=== PATIENT | female | born 1945 | race Caucasian/White ===

== ENCOUNTER 2017-04-14 16:10 | Inpatient (IN) | payer MEDICARE ==
[2017-04-14] MEDS ORDERED: Nitroglycerin 0.4 MG TAB (25 Tab Bottle) ONE (17:26)
[2017-04-14] MEDS ORDERED: Acetaminophen 500 MG TAB ONE (17:32)
[2017-04-14 18:31] LABS: Bilirubin Negative (Negative); Blood, Urine Negative (Negative); Clarity CLEAR (Clear); Glucose, Urine (Dipstick) Negative (Negative); Leukocyte Negative (Negative); Nitrite Negative (Negative); Protein, Urine (Dipstick) 100 mg/dL (Neg-Trace); Specific Gravity, Urine 1.013 (1.002-1.036); Urobilinogen 0.2 mg/dL (0.2-1.0); pH, Urine 5.5 (5.0-9.0)
--- NOTE | 2017-04-14 18:35 | RAD ---
TWO VIEWS CHEST: 04/14/17 PROVIDED CLINICAL HISTORY: Dyspnea. FINDINGS: The cardiac silhouette appears enlarged. There is prominence of the pulmonary vasculature and pulmona ry interstitium. Atherosclerosis involves the aortic arch. No focal consolidation, pleural fluid or p neumothorax apparent. Degenerative changes are seen involving the thoracic spine. IMPRESSION: Cardiomegaly and findings suggesting congestive failure. POS: H
[2017-04-14 18:38] LABS: Bacteria/HPF None Seen HPF (None Seen); Hyaline Casts/LPF 0-3 HYALINE CAST LPF (0-3 Hyaline); RBC/HPF 0-3 HPF (0-3); Squamous Epithelial None Seen HPF (0-3); WBC/HPF None Seen HPF (0-3)
[2017-04-14] MEDS ORDERED: Albuterol Sulfate 2.5 mg/3 ml Neb ONE ×2 (18:39→22:07)
[2017-04-14 18:57] LABS: Hemoglobin 7.8 g/dL (12.0-16.0); Mean Corpuscular HGB CONC 31.9 g/dL (32.0-36.0); Mean Corpuscular Hemoglobin 20.9 pg (27.0-31.0); Mean Corpuscular Volume 65.6 fl (81.0-99.0); Mean Platelet Volume 6.4 fL (7.4-10.4); Platelet Count 256 thou/uL (130-400); RBC Distribution Width 18.9 % (11.5-14.5); Red Blood Cell (RBC) Count 3.73 mill/uL (4.20-5.40)
[2017-04-14 19:27] LABS: #Lymphocytes 0.7 thou/uL (1.20-3.40); #Monocytes 0.1 thou/uL (0.11-0.59); #Neutrophils 4.1 thou/uL (1.40-6.50); %Basophils 0.3 % (0.0-1.0); %Eosinophils 0.6 % (0.0-10.0); %Monocytes 2.2 % (0.0-10.0); %Neutrophils 82.9 % (42.0-75.0); Anisocytosis SLIGHT = 6-15 cells (100X) (0-5/hpf); Basophilic Stippling SLIGHT = 1-2 cells (100X) (None Seen); Hypochromia MODERATE=16-30 cells (100X) (0-5/hpf); MDiff Complete? YES; Microcytosis SLIGHT = 6-15 cells (100X) (0-5/hpf); Ovalocytes SLIGHT = 2-5 cells (100X) (0-1/hpf); PLT Morphology Comment Appears Adequate; Polychromasia SLIGHT = 2-3 cells (100X) (0-2/hpf); Target Cells SLIGHT = 2-5 cells (100X) (0-1/hpf); Tear Drops SLIGHT = 2-5 cells (100X) (0-1/hpf)
[2017-04-14 20:42] LABS: CKMB 1.4 ng/mL (0-6.6); Troponin I 0.011 ng/mL (< 0.028)
[2017-04-14] MEDS ORDERED: Ondansetron HCl/PF 4 MG/2 ML Vial ONE (20:53)
[2017-04-14] MEDS ORDERED: Morphine 4 MG/ML VIAL ONE ×2 (20:53→21:45)
[2017-04-14 22:05] LABS: CKMB 1.2 ng/mL (0-6.6); Troponin I 0.015 ng/mL (< 0.028)
[2017-04-14] MEDS ORDERED: Ondansetron ODT 4 MG TAB SL PRN (23:39)
[2017-04-14] MEDS ORDERED: Ondansetron HCl/PF 4 MG/2 ML Vial IVP PRN (23:39)
[2017-04-14] MEDS ORDERED: Acetaminophen 325 MG TAB PO PRN (23:39)
[2017-04-15] MEDS ORDERED: Morphine 4 MG/ML VIAL SLOW IVP SCH ×2 (01:00→16:30)
[2017-04-15] MEDS ORDERED: traZODone HCl 50 MG TAB PO SCH ×2 (01:15→21:00)
[2017-04-15] MEDS: ALPRAZolam 1 MG TAB PO PRN ×2 (02:20→16:44)
[2017-04-15] MEDS ORDERED: Acetaminophen 325 MG TAB PO PRN (10:21)
[2017-04-15 11:31] LABS: Iron 73 ug/dL (50-170); Iron Binding Capacity, Total 265 mcg/dL (265-497)
[2017-04-15] MEDS ORDERED: Sterile Water 10 ML ONE ×2 (12:23→15:21)
[2017-04-15] MEDS: hydrALAZINE 25 MG TAB PO SCH ×2 (13:57→20:55)
[2017-04-15] MEDS ORDERED: Furosemide 20 MG/2 ML VIAL SLOW IVP SCH (14:00)
--- NOTE | 2017-04-15 14:21 | HP ---
REASON FOR ADMISSION: Acute COPD exacerbation, mild CHF exacerbation, symptomatic anemia. HISTORY OF PRESENT ILLNESS: The patient gives history of having wheezing with shortness of breath from the last 2 days. This has been progressively getting worse. She went to [facility] as she was not getting better at home. In [facility], she was also found to have had a hemoglobin of 7. 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 She had a hemoglobin of 3 grams 2-1/2 years ago and was given massive transfusion either in [place] or [facility]. The patient also complains of left-sided chest pain with pain radiating to left upper extremity, this started yesterday. The pain was off and on lasting for few minutes in fact less than 1-2 minutes. The patient has been a smoker all for more than 20-30 years and says she smokes 3-4 cigarettes a day. She has cough with expectoration of white phlegm. No fever as such. The patient does not take flu shots on a regular basis. PAST MEDICAL AND SURGICAL HISTORY: History of coronary artery disease with stent placed in January of this year by Dr. Orellana at [facility]. Post-stent, the patient was in [place] rehab for nearly 22 days. 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 CURRENT MEDICATIONS: Takes losartan 50 mg twice daily, metoprolol 25 mg twice daily, omeprazole 20 mg daily, simvastatin 40 mg daily, hydralazine 100 mg 3 times daily, alprazolam 1 mg twice daily, amlodipine 10 mg daily, aspirin 81 mg daily, Plavix 75 mg daily, Ultram p.r.n. for pain, and trazodone 50 mg p.o. at bedtime. ALLERGIES: Allergic to LISINOPRIL. PERSONAL HISTORY: Smokes 3-4 cigarettes a day and has been doing so for the last 20-30 years. Does not abuse alcohol or drugs. The patient lives in [facility]. FAMILY HISTORY: Mother of old age at the age of 83 years. Father of [place] at the age of 64 years. CODE STATUS: DNR. Power of vamp cut out worker is her son, Tera. REVIEW OF SYSTEMS: The following complete review of systems was negative, unless otherwise mentioned in the HPI or below: Constitutional: Weight loss or gain, ability to conduct usual activities. Skin: Rash, itching. Eyes: Double vision, pain. ENT/Mouth: Nose bleeding, neck stiffness, pain, tenderness. Cardiovascular: Palpitations, dyspnea on exertion, orthopnea. Respiratory: Shortness of breath, wheezing, cough, hemoptysis, fever or night sweats. Gastrointestinal: Poor appetite, abdominal pain, heartburn, nausea, vomiting, constipation, or diarrhea. Genitourinary: Urgency, frequency, dysuria, nocturia. Musculoskeletal: Pain, swelling. Neurologic/Psychiatric: Anxiety, depression. Allergy/Immunologic: Skin rash, bleeding tendency. PHYSICAL EXAMINATION: GENERAL: Patient is a 71-year-old female, who is currently in mild shortness of breath, otherwise no chest pain. VITAL SIGNS: Blood pressure on arrival was 206/89, currently around 152/66. Pulse 86 per minute, respiratory rate 24 per minute on arrival, temperature 98.5 degrees Fahrenheit, and saturating 100% on 2 liters nasal cannula. NECK: Supple, no elevated JVD. HEENT: Eyes: Extraocular muscles intact. Pupils reacting to light. Oral cavity mucous membranes are moist. No exudates or congestion. CARDIOVASCULAR: S1 and S2 heard. Regular rhythm. RESPIRATORY: Air entry 1+ bilateral. Scattered wheezes plus bilateral basal rales plus. ABDOMEN: Soft, bowel sounds heard. No tenderness, rigidity, or guarding. EXTREMITIES: No peripheral edema or calf tenderness. VASCULAR SYSTEM: Peripheral pulses 1+ bilateral. No ischemic ulcerations or gangrene. CENTRAL NERVOUS SYSTEM: No gross focal deficits seen. Patient is alert, awake , oriented x3. PSYCHIATRIC: The patient's mood is euthymic. No hallucinations or delusions. LABORATORY DATA AND X-RAY FINDINGS: White count 5, H&H 7.8 and 24, platelet count 256, MCV is 65 with 82% neutrophils, troponin x2 is negative. CK-MB 1.4. Stool occult blood negative. Chest x-ray shows cardiomegaly with findings suggestive of CHF. BUN 21, creatinine 1.52. Serum bicarbonate 20. BNP is 637. CLINICAL IMPRESSION AND PLAN: The patient will be admitted to telemetry for acute on chronic obstructive pulmonary disease exacerbation, acute congestive heart failure exacerbation, symptomatic anemia. The patient has received 1 unit of packed cells for her hemoglobin of around 7 grams. She has known history of thalassemia minor. The patient does not follow with outpatient Hematology/Oncology. She has had a prior episode of her hemoglobin being 3 grams 2-1/2 years ago and was transfused massively at [facility] or [place], which she does not recollect. She has also had a stent placed in January of this year and patient says since then she has been going downhill. We will obtain an echo with 2D Doppler. She will be on Solu-Medrol 40 mg IV q.6 hourly along with DuoNebs, Lasix 20 mg q.12 hourly. We will continue her aspirin, Plavix, small dose of Coreg, Norvasc, and Cozaar as before. She will be closely monitored on telemetry. RONI
[2017-04-15] MEDS ORDERED: Nitroglycerin 0.4 MG TAB (25 Tab Bottle) ONE (15:09)
[2017-04-15] MEDS ORDERED: Nitroglycerin 50 MG/250 ML BOT 250 ML IVPB SCH (15:30)
[2017-04-15] MEDS ORDERED: Nitroglycerin 2% Ointment 1 INCH/1 GM Packet TOP SCH (15:30)
[2017-04-15] MEDS ORDERED: Furosemide 40 MG/4 ML VIAL ONE (16:19)
[2017-04-15] MEDS ORDERED: Clopidogrel Bisulfate 75 MG TAB PO SCH (16:45)
[2017-04-15] MEDS: Clopidogrel Bisulfate 75 MG TAB PO SCH (17:01)
[2017-04-15] MEDS ORDERED: niCARdipine HCl 25 MG in Sodium Chloride 0.9% 250 ML 240 ML IVPB SCH (17:15)
[2017-04-15 17:45] LABS: Mean Corpuscular HGB CONC 32.6 g/dL (32.0-36.0); Mean Corpuscular Hemoglobin 22.6 pg (27.0-31.0); Mean Corpuscular Volume 69.1 fl (81.0-99.0); Mean Platelet Volume 6.3 fL (7.4-10.4); Platelet Count 232 thou/uL (130-400); RBC Distribution Width 20.5 % (11.5-14.5); Red Blood Cell (RBC) Count 3.55 mill/uL (4.20-5.40); White Blood Cell (WBC) Count 7.8 thou/uL (4.8-10.8)
[2017-04-15 17:59] LABS: #Lymphocytes 0.8 thou/uL (1.20-3.40); #Monocytes 0.1 thou/uL (0.11-0.59); #Neutrophils 6.8 thou/uL (1.40-6.50); %Basophils 0.1 % (0.0-1.0); %Eosinophils 0.2 % (0.0-10.0); %Lymphocytes 10.6 % (21.0-51.0); %Monocytes 1.3 % (0.0-10.0); %Neutrophils 87.8 % (42.0-75.0); Hypochromia SLIGHT = 6-15 cells (100X) (0-5/hpf); MDiff Complete? YES; Ovalocytes SLIGHT = 2-5 cells (100X) (0-1/hpf); PLT Morphology Comment Appears Adequate; Tear Drops SLIGHT = 2-5 cells (100X) (0-1/hpf)
--- NOTE | 2017-04-15 18:00 | CON ---
DATE OF CONSULTATION: 04/15/2017 HISTORY OF PRESENT ILLNESS: The patient is an unfortunate 71-year-old woman with a history of severe COPD and coronary artery disease, who presents with severe dyspnea and with chest discomfort. The patient has a long history of COPD. She also has a history of thalassemia. The patient recently underwent PTCA and stent placement at [facility]. The patient has a long history of tobacco abuse and COPD. The patient presented with marked increased dyspnea. The patient today suddenly developed acute onset of severe dyspnea and chest discomfort. PAST MEDICAL HISTORY: 1. Coronary artery disease. 2. Hypertension. 3. Dyslipidemia. PAST SURGICAL HISTORY: MEDICATIONS: See nursing list. ALLERGIES: LISINOPRIL. SOCIAL HISTORY: The patient continues to smoke. FAMILY HISTORY: Strong family history of heart disease. PHYSICAL EXAMINATION: GENERAL: This is a very ill-appearing woman with a blood pressure 226/120, heart rate was 120 and regular. NECK: Full. LUNGS: Diffuse wheezes throughout both lung nascimento and coarse rhonchi. HEART: Regular rate and rhythm, normal S1, S2, distant heart sounds. ABDOMEN: Distended. EXTREMITIES Showed trace edema. LABORATORY DATA: White blood cell count was 5.0, hemoglobin 7.8, hematocrit 24.5, and her platelets were 256. Sodium was 144, potassium 4.0, chloride 109, bicarbonate 20, BUN 21, creatinine 1.52. Troponin 0.011. BNP 637. Her EKG revealed normal sinus rhythm with no acute ST-T wave changes. IMPRESSION: 1. Hypertensive crisis. 2. Angina. 3. History of percutaneous transluminal coronary angioplasty and stent placement. 4. Severe chronic obstructive pulmonary disease exacerbation. 5. Dyslipidemia. 6. Tobacco abuse. 7. Thalassemia. This patient presents with acute respiratory distress and severe respiratory distress. The patient is being treated with nebulizers. The patient has received nitroglycerin. The patient will be transferred to the ICU. She will be placed on IV nitroglycerin. Pulmonary consultation will be obtained. An echocardiogram will also be obtained. We will follow this patient with you through her hospitalization. RONI
[2017-04-15 18:10] LABS: ALT (SGPT) 17 U/L (8-55); AST (SGOT) 22 U/L (5-34); Albumin 4.4 g/dL (3.4-4.8); Alkaline Phosphatase 111 U/L (40-150); Anion Gap 18 mmol/L (10-20); BUN (Urea Nitrogen) 33 mg/dL (9.8-20.1); Bilirubin, Total 0.3 mg/dL (0.2-1.2); Calc. Creatinine Clearance 37 mL/min (70-130); Calcium 10.4 mg/dL (7.8-10.44); Carbon Dioxide 22 mmol/L (23-31); Chloride 105 mmol/L (98-107); Estimated GFR-MDRD 32; Globulin 2.7 g/dL (2.4-3.5); Glucose 188 mg/dL (83-110); Potassium 3.9 mmol/L (3.5-5.1); Protein, Total 7.1 g/dL (6.0-8.3); Sodium 141 mmol/L (136-145)
[2017-04-15] MEDS: Morphine 2 MG/ML SYRINGE SLOW IVP PRN (18:55)
[2017-04-15] MEDS ORDERED: Furosemide 100 MG/10 ML VIAL SLOW IVP SCH (20:18)
[2017-04-15] MEDS: traZODone HCl 50 MG TAB PO SCH (20:53)
[2017-04-15] MEDS: Ferrous Sulfate 325 MG TAB PO SCH (20:54)
[2017-04-15] MEDS: Amoxicillin/Potassium Clav 875 MG TAB PO SCH (20:54)
[2017-04-15] MEDS: Magnesium Oxide 400 MG TAB PO SCH (20:55)
[2017-04-15] MEDS: Famotidine 20 MG TAB PO SCH (20:55)
[2017-04-15] MEDS: Amlodipine 10 MG TAB PO SCH (20:55)
[2017-04-15] MEDS: Simvastatin 40 MG TAB PO SCH (20:55)
[2017-04-15] MEDS ORDERED: Carvedilol 3.125 MG TAB PO SCH (21:00)
--- NOTE | 2017-04-16 01:35 | CON ---
DATE OF CONSULTATION: 04/15/2017 Ms. Barron is a 71-year-old female. This is a Critical Care consultation. The note encompasses 40 mi nutes of critical care time with multiple visits during her arrival in the ICU a few minutes ago. Anderson is a 71-year-old female. She presented with shortness of breath for 2 days. She was sent over from [place], admitted to the observation unit and then today transferred over to the critical care unit. I was consulted for wheezing. She is a smoker, but never has been told she had asthma or obstructive lung disease. She has never been in the hospital for obstructive lung disease. She has been in the hospital in January of this year with coronary artery disease and myocardial infa rction requiring stenting. Apparently this is done in [place]. She has a history of, 1. Hypertension. 2. History of lipid disorder. 3. History of thalassemia. She is a smoker, but only smokes 3-4 cigarettes a day. She is not a drinker. She does not use drugs . She reports an JORGE inhibitor intolerance. MEDICATIONS: She is on losartan, metoprolol, omeprazole, simvastatin, hydralazine, Xanax, amlodipine , aspirin, Plavix, Ultram, trazodone p.r.n. FAMILY HISTORY: Positive for vascular disease in her father in his 60s. Mother at 83. REVIEW OF SYSTEMS: She reports simply shortness of breath. She denies purulent sputum. She denies fever or hemoptysis. She reports some vague chest discomfort with shortness of breath. She was hypertensive and tachycardic with diastolics over 100 when she arrived in the ICU. She was started on nitroglycerin drip. Cardene drip was added to that. She has been given Lasix. She is in sinus rhythm when she arrived. Several EKGs were done that confirmed that. PHYSICAL EXAMINATION: VITAL SIGNS: Respiratory rate was initially in the 30s, it has come down to the teens now. Oximetry is 97%, now on 5 liter cannula. HEENT: Pupils are equal. Sclerae is anicteric. NECK: Supple. She has no lymphadenopathy. LUNGS: Remarkable for crackles bilaterally and diffuse wheezes. HEART: Regular rhythm. ABDOMEN: Soft and nontender. EXTREMITIES: Without clubbing, cyanosis, or edema. LABORATORY DATA: White count 7.8, hemoglobin 8.0, platelets 232. Sodium 141, potassium 3.9, chlorid e 105, bicarbonate 22, BUN 33, creatinine 1.59, glucose 188. Urinalysis is unremarkable. Chest radi ograph shows pulmonary edema. IMPRESSION: 1. Cardiac asthma be unlikely that this is chronic obstructive pulmonary disease and congestive hear t failure. It is much more likely this is all cardiac asthma and control of her blood pressure and d iuresis. We will probably lead to improvement. I just reevaluated her and there has been a dramatic improvement in her clinical condition compared to a couple of hours ago. I will give her more Lasix . She will continue on her Cardene and her nitroglycerin. 2. Anemia of unclear etiology. She clearly has thalassemia leading to decreased mean corpuscular vo lume, but anemia is also out of proportion and we should see for this. There is a history she provid es of having requiring transfusions for hemoglobin as low as 3 in the past. 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 I will be happy to follow along with the other physicians caring for her.
[2017-04-16 04:36] VITALS: BMI 26.4
[2017-04-16] MEDS: Furosemide 40 MG/4 ML VIAL SLOW IVP SCH ×2 (05:32→14:11)
[2017-04-16 06:00] LABS: Anion Gap 16 mmol/L (10-20); BUN (Urea Nitrogen) 39 mg/dL (9.8-20.1); Calc. Creatinine Clearance 35 mL/min (70-130); Calcium 9.5 mg/dL (7.8-10.44); Carbon Dioxide 22 mmol/L (23-31); Chloride 104 mmol/L (98-107); Estimated GFR-MDRD 29; Glucose 161 mg/dL (83-110); Potassium 4.5 mmol/L (3.5-5.1); Sodium 137 mmol/L (136-145)
[2017-04-16 06:15] LABS: Hemoglobin 7.4 g/dL (12.0-16.0); Mean Corpuscular HGB CONC 32.2 g/dL (32.0-36.0); Mean Corpuscular Hemoglobin 22.4 pg (27.0-31.0); Mean Corpuscular Volume 69.4 fl (81.0-99.0); Mean Platelet Volume 11.6 fL (7.4-10.4); Platelet Count 214 thou/uL (130-400); RBC Distribution Width 20.6 % (11.5-14.5); Red Blood Cell (RBC) Count 3.32 mill/uL (4.20-5.40); White Blood Cell (WBC) Count 6.7 thou/uL (4.8-10.8)
[2017-04-16 07:46] LABS: #Lymphocytes 0.7 thou/uL (1.20-3.40); #Monocytes 0.1 thou/uL (0.11-0.59); #Neutrophils 5.8 thou/uL (1.40-6.50); %Eosinophils 0.6 % (0.0-10.0); %Monocytes 1.8 % (0.0-10.0); %Neutrophils 87.6 % (42.0-75.0); Anisocytosis SLIGHT = 6-15 cells (100X) (0-5/hpf); MDiff Complete? YES; Microcytosis SLIGHT = 6-15 cells (100X) (0-5/hpf); Schistocytes SLIGHT = 2-5 cells (100X) (0-1/hpf); Target Cells SLIGHT = 2-5 cells (100X) (0-1/hpf); Tear Drops SLIGHT = 2-5 cells (100X) (0-1/hpf)
[2017-04-16] MEDS: Amoxicillin/Potassium Clav 875 MG TAB PO SCH ×2 (08:59→20:30)
[2017-04-16] MEDS: Losartan 25 MG TAB PO SCH ×2 (08:59→20:31)
[2017-04-16] MEDS ORDERED: Enoxaparin Sodium 40 MG/0.4 ML SYRINGE SC SCH (09:00)
[2017-04-16] MEDS: Fish Oil 1,000 MG CAP PO SCH (09:00)
[2017-04-16] MEDS: hydrALAZINE 25 MG TAB PO SCH ×3 (09:00→20:30)
[2017-04-16] MEDS: Clopidogrel Bisulfate 75 MG TAB PO SCH (09:01)
[2017-04-16] MEDS: Ferrous Sulfate 325 MG TAB PO SCH ×2 (09:01→20:30)
[2017-04-16] MEDS: Magnesium Oxide 400 MG TAB PO SCH ×2 (09:01→20:33)
[2017-04-16] MEDS: Famotidine 20 MG TAB PO SCH ×2 (09:01→20:30)
--- NOTE | 2017-04-16 11:16 | RAD ---
AP VIEW CHEST: Date: 04/16/17 HISTORY: Congestive heart failure. FINDINGS: Comparison made to previous exam from 04/14/17. AP view of chest demonstrates cardiomegaly. Ectasia of the aorta is seen. Mild dextroscoliosis seen. The lungs are well aerated. No evidence of active intrathoracic disease is seen. No evidence of effus ions, pneumonia, or pneumothorax seen. IMPRESSION: Cardiomegaly, unchanged since the previous exam from 2 days earlier. No other significant interval ch mt is noted. POS: ZULEYMA
[2017-04-16] MEDS ORDERED: Metoprolol Tartrate 5 MG/5 ML VIAL ONE (12:06)
[2017-04-16] MEDS: Morphine 2 MG/ML SYRINGE SLOW IVP PRN (12:14)
[2017-04-16] MEDS ORDERED: ALPRAZolam 0.25 MG TAB PO SCH (13:00)
--- NOTE | 2017-04-16 13:28 | PDOC.PN ---
- Subjective Encounter Start Date: 04/16/17 Encounter Start Time: 11:00 Subjective: awake, breathing better - Objective MAR Reviewed: Yes Vital Signs & Weight: Vital Signs (12 hours) Temp Pulse Resp BP Pulse Ox 04/16/17 13:05 90 19 94 L 04/16/17 09:00 102 H 128/57 L 04/16/17 07:47 102 H 19 92 L 04/16/17 04:00 98.2 F 99 Weight Weight 163 lb 12.855 oz Most Recent Monitor Data Heart Rate from ECG 88 NIBP 142/59 NIBP BP-Mean 84 Respiration from ECG 15 SpO2 99 I&O: 04/15/17 04/16/17 04/17/17 06:59 06:59 06:59 Intake Total 1080.5 Output Total 1080 Balance 0.5 Result Diagrams: 04/16/17 04:05 04/16/17 04:05 Phys Exam - Physical Examination HEENT: PERRLA, moist MMs Neck: no JVD, supple Respiratory: no wheezing, no rales rhonchi++ Cardiovascular: RRR, no significant murmur Gastrointestinal: soft, non-tender, positive bowel sounds Musculoskeletal: no edema, pulses present Neurological: non-focal, moves all 4 limbs Psychiatric: A&O x 3 Dx/Plan (1) Acute respiratory failure with hypoxia Code(s): J96.01 - ACUTE RESPIRATORY FAILURE WITH HYPOXIA Status: Acute (2) CHF exacerbation Code(s): I50.9 - HEART FAILURE, UNSPECIFIED Status: Acute Qualifiers: Congestive heart failure type: diastolic Qualified Code(s): I50.33 - Acute on chronic diastolic (congestive) heart failure (3) COPD exacerbation Code(s): J44.1 - CHRONIC OBSTRUCTIVE PULMONARY DISEASE W (ACUTE) EXACERBATION Status: Acute (4) CAD (coronary artery disease) Code(s): I25.10 - ATHSCL HEART DISEASE OF [place] CORONARY ARTERY W/O ANG PCTRS Status: Chronic Qualifiers: Coronary Disease-Associated Artery/Lesion type: [place] artery [place] vs. transplanted heart: [place] heart Associated angina: without angina Qualified Code(s): I25.10 - Atherosclerotic heart disease of [place] coronary artery without angina pectoris (5) Anemia Code(s): D64.9 - ANEMIA, UNSPECIFIED Status: Acute (6) Thalassemia minor Code(s): D56.3 - THALASSEMIA MINOR Status: Chronic - Plan gentle diuresis, htn stable this am -: steroids, nebs, empiric augmentin -: oob to chair and mobilize in room -: is on nasal canula -: echo results pending * . Review of Systems - Medications/Allergies Allergies/Adverse Reactions: Allergies Allergy/AdvReac Type Severity Reaction Status Date / Time lisinopril Allergy Verified 04/14/17 23:25 Medications: Current Medications Acetaminophen (Tylenol) 650 mg PO Q4H PRN PRN Reason: Headache/Fever or Pain Last Admin: 04/15/17 20:54 Dose: 650 mg Albuterol/Ipratropium (Duoneb) 3 ml NEB [id number] [facility] Last Admin: 04/16/17 13:05 Dose: 3 ml Alprazolam (Xanax) 1 mg PO Q12H PRN PRN Reason: Anxiety Last Admin: 04/15/17 16:44 Dose: 1 mg Alprazolam (Xanax) 0.25 mg PO BID [facility] Alprazolam (Xanax) 0.25 mg PO NOW [facility] Stop: 04/16/17 14:30 Amlodipine Besylate (Norvasc) 10 mg PO HS [facility] Last Admin: 04/15/17 20:55 Dose: 10 mg Amoxicillin/Clavulanate Potassium (Augmentin) 875 mg PO BID [facility] Last Admin: 04/16/17 08:59 Dose: 875 mg Aspirin (Aspirin Chewable) 81 mg PO DAILY [facility] Last Admin: 04/16/17 09:01 Dose: 81 mg Clopidogrel Bisulfate (Plavix) 75 mg PO DAILY [facility] Last Admin: 04/16/17 09:01 Dose: 75 mg Enoxaparin Sodium (Lovenox) 40 mg SC 0900 [facility] Last Admin: 04/16/17 09:02 Dose: 40 mg Famotidine (Pepcid) 20 mg PO BID [facility] Last Admin: 04/16/17 09:01 Dose: 20 mg Ferrous Sulfate (Feosol) 325 mg PO BID [facility] Last Admin: 04/16/17 09:01 Dose: 325 mg Fish Oil (Fish Oil) 1,000 mg PO DAILY [facility] Last Admin: 04/16/17 09:00 Dose: 1,000 mg Furosemide (Lasix) 40 mg SLOW IVP 0600,1400 [facility] Last Admin: 04/16/17 05:32 Dose: 40 mg Hydralazine HCl (Apresoline) 100 mg PO TID [facility] Last Admin: 04/16/17 09:00 Dose: 100 mg Nitroglycerin/Dextrose (Nitroglycerin 50 Mg/250 Ml Bot) 250 mls @ 0 mls/hr IVPB INF [facility]; Titrate PRN Reason: Protocol Last Admin: 04/15/17 16:24 Dose: 250 mls Nicardipine HCl 25 mg/ Sodium (Chloride) 250 mls @ 0 mls/hr IVPB INF [facility]; Titrate PRN Reason: Protocol Last Admin: 04/15/17 18:06 Dose: 250 mls Losartan Potassium (Cozaar) 50 mg PO BID [facility] Last Admin: 04/16/17 08:59 Dose: 50 mg Magnesium Oxide (Magnesium Oxide) 400 mg PO BID [facility] Last Admin: 04/16/17 09:01 Dose: 400 mg Methylprednisolone Sodium Succinate (Solu-Medrol) 40 mg IVP Q6HR [facility] Last Admin: 04/16/17 11:49 Dose: 40 mg Metoprolol Succinate (Toprol Xl) 25 mg PO BID [facility] Metoprolol Succinate (Toprol Xl) 25 mg PO NOW [facility] Stop: 04/16/17 14:15 Last Admin: 04/16/17 12:35 Dose: 25 mg Morphine Sulfate (Morphine) 2 mg SLOW IVP Q2H PRN PRN Reason: Pain Last Admin: 04/16/17 12:14 Dose: 2 mg Simvastatin (Zocor) 40 mg PO HS [facility] Last Admin: 04/15/17 20:55 Dose: 40 mg Trazodone HCl (Desyrel) 50 mg PO HS [facility] Last Admin: 04/15/17 20:53 Dose: 50 mg
[2017-04-16] MEDS: Amlodipine 10 MG TAB PO SCH (20:30)
[2017-04-16] MEDS: ALPRAZolam 0.25 MG TAB PO SCH (20:30)
[2017-04-16] MEDS: traZODone HCl 50 MG TAB PO SCH (20:32)
[2017-04-16] MEDS: Simvastatin 40 MG TAB PO SCH (20:32)
--- NOTE | 2017-04-16 21:56 | PRG ---
DATE OF SERVICE: 04/16/2017 SUBJECTIVE: Ms. Barron did well. She says she feels 100% better than yesterday. OBJECTIVE: VITAL SIGNS: Blood pressure 158/71, heart rate is 91, respiratory rate is 18. Intake and output was actually even. LUNGS: No longer remarkable for wheezes. HEART: Regular rhythm. ABDOMEN: Soft. LABORATORY DATA: White count 6.7, hemoglobin 7.4, and platelets 214. Sodium 137, potassium 4.5, chloride 104, bicarbonate 22, BUN 39, and creatinine 1.71. IMPRESSION: 1. Cardiac asthma. 2. Anemia is probably would benefit from transfusion. 3. History of pneumonia in the past. She has been seen by my old fellowship co-worker Dr. Osmar lopez in [place], who was never told she had asthma or obstructive lung disease. PLAN: Continue monitoring blood pressure. Continue with respiratory care, diuresis, and consider tr ansfusion.
[2017-04-17] MEDS: Furosemide 40 MG/4 ML VIAL SLOW IVP SCH (05:14)
[2017-04-17 05:42] LABS: Anion Gap 17 mmol/L (10-20); BUN (Urea Nitrogen) 61 mg/dL (9.8-20.1); Calc. Creatinine Clearance 34 mL/min (70-130); Calcium 9.6 mg/dL (7.8-10.44); Carbon Dioxide 21 mmol/L (23-31); Chloride 104 mmol/L (98-107); Estimated GFR-MDRD 29; Glucose 210 mg/dL (83-110); Sodium 137 mmol/L (136-145)
[2017-04-17 06:00] LABS: Band 2 % (5-11); Hemoglobin 8.3 g/dL (12.0-16.0); Hypochromia SLIGHT = 6-15 cells (100X) (0-5/hpf); Lymphocytes 10 % (21-51); MDiff Complete? YES; Mean Corpuscular HGB CONC 32.1 g/dL (32.0-36.0); Mean Corpuscular Hemoglobin 22.5 pg (27.0-31.0); Mean Platelet Volume 7.1 fL (7.4-10.4); Microcytosis SLIGHT = 6-15 cells (100X) (0-5/hpf); Monocytes 2 % (0-10); Neutrophil 86 % (42-75); Nucleated RBC 2 % (0); PLT Morphology Comment Appears Adequate; Platelet Count 245 thou/uL (130-400); Red Blood Cell (RBC) Count 3.68 mill/uL (4.20-5.40); Target Cells SLIGHT = 2-5 cells (100X) (0-1/hpf); White Blood Cell (WBC) Count 11.4 thou/uL (4.8-10.8)
[2017-04-17] MEDS ORDERED: Sodium Chloride 0.9% 1,000 ML IV SCH (08:15)
[2017-04-17] MEDS: Famotidine 20 MG TAB PO SCH ×2 (08:34→20:58)
[2017-04-17] MEDS: Clopidogrel Bisulfate 75 MG TAB PO SCH (08:35)
[2017-04-17] MEDS: ALPRAZolam 0.25 MG TAB PO SCH ×2 (08:36→20:56)
[2017-04-17] MEDS: hydrALAZINE 25 MG TAB PO SCH ×3 (08:36→20:57)
[2017-04-17] MEDS: Magnesium Oxide 400 MG TAB PO SCH ×2 (08:37→20:56)
[2017-04-17] MEDS: Ferrous Sulfate 325 MG TAB PO SCH ×2 (08:37→20:56)
[2017-04-17] MEDS: Amoxicillin/Potassium Clav 500 MG TAB PO SCH ×2 (08:37→20:55)
[2017-04-17] MEDS: Fish Oil 1,000 MG CAP PO SCH (08:38)
[2017-04-17] MEDS: Enoxaparin Sodium 30 MG/0.3 ML SYRINGE SC SCH (08:41)
--- NOTE | 2017-04-17 11:40 | PDOC.PN ---
- Subjective Encounter Start Date: 04/17/17 Encounter Start Time: 11:15 Subjective: awake, feels better, no sob - Objective MAR Reviewed: Yes Vital Signs & Weight: Vital Signs (12 hours) Temp Pulse Resp Pulse Ox 04/17/17 08:37 88 17 99 04/17/17 08:36 78 04/17/17 07:53 98.1 F 78 18 97 04/17/17 07:00 98.1 F 04/17/17 04:00 98.4 F 04/17/17 01:47 85 16 96 04/17/17 00:00 98.1 F Weight Weight 166 lb 0.129 oz Most Recent Monitor Data Heart Rate from ECG 89 NIBP 151/64 NIBP BP-Mean 109 Respiration from ECG 20 SpO2 96 I&O: 04/16/17 04/17/17 04/18/17 06:59 06:59 06:59 Intake Total 1080.5 1990 410 Output Total 1080 2445 920 Balance 0.5 -455 -510 Result Diagrams: 04/17/17 04:12 04/17/17 04:12 Phys Exam - Physical Examination HEENT: PERRLA, sclera anicteric Neck: no JVD, supple Respiratory: no wheezing, no rales rhonchi+ Cardiovascular: RRR, no significant murmur Gastrointestinal: soft, non-tender, positive bowel sounds Musculoskeletal: no edema, pulses present Neurological: non-focal, moves all 4 limbs Psychiatric: A&O x 3 Dx/Plan (1) Acute respiratory failure with hypoxia Code(s): J96.01 - ACUTE RESPIRATORY FAILURE WITH HYPOXIA Status: Resolved (2) CHF exacerbation Code(s): I50.9 - HEART FAILURE, UNSPECIFIED Status: Acute Qualifiers: Congestive heart failure type: diastolic Qualified Code(s): I50.33 - Acute on chronic diastolic (congestive) heart failure (3) COPD exacerbation Code(s): J44.1 - CHRONIC OBSTRUCTIVE PULMONARY DISEASE W (ACUTE) EXACERBATION Status: Acute (4) CAD (coronary artery disease) Code(s): I25.10 - ATHSCL HEART DISEASE OF [place] CORONARY ARTERY W/O ANG PCTRS Status: Chronic Qualifiers: Coronary Disease-Associated Artery/Lesion type: [place] artery [place] vs. transplanted heart: [place] heart Associated angina: without angina Qualified Code(s): I25.10 - Atherosclerotic heart disease of [place] coronary artery without angina pectoris (5) Anemia Code(s): D64.9 - ANEMIA, UNSPECIFIED Status: Chronic (6) Thalassemia minor Code(s): D56.3 - THALASSEMIA MINOR Status: Chronic (7) LIA (acute kidney injury) Code(s): N17.9 - ACUTE KIDNEY FAILURE, UNSPECIFIED Status: Acute - Plan dc lasix, dose all meds for renal clearance -: gentle iv hydration for 24hrs -: may tx to telemetry -: nebs, steroids -: pt to amb in room as tolerated on oxygen * . Review of Systems - Medications/Allergies Allergies/Adverse Reactions: Allergies Allergy/AdvReac Type Severity Reaction Status Date / Time lisinopril Allergy Verified 04/14/17 23:25 Medications: Current Medications Acetaminophen (Tylenol) 650 mg PO Q4H PRN PRN Reason: Headache/Fever or Pain Last Admin: 04/15/17 20:54 Dose: 650 mg Albuterol/Ipratropium (Duoneb) 3 ml NEB [id number] [facility] Last Admin: 04/17/17 08:37 Dose: 3 ml Alprazolam (Xanax) 1 mg PO Q12H PRN PRN Reason: Anxiety Last Admin: 04/15/17 16:44 Dose: 1 mg Alprazolam (Xanax) 0.25 mg PO BID [facility] Last Admin: 04/17/17 08:36 Dose: 0.25 mg Amlodipine Besylate (Norvasc) 10 mg PO HS [facility] Last Admin: 04/16/17 20:30 Dose: 10 mg Amoxicillin/Clavulanate Potassium (Augmentin) 500 mg PO Q12HR [facility] Last Admin: 04/17/17 08:37 Dose: 500 mg Aspirin (Aspirin Chewable) 81 mg PO DAILY [facility] Last Admin: 04/17/17 08:35 Dose: 81 mg Clopidogrel Bisulfate (Plavix) 75 mg PO DAILY [facility] Last Admin: 04/17/17 08:35 Dose: 75 mg Enoxaparin Sodium (Lovenox) 30 mg SC 0900 [facility] Last Admin: 04/17/17 08:41 Dose: 30 mg Famotidine (Pepcid) 20 mg PO BID [facility] Last Admin: 04/17/17 08:34 Dose: 20 mg Ferrous Sulfate (Feosol) 325 mg PO BID [facility] Last Admin: 04/17/17 08:37 Dose: 325 mg Fish Oil (Fish Oil) 1,000 mg PO DAILY [facility] Last Admin: 04/17/17 08:38 Dose: 1,000 mg Hydralazine HCl (Apresoline) 100 mg PO TID [facility] Last Admin: 04/17/17 08:36 Dose: 100 mg Nitroglycerin/Dextrose (Nitroglycerin 50 Mg/250 Ml Bot) 250 mls @ 0 mls/hr IVPB INF [facility]; Titrate PRN Reason: Protocol Last Admin: 04/15/17 16:24 Dose: 250 mls Nicardipine HCl 25 mg/ Sodium (Chloride) 250 mls @ 0 mls/hr IVPB INF [facility]; Titrate PRN Reason: Protocol Last Admin: 04/15/17 18:06 Dose: 250 mls Magnesium Oxide (Magnesium Oxide) 400 mg PO BID [facility] Last Admin: 04/17/17 08:37 Dose: 400 mg Methylprednisolone Sodium Succinate (Solu-Medrol) 40 mg IVP Q6HR [facility] Last Admin: 04/17/17 05:14 Dose: 40 mg Metoprolol Succinate (Toprol Xl) 25 mg PO BID [facility] Last Admin: 04/17/17 08:35 Dose: 25 mg Morphine Sulfate (Morphine) 2 mg SLOW IVP Q2H PRN PRN Reason: Pain Last Admin: 04/16/17 12:14 Dose: 2 mg Simvastatin (Zocor) 40 mg PO HS [facility] Last Admin: 04/16/17 20:32 Dose: 40 mg Sodium Chloride (Flush - Normal Saline) 10 ml IVF Q12HR [facility] Sodium Chloride (Flush - Normal Saline) 10 ml IVF PRN PRN PRN Reason: Saline Flush Trazodone HCl (Desyrel) 50 mg PO HS [facility] Last Admin: 04/16/17 20:32 Dose: 50 mg
[2017-04-17] MEDS ORDERED: Midazolam HCl 2 mg/2 ml Vial SLOW IVP PRN (17:02)
[2017-04-17] MEDS: Morphine 4 MG/ML VIAL SLOW IVP PRN ×2 (17:16→17:17)
[2017-04-17] MEDS ORDERED: Midazolam HCl 2 mg/2 ml Vial ONE (17:16)
[2017-04-17] MEDS ORDERED: Amiodarone In Dextrose 200 ML IVPB SCH (17:45)
[2017-04-17] MEDS: traZODone HCl 50 MG TAB PO SCH (20:55)
[2017-04-17] MEDS: Amlodipine 10 MG TAB PO SCH (20:56)
[2017-04-17] MEDS: Simvastatin 40 MG TAB PO SCH (20:58)
--- NOTE | 2017-04-17 23:40 | OP ---
DATE OF PROCEDURE: 04/17/2017 PROCEDURE: Electrical cardioversion INDICATION: This is a 71-year-old woman with paroxysmal atrial fibrillation. DESCRIPTION OF PROCEDURE: The patient was sedated. The patient developed rapid atrial fibrillation with chest discomfort. The patient received 4 mg of IV Versed and 2 mg of IV morphine. The patient was shocked with 120 joules of synchronized electricity. The patient converted to normal sinus rhyth m. IMPRESSION: Successful electrical cardioversion.
--- NOTE | 2017-04-18 00:43 | PRG ---
DATE OF SERVICE: 04/17/2017 SUBJECTIVE: Ms. Barron did well overnight. She had no complaints this morning. Hemodynamics was sta ble overnight. PHYSICAL EXAMINATION: LUNGS: Clear. She was not wheezing. HEART: Regular rhythm. ABDOMEN: Soft. LABORATORY DATA: Reviewed. She felt that she was clinically stable. Apparently, she developed atrial fibrillation on the floor, Dr. Starr managed that. Her hemoglobin was 8.3 today, white count 11.4, platelets 245,000. Sodium 137, potassium 5, chloride 104, bicarb 21, BUN 61, creatinine 1.75. IMPRESSION: 1. Cardiac asthma. 2. Acute on chronic kidney disease. 3. Borderline hyperkalemia. Potassium has been eliminated. 4. History of pneumonia in the past. 5. ?coronary artery disease. 6. Atrial fibrillation with chest pain this evening and followed by Cardiology. PLAN: Switch her to p.o. steroids. I think she needs this dose of IV steroids any longer. She is felt to be stable to move out of the unit earlier today and the atrial fibrillation occurred on the telemetry unit.
[2017-04-18 05:59] LABS: Anion Gap 15 mmol/L (10-20); BUN (Urea Nitrogen) 68 mg/dL (9.8-20.1); Calc. Creatinine Clearance 36 mL/min (70-130); Calcium 9.4 mg/dL (7.8-10.44); Carbon Dioxide 23 mmol/L (23-31); Chloride 104 mmol/L (98-107); Estimated GFR-MDRD 30; Glucose 246 mg/dL (83-110); Potassium 4.3 mmol/L (3.5-5.1); Sodium 138 mmol/L (136-145)
--- NOTE | 2017-04-18 07:02 | CON ---
DATE OF CONSULTATION: 04/17/2017 CONSULTING PHYSICIAN: Dr. Blair REASON FOR CONSULTATION: Acute kidney injury. REASON FOR ADMISSION: Shortness of breath. HISTORY OF PRESENT ILLNESS: This is a 71-year-old female with history of COPD, coronary artery disea se, hypertension, hyperlipidemia, CKD, came to the hospital with shortness of breath and was evaluate d and admitted. The patient was found to have a creatinine of 1.7 and Nephrology is called to evalua te for chronic kidney disease versus acute kidney injury and patient was on diuretics, which were sto pped and is feeling better. PAST MEDICAL HISTORY: Positive for coronary artery disease, COPD, hypertension, hyperlipidemia, anxi ety, . PAST SURGICAL HISTORY: Coronary stents and CABG. HOME MEDICATIONS: Losartan, metoprolol, omeprazole, simvastatin, hydralazine, alprazolam, amlodipine , Plavix, Ultram, multivitamins. ALLERGIES: LISINOPRIL. SOCIAL HISTORY: No smoking, alcohol or illicit drug abuse. FAMILY HISTORY: No history of kidney disease. REVIEW OF SYSTEMS: The following complete review of systems was negative, unless otherwise mentioned in the HPI or below: Constitutional: Weight loss or gain, ability to conduct usual activities. Skin: Rash, itching. Eyes: Double vision, pain. ENT/Mouth: Nose bleeding, neck stiffness, pain, tenderness. Cardiovascular: Palpitations, dyspnea on exertion, orthopnea. Respiratory: Shortness of breath, wheezing, cough, hemoptysis, fever or night sweats. Gastrointestinal: Poor appetite, abdominal pain, heartburn, nausea, vomiting, constipation, or diarrhea. Genitourinary: Urgency, frequency, dysuria, nocturia. Musculoskeletal: Pain, swelling. Neurologic/Psychiatric: Anxiety, depression. Allergy/Immunologic: Skin rash, bleeding tendency. PHYSICAL EXAMINATION: GENERAL: This is a well-built female in no apparent distress. VITAL SIGNS: Temperature 98.3, pulse 81, respirations 18, blood pressure 136/106. HEENT: Atraumatic, normocephalic. Oral mucosa is moist. NECK: Supple. CARDIOVASCULAR: S1, S2 heard. Regular rate and rhythm. RESPIRATORY: Clear. ABDOMEN: Soft. MUSCULOSKELETAL: No edema. DERMATOLOGIC: No skin rash. NEUROLOGIC: Alert, awake. PSYCHIATRIC: Mood and affect normal. LABORATORY: Potassium 5.0, BUN 61, creatinine 1.7. ASSESSMENT AND PLAN: 1. Acute kidney injury most likely from chronic kidney disease stage 3. We will monitor. 2. Mild hyperkalemia. 3. Edema, controlled. 4. Cardiorenal syndrome. 5. Anemia. 6. Hypertension, stable. Follow up with Cardiology. We will continue to monitor renal function. Agree with holding diuretics for now as tolerated. We will follow. Thank you for the consultation.
[2017-04-18 07:03] LABS: Anisocytosis MODERATE=16-30 cells (100X) (0-5/hpf); Hemoglobin 8.8 g/dL (12.0-16.0); Hypochromia SLIGHT = 6-15 cells (100X) (0-5/hpf); Lymphocytes 11 % (21-51); MDiff Complete? YES; Mean Corpuscular HGB CONC 31.8 g/dL (32.0-36.0); Mean Corpuscular Hemoglobin 22.5 pg (27.0-31.0); Mean Corpuscular Volume 70.7 fl (81.0-99.0); Mean Platelet Volume 6.9 fL (7.4-10.4); Monocytes 3 % (0-10); Neutrophil 86 % (42-75); Nucleated RBC 2 % (0); Platelet Count 232 thou/uL (130-400); RBC Distribution Width 20.9 % (11.5-14.5); Red Blood Cell (RBC) Count 3.93 mill/uL (4.20-5.40); White Blood Cell (WBC) Count 12.3 thou/uL (4.8-10.8)
[2017-04-18] MEDS: predniSONE 20 MG TAB PO SCH (07:54)
[2017-04-18] MEDS: ALPRAZolam 0.25 MG TAB PO SCH ×2 (07:56→20:13)
[2017-04-18] MEDS: hydrALAZINE 25 MG TAB PO SCH ×3 (08:46→20:13)
[2017-04-18] MEDS: Ferrous Sulfate 325 MG TAB PO SCH ×2 (08:46→20:14)
[2017-04-18] MEDS: Fish Oil 1,000 MG CAP PO SCH (08:46)
[2017-04-18] MEDS: Amoxicillin/Potassium Clav 500 MG TAB PO SCH ×2 (08:46→20:13)
[2017-04-18] MEDS: Clopidogrel Bisulfate 75 MG TAB PO SCH (08:46)
[2017-04-18] MEDS: Famotidine 20 MG TAB PO SCH ×2 (08:46→20:14)
[2017-04-18] MEDS: Enoxaparin Sodium 30 MG/0.3 ML SYRINGE SC SCH (08:47)
[2017-04-18] MEDS: Magnesium Oxide 400 MG TAB PO SCH ×2 (08:47→20:14)
[2017-04-18] MEDS: Amiodarone 200 MG TAB PO SCH ×2 (09:48→20:13)
--- NOTE | 2017-04-18 10:03 | PDOC.PN ---
- Subjective Encounter Start Date: 04/18/17 Encounter Start Time: 07:45 Subjective: feels better this am, no palp or chest pain -: breathing better - Objective MAR Reviewed: Yes Vital Signs & Weight: Vital Signs (12 hours) Temp Pulse Resp BP Pulse Ox 04/18/17 08:46 68 04/18/17 08:00 97.3 F L 66 17 138/90 96 04/18/17 04:53 98 04/18/17 04:00 97.8 F 68 18 183/79 H 92 L Weight Weight 166 lb 9.6 oz Most Recent Monitor Data Heart Rate from ECG 89 NIBP 151/64 NIBP BP-Mean 109 Respiration from ECG 20 SpO2 96 I&O: 04/17/17 04/18/17 04/19/17 06:59 06:59 06:59 Intake Total 1989 1989 Output Total 3925 0737 Balance -455 -605 Result Diagrams: 04/18/17 04:40 04/18/17 04:40 Phys Exam - Physical Examination HEENT: PERRLA, moist MMs Neck: no JVD, supple Respiratory: no rales, wheezing present Cardiovascular: RRR, no significant murmur Gastrointestinal: soft, non-tender, positive bowel sounds Musculoskeletal: no edema, pulses present Neurological: non-focal, moves all 4 limbs Psychiatric: A&O x 3 Dx/Plan (1) Afib Code(s): I48.91 - UNSPECIFIED ATRIAL FIBRILLATION Status: Acute Comment: s/ p electrical cardioversion 04/17/17 (2) Acute respiratory failure with hypoxia Code(s): J96.01 - ACUTE RESPIRATORY FAILURE WITH HYPOXIA Status: Resolved (3) CHF exacerbation Code(s): I50.9 - HEART FAILURE, UNSPECIFIED Status: Acute Qualifiers: Congestive heart failure type: diastolic Qualified Code(s): I50.33 - Acute on chronic diastolic (congestive) heart failure (4) COPD exacerbation Code(s): J44.1 - CHRONIC OBSTRUCTIVE PULMONARY DISEASE W (ACUTE) EXACERBATION Status: Acute (5) CAD (coronary artery disease) Code(s): I25.10 - ATHSCL HEART DISEASE OF [place] CORONARY ARTERY W/O ANG PCTRS Status: Chronic Qualifiers: Coronary Disease-Associated Artery/Lesion type: [place] artery [place] vs. 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 Review of Systems - Medications/Allergies Allergies/Adverse Reactions: Allergies Allergy/AdvReac Type Severity Reaction Status Date / Time lisinopril Allergy Verified 04/14/17 23:25 Medications: Current Medications Acetaminophen (Tylenol) 650 mg PO Q4H PRN PRN Reason: Headache/Fever or Pain Last Admin: 04/15/17 20:54 Dose: 650 mg Albuterol/Ipratropium (Duoneb) 3 ml NEB [id number] [facility] Last Admin: 04/18/17 08:18 Dose: Not Given Alprazolam (Xanax) 1 mg PO Q12H PRN PRN Reason: Anxiety Last Admin: 04/15/17 16:44 Dose: 1 mg Alprazolam (Xanax) 0.25 mg PO BID [facility] Last Admin: 04/18/17 07:56 Dose: 0.25 mg Amiodarone HCl (Cordarone) 400 mg PO BID [facility] Last Admin: 04/18/17 09:48 Dose: 400 mg Amlodipine Besylate (Norvasc) 10 mg PO HS [facility] Last Admin: 04/17/17 20:56 Dose: 10 mg Amoxicillin/Clavulanate Potassium (Augmentin) 500 mg PO Q12HR [facility] Last Admin: 04/18/17 08:46 Dose: 500 mg Aspirin (Aspirin Chewable) 81 mg PO DAILY [facility] Last Admin: 04/18/17 08:46 Dose: 81 mg Clopidogrel Bisulfate (Plavix) 75 mg PO DAILY [facility] Last Admin: 04/18/17 08:46 Dose: 75 mg Enoxaparin Sodium (Lovenox) 30 mg SC 0900 [facility] Last Admin: 04/18/17 08:47 Dose: Not Given Famotidine (Pepcid) 20 mg PO BID [facility] Last Admin: 04/18/17 08:46 Dose: 20 mg Ferrous Sulfate (Feosol) 325 mg PO BID [facility] Last Admin: 04/18/17 08:46 Dose: 325 mg Fish Oil (Fish Oil) 1,000 mg PO DAILY [facility] Last Admin: 04/18/17 08:46 Dose: 1,000 mg Hydralazine HCl (Apresoline) 100 mg PO TID [facility] Last Admin: 04/18/17 08:46 Dose: 100 mg Isosorbide Mononitrate (Imdur) 60 mg PO DAILY [facility] Last Admin: 04/18/17 09:49 Dose: 60 mg Magnesium Oxide (Magnesium Oxide) 400 mg PO BID [facility] Last Admin: 04/18/17 08:47 Dose: 400 mg Metoprolol Succinate (Toprol Xl) 50 mg PO DAILY [facility] Last Admin: 04/18/17 09:49 Dose: 50 mg Morphine Sulfate (Morphine) 2 mg SLOW IVP Q2H PRN PRN Reason: Pain Last Admin: 04/17/17 17:17 Dose: 2 mg Prednisone (Prednisone) 40 mg PO QAM-WM [facility] Last Admin: 04/18/17 07:54 Dose: 40 mg Simvastatin (Zocor) 40 mg PO HS [facility] Last Admin: 04/17/17 20:58 Dose: 40 mg Sodium Chloride (Flush - Normal Saline) 10 ml IVF Q12HR [facility] Last Admin: 04/18/17 08:49 Dose: 10 ml Sodium Chloride (Flush - Normal Saline) 10 ml IVF PRN PRN PRN Reason: Saline Flush Trazodone HCl (Desyrel) 50 mg PO HS [facility] Last Admin: 04/17/17 20:55 Dose: 50 mg
--- NOTE | 2017-04-18 12:24 | EKG ---
Test Reason : Blood Pressure : / mmHG Vent. Rate : 115 BPM Atrial Rate : 115 BPM P-R Int : 154 ms QRS Dur : 092 ms QT Int : 334 ms P-R-T Axes : 094 011 062 degrees QTc Int : 462 ms Sinus tachycardia Nonspecific ST abnormality Abnormal ECG Confirmed by GIFTY WEISS ([id number]) on 04/18/2017 12:24:38 PM Referred By: ISELA Confirmed By:GIFTY WEISS
--- NOTE | 2017-04-18 16:55 | PDOC.PULPN ---
Progress Note: Subj/Obj - Subjective Date: 04/18/17 Time: 16:54 Subjective: She had no specific complaints. She states that her breathing is better. - ROS All systems: reviewed and no additional remarkable complaints except as stated - Objective Allergies/Adverse Reactions: Allergies Allergy/AdvReac Type Severity Reaction Status Date / Time lisinopril Allergy Verified 04/14/17 23:25 Medications: Current Medications Acetaminophen (Tylenol) 650 mg PO Q4H PRN PRN Reason: Headache/Fever or Pain Last Admin: 04/15/17 20:54 Dose: 650 mg Albuterol/Ipratropium (Duoneb) 3 ml NEB [id number] [facility] Last Admin: 04/18/17 13:12 Dose: 3 ml Alprazolam (Xanax) 1 mg PO Q12H PRN PRN Reason: Anxiety Last Admin: 04/15/17 16:44 Dose: 1 mg Alprazolam (Xanax) 0.25 mg PO BID [facility] Last Admin: 04/18/17 07:56 Dose: 0.25 mg Amiodarone HCl (Cordarone) 400 mg PO BID [facility] Last Admin: 04/18/17 09:48 Dose: 400 mg Amlodipine Besylate (Norvasc) 10 mg PO HS [facility] Last Admin: 04/17/17 20:56 Dose: 10 mg Amoxicillin/Clavulanate Potassium (Augmentin) 500 mg PO Q12HR [facility] Last Admin: 04/18/17 08:46 Dose: 500 mg Aspirin (Aspirin Chewable) 81 mg PO DAILY [facility] Last Admin: 04/18/17 08:46 Dose: 81 mg Clopidogrel Bisulfate (Plavix) 75 mg PO DAILY [facility] Last Admin: 04/18/17 08:46 Dose: 75 mg Enoxaparin Sodium (Lovenox) 30 mg SC 0900 [facility] Last Admin: 04/18/17 08:47 Dose: Not Given Famotidine (Pepcid) 20 mg PO BID [facility] Last Admin: 04/18/17 08:46 Dose: 20 mg Ferrous Sulfate (Feosol) 325 mg PO BID [facility] Last Admin: 04/18/17 08:46 Dose: 325 mg Fish Oil (Fish Oil) 1,000 mg PO DAILY [facility] Last Admin: 04/18/17 08:46 Dose: 1,000 mg Hydralazine HCl (Apresoline) 100 mg PO TID [facility] Last Admin: 04/18/17 15:25 Dose: 100 mg Isosorbide Mononitrate (Imdur) 60 mg PO DAILY [facility] Last Admin: 04/18/17 09:49 Dose: 60 mg Magnesium Oxide (Magnesium Oxide) 400 mg PO BID [facility] Last Admin: 04/18/17 08:47 Dose: 400 mg Metoprolol Succinate (Toprol Xl) 50 mg PO DAILY [facility] Last Admin: 04/18/17 09:49 Dose: 50 mg Morphine Sulfate (Morphine) 2 mg SLOW IVP Q2H PRN PRN Reason: Pain Last Admin: 04/17/17 17:17 Dose: 2 mg Prednisone (Prednisone) 40 mg PO QAM-WM [facility] Last Admin: 04/18/17 07:54 Dose: 40 mg Simvastatin (Zocor) 40 mg PO HS [facility] Last Admin: 04/17/17 20:58 Dose: 40 mg Sodium Chloride (Flush - Normal Saline) 10 ml IVF Q12HR [facility] Last Admin: 04/18/17 08:49 Dose: 10 ml Sodium Chloride (Flush - Normal Saline) 10 ml IVF PRN PRN PRN Reason: Saline Flush Trazodone HCl (Desyrel) 50 mg PO HS [facility] Last Admin: 04/17/17 20:55 Dose: 50 mg MAR Reviewed: Yes Vital Signs: Vital Signs Temp 97.5 F L 04/18/17 15:46 Pulse 63 04/18/17 15:46 Resp 16 04/18/17 15:46 BP 156/60 H 04/18/17 15:46 Pulse Ox 94 L 04/18/17 15:46 Intake & Output 04/17/17 04/18/17 04/18/17 18:59 06:59 18:59 Intake Total 940 1050 Output Total 1695 900 Balance -755 150 Weight 166 lb 9.6 oz Intake: Intake, IV Amount 50 270 Oral 890 780 Output: Urine 325 900 Output, [place] 1370 Other: Voiding Method Indwelling Catheter Bedside Commode Toilet # Unmeasured Voids 1 # Bowel Movements 1 Progress Note: Exam - Physical Exam HEENT: PERRLA, sclera anicteric Neck: no nodes, no JVD Cardiovascular: irregular Respiratory: clear to auscultation bilaterally Gastrointestinal: soft, non-tender, positive bowel sounds Musculoskeletal: no edema Neurological: non-focal Lymphatic: no nodes Psychiatric: normal affect, A&O x 3 Skin: no rash - Labs Result Diagrams: 04/18/17 04:40 04/18/17 04:40 Lab results: Laboratory Results - last 24 hr 04/18/17 04/18/17 04:40 04:40 WBC 12.3 H RBC 3.93 L Hgb 8.8 L Hct 27.8 L MCV 70.7 L MCH 22.5 L MCHC 31.8 L RDW 20.9 H Plt Count 232 MPV 6.9 L Neutrophils % (Manual) 86 H Lymphocytes % (Manual) 11 L Monocytes % (Manual) 3 Nucleated RBCs # (Man) 2 H Hypochromia SLIGHT = 6-15 cells Anisocytosis MODERATE=16-30 cells Sodium 138 Potassium 4.3 Chloride 104 Carbon Dioxide 23 Anion Gap 15 BUN 68 H Creatinine 1.67 H Estimated GFR (MDRD) 30 Glucose 246 H Calcium 9.4 Progress Note: A/P - Problems (1) CHF exacerbation Current Visit: Yes Status: Acute Code(s): I50.9 - HEART FAILURE, UNSPECIFIED Qualifiers: Congestive heart failure type: diastolic Qualified Code(s): I50.33 - Acute on chronic diastolic (congestive) heart failure (2) Acute respiratory failure with hypoxia Current Visit: Yes Status: Resolved Code(s): J96.01 - ACUTE RESPIRATORY FAILURE WITH HYPOXIA - Time Spent with Patient Time: 50% of the time was spent in coordination of care (as documented) at patient's floor/unit and/or counseling patient. - Plan Plan: Continue present care. Hopefully she can go home by tomorrow.
[2017-04-18] MEDS: traZODone HCl 50 MG TAB PO SCH (20:13)
[2017-04-18] MEDS: Simvastatin 40 MG TAB PO SCH (20:13)
[2017-04-18] MEDS: Amlodipine 10 MG TAB PO SCH (20:14)
--- NOTE | 2017-04-18 22:25 | PRG ---
DATE OF SERVICE: 04/18/2017 SUBJECTIVE: Patient was seen and examined at bedside and overnight events noted. Patient denies any shortness of breath or chest pain or palpitation. No history of nausea or vomiting or diarrhea or f ever or chills or cramps. OBJECTIVE: GENERAL: This is a well-built female, in no apparent distress. VITAL SIGNS: Temperature 97, blood pressure 156/60. HEENT: Atraumatic, normocephalic, oral mucosa is moist. NECK: Supple. CARDIOVASCULAR: S1, S2 heard, rate and rhythm regular. RESPIRATORY: Clear to auscultation. GASTROINTESTINAL: Abdomen is soft. MUSCULOSKELETAL: No tenderness, no edema. DERMATOLOGIC: No skin rash. NEUROLOGIC: Alert and awake and oriented x3, no focal neurologic deficits. Moving all the extremiti es. PSYCHIATRIC: Mood and affect normal. LABORATORY DATA: Creatinine 1.67, BUN is 60. ASSESSMENT AND PLAN: 1. Acute kidney injury on chronic kidney disease stage 3, stable. 2. Edema, controlled. 3. Cardiorenal syndrome. 4. Anemia. 5. Hypertension. Overall, renal function is stable. We will follow.
[2017-04-19 05:12] LABS: #Eosinphils 0.1 thou/uL (0.0-0.7); #Lymphocytes 2.3 thou/uL (1.20-3.40); #Neutrophils 8.5 thou/uL (1.40-6.50); %Basophils 0.1 % (0.0-1.0); %Eosinophils 1.1 % (0.0-10.0); %Lymphocytes 19.3 % (21.0-51.0); %Monocytes 8.6 % (0.0-10.0); Hemoglobin 8.6 g/dL (12.0-16.0); Mean Corpuscular HGB CONC 31.5 g/dL (32.0-36.0); Mean Corpuscular Volume 69.9 fl (81.0-99.0); Mean Platelet Volume 6.2 fL (7.4-10.4); Platelet Count 252 thou/uL (130-400); RBC Distribution Width 20.9 % (11.5-14.5); Red Blood Cell (RBC) Count 3.91 mill/uL (4.20-5.40); White Blood Cell (WBC) Count 11.9 thou/uL (4.8-10.8)
[2017-04-19 05:19] LABS: Anion Gap 11 mmol/L (10-20); BUN (Urea Nitrogen) 68 mg/dL (9.8-20.1); Calc. Creatinine Clearance 36 mL/min (70-130); Calcium 9.3 mg/dL (7.8-10.44); Carbon Dioxide 25 mmol/L (23-31); Chloride 107 mmol/L (98-107); Estimated GFR-MDRD 30; Glucose 139 mg/dL (83-110); Potassium 3.6 mmol/L (3.5-5.1); Sodium 139 mmol/L (136-145)
[2017-04-19] MEDS ORDERED: Diabetic Tussin 200 MG/10 ML UDCUP PO SCH (08:00)
[2017-04-19] MEDS: Fish Oil 1,000 MG CAP PO SCH (08:13)
[2017-04-19] MEDS: Clopidogrel Bisulfate 75 MG TAB PO SCH (08:13)
[2017-04-19] MEDS: Famotidine 20 MG TAB PO SCH ×2 (08:13→21:18)
[2017-04-19] MEDS: hydrALAZINE 25 MG TAB PO SCH ×3 (08:13→21:28)
[2017-04-19] MEDS: Ferrous Sulfate 325 MG TAB PO SCH ×2 (08:13→21:18)
[2017-04-19] MEDS: Amiodarone 200 MG TAB PO SCH ×2 (08:13→21:18)
[2017-04-19] MEDS: predniSONE 20 MG TAB PO SCH (08:13)
[2017-04-19] MEDS: ALPRAZolam 0.25 MG TAB PO SCH ×2 (08:14→21:18)
[2017-04-19] MEDS: Enoxaparin Sodium 30 MG/0.3 ML SYRINGE SC SCH (08:15)
--- NOTE | 2017-04-19 10:14 | PDOC.PULPN ---
Progress Note: Subj/Obj - Subjective Date: 04/19/17 Time: 10:13 - ROS Respiratory: congestion - Objective Allergies/Adverse Reactions: Allergies Allergy/AdvReac Type Severity Reaction Status Date / Time lisinopril Allergy Verified 04/14/17 23:25 Medications: Current Medications Acetaminophen (Tylenol) 650 mg PO Q4H PRN PRN Reason: Headache/Fever or Pain Last Admin: 04/15/17 20:54 Dose: 650 mg Albuterol/Ipratropium (Duoneb) 3 ml NEB [id number] [facility] Last Admin: 04/19/17 07:01 Dose: 3 ml Alprazolam (Xanax) 1 mg PO Q12H PRN PRN Reason: Anxiety Last Admin: 04/15/17 16:44 Dose: 1 mg Alprazolam (Xanax) 0.25 mg PO BID [facility] Last Admin: 04/19/17 08:14 Dose: 0.25 mg Amiodarone HCl (Cordarone) 400 mg PO BID [facility] Last Admin: 04/19/17 08:13 Dose: 400 mg Amlodipine Besylate (Norvasc) 10 mg PO HS [facility] Last Admin: 04/18/17 20:14 Dose: 10 mg Aspirin (Aspirin Chewable) 81 mg PO DAILY [facility] Last Admin: 04/19/17 08:13 Dose: 81 mg Clopidogrel Bisulfate (Plavix) 75 mg PO DAILY [facility] Last Admin: 04/19/17 08:13 Dose: 75 mg Enoxaparin Sodium (Lovenox) 30 mg SC 0900 [facility] Last Admin: 04/19/17 08:15 Dose: 30 mg Famotidine (Pepcid) 20 mg PO BID [facility] Last Admin: 04/19/17 08:13 Dose: 20 mg Ferrous Sulfate (Feosol) 325 mg PO BID [facility] Last Admin: 04/19/17 08:13 Dose: 325 mg Fish Oil (Fish Oil) 1,000 mg PO DAILY [facility] Last Admin: 04/19/17 08:13 Dose: 1,000 mg Hydralazine HCl (Apresoline) 100 mg PO TID [facility] Last Admin: 04/19/17 08:13 Dose: 100 mg Isosorbide Mononitrate (Imdur) 60 mg PO DAILY [facility] Last Admin: 04/19/17 08:13 Dose: 60 mg Metoprolol Succinate (Toprol Xl) 50 mg PO DAILY [facility] Last Admin: 04/19/17 08:13 Dose: 50 mg Morphine Sulfate (Morphine) 2 mg SLOW IVP Q2H PRN PRN Reason: Pain Last Admin: 04/17/17 17:17 Dose: 2 mg Prednisone (Prednisone) 40 mg PO QAM-WM [facility] Last Admin: 04/19/17 08:13 Dose: 40 mg Simvastatin (Zocor) 40 mg PO HS [facility] Last Admin: 04/18/17 20:13 Dose: 40 mg Sodium Chloride (Flush - Normal Saline) 10 ml IVF Q12HR [facility] Last Admin: 04/19/17 08:15 Dose: 10 ml Sodium Chloride (Flush - Normal Saline) 10 ml IVF PRN PRN PRN Reason: Saline Flush Trazodone HCl (Desyrel) 50 mg PO HS [facility] Last Admin: 04/18/17 20:13 Dose: 50 mg MAR Reviewed: Yes Vital Signs: Vital Signs Temp 97.0 F L 04/19/17 08:00 Pulse 65 04/19/17 08:13 Resp 18 04/19/17 08:00 BP 175/77 H 04/19/17 08:00 Pulse Ox 96 04/19/17 08:00 Intake & Output 04/18/17 04/19/17 04/19/17 18:59 06:59 18:59 Intake Total 1210 550 Output Total 400 Balance 1210 150 Weight 166 lb 4.8 oz Intake: Intake, IV Amount 10 10 Oral 1200 540 Output: Urine 400 Other: Voiding Method Toilet Toilet Toilet # Unmeasured Voids 5 2 Progress Note: Exam - Physical Exam Constitutional: NAD HEENT: PERRLA, sclera anicteric Neck: no nodes, no JVD Respiratory: clear to auscultation bilaterally Gastrointestinal: soft, non-tender, positive bowel sounds Musculoskeletal: no edema Neurological: non-focal Psychiatric: normal affect, A&O x 3 Skin: no rash - Labs Result Diagrams: 04/19/17 04:36 04/19/17 04:36 Lab results: Laboratory Results - last 24 hr 04/19/17 04/19/17 04:36 04:36 WBC 11.9 H RBC 3.91 L Hgb 8.6 L Hct 27.3 L MCV 69.9 L MCH 22.0 L MCHC 31.5 L RDW 20.9 H Plt Count 252 MPV 6.2 L Neutrophils % 71.0 Neutrophils % (Manual) Not Reportable Lymphocytes % 19.3 L Monocytes % 8.6 Eosinophils % 1.1 Basophils % 0.1 Neutrophils # 8.5 H Lymphocytes # 2.3 Monocytes # 1.0 H Eosinophils # 0.1 Basophils # 0.0 Sodium 139 Potassium 3.6 Chloride 107 Carbon Dioxide 25 Anion Gap 11 BUN 68 H Creatinine 1.67 H Estimated GFR (MDRD) 30 Glucose 139 H Calcium 9.3 Progress Note: A/P - Problems (1) CHF exacerbation Current Visit: Yes Status: Acute Code(s): I50.9 - HEART FAILURE, UNSPECIFIED Qualifiers: Congestive heart failure type: diastolic Qualified Code(s): I50.33 - Acute on chronic diastolic (congestive) heart failure (2) Acute respiratory failure with hypoxia Current Visit: Yes Status: Resolved Code(s): J96.01 - ACUTE RESPIRATORY FAILURE WITH HYPOXIA - Plan Plan: Stable from pulm standpoint for discharge. Will sign off
--- NOTE | 2017-04-19 10:17 | PDOC.PN ---
- Subjective Encounter Start Date: 04/19/17 Encounter Start Time: 09:30 Subjective: had a coughing spell this am, currently better -: no sob, is amb in room per patient - Objective MAR Reviewed: Yes Vital Signs & Weight: Vital Signs (12 hours) Temp Pulse Resp BP Pulse Ox 04/19/17 08:13 65 04/19/17 08:00 97.0 F L 65 18 175/77 H 96 04/19/17 07:04 96 04/19/17 07:01 93 16 04/19/17 04:00 97.4 F L 59 L 18 146/66 H 96 Weight Weight 166 lb 4.8 oz Most Recent Monitor Data Heart Rate from ECG 89 NIBP 151/64 NIBP BP-Mean 109 Respiration from ECG 20 SpO2 96 I&O: 04/18/17 04/19/17 04/20/17 06:59 06:59 06:59 Intake Total 1989 1759 Output Total 2595 400 Balance -605 1360 Result Diagrams: 04/19/17 04:36 04/19/17 04:36 Phys Exam - Physical Examination HEENT: PERRLA, moist MMs Neck: no JVD, supple Respiratory: no wheezing, no rales Cardiovascular: RRR, no significant murmur Gastrointestinal: soft, non-tender, positive bowel sounds Musculoskeletal: no edema, pulses present Neurological: non-focal, moves all 4 limbs Psychiatric: A&O x 3 Dx/Plan (1) Afib Code(s): I48.91 - UNSPECIFIED ATRIAL FIBRILLATION Status: Acute Comment: s/ p electrical cardioversion 04/17/17 (2) Acute respiratory failure with hypoxia Code(s): J96.01 - ACUTE RESPIRATORY FAILURE WITH HYPOXIA Status: Resolved (3) CHF exacerbation Code(s): I50.9 - HEART FAILURE, UNSPECIFIED Status: Acute Qualifiers: Congestive heart failure type: diastolic Qualified Code(s): I50.33 - Acute on chronic diastolic (congestive) heart failure (4) COPD exacerbation Code(s): J44.1 - CHRONIC OBSTRUCTIVE PULMONARY DISEASE W (ACUTE) EXACERBATION Status: Acute Comment: resolving (5) CAD (coronary artery disease) Code(s): I25.10 - ATHSCL HEART DISEASE OF [place] CORONARY ARTERY W/O ANG PCTRS Status: Chronic Qualifiers: Coronary Disease-Associated Artery/Lesion type: [place] artery [place] vs. 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 Review of Systems - Medications/Allergies Allergies/Adverse Reactions: Allergies Allergy/AdvReac Type Severity Reaction Status Date / Time lisinopril Allergy Verified 04/14/17 23:25 Medications: Current Medications Acetaminophen (Tylenol) 650 mg PO Q4H PRN PRN Reason: Headache/Fever or Pain Last Admin: 04/15/17 20:54 Dose: 650 mg Albuterol/Ipratropium (Duoneb) 3 ml NEB [id number] [facility] Last Admin: 04/19/17 07:01 Dose: 3 ml Alprazolam (Xanax) 1 mg PO Q12H PRN PRN Reason: Anxiety Last Admin: 04/15/17 16:44 Dose: 1 mg Alprazolam (Xanax) 0.25 mg PO BID [facility] Last Admin: 04/19/17 08:14 Dose: 0.25 mg Amiodarone HCl (Cordarone) 400 mg PO BID [facility] Last Admin: 04/19/17 08:13 Dose: 400 mg Amlodipine Besylate (Norvasc) 10 mg PO HS [facility] Last Admin: 04/18/17 20:14 Dose: 10 mg Aspirin (Aspirin Chewable) 81 mg PO DAILY [facility] Last Admin: 04/19/17 08:13 Dose: 81 mg Clopidogrel Bisulfate (Plavix) 75 mg PO DAILY [facility] Last Admin: 04/19/17 08:13 Dose: 75 mg Enoxaparin Sodium (Lovenox) 30 mg SC 0900 [facility] Last Admin: 04/19/17 08:15 Dose: 30 mg Famotidine (Pepcid) 20 mg PO BID [facility] Last Admin: 04/19/17 08:13 Dose: 20 mg Ferrous Sulfate (Feosol) 325 mg PO BID [facility] Last Admin: 04/19/17 08:13 Dose: 325 mg Fish Oil (Fish Oil) 1,000 mg PO DAILY [facility] Last Admin: 04/19/17 08:13 Dose: 1,000 mg Hydralazine HCl (Apresoline) 100 mg PO TID [facility] Last Admin: 04/19/17 08:13 Dose: 100 mg Isosorbide Mononitrate (Imdur) 60 mg PO DAILY [facility] Last Admin: 04/19/17 08:13 Dose: 60 mg Metoprolol Succinate (Toprol Xl) 50 mg PO DAILY [facility] Last Admin: 04/19/17 08:13 Dose: 50 mg Morphine Sulfate (Morphine) 2 mg SLOW IVP Q2H PRN PRN Reason: Pain Last Admin: 04/17/17 17:17 Dose: 2 mg Prednisone (Prednisone) 40 mg PO QAM-WM [facility] Last Admin: 04/19/17 08:13 Dose: 40 mg Simvastatin (Zocor) 40 mg PO HS [facility] Last Admin: 04/18/17 20:13 Dose: 40 mg Sodium Chloride (Flush - Normal Saline) 10 ml IVF Q12HR [facility] Last Admin: 04/19/17 08:15 Dose: 10 ml Sodium Chloride (Flush - Normal Saline) 10 ml IVF PRN PRN PRN Reason: Saline Flush Trazodone HCl (Desyrel) 50 mg PO HS [facility] Last Admin: 04/18/17 20:13 Dose: 50 mg
--- NOTE | 2017-04-19 10:27 | PRG ---
DATE OF SERVICE: 04/19/2017 SUBJECTIVE: Patient was seen and examined at bedside and overnight events noted. Patient denies any shortness of breath or chest pain or palpitation. No history of nausea or vomiting or diarrhea or f ever or chills or cramps. OBJECTIVE: GENERAL: This is a well-built female, in no apparent distress. VITAL SIGNS: Temperature 97.0, pulse 65, respiratory rate 18, blood pressure 175/77. HEENT: Atraumatic, normocephalic. Oral mucosa is moist NECK: Supple. CARDIOVASCULAR: S1, S2 heard. Rate and rhythm regular RESPIRATORY: Clear to auscultation GASTROINTESTINAL: Abdomen is soft MUSCULOSKELETAL: No tenderness, No edema DERMATOLOGIC: No skin rash NEUROLOGIC: Alert and awake and oriented x3. No focal neurologic deficits. Moving all the extremit ies. PSYCHIATRIC: Mood and affect normal. LABORATORY DATA: Potassium is 3.6, BUN 68, creatinine was 1.67. ASSESSMENT AND PLAN: 1. Acute kidney injury on chronic kidney disease stage 3. Renal function is stable. Need follow up as outpatient for chronic kidney disease. 2. Edema, better, no signs of anemia. 3. Hypertension, titrate medications. Overall, renal function is stable. Advised to follow up in the clinic for CKD follow up and evaluati on. We will see in the clinic in 2 weeks. I will sign off. Please call back with any questions.
--- NOTE | 2017-04-19 17:39 | PRG ---
DATE OF SERVICE: 04/19/2017 SUBJECTIVE: Ms. Barron is doing well. No chest pain or pressure noted. She continues to be in sinus rhythm. She was cardioverted on 04/15/2017. OBJECTIVE: VITAL SIGNS: Blood pressure 130/96, pulse 60, temperature 98. GENERAL: Patient is a pleasant female who is in no acute distress. The patient appears her stated a ge. NEUROLOGIC: The patient is alert and oriented times 3 with no focal neurologic deficits. HEENT: Sclerae without icterus. Mouth has moist mucous membranes with normal pallor. NECK: No JVD. Carotid upstroke brisk. No bruits bilaterally. LUNGS: Clear to auscultation with unlabored respirations. BACK: No scoliosis or kyphosis. CARDIAC: Regular rate and rhythm with normal S1 and S2. No S3 or S4 noted. No significant rubs, murmurs, thrills, or gallops noted throughout the precordium. PMI is not displaced. There is no parasternal heave. ABDOMEN: Soft, nontender, nondistended. No peritoneal signs present. No hepatosplenomegaly. No abnormal striae. EXTREMITIES: 2+ femoral and 2+ dorsalis pedis pulses. No cyanosis, clubbing, or edema. SKIN: No gross abnormalities. PERTINENT LABORATORY DATA: Hemoglobin 8.6. IMPRESSION: 1. Atrial fibrillation. 2. Cerebrovascular accident, status post myocardial infarction. 3. Status post stent placement. 4. Anemia. RECOMMENDATIONS: Ms. Barron had received 1 unit of packed red blood cells during this hospitalization . It has been decided to not to proceed with anticoagulation therapy. She is currently on aspirin a nd Plavix. Anticoagulation therapy on top of aspirin and Plavix given recent AL and stent placement would significantly increase her risk of rebleeding. At this point, continue aspirin and Plavix in a ddition of amiodarone. We will decrease the amiodarone to 400 mg p.o. q.a.m.
[2017-04-19] MEDS: Diabetic Tussin 200 MG/10 ML UDCUP PO PRN (18:28)
[2017-04-19] MEDS: Amlodipine 10 MG TAB PO SCH (21:18)
[2017-04-19] MEDS: Simvastatin 40 MG TAB PO SCH (21:18)
[2017-04-19] MEDS: traZODone HCl 50 MG TAB PO SCH (21:18)
[2017-04-20] MEDS: Diabetic Tussin 200 MG/10 ML UDCUP PO PRN ×3 (00:25→13:55)
[2017-04-20] MEDS ORDERED: Amiodarone 200 MG TAB PO SCH (09:00)
[2017-04-20] MEDS: Clopidogrel Bisulfate 75 MG TAB PO SCH (09:22)
[2017-04-20] MEDS: Famotidine 20 MG TAB PO SCH (09:22)
[2017-04-20] MEDS: Fish Oil 1,000 MG CAP PO SCH (09:22)
[2017-04-20] MEDS: predniSONE 20 MG TAB PO SCH (09:22)
[2017-04-20] MEDS: ALPRAZolam 0.25 MG TAB PO SCH (09:23)
[2017-04-20] MEDS: Enoxaparin Sodium 30 MG/0.3 ML SYRINGE SC SCH (09:24)
[2017-04-20] MEDS: Ferrous Sulfate 325 MG TAB PO SCH (09:26)
--- NOTE | 2017-04-20 09:29 | PRG ---
DATE OF SERVICE: 04/20/2017 SUBJECTIVE: Ms. Barron today states she is not feeling well. She continues to have difficulty with e xpectorant. She states her breathing appears to be improved. Her heart rate remains stable and is i n sinus rhythm. She did have pauses noted overnight, none greater than 3 seconds. OBJECTIVE: VITAL SIGNS: Blood pressure 186/82, pulse 60, temperature 97.8. LUNGS: Rales and rhonchi bilaterally. HEART: Regular rate and rhythm. ABDOMEN: Soft, nontender, and nondistended. EXTREMITIES: No edema. PERTINENT LABORATORY DATA: Hemoglobin 8.6. IMPRESSION: 1. Atrial fibrillation. 2. Coronary artery disease. 3. Status post stent placement. 4. Anemia, status post transfusion. RECOMMENDATIONS: Due to positives, we will discontinue metoprolol. We will also decrease amiodarone from 400 mg b.i.d. to 400 mg p.o. q.a.m. Continue respiratory support. The issue with anticoagulat ion therapy is she at increased risk of bleeding given recent anemia with requirement for blood trans fusion. We would consider Plavix plus anticoagulation therapy, but we would also be concerned about need for repeat transfusion.
--- NOTE | 2017-04-20 10:48 | PDOC.PN ---
- Subjective Encounter Start Date: 04/20/17 Encounter Start Time: 09:50 Subjective: had a anxiety attack this am with sob -: no chest pain, is amb in room - Objective MAR Reviewed: Yes Vital Signs & Weight: Vital Signs (12 hours) Temp Pulse Resp BP Pulse Ox 04/20/17 07:19 97 04/20/17 07:17 71 12 04/20/17 03:34 98.5 F 72 18 171/83 H 97 04/20/17 00:28 83 16 97 Weight Weight 165 lb 14.4 oz Most Recent Monitor Data Heart Rate from ECG 89 NIBP 151/64 NIBP BP-Mean 109 Respiration from ECG 20 SpO2 96 I&O: 04/19/17 04/20/17 04/21/17 06:59 06:59 06:59 Intake Total 1760 1400 Output Total 400 Balance 1360 1400 Result Diagrams: 04/19/17 04:36 04/19/17 04:36 Phys Exam - Physical Examination HEENT: PERRLA, moist MMs Neck: no JVD, supple Respiratory: no wheezing, no rales Cardiovascular: RRR, no significant murmur Gastrointestinal: soft, non-tender, positive bowel sounds Musculoskeletal: no edema, pulses present Neurological: non-focal, moves all 4 limbs Psychiatric: A&O x 3 Dx/Plan (1) Afib Code(s): I48.91 - UNSPECIFIED ATRIAL FIBRILLATION Status: Acute Comment: s/ p electrical cardioversion 04/17/17 (2) Acute respiratory failure with hypoxia Code(s): J96.01 - ACUTE RESPIRATORY FAILURE WITH HYPOXIA Status: Resolved (3) CHF exacerbation Code(s): I50.9 - HEART FAILURE, UNSPECIFIED Status: Resolved Qualifiers: Congestive heart failure type: diastolic Qualified Code(s): I50.33 - Acute on chronic diastolic (congestive) heart failure (4) COPD exacerbation Code(s): J44.1 - CHRONIC OBSTRUCTIVE PULMONARY DISEASE W (ACUTE) EXACERBATION Status: Resolved Comment: resolving (5) CAD (coronary artery disease) Code(s): I25.10 - ATHSCL HEART DISEASE OF [place] CORONARY ARTERY W/O ANG PCTRS Status: Chronic Qualifiers: Coronary Disease-Associated Artery/Lesion type: [place] artery [place] vs. 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 Review of Systems - Medications/Allergies Allergies/Adverse Reactions: Allergies Allergy/AdvReac Type Severity Reaction Status Date / Time lisinopril Allergy Verified 04/14/17 23:25 Medications: Current Medications Acetaminophen (Tylenol) 650 mg PO Q4H PRN PRN Reason: Headache/Fever or Pain Last Admin: 04/15/17 20:54 Dose: 650 mg Albuterol/Ipratropium (Duoneb) 3 ml NEB [id number] [facility]PL[facility] Last Admin: 04/20/17 07:17 Dose: 3 ml Alprazolam (Xanax) 1 mg PO Q12H PRN PRN Reason: Anxiety Last Admin: 04/15/17 16:44 Dose: 1 mg Alprazolam (Xanax) 0.25 mg PO BID [facility] Last Admin: 04/20/17 09:23 Dose: 0.25 mg Amiodarone HCl (Cordarone) 400 mg PO QAM REPL[facility]ED [facility] Last Admin: 04/20/17 09:23 Dose: 400 mg Amlodipine Besylate (Norvasc) 10 mg PO HS [facility] Last Admin: 04/19/17 21:18 Dose: 10 mg Aspirin (Aspirin Chewable) 81 mg PO DAILY [facility] Last Admin: 04/20/17 09:29 Dose: 81 mg Clopidogrel Bisulfate (Plavix) 75 mg PO DAILY [facility] Last Admin: 04/20/17 09:22 Dose: 75 mg Enoxaparin Sodium (Lovenox) 30 mg SC 0900 [facility] Last Admin: 04/20/17 09:24 Dose: 30 mg Famotidine (Pepcid) 20 mg PO BID [facility] Last Admin: 04/20/17 09:22 Dose: 20 mg Ferrous Sulfate (Feosol) 325 mg PO BID [facility] Last Admin: 04/20/17 09:26 Dose: 325 mg Fish Oil (Fish Oil) 1,000 mg PO DAILY [facility] Last Admin: 04/20/17 09:22 Dose: 1,000 mg Guaifenesin (Robitussin Sf) 300 mg PO Q6H PRN PRN Reason: Cough Last Admin: 04/20/17 06:05 Dose: 300 mg Hydralazine HCl (Apresoline) 100 mg PO TID [facility] Last Admin: 04/19/17 21:28 Dose: 100 mg Isosorbide Mononitrate (Imdur) 60 mg PO DAILY [facility] Last Admin: 04/20/17 09:23 Dose: 60 mg Morphine Sulfate (Morphine) 2 mg SLOW IVP Q2H PRN PRN Reason: Pain Last Admin: 04/17/17 17:17 Dose: 2 mg Prednisone (Prednisone) 40 mg PO QAM-WM [facility]PL[facility] Last Admin: 04/20/17 09:22 Dose: 40 mg Simvastatin (Zocor) 40 mg PO HS [facility] Last Admin: 04/19/17 21:18 Dose: 40 mg Sodium Chloride (Flush - Normal Saline) 10 ml IVF Q12HR [facility]PLACED [facility] Last Admin: 04/20/17 09:27 Dose: 10 ml Sodium Chloride (Flush - Normal Saline) 10 ml IVF PRN PRN PRN Reason: Saline Flush Trazodone HCl (Desyrel) 50 mg PO HS [facility] Last Admin: 04/19/17 21:18 Dose: 50 mg
[2017-04-20] MEDS: hydrALAZINE 25 MG TAB PO SCH ×2 (10:57→14:03)
[2017-04-20 11:52] VITALS: TEMP 97.9
[2017-04-20] MEDS: ALPRAZolam 1 MG TAB PO PRN (14:30)
--- NOTE | 2017-04-20 14:58 | DIS ---
DATE OF ADMISSION: 04/15/2017 DATE OF DISCHARGE: 04/20/2017 DISCHARGE DISPOSITION: Assisted living facility. PRIMARY DISCHARGE DIAGNOSES: Congestive heart failure exacerbation with diastolic dysfunction, acute respiratory failure with hypoxia due to volume overload from congestive heart failure and mild chronic obstructive pulmonary exacerbation, paroxysmal atrial fibrillation, status post electrical cardioversion done on 04/17/2017. SECONDARY DISCHARGE DIAGNOSES: Coronary artery disease, symptomatic anemia, status post 1 unit of transfusion with history of thalassemia minor, acute kidney injury due to diuresis, is resolving. PROCEDURES DONE DURING HOSPITALIZATION: Echo with 2D Doppler done showed an EF of 55%-60%. There was diastolic dysfunction, left atrial size was 5.54 cm. The patient has had electrical cardioversion done on 04/17/2017 for atrial fibrillation with rapid ventricular response with chest pain. This was accomplished with 120 joules of synchronized electricity. Blood cultures x2, no growth. Stool occult was negative. Urine culture was contaminated. Discharge H&H was 8.6 and 27, platelet count of 252, MCV of 69. Discharge BUN and creatinine was 68 and 1.6. Admitting BUN and creatinine were 33 and 1.5. Troponin x3 was negative. Ferritin was 152 with serum iron 73. BNP was 640. INPATIENT CONSULTS: Dr. Starr for Cardiology and Dr. Szymanski/Dr. Jernigan for Pulmonology. DISCHARGE MEDICATIONS: Patient to continue prednisone taper starting at 10 mg twice daily over the course of 12 days, simvastatin 40 mg p.o. at bedtime, trazodone 50 mg p.o. at bedtime, omeprazole 20 mg p.o. daily, fish oil 1000 mg p.o. daily, Lopressor 50 mg p.o. twice daily, magnesium oxide 400 mg p.o. twice daily, Imdur 60 mg p.o. daily, hydralazine 100 mg p.o. 3 times daily, ferrous sulfate 325 mg p.o. twice daily, Plavix 75 mg p.o. daily, aspirin 81 mg p.o. daily, Norvasc 10 mg p.o. daily, amiodarone tapering starting at 400 mg daily per Cardiology advice, Xanax 1 mg p.o. twice daily p.r.n. for anxiety. ALLERGIES: Allergic to LISINOPRIL. DISCHARGE PLAN: Patient to follow up with Dr. Kay as advised and primary care physician in 1 week. She also needs to follow up with Dr. Martinez on the with metabolic panel to be done on the . BRIEF COURSE DURING HOSPITALIZATION: Patient initially got admitted for complaints of shortness of breath and wheezing. This was getting worse from last 2 days prior to arrival here. She was also found to have had hemoglobin of 7 with history of thalassemia minor. She was given 2 units of packed cells as patient was symptomatic. Twenty-four hours into hospitalization, patient went to volume overload with CHF exacerbation and diastolic dysfunction with COPD exacerbation as well. She was upgraded to ICU and was on BiPAP briefly. The patient came out of BiPAP after diuresis. This led to acute kidney injury. She also had atrial fibrillation with RVR with chest pain and had to be cardioverted on the by Dr. Starr. Her medications have been slowly optimized. She needs to have a metabolic panel to be done on the and to follow up with Dr. Martinez on the to check for her renal function. She appears to be at her baseline and has been cleared by Cardiology, Dr. Kay and Dr. Jernigan for Pulmonology for discharge. Please see a [id number] documentation on [facility] for the day of discharge. MTDD
[2017-04-20 15:11] VITALS: BP 174/80
--- NOTE | 2017-04-20 22:45 | PRG ---
DATE OF SERVICE: 04/20/2017 SUBJECTIVE: Patient was seen and examined at bedside and overnight events noted. Patient denies any shortness of breath or chest pain or palpitation. No history of nausea or vomiting or diarrhea or f ever or chills or cramps. OBJECTIVE: GENERAL: This is an elderly female in no apparent distress. VITAL SIGNS: Temperature 97.9, pulse 77, respiratory rate 20, blood pressure 173/79. HEENT: Atraumatic, normocephalic. Oral mucosa is moist. NECK: Supple. CARDIOVASCULAR: S1, S2 heard. Rate and rhythm regular. RESPIRATORY: Clear to auscultation. GASTROINTESTINAL: Abdomen is soft. MUSCULOSKELETAL: No tenderness. No edema. DERMATOLOGIC: No skin rash. NEUROLOGIC: Alert and awake and oriented x3. No focal neurologic deficits. Moving all the extremit ies. PSYCHIATRIC: Mood and affect normal. LABORATORY DATA: Potassium is 3.6, BUN is 68, creatinine is 1.6. ASSESSMENT AND PLAN: 1. Acute kidney injury. Renal function is stable. 2. Chronic kidney disease stage III. 3. Edema. 4. Hypertension. 5. Proteinuria. 6. Anemia. Overall renal function is stable. Advised to follow up in the clinic in 1-2 weeks.
--- NOTE | 2017-04-23 13:27 | EKG ---
Test Reason : Blood Pressure : / mmHG Vent. Rate : 108 BPM Atrial Rate : 108 BPM P-R Int : 162 ms QRS Dur : 096 ms QT Int : 362 ms P-R-T Axes : 099 000 073 degrees QTc Int : 485 ms Sinus tachycardia Nonspecific ST and T wave abnormality Abnormal ECG Confirmed by AGUSTINA HENSLEY ([id number]), business editor JEMAL SHELDON ([id number]) on 04/23/2017 1:27:20 PM Referred By: Confirmed By:AGUSTINA HENSLEY
--- NOTE | 2017-04-23 13:27 | EKG ---
Test Reason : Blood Pressure : / mmHG Vent. Rate : 102 BPM Atrial Rate : 102 BPM P-R Int : 176 ms QRS Dur : 092 ms QT Int : 376 ms P-R-T Axes : 069 -03 040 degrees QTc Int : 490 ms Sinus tachycardia with Premature atrial complexes with Abberant conduction Nonspecific ST and T wave abnormality Abnormal ECG Confirmed by AGUSTINA HENSLEY ([id number]), editorial project manager JEMAL SHELDON ([id number]) on 04/23/2017 1:27:23 PM Referred By: Confirmed By:AGUSTINA HENSLEY
--- NOTE | 2017-04-23 13:27 | EKG ---
Test Reason : REPEAT Blood Pressure : / mmHG Vent. Rate : 070 BPM Atrial Rate : 070 BPM P-R Int : 168 ms QRS Dur : 092 ms QT Int : 440 ms P-R-T Axes : 065 -09 018 degrees QTc Int : 475 ms Sinus rhythm with Premature atrial complexes Inferior infarct , age undetermined Abnormal ECG Confirmed by AGUSTINA HENSLEY ([id number]), editor book JEMAL SHELDON ([id number]) on 04/23/2017 1:27:20 PM Referred By: Confirmed By:AGUSTINA HENSLEY
== END 2017-04-20 15:13 | DRG 291 ==
LOC: ERS 16:10 → 2SW 19:18 → OBSVTOIN 04-15 10:21 → CCU 04-15 15:46 → 2NO 04-17 11:35
PROVIDERS: ADMIT Internal Medicine Infectious Disease; ATTEND Internal Medicine Infectious Disease
PROC: 30233N1 Transfusion of Nonautologous Red Blood Cells into Peripheral Vein, Percutaneous Approach (ICD-10-PCS; 2017-04-15)
PROC: 5A2204Z Restoration of Cardiac Rhythm, Single (ICD-10-PCS; principal; 2017-04-17)
DX: I13.0 Hypertensive heart and chronic kidney disease with heart failure and stage 1 through stage 4 chronic kidney disease, or unspecified chronic kidney disease (principal); I50.33 Acute on chronic diastolic (congestive) heart failure; J96.01 Acute respiratory failure with hypoxia; N17.9 Acute kidney failure, unspecified; J44.1 Chronic obstructive pulmonary disease with (acute) exacerbation; I50.1 Left ventricular failure, unspecified; I16.9 Hypertensive crisis, unspecified; E87.5 Hyperkalemia; I48.0 Paroxysmal atrial fibrillation; D64.9 Anemia, unspecified; D56.3 Thalassemia minor; F17.210 Nicotine dependence, cigarettes, uncomplicated; Z95.5 Presence of coronary angioplasty implant and graft; E78.5 Hyperlipidemia, unspecified; F41.9 Anxiety disorder, unspecified; Z79.01 Long term (current) use of anticoagulants; Z79.82 Long term (current) use of aspirin; Z88.8 Allergy status to other drugs, medicaments and biological substances; Z66 Do not resuscitate; N18.3 Chronic kidney disease, stage 3 (moderate); E87.70 Fluid overload, unspecified; I25.2 Old myocardial infarction; I25.119 Atherosclerotic heart disease of native coronary artery with unspecified angina pectoris; K21.9 Gastro-esophageal reflux disease without esophagitis
CPT/HCPCS: 36415; 36430; 71010; 71020; 80048; 80053; 81003; 81015; 82274; 82728; 83540; 83550; 83880; 85025; 85060; 86850; 86900; 86901; 87040; 87086; 93005; 93010; 93306; 94640; 94644; 96374; 96375; 96376; 99406; A4216; J0282; J1650; J1940; J2250; J2270; J2405; J2920; J7050; J7506; J7611; J7620; P9016

== ENCOUNTER 2017-05-03 10:19 | Outpatient (CLI) | payer MEDICARE ==
--- NOTE | 2017-05-03 10:33 | RAD ---
TWO VIEWS CHEST: Date: 05-03-17 Comparison: 04-16-17 History: Shortness of breath. FINDINGS: Heart and mediastinal contours are stable. There is mild diffuse increased linear interstitial densit y, stable. There is no pneumothorax or pleral fluid and no focal consolidation or alveolar edema. The re is multilevel degenerative change seen within the imaged spine. IMPRESSION: Stable interstitial prominence with no focal consolidation or alveolar edema. POS: BENNY
== END 2017-05-03 10:20 | disposition home or self-care (01) ==
LOC: RAD 10:19
PROVIDERS: ATTEND Internal Medicine Critical Care Medicine
DX: R06.00 Dyspnea, unspecified (principal)
CPT/HCPCS: 71046

== ENCOUNTER 2017-07-30 08:23 | Inpatient (IN) | payer MEDICARE ==
[2017-07-30 08:48] LABS: Base Excess (BEa) -5.9 mEq/L (0 (+/-) 2.5); CO2 Tension 34.1 mmHg (35.0-45.0); O2 Tension (PaO2) 69.6 mmHg (80.0-100.0); pH, Arterial 7.36 (7.35-7.45)
[2017-07-30 08:58] LABS: Calcium, Ionized 1.3 mmol/L (1.12-1.30); Hematocrit-ABG 26.5 % (36.0-47.0); Hemoglobin (Hb) 7.3 g/dL (12.0-16.0)
[2017-07-30 08:59] LABS: ALV-art Gradient 130.195 (0-20); Analyzer IN Cardio ER
[2017-07-30] MEDS ORDERED: Nitroglycerin 50 MG/250 ML BOT 0 ML ONE (09:13)
[2017-07-30 09:14] LABS: #Basophils 0.1 thou/uL (0.0-0.2); #Lymphocytes 0.6 thou/uL (1.20-3.40); #Monocytes 0.1 thou/uL (0.11-0.59); #Neutrophils 8.8 thou/uL (1.40-6.50); %Basophils 0.6 % (0.0-1.0); %Eosinophils 0.2 % (0.0-10.0); %Lymphocytes 6.4 % (21.0-51.0); %Monocytes 1.3 % (0.0-10.0); %Neutrophils 91.5 % (42.0-75.0); Hemoglobin 7.9 g/dL (12.0-16.0); Mean Corpuscular HGB CONC 31.7 g/dL (32.0-36.0); Mean Corpuscular Hemoglobin 20.2 pg (27.0-31.0); Mean Corpuscular Volume 63.7 fl (81.0-99.0); Mean Platelet Volume 11.4 fL (7.4-10.4); Platelet Count 242 thou/uL (130-400); RBC Distribution Width 16.9 % (11.5-14.5); Red Blood Cell (RBC) Count 3.94 mill/uL (4.20-5.40); White Blood Cell (WBC) Count 9.6 thou/uL (4.8-10.8)
[2017-07-30] MEDS ORDERED: Nitroglycerin 2% Ointment 1 INCH/1 GM Packet ONE (09:14)
[2017-07-30 09:24] LABS: Bilirubin Negative (Negative); Blood, Urine Negative (Negative); Clarity CLEAR (Clear); Glucose, Urine (Dipstick) Negative (Negative); Leukocyte Negative (Negative); Nitrite Negative (Negative); Protein, Urine (Dipstick) 100 mg/dL (Neg-Trace); Specific Gravity, Urine 1.008 (1.002-1.036); Urobilinogen 0.2 mg/dL (0.2-1.0); pH, Urine 5.5 (5.0-9.0)
[2017-07-30 09:27] LABS: Bacteria/HPF None Seen HPF (None Seen); Hyaline Casts/LPF 0-3 HYALINE CAST LPF (0-3 Hyaline); RBC/HPF None Seen HPF (0-3); Squamous Epithelial None Seen HPF (0-3); WBC/HPF None Seen HPF (0-3)
[2017-07-30 09:37] LABS: ALT (SGPT) 15 U/L (8-55); AST (SGOT) 17 U/L (5-34); Albumin 4.5 g/dL (3.4-4.8); Alkaline Phosphatase 209 U/L (40-150); Anion Gap 16 mmol/L (10-20); BUN (Urea Nitrogen) 35 mg/dL (9.8-20.1); Bilirubin, Total 0.4 mg/dL (0.2-1.2); CK (CPK) 34 U/L (29-168); Calc. Creatinine Clearance 0 mL/min (70-130); Calcium 10.4 mg/dL (7.8-10.44); Carbon Dioxide 19 mmol/L (23-31); Chloride 108 mmol/L (98-107); Estimated GFR-MDRD 23; Globulin 2.9 g/dL (2.4-3.5); Glucose 146 mg/dL (83-110); Lipase 23 U/L (8-78); Potassium 4.8 mmol/L (3.5-5.1); Protein, Total 7.4 g/dL (6.0-8.3); Sodium 138 mmol/L (136-145)
[2017-07-30 09:40] LABS: CKMB 1.4 ng/mL (0-6.6); Troponin I 0.084 ng/mL (< 0.028)
[2017-07-30 11:21] VITALS: BMI 28.3
[2017-07-30] MEDS ORDERED: Ondansetron ODT 4 MG TAB SL PRN (11:25)
[2017-07-30] MEDS ORDERED: Ondansetron HCl/PF 4 MG/2 ML Vial IVP PRN ×2 (11:25→12:05)
[2017-07-30] MEDS ORDERED: Docusate 100 MG CAP PO PRN (12:05)
[2017-07-30] MEDS ORDERED: Bisacodyl 5 MG TAB PO PRN (12:05)
[2017-07-30] MEDS ORDERED: Zolpidem Tartrate 5 MG TAB PO PRN (12:05)
[2017-07-30] MEDS: Nitroglycerin 2% Ointment 1 INCH/1 GM Packet TOP SCH ×2 (12:47→16:16)
[2017-07-30 13:04] LABS: Troponin I 0.154 ng/mL (< 0.028)
--- NOTE | 2017-07-30 13:13 | HP ---
HISTORY OF PRESENT ILLNESS: Ms. Barron is a 71-year-old woman. She was transferred to this facility from [place] where she was seen in the ER, because of increasing shortness of breath a nd shortness of breath, which she has been experimenting for the last week or so. She denies any ass ociated chest pain. She denies any fever and she claims that she has been compliant to her medicatio n. PAST MEDICAL HISTORY: Remarkable for hypertension, COPD, chronic kidney disease, coronary artery dis ease. She had a coronary artery stent placed in 01/2017. PAST SURGICAL HISTORY: Remarkable for appendectomy. ALLERGIES: She has allergy to LISINOPRIL. SOCIAL HISTORY: She is an active smoker. She denies ETOH abuse. She denies drug abuse. FAMILY HISTORY: Reviewed and is noncontributory. MEDICATIONS: Prior to admission, she was on omeprazole, hydralazine, amiodarone, atorvastatin. REVIEW OF SYSTEMS: Constitutional: Denies any fevers. Denies any weakness. HEENT: No headache, n o ocular pain, no sore throat, no rhinorrhea, no earache, no epistaxis. Neck: No neck pain, no neck stiffness. Respiratory: Admits to shortness of breath. Cardiovascular: No chest pain. Pulmonary : Admit to dry cough. Gastrointestinal: No nausea, no vomiting, no abdominal pain. Genitourinary: No dysuria, no hematuria. Endocrinology: No heat or cold intolerance. No polyuria, polydipsia, p olyphagia. Musculoskeletal: No arthralgia, no myalgia. Hematology: No abnormal bleeding, no ecchymosis. Lymphatic: No palpable lymphadenopathy, no painfu l lymphadenopathy. Skin: No rash, no itching. Allergies: No hayfever. Neurologic: No seizure. Psychiatric: No anxiety, no depression. PHYSICAL EXAMINATION: GENERAL: At the current time, she is alert, oriented, receiving oxygen via BiPAP. VITAL SIGNS: Her latest vital signs show temperature of 98.5, pulse rate of 69, respiratory rate of 20, blood pressure of 187/84. HEENT: Her head is normocephalic and atraumatic. Both her pupils are equal and reactive. Ears are normal. She is currently on BiPAP. We will evaluate her nose and oral cavity later. NECK: Supple. There is no distention of the jugular vein. No lymphadenopathy felt. Thyroid gland not palpable. There is no carotid bruit. CHEST: Symmetrical with regular S1, S2. LUNGS: Shows diffuse wheezing and also some rales. ABDOMEN: Soft. Bowel sounds are heard. We could not appreciate any organomegaly. There is no foca l area of tenderness. EXTREMITIES: Limbs show +2 edema. NEUROLOGIC: She moves all extremities. LABORATORY DATA AND X-RAY FINDINGS: Her CBC showed WBC of 9.7, hemoglobin of 7.9, hematocrit of 25.1 , MCV of 63.7, platelet of 242. ABG showed a pH of 7.36, pCO2 of 34.1, pO2 of 69.2, base excess -5.9 , bicarbonate of 19. Chemistry and electrolytes show a sodium of 138, potassium 4.8, chloride 108, C O2 19, BUN 35, creatinine 2.14, glucose 146, lactic acid 0.9, calcium 10.4, total bilirubin 0.4, AST 14, ALT 15, alkaline phosphatase 209. Troponin was noticed to be elevated at 0.084, BNP of 1518, tot al protein of 7.4, albumin 4.5, lipase 23. Urinalysis was also reviewed. Chest x-ray was reported t o show congestive heart failure and also evidence of COPD. ASSESSMENT AND PLAN: This is a 71-year-old woman with a history of hypertension, chronic o bstructive pulmonary disease, coronary artery disease, chronic kidney disease who was admitted with a cute respiratory failure. Troponin was noticed to be elevated suggestive of possible non-ST elevatio n myocardial infarction. We will follow up troponin trend. By the meantime, the patient will be jefe ated for non-ST elevation myocardial infarction. We will consult Cardiology. We will also start her on bronchodilator for chronic obstructive pulmonary disease. She will be admitted to [facility] for further evaluation. Nephrology was consulted. Further evaluation and management will depend on the course of the hospitalization and her response to therapy.
[2017-07-30] MEDS ORDERED: Nicotine 21 MG PATCH TD SCH (13:15)
[2017-07-30] MEDS: Ferrous Sulfate 325 MG TAB PO SCH ×2 (14:14→20:14)
[2017-07-30 15:48] LABS: Troponin I 0.169 ng/mL (< 0.028)
[2017-07-30] MEDS: Carvedilol 6.25 MG TAB PO SCH (16:17)
[2017-07-30] MEDS ORDERED: Carvedilol 6.25 MG TAB PO SCH (17:00)
[2017-07-30] MEDS: Mometasone/Formoterol 120 PUFF INHALER INH SCH (18:41)
[2017-07-30] MEDS: ALPRAZolam 1 MG TAB PO PRN (20:14)
[2017-07-30] MEDS: traZODone HCl 50 MG TAB PO SCH (20:14)
[2017-07-30] MEDS: traMADol HCl 50 MG TAB PO PRN (20:14)
[2017-07-30] MEDS: Acetaminophen 325 MG TAB PO PRN (20:14)
[2017-07-30] MEDS: Atorvastatin Calcium 40 MG TAB PO SCH (20:14)
[2017-07-30] MEDS: Magnesium Oxide 400 MG TAB PO SCH (20:15)
--- NOTE | 2017-07-30 20:54 | CON ---
NEPHROLOGY CONSULTATION NOTE DATE OF CONSULTATION: 07/30/2017 CONSULTING PHYSICIAN: Berry Mancia M.D. REASON FOR CONSULTATION: Acute kidney injury on chronic kidney disease. REASON FOR ADMISSION: Shortness of breath. HISTORY OF PRESENT ILLNESS: This is a 71-year-old female with history of COPD, hypertension and CKD, who came to the hospital with shortness of breath and was evaluated for CHF versus COPD. Nephrology is consulted for acute kidney injury. She does follow with me for chronic kidney disease. She is f eeling a little bit better, still in mild distress. No nausea or vomiting. No abdominal pain reporte d. PAST MEDICAL HISTORY: Positive for hypertension, COPD, CKD and coronary artery disease. PAST SURGICAL HISTORY: Appendectomy and coronary artery stents. HOME MEDICATIONS: Omeprazole, hydralazine, amiodarone and atorvastatin. ALLERGIES: LISINOPRIL. SOCIAL HISTORY: Active smoker. No alcohol use, no illicit drug abuse. FAMILY HISTORY: No history of kidney disease. REVIEW OF SYSTEMS: The following complete review of systems was negative, unless otherwise mentioned in the HPI or below: Constitutional: Weight loss or gain, ability to conduct usual activities. Skin: Rash, itching. Eyes: Double vision, pain. ENT/Mouth: Nose bleeding, neck stiffness, pain, tenderness. Cardiovascular: Palpitations, dyspnea on exertion, orthopnea. Respiratory: Shortness of breath, wheezing, cough, hemoptysis, fever or night sweats. Gastrointestinal: Poor appetite, abdominal pain, heartburn, nausea, vomiting, constipation, or diarr hea. Genitourinary: Urgency, frequency, dysuria, nocturia. Musculoskeletal: Pain, swelling. Neurologic/Psychiatric: Anxiety, depression. Allergy/Immunologic: Skin rash, bleeding tendency. PHYSICAL EXAMINATION: GENERAL: This is a well-built female in no apparent distress. VITAL SIGNS: Temperature 98.7, pulse 67, respiratory rate 18 and blood pressure 159/65. HEENT: Atraumatic and normocephalic. Oral mucosa is moist. NECK: Supple. CARDIOVASCULAR: S1 and S2 heard. Rate and rhythm normal. RESPIRATORY: Clear. ABDOMEN: Soft. MUSCULOSKELETAL: 1+ edema. DERMATOLOGIC: No skin rash. NEUROLOGIC: Alert and awake. PSYCHIATRIC: Mood and affect normal. LABORATORY DATA: Hemoglobin is 7.9. Potassium is 4.8, BUN is 35 and creatinine is 3.1. ASSESSMENT AND PLAN: 1. Acute kidney injury on chronic kidney disease stage 4. Agree with Lasix. Chest x-ray with fluid overload. Plan is to have Lasix. Monitor renal functions. 2. Chronic kidney disease stage 4. 3. Acidosis. 4. Elevated BNP. 5. Fluid overload. 6. Cardiorenal syndrome. 7. Anemia. We will check iron studies. We will start Epogen as indicated. 8. Plan is to monitor renal function and continue Lasix. Thank you for the consult.
[2017-07-30] MEDS: Famotidine 20 MG TAB PO SCH (20:58)
[2017-07-30] MEDS ORDERED: Dexamethasone 10 MG/ML VIAL SLOW IVP SCH (21:00)
[2017-07-30] MEDS ORDERED: Furosemide 40 MG/4 ML VIAL SLOW IVP SCH (21:00)
[2017-07-30] MEDS ORDERED: Famotidine/PF 20 mg/2ml Vial SLOW IVP SCH (21:00)
--- NOTE | 2017-07-30 21:49 | CON ---
DATE OF CONSULTATION: 07/30/2017 CARDIOLOGY CONSULT NOTE INDICATION FOR CONSULTATION: A 71-year-old female with congestive failure exacerbation which is jean tolic in nature and severe COPD with increasing shortness of breath. HISTORY OF PRESENT ILLNESS: This very unfortunate 71-year-old female who has multiple medical proble ms, which would be causing her to be short of breath. These include congestive heart failure which i s diastolic in nature, history of coronary artery disease. She underwent stent placement in 2016. S he has a severe COPD. She continues to smoke 2-3 cigarettes a day. She has had intermittent atrial fibrillation. 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 She has a history of hyperte nsion also she had been doing relatively well, since she underwent angioplasty and stent placement pr eviously, but she did present to the hospital in March here with CHF exacerbation, was treated wit h diuretics and then developed worsening of her chronic kidney disease. Eventually, she stabilized a nd was discharged to home. She recently was seen in the office by Dr. Starr, approximately 3-4 da ys ago, actually she was seen on 07/21/2017, and was still complaining of some shortness of breath at that time. She had been placed on beta-blockers due to her coronary artery disease and he tapered t hese medications often. She had been on 25 b.i.d. and this was increased down to 6.25 mg a day and f or the last several days, she has not taken any of her Coreg. She also was placed on amiodarone for her atrial fibrillation since she had required cardioversion while in the hospital on her last admiss ion. At this time, she remains in sinus rhythm and continues on the amiodarone and appears to be doi ng relatively well. At this time, as far as the amiodarone is concerned. She was again admitted due to increasing shortness of breath. She saw a medical insurance claims specialist a couple of days ago, was given some diur etics which was just oddly p.o. Lasix. She took these, but she says she continued to have shortness of breath and presented to the emergency room saying that she could not breathe and was admitted for further evaluation and treatment. At this time, she has oxygen on and appears to be more comfortable , but still has some shortness of breath during the evaluation. Her BNP was elevated at 1518. Her c ardiac enzymes are indeterminate with troponin I of 0.084 and then repeat was 0.154. She denies any chest pain. EKG does not show any acute changes. She had an echocardiogram performed in 03/2017, wh ich showed ejection fraction of 50-55% with diastolic dysfunction with mild mitral and tricuspid aort ic valve stenosis as well as left atrial dilatation. She does not have any oxygen at home, saying th at she can afford this at home, but she still continues to smoke a few cigarettes a day. PAST MEDICAL HISTORY: Significant for the COPD, hypertension, chronic kidney disease, coronary arter y disease, angioplasty and stent placement in 01/2017, I am uncertain which vessel was stented. She also has a history of diastolic dysfunction as well as history of atrial fibrillation, thalassemia mi nor, hypertension, and dyslipidemia. PAST SURGICAL HISTORY: She also had an appendectomy. ALLERGIES: She is allergic to LISINOPRIL. SOCIAL HISTORY: She continues to smoke a little bit. She denies alcohol or illicit drug user. FAMILY HISTORY: Noncontributory at this time. MEDICATIONS PRIOR TO ADMISSION: Should have included the following, Trazodone 50 mg a day, isosorbid e mononitrate 60 mg a day, hydralazine 100 mg t.i.d., Plavix 75 mg a day, aspirin 81 mg daily. Coreg had been stopped since yesterday, I believe she was on 6.25 mg in the last week. Tramadol was 50 mg b.i.d., alprazolam 1 mg daily, nifedipine ER 60 mg; if the blood pressure was above 140, she was to take the second tablet. Lipitor 20 mg a day and amiodarone 200 mg daily. REVIEW OF SYSTEMS: She denied any recent fevers, chills, nausea, vomiting. She mainly complains of shortness of breath. She had no other complaints. She had no chest pain, no palpitations. She did complain of some mild lower extremity edema. Otherwise, 12 point review of systems is unremarkable e xcept what was noted in the history of present illness. PHYSICAL EXAMINATION: GENERAL: Reveals an elderly female, somewhat short of breath during the evaluation. VITAL SIGNS: Blood pressure is 159/65, heart rate is 78 and regular, respiratory rate is 18. She is afebrile. HEENT: Shows head to be normocephalic, atraumatic. Carotid pulses are present. I did not hear any bruits. There is no JVD. The thyroid did not appear to be enlarged. Oral mucosa was pink and moist . CHEST: Clear to auscultation. I did not hear rales, rhonchi or wheezing. CARDIOVASCULAR: Reveals regular rate and rhythm. She has normal S1, S2. I cannot hear an S3 nor an S4 at this time. There were no significant murmurs, heaves, thrills, bruits or rubs. ABDOMEN: Shows obesity with positive bowel sounds. No organomegaly or masses are noted. Femoral pu lses are present. EXTREMITIES: Showed no clubbing, cyanosis. She does have mild lower extremity edema around the ankl e area. NEUROLOGIC: The patient appears to be fully intact. She has normal strength and tone for someone of her age. SKIN: Warm and dry. LABORATORY DATA: Shows hemoglobin of 7.9, platelet count 242,000, WBC of 9.6, hematocrit was 25.1. Her BUN was 35 with a creatinine of 2.14. Blood sugar is 146 (I did not note the patient has a histo ry of diabetes in the past). Her blood pressure was elevated. Cardiac enzymes are as noted above. Her EKG shows normal sinus rhythm with no acute changes. Chest x-ray also showed no acute changes. She does have evidence of some congestive heart failure, but otherwise no significant new findings. She does have some bilateral infiltrates noted, which may be due to congestion. IMPRESSION: 1. Congestive heart failure exacerbation, which may be most likely due to her diastolic dysfunction and also exacerbated by her chronic obstructive pulmonary disease. We gently continued gentle diures is in this lady, but be very careful not to over diurese and to watch the renal function, I believe s he has already been seen by the medical insurance claims specialist on this admission. 2. History of coronary disease. This appears to be stable at this time, would continue her aspirin as well as Plavix. 3. Chronic kidney disease, which will be dealt by the medical insurance claims specialist. 4. History of atrial fibrillation. She seems to be tolerating the amiodarone. At this time, I will continue this medication. 5. History of anemia. We will continue to follow this for the patient with her thalassemia. Luis vargas she has chronic anemia. Even on her last admission, the highest hemoglobin that we saw was 8.8, so 7.9 is pretty much her baseline. At this time, we will continue to follow the patient with you. The heart rate is under reasonable control without the beta blockers and actually the amiodarone has some beta-blocking capabilities and may assist some with control of the heart rate. If not, she may need to be placed on other medications such as diltiazem. Actually, it appears that she has been sta rted back on her Coreg and I will decrease the dose of this since we have tried to taper this medicat ion off due to her chronic obstructive pulmonary disease and increasing shortness of breath.
[2017-07-31 05:35] LABS: Iron 55 ug/dL (50-170); Iron Binding Capacity, Total 248 mcg/dL (265-497)
[2017-07-31 05:39] LABS: Calcium 9.8 mg/dL (7.8-10.44); Chloride 106 mmol/L (98-107); Glucose 174 mg/dL (83-110); Potassium 4.3 mmol/L (3.5-5.1); Sodium 137 mmol/L (136-145)
[2017-07-31 05:41] LABS: Anion Gap 18 mmol/L (10-20); Carbon Dioxide 18 mmol/L (23-31)
[2017-07-31 05:43] LABS: Calc. Creatinine Clearance 33 mL/min (70-130); Estimated GFR-MDRD 25
[2017-07-31 05:44] LABS: BUN (Urea Nitrogen) 38 mg/dL (9.8-20.1)
[2017-07-31] MEDS: traMADol HCl 50 MG TAB PO PRN (06:43)
[2017-07-31] MEDS: Mometasone/Formoterol 120 PUFF INHALER INH SCH ×2 (07:45→18:25)
[2017-07-31] MEDS ORDERED: Amiodarone 200 MG TAB PO SCH (09:00)
[2017-07-31] MEDS: Amiodarone 200 MG TAB PO SCH (09:34)
[2017-07-31] MEDS: Carvedilol 6.25 MG TAB PO SCH (09:34)
[2017-07-31] MEDS: Aspirin 325 MG TAB PO SCH (09:34)
[2017-07-31] MEDS: Enoxaparin Sodium 30 MG/0.3 ML SYRINGE SC SCH (09:34)
[2017-07-31] MEDS: Clopidogrel Bisulfate 75 MG TAB PO SCH (09:34)
[2017-07-31] MEDS: Ferrous Sulfate 325 MG TAB PO SCH ×2 (09:34→17:03)
[2017-07-31] MEDS: Nicotine 21 MG PATCH TD SCH (09:35)
[2017-07-31] MEDS: Magnesium Oxide 400 MG TAB PO SCH ×2 (09:35→20:35)
[2017-07-31] MEDS: Acetaminophen 325 MG TAB PO PRN (09:41)
[2017-07-31] MEDS: ALPRAZolam 1 MG TAB PO PRN ×2 (09:44→20:35)
[2017-07-31] MEDS ORDERED: Furosemide 40 MG TAB PO SCH (10:45)
--- NOTE | 2017-07-31 11:09 | PDOC.PN ---
- Subjective Encounter Start Date: 07/31/17 Encounter Start Time: 10:15 -: Feels much better. - Objective Resuscitation Status: Resuscitation Status DNR:Do Not Resuscitate Vital Signs & Weight: Vital Signs (12 hours) Temp Pulse Resp BP Pulse Ox 07/31/17 11:04 78 20 97 07/31/17 07:45 75 20 98 07/31/17 07:37 63 20 95 07/31/17 07:16 97.4 F L 66 20 157/70 H 100 07/31/17 03:52 97.2 F L 68 16 151/62 H 97 07/31/17 00:24 97.1 F L 66 17 150/65 H 96 Weight Weight 170 lb 6 oz I&O: 07/30/17 07/31/17 08/01/17 06:59 06:59 06:59 Intake Total 850 Output Total 3050 Balance -2200 Result Diagrams: 07/30/17 09:04 07/31/17 04:49 Phys Exam - Physical Examination Constitutional: NAD Neck: no JVD Respiratory: clear to auscultation bilateral Cardiovascular: RRR Gastrointestinal: soft Musculoskeletal: edema present Neurological: moves all 4 limbs Psychiatric: A&O x 3 Dx/Plan (1) LIA (acute kidney injury) Code(s): N17.9 - ACUTE KIDNEY FAILURE, UNSPECIFIED Status: Acute Plan: f/u with nephrology. Comment: serum creat lower. LIA+CKD (2) Afib Code(s): I48.91 - UNSPECIFIED ATRIAL FIBRILLATION Status: Chronic Comment: s /p electrical cardioversion 04/17/17 (3) CAD (coronary artery disease) Code(s): I25.10 - ATHSCL HEART DISEASE OF [place] CORONARY ARTERY W/O ANG PCTRS Status: Chronic Qualifiers: Plan: f/u with cardiology. Comment: Troponin has increased significantly. NSTMI (4) Thalassemia minor Code(s): D56.3 - THALASSEMIA MINOR Status: Chronic (5) CHF exacerbation Code(s): I50.9 - HEART FAILURE, UNSPECIFIED Status: Acute Qualifiers: Plan: f/u chest x-ray. Comment: Clinically better. (6) COPD exacerbation Code(s): J44.1 - CHRONIC OBSTRUCTIVE PULMONARY DISEASE W (ACUTE) EXACERBATION Status: Acute Plan: continue bronchodilator. - Plan Continue current therapy. -: f/u with cardiology. * .
--- NOTE | 2017-07-31 11:11 | CON ---
DATE OF CONSULTATION: 07/30/2017 HISTORY OF PRESENT ILLNESS: Jessi Barron is a 71-year-old female, who was brought to the ER from [place] with acute shortness of breath. She denies any chest pain, chills, sweats, or hemoptysis, but she was wheezing. She apparently saw a fuel system maintenance supervisor yesterday and was started on a diuretic. X-ray shows findings consistent with cardiomegaly and fluid overload. The patient is 74 kg. In the ER, sats are 95% on 3 liters, blood pressure was 164/95, respiratory rate 20, temperature 98. She says about a month ago, she is able to carry on her usual duties without getting marked short of breath. The patient is still smoking several cigarettes a day without any prior history of TB, pneumonia or bronchial asthma. She was placed on BiPAP in the ER to which she has responded now off_ . PAST MEDICAL HISTORY: Extensively well outlined pertinent mainly for her thalassemia. She takes iron pills. She has had previous history of coronary artery disease, diastolic dysfunction, myocardial infarction, GI bleed, reflux, hyperlipidemia, hypertension, insomnia, and renal failure. PAST SURGICAL HISTORY: Including cardiac stent and angioplasty. ALCOHOL: None. TOBACCO: As noted several cigarettes a day. MEDICATIONS: Her list of medicines from home includes a long list including trazodone 50, tramadol, guaifenesin, hydralazine 100 three times a day, omeprazole, nifedipine XL 60, iron tablets, Plavix 75, aspirin, amiodarone 200, albuterol inhaler. She was started on Decadron, Lasix, and nitroglycerin. ALLERGIES: LISINOPRIL. REVIEW OF SYSTEMS: Otherwise, 10-point negative. PHYSICAL EXAMINATION: GENERAL: She is in no distress. VITAL SIGNS: Sats 100% now on 2 liters, temperature 97, blood pressure 138/80. HEST: Bilateral crackles, occasional wheeze. CARDIAC: Normal S1, S2, no gallops. ABDOMEN: Soft. EXTREMITIES: Trace edema. NECK: Unremarkable. LABORATORY DATA: White count 9,000, hemoglobin and hematocrit 7 and 25, platelets count 252. A pO284 . BNP is 1518. IMPRESSION: 1. Respiratory failure secondary to congestive heart failure, superimposed pneumonia. 2. Asthmatic bronchitis. 3. Chronic renal failure. 4. Thalassemia. 5. Anemia. PLAN: Pulmonary will follow while in the MICU. We will notify Dr. Szymanski whom I seen in the past. I have started on scheduled neb treatments. Continue diuretics as prescribed. This is a 70-minute consultation time of which 50% in direct patient care. RONI
--- NOTE | 2017-07-31 11:37 | RAD ---
CHEST 1 VIEW: Date: 07/31/17 HISTORY: CHF. COMPARISON: 07/30/17. FINDINGS: Cardiac silhouette is magnified and enlarged. Pulmonary vasculature is less engorged than on the prev ious study. Mediastinum is midline with aortic calcification. No lobar consolidation or evidence of p neumothorax. fitness management director leads overlie the chest. IMPRESSION: Interval decrease in radiographic severity of pulmonary edema. POS: ZULEYMA
[2017-07-31] MEDS ORDERED: Amlodipine 5 MG TAB PO SCH (12:00)
[2017-07-31] MEDS ORDERED: Epoetin (ESRD) 10,000 UNITS/ML VIAL IVP SCH (12:00)
--- NOTE | 2017-07-31 14:18 | PRG ---
NEPHROLOGY PROGRESS NOTE DATE OF SERVICE: 07/31/2017 SUBJECTIVE: Patient was seen and examined at bedside and overnight events noted. Patient denies any shortness of breath or chest pain or palpitation. No history of nausea or vomiting or diarrhea or f ever or chills or cramps. OBJECTIVE: GENERAL: This is a well-built female in no apparent distress. VITAL SIGNS: Temperature is 96, pulse 70, respiratory rate 18 and blood pressure 176/67. HEENT: Atraumatic, normocephalic. Oral mucosa is moist. NECK: Supple. CARDIOVASCULAR: S1, S2 heard. Rate and rhythm regular. RESPIRATORY: Clear to auscultation. GASTROINTESTINAL: Abdomen is soft. MUSCULOSKELETAL: No tenderness. No edema. DERMATOLOGIC: No skin rash. NEUROLOGIC: Alert and awake and oriented x3. No focal neurologic deficits. Moving all the extremit ies. PSYCHIATRIC: Mood and affect normal. LABORATORY DATA: Potassium is 4.3, BUN is 38 and creatinine is 1.9. ASSESSMENT AND PLAN: 1. Acute kidney injury on chronic kidney disease stage 4. Renal function, slight improvement. Crea tinine was better to 1.9 from 2.1. Continue current management with diuresis and monitor renal funct ion, electrolytes. 2. Chronic kidney disease stage 4. 3. Acidosis. 4. Fluid overload. 5. Cardiorenal syndrome. Agree with Lasix. 6. Anemia. Iron studies with adequate iron stores. We will start on a small dose of iron. We will give x1 dose of Epogen. We will follow.
--- NOTE | 2017-07-31 15:10 | PRG ---
DATE OF SERVICE: 07/31/2017 SUBJECTIVE: This morning, she is better. She is less short of breath. She tells me she did not wan t to be intubated in case her condition gets worse. OBJECTIVE: VITAL SIGNS: Blood pressure is 150/70, sats are 100% on 3 liters, temperature 98, and pulse 66. CHEST: Decreased breath sounds with minimal crackles. CARDIAC: Normal S1 and S2. No gallops. ABDOMEN: Soft. No masses. LABORATORY DATA: Creatinine 1.34. IMPRESSION: Congestive heart failure, renal failure, chronic obstructive pulmonary disease. She is a DNR. PLAN: Continue neb treatments, Symbicort, steroids. Cardiac care. We will follow.
[2017-07-31] MEDS: predniSONE 20 MG TAB PO SCH (17:03)
[2017-07-31] MEDS: Famotidine 20 MG TAB PO SCH (20:34)
[2017-07-31] MEDS: Atorvastatin Calcium 40 MG TAB PO SCH (20:34)
[2017-07-31] MEDS: traZODone HCl 50 MG TAB PO SCH (20:35)
[2017-08-01] MEDS: Mometasone/Formoterol 120 PUFF INHALER INH SCH ×2 (07:35→19:09)
[2017-08-01] MEDS: Furosemide 40 MG TAB PO SCH (08:14)
[2017-08-01] MEDS: predniSONE 20 MG TAB PO SCH ×2 (08:14→17:34)
[2017-08-01] MEDS: Amiodarone 200 MG TAB PO SCH (08:14)
[2017-08-01] MEDS: Magnesium Oxide 400 MG TAB PO SCH ×2 (08:14→20:52)
[2017-08-01] MEDS: Aspirin 325 MG TAB PO SCH (08:14)
[2017-08-01] MEDS: Clopidogrel Bisulfate 75 MG TAB PO SCH (08:14)
[2017-08-01] MEDS: Nicotine 21 MG PATCH TD SCH (08:15)
[2017-08-01] MEDS: Enoxaparin Sodium 30 MG/0.3 ML SYRINGE SC SCH (08:15)
[2017-08-01] MEDS: Ferrous Sulfate 325 MG TAB PO SCH ×2 (08:15→17:34)
[2017-08-01] MEDS ORDERED: Amlodipine 5 MG TAB PO SCH ×2 (09:00)
[2017-08-01] MEDS: ALPRAZolam 1 MG TAB PO PRN ×2 (10:04→20:44)
--- NOTE | 2017-08-01 10:54 | PQF ---
DATE: 08-01-17 ATTN: DR. FILOMENA PINEDA Please exercise your independent, professional judgment in responding to the clarification form. Clinical indicators are provided on the bottom of this form for your review Please check appropriate box(s): AMI TYPE: [x ] Demand Ischemia [ ] NSTEMI [ ] AMI Type II [ ] Other diagnosis [ ] Unable to determine In addition, please specify: Present on Admission (POA): [ x ] Yes [ ] No [ ] Unable to determine CLINICAL INDICATORS - SIGNS / SYMPTOMS / LABS H&P: TROPONIN WAS NOTICED TO BE ELEVATED SUGGESTIVE OF POSSIBLE NON-ST ELEVATION MD, TROPONIN: 07-30-17: 0.084 0.154 0.169 RISKS: CARDIO CONSULT DR. LENTZ 07-30-17: HX OF HTN, CKD, CAD, HX OF DIASTOLIC DYSFUNCTION WELL HX OF A FIB , DYSLIPIDEMIA TREATMENTS:CARDIO CONSULT O2 USE CARDIAC MONITORING (This form is maintained as a part of the permanent medical record) 2014 [employer]. All Rights Reserved [email or web address] Office: [phone] RONI
--- NOTE | 2017-08-01 11:32 | PDOC.PN ---
- Subjective Encounter Start Date: 08/01/17 Encounter Start Time: 11:31 CC: Dyspnea sub: Pt says she feels better, denies dyspnea - Objective Resuscitation Status: Resuscitation Status DNR:Do Not Resuscitate Vital Signs & Weight: Vital Signs (12 hours) Temp Pulse Resp BP Pulse Ox 08/01/17 11:12 98.8 F 74 18 195/79 H 97 08/01/17 08:00 98.7 F 66 19 97 08/01/17 07:33 69 16 98 08/01/17 07:06 98.7 F 66 19 194/75 H 97 08/01/17 04:00 98.7 F 73 20 180/74 H 95 Weight Weight 172 lb 4 oz I&O: 07/31/17 08/01/17 08/02/17 06:59 06:59 06:59 Intake Total 850 2410 Output Total 3050 3175 Balance -2200 -105 Result Diagrams: 07/30/17 09:04 07/31/17 04:49 Dx/Plan - Plan * . Physical Examination Constitutional: NAD Neck: no JVD Respiratory: clear to auscultation bilateral, no wheezing, no rhonchi, diminished at bases Cardiovascular: RRR, no murmur, no rubs, no gallop Gastrointestinal: soft Musculoskeletal: edema present Neurological: moves all 4 limbs Psychiatric: A&O x 3 Dx/Plan (1) LIA (acute kidney injury) Code(s): N17.9 - ACUTE KIDNEY FAILURE, UNSPECIFIED Status: Acute Plan: neph on board Comment: LIA+CKD creatinine improving slowly, bmp pending this am (2) Afib Code(s): I48.91 - UNSPECIFIED ATRIAL FIBRILLATION Status: Chronic Comment: s /p electrical cardioversion 04/17/17 HR stable (3) CAD (coronary artery disease) Code(s): I25.10 - ATHSCL HEART DISEASE OF [place] CORONARY ARTERY W/O ANG PCTRS Status: Chronic Qualifiers: Plan: Comment: Troponin has increased significantly. NSTEMI cardio on board. Appreciate their input (4) Thalassemia minor Code(s): D56.3 - THALASSEMIA MINOR Status: Chronic (5) CHF exacerbation Code(s): I50.9 - HEART FAILURE, UNSPECIFIED Status: Acute Qualifiers: Plan: f/u chest x-ray. Comment: Clinically better. (6) COPD exacerbation Code(s): J44.1 - CHRONIC OBSTRUCTIVE PULMONARY DISEASE W (ACUTE) EXACERBATION Status: Acute Plan: continue bronchodilator. currently on room air Plan to consult PT to evaluate patient Ok to downgrade to tele if ok with pulmonary d/w pt & RN
[2017-08-01 11:56] LABS: Hemoglobin 8.6 g/dL (12.0-16.0); Mean Corpuscular HGB CONC 31.8 g/dL (32.0-36.0); Mean Corpuscular Volume 66.2 fl (81.0-99.0); Mean Platelet Volume 11.4 fL (7.4-10.4); Platelet Count 264 thou/uL (130-400); White Blood Cell (WBC) Count 11.4 thou/uL (4.8-10.8)
--- NOTE | 2017-08-01 11:58 | PRG ---
DATE OF SERVICE: 08/01/2017 SUBJECTIVE: This is a 71-year-old female being seen for acute kidney injury. The patient denies any nausea, vomiting or chest pain. PHYSICAL EXAMINATION: GENERAL: Patient is awake, alert. VITAL SIGNS: Afebrile, pulse 75, breathing 16, blood pressure 180/74. HEAD/NECK: Normocephalic. Atraumatic. EYES: EOMI. No deformity. EARS: Clear. No ulcers. NOSE: Intact. No lesions. MOUTH: Clear. No discharge. THROAT: Clear. No exudate. LUNGS: Clear. No crackles. CARDIAC: S1, S2. No rub. ABDOMEN: Benign. BS+. GENITALIA/RECTUM: Tomlinson absent. BACK/EXTREMITIES: Edema 0+ Ulcer- NEUROLOGICAL: Alert and motor intact. SKIN: Rash- Bruise- LYMPHATICS: Edema- Ulcer- LABORATORY DATA: Show creatinine 1.9. Today's creatinine is pending. ASSESSMENT AND PLAN: 1. Acute kidney injury with chronic kidney disease, stable. Recheck laboratory data. 2. Metabolic acidosis, stable. 3. Hypertension. Would recommend increasing amlodipine to 10 mg daily. 4. Anemia, stable. 5. Medications based on glomerular filtration rate are appropriate. No indication for dialysis.
[2017-08-01 12:15] LABS: Anion Gap 18 mmol/L (10-20); BUN (Urea Nitrogen) 46 mg/dL (9.8-20.1); Calc. Creatinine Clearance 33 mL/min (70-130); Calcium 9.8 mg/dL (7.8-10.44); Carbon Dioxide 22 mmol/L (23-31); Chloride 103 mmol/L (98-107); Estimated GFR-MDRD 26; Glucose 175 mg/dL (83-110); Potassium 4.3 mmol/L (3.5-5.1); Sodium 139 mmol/L (136-145)
[2017-08-01 12:19] LABS: #Lymphocytes 1.1 thou/uL (1.20-3.40); #Monocytes 0.8 thou/uL (0.11-0.59); #Neutrophils 9.5 thou/uL (1.40-6.50); %Eosinophils 0.3 % (0.0-10.0); %Lymphocytes 9.2 % (21.0-51.0); %Neutrophils 83.4 % (42.0-75.0); Anisocytosis SLIGHT = 6-15 cells (100X) (0-5/hpf); Hypochromia SLIGHT = 6-15 cells (100X) (0-5/hpf); MDiff Complete? YES; Microcytosis SLIGHT = 6-15 cells (100X) (0-5/hpf); Ovalocytes SLIGHT = 2-5 cells (100X) (0-1/hpf); PLT Morphology Comment Appears Adequate; Polychromasia SLIGHT = 2-3 cells (100X) (0-2/hpf)
[2017-08-01] MEDS ORDERED: hydrALAZINE 20 MG/ML VIAL SLOW IVP PRN (13:39)
[2017-08-01] MEDS ORDERED: NIFEdipine XL 60 MG TAB PO SCH (14:00)
--- NOTE | 2017-08-01 14:41 | PRG ---
DATE OF SERVICE: 08/01/2017 SUBJECTIVE: Ms. Barron's events have been reviewed. She says she is feeling better. OBJECTIVE: VITAL SIGNS: She is afebrile. Heart rate is 74, respiratory rate is 18, oximetry is 97% on room air and blood pressure 195/79. LUNGS: Free of wheezes. HEART: Regular rhythm. ABDOMEN: Soft. LABORATORY DATA: White count 11.4, hemoglobin 8.6 and platelets 264. Sodium 139, potassium 4.3, chloride 103, bicarbonate 22, BUN 46 and creatinine 1.9. IMPRESSION: 1. History of cardiac asthma. 2. Hypertension, poorly controlled. 3. History of coronary stents. 4. Ongoing tobacco use. 5. History of pneumonia in the past. 6. History of atrial fibrillation, last admission, with chest pain. PLAN: Continue nebulized treatments, diuresis, blood pressure control.
[2017-08-01] MEDS: NIFEdipine XL 60 MG TAB PO SCH (20:52)
[2017-08-01] MEDS: Atorvastatin Calcium 40 MG TAB PO SCH (20:52)
[2017-08-01] MEDS: Famotidine 20 MG TAB PO SCH (20:52)
[2017-08-01] MEDS: traZODone HCl 50 MG TAB PO SCH (20:53)
[2017-08-02 05:27] LABS: Anion Gap 12 mmol/L (10-20); BUN (Urea Nitrogen) 47 mg/dL (9.8-20.1); Calc. Creatinine Clearance 36 mL/min (70-130); Calcium 9.9 mg/dL (7.8-10.44); Carbon Dioxide 28 mmol/L (23-31); Chloride 104 mmol/L (98-107); Estimated GFR-MDRD 28; Glucose 179 mg/dL (83-110); Potassium 4.3 mmol/L (3.5-5.1); Sodium 140 mmol/L (136-145)
[2017-08-02 05:30] LABS: #Eosinphils 0.1 thou/uL (0.0-0.7); #Lymphocytes 1.1 thou/uL (1.20-3.40); #Monocytes 0.5 thou/uL (0.11-0.59); %Basophils 0.3 % (0.0-1.0); %Eosinophils 0.8 % (0.0-10.0); %Lymphocytes 11.3 % (21.0-51.0); %Monocytes 4.9 % (0.0-10.0); %Neutrophils 82.6 % (42.0-75.0); Mean Corpuscular Hemoglobin 20.5 pg (27.0-31.0); Mean Corpuscular Volume 64.2 fl (81.0-99.0); Mean Platelet Volume 11.5 fL (7.4-10.4); Platelet Count 260 thou/uL (130-400); RBC Distribution Width 16.7 % (11.5-14.5); Red Blood Cell (RBC) Count 4.39 mill/uL (4.20-5.40); White Blood Cell (WBC) Count 9.7 thou/uL (4.8-10.8)
[2017-08-02] MEDS: Mometasone/Formoterol 120 PUFF INHALER INH SCH ×2 (08:03→18:17)
[2017-08-02] MEDS: Ferrous Sulfate 325 MG TAB PO SCH ×2 (08:11→17:21)
[2017-08-02] MEDS: predniSONE 20 MG TAB PO SCH ×2 (08:11→17:21)
[2017-08-02] MEDS: Furosemide 40 MG TAB PO SCH (08:11)
[2017-08-02] MEDS: Amiodarone 200 MG TAB PO SCH (08:11)
[2017-08-02] MEDS: Magnesium Oxide 400 MG TAB PO SCH ×2 (08:12→20:43)
[2017-08-02] MEDS: Clopidogrel Bisulfate 75 MG TAB PO SCH (08:12)
[2017-08-02] MEDS: NIFEdipine XL 60 MG TAB PO SCH ×2 (08:12→20:43)
[2017-08-02] MEDS: ALPRAZolam 1 MG TAB PO PRN ×2 (08:17→20:43)
[2017-08-02] MEDS: Enoxaparin Sodium 30 MG/0.3 ML SYRINGE SC SCH (10:52)
[2017-08-02] MEDS: Nicotine 21 MG PATCH TD SCH (10:52)
--- NOTE | 2017-08-02 11:29 | PRG ---
DATE OF SERVICE: 08/02/2017 SUBJECTIVE: This is a 71-year-old female being seen for acute kidney injury. The patient denies any nausea, vomiting, or chest pain. PHYSICAL EXAMINATION: GENERAL APPEARANCE: The patient is awake and alert. VITAL SIGNS: Afebrile, pulse 79, breathing 16, blood pressure 167/68. HEAD/NECK: Normocephalic. Atraumatic. EYES: EOMI. No deformity. EARS: Clear. No ulcers. NOSE: Intact. No lesions. MOUTH: Clear. No discharge. THROAT: Clear. No exudate. LUNGS: Clear. No crackles. CARDIAC: S1, S2. No rub. ABDOMEN: Benign. BS+. GENITALIA/RECTUM: Tomlinson absent. BACK/EXTREMITIES: Edema 0+ Ulcer- NEUROLOGICAL: Alert and motor intact. SKIN: Rash- Bruise- LYMPHATICS: Edema- Ulcer- LABORATORY DATA: Show creatinine is 1.7. ASSESSMENT AND RECOMMENDATIONS: 1. Acute kidney injury, improved. 2. Hypertension, stable. 3. Anemia, stable. 3. Medications based on glomerular filtration rate are appropriate. No indication for dialysis.
--- NOTE | 2017-08-02 15:13 | PDOC.PN ---
- Subjective Encounter Start Date: 08/02/17 Encounter Start Time: 10:15 Subjective: pt sitting up in chair no complains - Objective Resuscitation Status: Resuscitation Status DNR:Do Not Resuscitate Vital Signs & Weight: Vital Signs (12 hours) Temp Pulse Pulse Pulse Resp BP BP 08/02/17 11:12 97.7 F 72 26 H 08/02/17 08:59 80 88 167/68 H 08/02/17 08:22 80 08/02/17 08:12 79 184/73 H 08/02/17 08:03 76 16 08/02/17 08:00 97.5 F L 70 18 08/02/17 07:21 97.5 F L 70 12 08/02/17 05:00 08/02/17 04:03 97.4 F L 64 17 BP BP Pulse Ox Pulse Ox Pulse Ox 08/02/17 11:12 126/74 98 08/02/17 08:59 178/75 H 99 100 08/02/17 08:22 167/68 H 08/02/17 08:12 08/02/17 08:03 97 08/02/17 08:00 100 08/02/17 07:21 184/73 H 100 08/02/17 05:00 168/79 H 08/02/17 04:03 186/79 H 100 Weight Weight 169 lb 8 oz I&O: 08/01/17 08/02/17 08/03/17 06:59 06:59 06:59 Intake Total 2410 1980 Output Total 3175 4385 400 Balance -765 -895 -400 Result Diagrams: 08/02/17 04:43 08/02/17 04:43 Phys Exam - Physical Examination HEENT: PERRLA Neck: no nodes Respiratory: no wheezing Cardiovascular: RRR, no significant murmur Gastrointestinal: soft, non-tender Musculoskeletal: no edema Dx/Plan - Plan copd exab shannan afib cad chf exab thalassemia minor plan: pt doing well, spoke with all consultants ok for discharge to rehab. pt does not want to be discharged today. continue duoneb and po steroids for now. pt also on diuretic. blood pressure stable possible discharge in am ( Review of Systems - Review of Systems Eyes: negative: Pain, Vision Change, Conjunctivae Inflammation, Eyelid Inflammation, Redness, Other ENT: negative: Ear Pain, Ear Discharge, Nose Pain, Nose Discharge, Nose Congestion, Mouth Pain, Mouth Swelling, Throat Pain, Throat Swelling, Other Respiratory: negative: Cough, Dry, Shortness of Breath, Hemoptysis, SOB with Excertion, Pleuritic Pain, Sputum, Wheezing Cardiovascular: negative: chest pain, palpitations, orthopnea, paroxysmal nocturnal dyspnea, edema, light headedness, other Gastrointestinal: negative: Nausea, Vomiting, Abdominal Pain, Diarrhea, Constipation, Melena, Hematochezia, Other - Medications/Allergies Allergies/Adverse Reactions: Allergies Allergy/AdvReac Type Severity Reaction Status Date / Time lisinopril Allergy Verified 04/14/17 23:25 Medications: Current Medications Acetaminophen (Tylenol) 650 mg PO Q4H PRN PRN Reason: Headache/Fever or Pain Last Admin: 07/31/17 09:41 Dose: 650 mg Albuterol/Ipratropium (Duoneb) 3 ml NEB [id number] PRN PRN Reason: Chest Congestion/Secretions Alprazolam (Xanax) 1 mg PO BIDPRN PRN PRN Reason: Anxiety Last Admin: 08/02/17 08:17 Dose: 1 mg Amiodarone HCl (Cordarone) 200 mg PO DAILY [facility] Last Admin: 08/02/17 08:11 Dose: 200 mg Aspirin (Aspirin Chewable) 81 mg PO DAILY [facility] Last Admin: 08/02/17 08:11 Dose: 81 mg Atorvastatin Calcium (Lipitor) 40 mg PO HS [facility] Last Admin: 08/01/17 20:52 Dose: 40 mg Bisacodyl (Dulcolax) 10 mg PO DAILYPRN PRN PRN Reason: Constipation Clopidogrel Bisulfate (Plavix) 75 mg PO DAILY [facility] Last Admin: 08/02/17 08:12 Dose: 75 mg Docusate Sodium (Colace) 100 mg PO DAILY PRN PRN Reason: Constipation Enoxaparin Sodium (Lovenox) 30 mg SC 0900 [facility] Last Admin: 08/02/17 10:52 Dose: Not Given Epoetin Leopoldo (Procrit) 10,000 units IVP Q7D [facility] Last Admin: 07/31/17 12:22 Dose: 10,000 units Famotidine (Pepcid) 20 mg PO 2100 [facility] Last Admin: 08/01/17 20:52 Dose: 20 mg Ferrous Sulfate (Feosol) 325 mg PO BID-[facility] Last Admin: 08/02/17 08:11 Dose: 325 mg Furosemide (Lasix) 40 mg PO DAILY-AC [facility] Last Admin: 08/02/17 08:11 Dose: 40 mg Hydralazine HCl (Apresoline) 10 mg SLOW IVP Q15MIN PRN PRN Reason: SBP Greater Than 180 Isosorbide Mononitrate (Imdur) 60 mg PO DAILY [facility] Last Admin: 08/02/17 08:12 Dose: 60 mg Magnesium Oxide (Magnesium Oxide) 400 mg PO BID [facility] Last Admin: 08/02/17 08:12 Dose: 400 mg Mometasone Furoate/Formoterol Fumar (Dulera 200 Mcg/5 Mcg Inhaler) 2 puff INH BID-RT [facility] Last Admin: 08/02/17 08:03 Dose: 2 puff Nicotine (Nicoderm Patch) 21 mg TD DAILY [facility] Last Admin: 08/02/17 10:52 Dose: Not Given Nifedipine (Procardia Xl) 60 mg PO BID [facility] Last Admin: 08/02/17 08:12 Dose: 60 mg Ondansetron HCl (Zofran) 4 mg IVP Q6H PRN PRN Reason: Nausea/Vomiting Prednisone (Prednisone) 20 mg PO BID-[facility] Last Admin: 08/02/17 08:11 Dose: 20 mg Tramadol HCl (Ultram) 50 mg PO QIDPRN PRN PRN Reason: Pain Last Admin: 07/31/17 06:43 Dose: 50 mg Trazodone HCl (Desyrel) 50 mg PO [facility] Last Admin: 08/01/17 20:53 Dose: 50 mg Zolpidem Tartrate (Ambien) 5 mg PO HSPRN PRN PRN Reason: Insomnia
--- NOTE | 2017-08-02 16:12 | PRG ---
DATE OF SERVICE: 08/02/2017 SUBJECTIVE: Ms. Barron is doing well. She has no complaints. OBJECTIVE: VITAL SIGNS: She is afebrile, heart rate 72, respiratory rate 26, and oximetry is 98% on room air. LUNGS: Clear. CARDIOVASCULAR: Regular rhythm. ABDOMEN: Soft. IMPRESSION AND PLAN: 1. Cardiac asthma with uncontrolled hypertension, improved. 2. Chronic kidney disease, improved with a creatinine of 1.76 today, 1.9 yesterday. I will see her as needed in the future.
[2017-08-02] MEDS: traZODone HCl 50 MG TAB PO SCH (20:43)
[2017-08-02] MEDS: Famotidine 20 MG TAB PO SCH (20:43)
[2017-08-02] MEDS: Atorvastatin Calcium 40 MG TAB PO SCH (20:43)
[2017-08-02] MEDS: traMADol HCl 50 MG TAB PO PRN (22:35)
[2017-08-03] MEDS: Mometasone/Formoterol 120 PUFF INHALER INH SCH (07:37)
[2017-08-03 07:40] VITALS: BP 166/83; TEMP 97.9
[2017-08-03] MEDS: Amiodarone 200 MG TAB PO SCH (08:55)
[2017-08-03] MEDS: predniSONE 20 MG TAB PO SCH (08:55)
[2017-08-03] MEDS: Magnesium Oxide 400 MG TAB PO SCH (08:55)
[2017-08-03] MEDS: Ferrous Sulfate 325 MG TAB PO SCH (08:55)
[2017-08-03] MEDS: NIFEdipine XL 60 MG TAB PO SCH (08:55)
[2017-08-03] MEDS: Clopidogrel Bisulfate 75 MG TAB PO SCH (08:55)
[2017-08-03] MEDS: Furosemide 40 MG TAB PO SCH (08:55)
[2017-08-03] MEDS: Nicotine 21 MG PATCH TD SCH (08:56)
[2017-08-03] MEDS: Enoxaparin Sodium 30 MG/0.3 ML SYRINGE SC SCH (08:56)
--- NOTE | 2017-08-03 12:22 | PRG ---
DATE OF SERVICE: 08/03/2017 SUBJECTIVE: A 71-year-old female being seen for acute kidney injury. The patient denies any nausea, vomiting, or chest pain. PHYSICAL EXAMINATION: GENERAL: Patient is awake, alert. VITAL SIGNS: Afebrile, pulse 96, breathing 16, blood pressure 139/72. GENERAL APPEARANCE AND MENTAL STATUS: Fair. HEAD/NECK: Normocephalic, atraumatic. EYES: EOMI. No deformity. EARS: Clear. No ulcers. NOSE: Intact. No lesions. MOUTH: Clear. No discharge. THROAT: Clear. No exudate. LUNGS: Clear. No crackles. CARDIAC: S1, S2. No rub. ABDOMEN: Benign. BS+. GENITALIA/RECTUM: Tomlinson absent. BACK/EXTREMITIES: Edema 0+ Ulcer-. NEUROLOGICAL: Alert and motor intact. SKIN: Rash- Bruise- LYMPHATICS: Edema- Ulcer-. LABORATORY DATA: Show hemoglobin 9, creatinine is pending. ASSESSMENT AND RECOMMENDATIONS: 1. Chronic kidney disease stage 4, stable. 2. Hypertension, stable. 3. Anemia, stable. 4. Acute kidney injury, improving. No indication for dialysis. I will sign off on this patient. T he patient will follow up with Dr. Martinez as an outpatient.
--- NOTE | 2017-08-03 14:22 | PDOC.PN ---
- Subjective Encounter Start Date: 08/03/17 Encounter Start Time: 10:45 Subjective: pt up in bed no complains - Objective Resuscitation Status: Resuscitation Status DNR:Do Not Resuscitate Vital Signs & Weight: Vital Signs (12 hours) Temp Pulse Resp BP Pulse Ox 08/03/17 08:55 71 08/03/17 08:00 97.9 F 71 14 96 08/03/17 07:35 97.9 F 71 18 166/83 H 95 08/03/17 04:22 98.6 F 72 18 139/72 95 Weight Weight 166 lb 11.2 oz I&O: 08/02/17 08/03/17 08/04/17 06:59 06:59 06:59 Intake Total 1980 350 Output Total 2875 400 Balance -895 -50 Result Diagrams: 08/02/17 04:43 08/02/17 04:43 Phys Exam - Physical Examination HEENT: PERRLA Neck: no nodes Respiratory: no wheezing, no rales Cardiovascular: RRR Gastrointestinal: soft Musculoskeletal: no edema Dx/Plan - Plan * . copd exab shannan afib cad chf exab thalassemia minor plan: pt doing well, spoke with all consultants ok for discharge to rehab. pt does not want to be discharged today. continue duoneb and po steroids for now. pt also on diuretic. blood pressure stable possible discharge in am Review of Systems - Review of Systems Eyes: negative: Pain, Vision Change, Conjunctivae Inflammation, Eyelid Inflammation, Redness, Other ENT: negative: Ear Pain, Ear Discharge, Nose Pain, Nose Discharge, Nose Congestion, Mouth Pain, Mouth Swelling, Throat Pain, Throat Swelling, Other Respiratory: negative: Cough, Dry, Shortness of Breath, Hemoptysis, SOB with Excertion, Pleuritic Pain, Sputum, Wheezing Cardiovascular: negative: chest pain, palpitations, orthopnea, paroxysmal nocturnal dyspnea, edema, light headedness, other Genitourinary: negative: Dysuria, Frequency, Incontinence, Hematuria, Retention , Other - Medications/Allergies Allergies/Adverse Reactions: Allergies Allergy/AdvReac Type Severity Reaction Status Date / Time lisinopril Allergy Verified 04/14/17 23:25 Medications: Current Medications Acetaminophen (Tylenol) 650 mg PO Q4H PRN PRN Reason: Headache/Fever or Pain Last Admin: 07/31/17 09:41 Dose: 650 mg Albuterol/Ipratropium (Duoneb) 3 ml NEB [id number] PRN PRN Reason: Chest Congestion/Secretions Alprazolam (Xanax) 1 mg PO BIDPRN PRN PRN Reason: Anxiety Last Admin: 08/02/17 20:43 Dose: 1 mg Amiodarone HCl (Cordarone) 200 mg PO DAILY [facility] Last Admin: 08/03/17 08:55 Dose: 200 mg Aspirin (Aspirin Chewable) 81 mg PO DAILY [facility] Last Admin: 08/03/17 08:55 Dose: 81 mg Atorvastatin Calcium (Lipitor) 40 mg PO HS [facility] Last Admin: 08/02/17 20:43 Dose: 40 mg Bisacodyl (Dulcolax) 10 mg PO DAILYPRN PRN PRN Reason: Constipation Clopidogrel Bisulfate (Plavix) 75 mg PO DAILY [facility] Last Admin: 08/03/17 08:55 Dose: 75 mg Docusate Sodium (Colace) 100 mg PO DAILY PRN PRN Reason: Constipation Enoxaparin Sodium (Lovenox) 30 mg SC 0900 [facility] Last Admin: 08/03/17 08:56 Dose: Not Given Epoetin Leopoldo (Procrit) 10,000 units IVP Q7D [facility] Last Admin: 07/31/17 12:22 Dose: 10,000 units Famotidine (Pepcid) 20 mg PO 2100 [facility] Last Admin: 08/02/17 20:43 Dose: 20 mg Ferrous Sulfate (Feosol) 325 mg PO BID-[facility] Last Admin: 08/03/17 08:55 Dose: 325 mg Furosemide (Lasix) 40 mg PO DAILY-AC [facility] Last Admin: 08/03/17 08:55 Dose: 40 mg Hydralazine HCl (Apresoline) 10 mg SLOW IVP Q15MIN PRN PRN Reason: SBP Greater Than 180 Isosorbide Mononitrate (Imdur) 60 mg PO DAILY [facility] Last Admin: 08/03/17 08:55 Dose: 60 mg Magnesium Oxide (Magnesium Oxide) 400 mg PO BID [facility] Last Admin: 08/03/17 08:55 Dose: 400 mg Mometasone Furoate/Formoterol Fumar (Dulera 200 Mcg/5 Mcg Inhaler) 2 puff INH BID-RT [facility] Last Admin: 08/03/17 07:37 Dose: 2 puff Nicotine (Nicoderm Patch) 21 mg TD DAILY [facility] Last Admin: 08/03/17 08:56 Dose: Not Given Nifedipine (Procardia Xl) 60 mg PO BID [facility] Last Admin: 08/03/17 08:55 Dose: 60 mg Ondansetron HCl (Zofran) 4 mg IVP Q6H PRN PRN Reason: Nausea/Vomiting Prednisone (Prednisone) 20 mg PO BID-[facility] Last Admin: 08/03/17 08:55 Dose: 20 mg Tramadol HCl (Ultram) 50 mg PO QIDPRN PRN PRN Reason: Pain Last Admin: 08/02/17 22:35 Dose: 50 mg Trazodone HCl (Desyrel) 50 mg PO HS [facility] Last Admin: 08/02/17 20:43 Dose: 50 mg Zolpidem Tartrate (Ambien) 5 mg PO HSPRN PRN PRN Reason: Insomnia
--- NOTE | 2017-08-04 13:03 | DIS ---
DATE OF ADMISSION: 07/30/2017 DATE OF DISCHARGE: 08/03/2017 DISCHARGE DIAGNOSES: 1. Chronic obstructive pulmonary disease exacerbation. 2. Acute kidney injury. 3. Atrial fibrillation. 4. Coronary artery disease. 5. Seizure exacerbation. 6. Thalassemia minor. HOSPITAL COURSE: Patient is a very pleasant 71-year-old female who initially presented to the hospit al from [place] with complaints of shortness of breath. Patient initially was treated for COPD exacerbation. She also had some mild elevation of troponins with possible non-ST elevation [place] in her EKG. Patient was seen by Cardiology while she was in the hospital. Her elevated troponin was most likely thought to be secondary to mild congestive heart failure exacerbation and also some demand isc hemia. Patient underwent diuresis, continued to improve throughout the hospital stay. She also was seen by Nephrology for her chronic kidney disease. However, no dialysis was indicated and patient's chronic kidney disease stage 4 seemed to be stable. Patient also was seen by Pulmonary for her COPD exacerbation. Patient was transferred to rehabilitation. DISCHARGE MEDICATIONS: As the following: Xanax 1 mg p.o. b.i.d. p.r.n., amiodarone 200 mg q.a.m., a spirin 81 mg daily, atorvastatin 40 mg daily, Plavix 75 mg daily, Pepcid 20 mg daily, iron 325 mg p.o . b.i.d., Lasix 40 mg daily, DuoNeb q.4 hours scheduled, isosorbide 60 mg daily, Procardia 60 mg p.o. daily p.r.n. for systolic greater than 140. She was also put on prednisone 10 mg p.o. b.i.d., trazo done 50 mg p.o. at bedtime, and tramadol 50 mg p.o. b.i.d. p.r.n.
== END 2017-08-03 15:19 | disposition home or self-care (01) | DRG 291 ==
LOC: ERS 08:23 → IMCU/EMU 10:04
PROVIDERS: ADMIT Hospitalist; ATTEND Hospitalist
PROC: 5A09357 Assistance with Respiratory Ventilation, Less than 24 Consecutive Hours, Continuous Positive Airway Pressure (ICD-10-PCS; principal; 2017-07-30)
DX: I13.0 Hypertensive heart and chronic kidney disease with heart failure and stage 1 through stage 4 chronic kidney disease, or unspecified chronic kidney disease (principal); J96.00 Acute respiratory failure, unspecified whether with hypoxia or hypercapnia; I50.33 Acute on chronic diastolic (congestive) heart failure; E87.2 Acidosis; N18.4 Chronic kidney disease, stage 4 (severe); N17.9 Acute kidney failure, unspecified; I24.8 Other forms of acute ischemic heart disease; J44.1 Chronic obstructive pulmonary disease with (acute) exacerbation; J44.9 Chronic obstructive pulmonary disease, unspecified; I48.2 Chronic atrial fibrillation; Z66 Do not resuscitate; I25.10 Atherosclerotic heart disease of native coronary artery without angina pectoris; F17.210 Nicotine dependence, cigarettes, uncomplicated; D56.3 Thalassemia minor; I25.2 Old myocardial infarction; Z88.8 Allergy status to other drugs, medicaments and biological substances; Z79.02 Long term (current) use of antithrombotics/antiplatelets; Z79.82 Long term (current) use of aspirin; Z79.899 Other long term (current) drug therapy; Z95.5 Presence of coronary angioplasty implant and graft
CPT/HCPCS: 36415; 71045; 80048; 82728; 82805; 83540; 83550; 83605; 83690; 83880; 85025; 87040; 93005; 94640; 94660; G8978-GP-CJ; G8979-GP-CJ; G8980-GP-CJ; G8987-GO-CI; G8988-GO-CI; G8989-GO-CI; J1100; J7620; Q4081; S0028

== ENCOUNTER 2017-11-16 14:21 | Observation (INO) | payer MEDICARE ==
[2017-11-16 15:19] LABS: Troponin I Less than 0.010 ng/mL (< 0.028)
[2017-11-16] MEDS ORDERED: Ondansetron ODT 4 MG TAB PO PRN (16:58)
[2017-11-16] MEDS ORDERED: HYDROcodone/Acetaminophen 5/325 mg Tablet PO PRN (16:58)
[2017-11-16] MEDS ORDERED: NIFEdipine XL 60 MG TAB PO PRN (17:02)
[2017-11-16] MEDS ORDERED: guaiFENesin/DM ER PO PRN (17:02)
[2017-11-16] MEDS ORDERED: Bisacodyl 5 MG TAB PO PRN (17:02)
[2017-11-16 18:41] VITALS: BMI 28.8
[2017-11-16 19:05] LABS: Troponin I 0.011 ng/mL (< 0.028)
--- NOTE | 2017-11-16 20:19 | HP ---
DATE OF ADMISSION: 11/16/2017 CHIEF COMPLAINT: Chest pain. HISTORY OF PRESENT ILLNESS: This is a 71-year-old white female, who had a cardiac catheterization wi th stent placement in 01/2017. Since then she has been following up with Dr. Starr. The patient developed a sudden onset of chest pain 2:00 a.m. this morning and she woke up with pain and the pain was radiating to the left side of the face along the jaw and to the neck and also along the left uppe r arm. She immediately went to [place] [facility] and she had a chest x-ray that was unremarkable. The patient had a troponin level over there was 0.35 and she was immediately transferred to this [facility]. A repeat troponin was 0.010 and they were normal. The patient had a persistent headache at this time. She did have nausea at the time of the chest pain. Chest pain was 7/10 in intensity, but was not relieved with any pain medications. The patient denies having any fevers. Denies having any abd ominal pain. Denies having any dizziness or any headaches. PAST MEDICAL HISTORY: 1. COPD. 2. Chronic kidney disease. 3. History of coronary artery disease, status post stents in 01/2017. PAST SURGICAL HISTORY: Appendectomy. ALLERGIES: LISINOPRIL. SOCIAL HISTORY: The patient is a nonsmoker. She denies alcohol, denies illicit drug use. FAMILY HISTORY: No significant family history of coronary artery disease. Family history has been r eviewed. HOME MEDICATIONS: 1. Aspirin 81 mg p.o. daily. 2. Cholecalciferol. 3. Famotidine. 4. Fish oil 5. Magnesium oxide. 6. Omeprazole 20 mg p.o. daily. 7. Alprazolam. 8. Amiodarone 200 mg p.o. daily and 200 mg in the morning. 9. Atorvastatin 40 mg at bedtime. 10. Bisacodyl 10 mg daily. 11. Plavix 75 mg p.o. daily. 12. Ferrous sulfate 325 mg p.o. daily. 13. Lasix 40 mg p.o. daily. 14. Ipratropium and DuoNebs q.4 hours. 15. Guaifenesin. 16. Isosorbide mononitrate 60 mg p.o. daily. 17. Nifedipine 60 mg p.o. daily. 17. Prednisone 10 mg p.o. b.i.d. 18. Trazodone. REVIEW OF SYSTEMS: All 12 systems are reviewed with the patient thoroughly and found to be negative at this time. Systems reviewed are HEENT, CVS, TOWEL ROLLING MACHINE OPERATOR, respiratory, GI, , musculoskeletal, skin and i ntegument, psychiatric. PHYSICAL EXAMINATION: VITAL SIGNS: Blood pressures are 162/70, heart rate of 76, respiratory rate is 20, saturation 97% on room air. GENERAL: The patient is moderately built and moderately nourished. She does not appear to be in acu te distress at this time. She is alert and oriented x3. HEENT: Atraumatic, normocephalic, PERRLA, extraocular muscles were intact. Oral mucosa is pink and moist. CARDIOVASCULAR: S1, S2 normal. No murmurs, rubs or gallops. LUNGS: Bilateral air entry was equal. No wheezing, no crackles. ABDOMEN: Soft, nontender, no guarding, no rebound tenderness. Bowel sounds normal. MUSCULOSKELETAL: No calf tenderness. No pedal edema. No joint tenderness, no joint swelling. SKIN: No cyanosis, no erythema, no rash, no pallor. TOWEL ROLLING MACHINE OPERATOR: Cranial nerve examination II-XII intact. No focal deficits were noted. LABORATORY DATA: WBC 6.3, hemoglobin is 8.6, hematocrit is 28.1, platelets 233. Sodium is 142, potassium 4.4, chloride is 107, BUN 37, creatinine is 2.3. UA was done showing mild leukocyte esterase with few wbc's. ASSESSMENT: 1. Acute chest pain. 2. Acute kidney injury. 3. Hypertension, uncontrolled. 4. History of coronary artery disease, status post stents. 5. Anemia of iron deficiency. PLAN: 1. Plan is to closely monitor this patient. She had initial elevated troponin and her symptoms sugg estive of possible demand ischemia. At this time, we will continue the patient on aspirin, beta bloc ker, and statin. We will plan to consult Cardiology as the patient had a recent stent in 2017, less than a year ago. We will order the nuclear stress test, but we will hold off until the cardiology se es the patient. 2. The patient has severe anemia 8.6 with a very low MCV, but she always remain around the same with no evidence of any GI blood loss. We will closely monitor this at this time. We will continue the patient with iron medications. We will plan to get a stool occult and look for any evidence of gastr ointestinal bleed. 3. The patient has elevated creatinine of 2.3, which is higher than her usual and has elevated BUN. We will closely monitor this patient. We will hold off on the Lasix at this time, we would not give her a lot of fluids, we will encourage oral hydration at this time and we will recheck the BMP in th e morning. If the patient continues to have worsening creatinine, we will consult Nephrology at that time. 4. Hypertension is slightly uncontrolled. We will closely monitor. We will restart the home medica tions and optimize her blood pressure medications to keep the blood pressure less than 130/85. 5. DVT prophylaxis, Lovenox 40 mg subcutaneously daily. I spent 75 minutes with this patient.
[2017-11-16] MEDS: Docusate 100 MG CAP PO SCH (20:21)
[2017-11-16] MEDS: Atorvastatin Calcium 40 MG TAB PO SCH (20:21)
[2017-11-16] MEDS: Carvedilol 3.125 MG TAB PO SCH (20:21)
[2017-11-16] MEDS: Magnesium Oxide 400 MG TAB PO SCH (20:22)
[2017-11-16] MEDS: traZODone HCl 50 MG TAB PO SCH (20:22)
[2017-11-16] MEDS: predniSONE 20 MG TAB PO SCH ×2 (20:22→20:23)
[2017-11-16] MEDS: ALPRAZolam 1 MG TAB PO PRN (20:24)
[2017-11-16] MEDS: Acetaminophen 325 MG TAB PO PRN (20:27)
[2017-11-16] MEDS: traMADol HCl 50 MG TAB PO PRN (20:28)
[2017-11-16] MEDS: Sodium Chloride 0.9% 1,000 ML IV SCH (20:34)
[2017-11-16 22:00] LABS: Troponin I Less than 0.010 ng/mL (< 0.028)
[2017-11-17] MEDS: Guaifenesin DM 100-10/5 ML UDCUP PO PRN ×2 (04:16→10:55)
[2017-11-17 05:34] LABS: Anion Gap 14 mmol/L (10-20); BUN (Urea Nitrogen) 38 mg/dL (9.8-20.1); Calc. Creatinine Clearance 26 mL/min (70-130); Calcium 9.7 mg/dL (7.8-10.44); Carbon Dioxide 22 mmol/L (23-31); Cardiac Risk 3.4 (Less than 4.5); Chloride 108 mmol/L (98-107); Cholesterol 154 mg/dl (< 200 Desired); Estimated GFR-MDRD 19; Glucose 136 mg/dL (83-110); HDL Cholesterol 45 mg/dL (>60 Neg Risk); LDL Cholesterol, Calculated 78 mg/dL; Potassium 4.1 mmol/L (3.5-5.1); Sodium 140 mmol/L (136-145); Triglycerides 154 mg/dL (Less than 150)
[2017-11-17 05:47] LABS: #Eosinphils 0.2 thou/uL (0.0-0.7); #Lymphocytes 1.6 thou/uL (1.20-3.40); #Monocytes 0.5 thou/uL (0.11-0.59); #Neutrophils 2.6 thou/uL (1.40-6.50); %Basophils 0.5 % (0.0-1.0); %Eosinophils 4.9 % (0.0-10.0); %Lymphocytes 32.1 % (21.0-51.0); %Monocytes 9.5 % (0.0-10.0); Hemoglobin 8.2 g/dL (12.0-16.0); Mean Corpuscular HGB CONC 32.7 g/dL (32.0-36.0); Mean Corpuscular Hemoglobin 20.8 pg (27.0-31.0); Mean Corpuscular Volume 63.8 fL (78.0-98.0); Mean Platelet Volume 11.6 fL (7.4-10.4); Platelet Count 194 thou/uL (130-400); RBC Distribution Width 15.3 % (11.5-14.5); Red Blood Cell (RBC) Count 3.91 mill/uL (4.20-5.40); White Blood Cell (WBC) Count 4.9 thou/uL (4.8-10.8)
[2017-11-17 05:48] LABS: Anisocytosis SLIGHT = 6-15 cells (100X) (0-5/hpf); MDiff Complete? YES; Microcytosis MODERATE=15-30 cells (100X) (0-5/hpf); PLT Morphology Comment Appears Adequate
[2017-11-17] MEDS ORDERED: Amiodarone 200 MG TAB PO SCH (09:00)
[2017-11-17] MEDS ORDERED: Aspirin 325 MG TAB PO SCH ×2 (09:00→09:27)
[2017-11-17] MEDS ORDERED: NIFEdipine XL 60 MG TAB PO SCH (09:00)
[2017-11-17] MEDS ORDERED: Furosemide 40 MG TAB PO SCH (09:00)
[2017-11-17] MEDS: Enoxaparin Sodium 40 MG/0.4 ML SYRINGE SC SCH (10:46)
[2017-11-17] MEDS: Acetaminophen 325 MG TAB PO PRN ×2 (10:47→22:19)
[2017-11-17] MEDS: Docusate 100 MG CAP PO SCH ×2 (10:47→20:40)
[2017-11-17] MEDS: predniSONE 20 MG TAB PO SCH ×2 (10:48→20:41)
[2017-11-17] MEDS: Ferrous Sulfate 325 MG TAB PO SCH ×2 (10:49→18:20)
[2017-11-17] MEDS: traMADol HCl 50 MG TAB PO PRN (10:50)
[2017-11-17] MEDS: Clopidogrel Bisulfate 75 MG TAB PO SCH (10:50)
[2017-11-17] MEDS: Magnesium Oxide 400 MG TAB PO SCH ×2 (10:50→20:40)
[2017-11-17] MEDS: Amiodarone 200 MG TAB PO SCH (10:50)
[2017-11-17] MEDS: Sodium Chloride 0.9% 1,000 ML IV SCH (10:51)
[2017-11-17] MEDS: ALPRAZolam 1 MG TAB PO PRN ×2 (10:55→21:59)
--- NOTE | 2017-11-17 14:31 | PDOC.PN ---
- Subjective Encounter Start Date: 11/17/17 Encounter Start Time: 12:00 Patient is seen today, alert and oriented. No other concern noted. No chest pain , Pt seen by Casrdiology, plan to adjust her BP meds, Pt is Not compliant with meds. - Objective MAR Reviewed: Yes Vital Signs & Weight: Vital Signs (12 hours) Temp Pulse Resp BP BP Pulse Ox 11/17/17 11:40 96.9 F L 73 20 152/69 H 93 L 11/17/17 08:13 96.9 F L 73 20 11/17/17 07:45 98.4 F 46 L 20 143/68 H 92 L 11/17/17 07:27 96 11/17/17 07:20 74 16 96 11/17/17 03:55 97.9 F 69 18 151/67 H 96 Weight Weight 179 lb I&O: 11/16/17 11/17/17 11/18/17 06:59 06:59 06:59 Intake Total 1012 Balance 1012 Result Diagrams: 11/17/17 04:51 11/17/17 04:51 Radiology Reviewed by me: Yes Phys Exam - Physical Examination HEENT: PERRLA, moist MMs Neck: no nodes, no JVD Respiratory: no wheezing, no rales Cardiovascular: RRR, no significant murmur Gastrointestinal: soft, non-tender Musculoskeletal: no edema, pulses present Neurological: non-focal, normal sensation Lymphatic: no nodes Dx/Plan (1) LIA (acute kidney injury) Code(s): N17.9 - ACUTE KIDNEY FAILURE, UNSPECIFIED Status: Acute Comment: serum creat worseing, Held lasix, Likely Cardiorenal, will have nephrology on board. LIA+CKD (2) COPD exacerbation Code(s): J44.1 - CHRONIC OBSTRUCTIVE PULMONARY DISEASE W (ACUTE) EXACERBATION Status: Acute (3) Anemia Code(s): D64.9 - ANEMIA, UNSPECIFIED Status: Chronic Comment: Anemia of Chronic Diasea, Will continue with iron (4) CAD (coronary artery disease) Code(s): I25.10 - ATHSCL HEART DISEASE OF [place] CORONARY ARTERY W/O ANG PCTRS Status: Chronic Qualifiers: Comment: Troponin has increased significantly. Likely unstable angina, now trop normal, Will continue with Cardiogy recommedations. NSTMI - Plan cont current plan of care, PT/OT, respiratory therapy, incentive spirometry, out of bed/ambulate, DVT proph w/lovenox * . Review of Systems - Review of Systems Constitutional: negative: fever, chills, sweats, weakness, malaise, other Eyes: negative: Pain, Vision Change, Conjunctivae Inflammation, Eyelid Inflammation, Redness, Other ENT: negative: Ear Pain, Ear Discharge, Nose Pain, Nose Discharge, Nose Congestion, Mouth Pain, Mouth Swelling, Throat Pain, Throat Swelling, Other Respiratory: negative: Cough, Dry, Shortness of Breath, Hemoptysis, SOB with Excertion, Pleuritic Pain, Sputum, Wheezing Cardiovascular: negative: chest pain, palpitations, orthopnea, paroxysmal nocturnal dyspnea, edema, light headedness, other Gastrointestinal: negative: Nausea, Vomiting, Abdominal Pain, Diarrhea, Constipation, Melena, Hematochezia, Other Genitourinary: negative: Dysuria, Frequency, Incontinence, Hematuria, Retention , Other Musculoskeletal: negative: Neck Pain, Shoulder Pain, Arm Pain, Back Pain, Hand Pain, Leg Pain, Foot Pain, Other - Medications/Allergies Allergies/Adverse Reactions: Allergies Allergy/AdvReac Type Severity Reaction Status Date / Time lisinopril Allergy Verified 04/14/17 23:25 Medications: Current Medications Acetaminophen (Tylenol) 650 mg PO Q4H PRN PRN Reason: Headache/Fever or Pain Last Admin: 11/17/17 10:47 Dose: 650 mg Hydrocodone Bitart/Acetaminophen ([place] 5/325) 1 tab PO Q4H PRN PRN Reason: Moderate Pain (4-6) Albuterol/Ipratropium (Duoneb) 3 ml NEB [id number] SCH Last Admin: 11/17/17 10:19 Dose: Not Given Alprazolam (Xanax) 1 mg PO BID PRN PRN Reason: Anxiety Last Admin: 11/17/17 10:55 Dose: 1 mg Amiodarone HCl (Cordarone) 200 mg PO QAM [facility] Last Admin: 11/17/17 10:50 Dose: 200 mg Aspirin (Aspirin Chewable) 81 mg PO DAILY [facility] Atorvastatin Calcium (Lipitor) 40 mg PO HS [facility] Last Admin: 11/16/17 20:21 Dose: 40 mg Bisacodyl (Dulcolax) 10 mg PO DAILYPRN PRN PRN Reason: Constipation Clopidogrel Bisulfate (Plavix) 75 mg PO DAILY [facility] Last Admin: 11/17/17 10:50 Dose: 75 mg Docusate Sodium (Colace) 100 mg PO BID [facility] Last Admin: 11/17/17 10:47 Dose: Not Given Enoxaparin Sodium (Lovenox) 40 mg SC 0900 [facility] Last Admin: 11/17/17 10:46 Dose: 40 mg Ferrous Sulfate (Feosol) 325 mg PO BID-[facility] Last Admin: 11/17/17 10:49 Dose: 325 mg Guaifenesin/Dextromethorphan (Robitussin Dm) 10 ml PO Q4HR PRN PRN Reason: Cough Last Admin: 11/17/17 10:55 Dose: 10 ml Guaifenesin/Dextromethorphan (Mucinex Dm) 1 tab PO Q12HR PRN PRN Reason: Cough Hydralazine HCl (Apresoline) 50 mg PO TID [facility] Sodium Chloride (Normal Saline 0.9%) 1,000 mls @ 75 mls/hr IV .[id number] [facility] Last Admin: 11/17/17 10:51 Dose: 1,000 mls Isosorbide Mononitrate (Imdur) 60 mg PO DAILY [facility] Last Admin: 11/17/17 10:49 Dose: 60 mg Magnesium Oxide (Magnesium Oxide) 400 mg PO BID [facility] Last Admin: 11/17/17 10:50 Dose: 400 mg Nifedipine (Procardia Xl) 60 mg PO BID [facility] Ondansetron HCl (Zofran Odt) 4 mg PO Q6H PRN PRN Reason: Nausea/Vomiting Pantoprazole Sodium (Protonix) 40 mg PO 2100 [facility] Last Admin: 11/16/17 20:22 Dose: 40 mg Prednisone (Prednisone) 10 mg PO BID [facility] Last Admin: 11/17/17 10:48 Dose: 10 mg Sodium Chloride (Flush - Normal Saline) 10 ml IVF Q12HR [facility] Sodium Chloride (Flush - Normal Saline) 10 ml IVF PRN PRN PRN Reason: Saline Flush Tramadol HCl (Ultram) 50 mg PO QID PRN PRN Reason: Pain Last Admin: 11/17/17 10:50 Dose: 50 mg Trazodone HCl (Desyrel) 50 mg PO HS [facility] Last Admin: 11/16/17 20:22 Dose: 50 mg
[2017-11-17] MEDS: Carvedilol 3.125 MG TAB PO SCH (15:30)
[2017-11-17] MEDS: hydrALAZINE 25 MG TAB PO SCH ×2 (15:37→20:40)
[2017-11-17] MEDS: Atorvastatin Calcium 40 MG TAB PO SCH (20:40)
[2017-11-17] MEDS: NIFEdipine XL 60 MG TAB PO SCH (20:40)
[2017-11-17] MEDS: traZODone HCl 50 MG TAB PO SCH (20:42)
--- NOTE | 2017-11-17 23:09 | CON ---
DATE OF CONSULT: 11/17/17 HISTORY: The patient is a 71-year-old woman with a history of coronary artery disease who presents with left-sided chest discomfort. The patient has previously undergone PTCA and stent placement in [facility]. She was seen here initially in March 2017 with COPD exacerbation and hypertensive crisis. The patient has also chronic renal insufficiency. She has been admitted subsequently in July of this year with CHF. She was continued on medical therapy. Her echocardiogram revealed normal left ventricular systolic function with diastolic dysfunction and mild aortic stenosis. The patient also a history of atrial fibrillation and is on amiodarone therapy. The patient presents with acute onset of left-sided chest discomfort. She states that she checked her blood pressure and it was markedly elevated. The patient states she has been compliant with her medication. She has not been seen recently for followup. The patient denies having any present chest discomfort. PAST MEDICAL HISTORY: 1. Coronary artery disease. 2. Chronic obstructive pulmonary disease. 3. Congestive heart failure. 4. Chronic renal insufficiency. 5. Hypertension, poorly controlled. 6. Obesity. 7. Depression. PAST SURGICAL HISTORY: Appendectomy. ALLERGIES: Lisinopril SOCIAL HISTORY: Smoker. MEDICATIONS ON ADMISSION: Trazodone 50, Coreg 3.125 b.i.d., tramadol 50 b.i.d., nifedipine 60 XL daily, amiodarone 200 daily, Lipitor 20 at bedtime, baby aspirin tablet daily, Plavix 75 daily. REVIEW OF SYSTEMS: Ten point system noticeable for increasing anxiety. 10-point system otherwise unremarkable. PHYSICAL EXAMINATION: GENERAL: This is a well-developed, obese woman in no acute distress with a blood pressure 143/68. NECK: Showed no jugular venous tension LUNGS: Coarse breath sounds bilateral. HEART: Regular rate and rhythm, normal S1, S2. ABDOMEN: Distended. EXTREMITIES: Showed regular rate and rhythm, normal S1, S2, I/ systolic murmur. ABDOMEN: Distended. EXTREMITIES: Showed no edema. VASCULAR: Radial pulses are 2+. NEUROLOGIC: Nonfocal. LABORATORY DATA: White blood cell count 4.9, hemoglobin 8.2, hematocrit 25.0, platelets 194. Sodium 140, potassium 4.1, chloride 108, bicarbonate 22, BUN 38, creatinine 2.48. Her glucose is 136. Troponin less than 0.01. EKG revealed normal sinus rhythm with Q-waves suggestive of an inferior infarct. Telemetry monitoring revealed marked sinus bradycardia. IMPRESSION: 1. Chest pain suggestive of unstable angina. 2. History of coronary artery disease, status post percutaneous transluminal coronary angioplasty and stent placement. 3. Congestive heart failure secondary to diastolic dysfunction. 4. History of mild aortic stenosis. 5. Severe chronic obstructive pulmonary disease. 6. History of atrial fibrillation. 7. Thalassemia 8. Chronic renal insufficiency. 9. Depression. This patient presents with chest pain suggestive of unstable angina. Her cardiac enzymes reveal no evidence of a myocardial infarction and EKG showed no acute evidence of ischemia. I would recommend medical therapy since her creatinine is elevated. At this time would increase the dose of her Nifedipine. Would discontinue Coreg because of her severe COPD. We will follow this patient with you through this hospitalization. RONI
[2017-11-18] MEDS: Sodium Chloride 0.9% 1,000 ML IV SCH (00:50)
--- NOTE | 2017-11-18 09:00 | CON ---
DATE OF CONSULTATION: 11/17/2017 CONSULTING PHYSICIAN: REASON FOR CONSULTATION: Acute kidney injury on chronic kidney disease, stage 4. REASON FOR ADMISSION: Chest pain. HISTORY OF PRESENT ILLNESS: A 71-year-old female with history of chronic kidney disease, COPD, coronary artery disease came to the hospital with above complaints. Nephrology is consulted for acute kidney injury. Her creatinine at baseline is around 1.7 and was 2.4 and yesterday was 2.3. She was started on IV fluids and Lasix was also stopped. No fever or chills. No nausea, vomiting. PAST MEDICAL HISTORY: Positive for COPD, CKD, CAD as above. PAST SURGICAL HISTORY: Appendectomy. HOME MEDICATIONS: Aspirin, cholecalciferol, famotidine, fish oil, magnesium oxide, omeprazole, alprazolam, amiodarone, atorvastatin, bisacodyl, Plavix, ferrous sulfate, Lasix, , nifedipine, prednisone, trazodone. ALLERGIES: LISINOPRIL. SOCIAL HISTORY: No smoking or alcohol, or illicit drug abuse.. FAMILY HISTORY: No history of any heart disease. REVIEW OF SYSTEMS: The following complete review of systems was negative, unless otherwise mentioned in the HPI or below: Constitutional: Weight loss or gain, ability to conduct usual activities. Skin: Rash, itching. Eyes: Double vision, pain. ENT/Mouth: Nose bleeding, neck stiffness, pain, tenderness. Cardiovascular: Palpitations, dyspnea on exertion, orthopnea. Respiratory: Shortness of breath, wheezing, cough, hemoptysis, fever, or night sweats. Gastrointestinal: Poor appetite, abdominal pain, heartburn, nausea, vomiting, constipation, or diarrhea. Genitourinary: Urgency, frequency, dysuria, nocturia. Musculoskeletal: Pain, swelling. Neurologic/Psychiatric: Anxiety, depression. Allergy/Immunologic: Skin rash, bleeding tendency. PHYSICAL EXAMINATION: GENERAL: This is a well-built female in no apparent distress. VITAL SIGNS: Temperature 9.6, pulse 64, respirations 16, blood pressure 167/74. Musculoskeletal : No tenderness, 1+ edema HEENT: Atraumatic normocephalic Neck: Supple Cardiovascular: S1S2 heard, Rate and rhythm regular Respiratory: Clear to auscultation Gastrointestinal: Abdomen is soft Dermatologic : No skin rash Neurologic: Alert and awake and oriented X3 No focal neurologic deficits. Moving all the extremities. Psychiatric: Mood and affect normal LABORATORY DATA: Potassium is 4.1, BUN 32, creatinine is 2.4. ASSESSMENT AND PLAN: 1. Acute kidney injury. Agree with IV hydration as tolerated. Check chest x- ray in the morning. Occasionally, holding the Lasix. 2. Anemia. Monitor. 3. Mild acidosis. 4. Edema, controlled. 5. Hypertension, stable. 6. IV fluids if tolerated. Monitor cardiorespiratory status. Avoid nephrotoxins. We will follow. Thank you for the consult. RONI
[2017-11-18] MEDS: Ferrous Sulfate 325 MG TAB PO SCH (09:21)
[2017-11-18] MEDS: Amiodarone 200 MG TAB PO SCH (09:22)
[2017-11-18] MEDS: Docusate 100 MG CAP PO SCH (09:22)
[2017-11-18] MEDS: Clopidogrel Bisulfate 75 MG TAB PO SCH (09:22)
[2017-11-18] MEDS: hydrALAZINE 25 MG TAB PO SCH ×2 (09:23→15:14)
[2017-11-18] MEDS: Magnesium Oxide 400 MG TAB PO SCH (09:24)
[2017-11-18] MEDS: predniSONE 20 MG TAB PO SCH (09:25)
[2017-11-18] MEDS: NIFEdipine XL 60 MG TAB PO SCH (09:25)
[2017-11-18] MEDS: Enoxaparin Sodium 40 MG/0.4 ML SYRINGE SC SCH (09:30)
[2017-11-18 09:40] LABS: #Basophils 0.1 thou/uL (0.0-0.2); #Eosinphils 0.1 thou/uL (0.0-0.7); #Lymphocytes 1.9 thou/uL (1.20-3.40); #Monocytes 0.5 thou/uL (0.11-0.59); #Neutrophils 3.9 thou/uL (1.40-6.50); %Basophils 0.8 % (0.0-1.0); %Monocytes 7.8 % (0.0-10.0); %Neutrophils 60.4 % (42.0-75.0); Hemoglobin 8.9 g/dL (12.0-16.0); Mean Corpuscular HGB CONC 32.5 g/dL (32.0-36.0); Mean Corpuscular Hemoglobin 20.8 pg (27.0-31.0); Mean Platelet Volume 10.5 fL (7.4-10.4); Platelet Count 228 thou/uL (130-400); RBC Distribution Width 15.5 % (11.5-14.5); Red Blood Cell (RBC) Count 4.26 mill/uL (4.20-5.40); White Blood Cell (WBC) Count 6.5 thou/uL (4.8-10.8)
[2017-11-18 10:07] LABS: Anion Gap 12 mmol/L (10-20); BUN (Urea Nitrogen) 31 mg/dL (9.8-20.1); Calc. Creatinine Clearance 34 mL/min (70-130); Carbon Dioxide 24 mmol/L (23-31); Chloride 109 mmol/L (98-107); Estimated GFR-MDRD 26; Glucose 173 mg/dL (83-110); Potassium 4.2 mmol/L (3.5-5.1); Sodium 141 mmol/L (136-145)
[2017-11-18 12:06] VITALS: BP 161/73; TEMP 97.9
--- NOTE | 2017-11-18 13:03 | PRG ---
DATE OF SERVICE: 11/18/2017 SUBJECTIVE: Patient was seen and examined at bedside and overnight events noted. Patient denies any shortness of breath or chest pain or palpitation. No history of nausea or vomiting or diarrhea or fever or chills or cramps. OBJECTIVE: GENERAL: This is an elderly female in no apparent distress. VITAL SIGNS: Temperature 98.1, pulse 76, respiratory rate 18, blood pressure 126/77. HEENT: Atraumatic, normocephalic. Oral mucosa is moist. NECK: Supple. CARDIOVASCULAR: S1, S2 heard. Rate and rhythm regular. RESPIRATORY: Clear to auscultation. GASTROINTESTINAL: Abdomen is soft. MUSCULOSKELETAL: No tenderness. No edema. DERMATOLOGIC: No skin rash. NEUROLOGIC: Alert and awake and oriented x3. No focal neurologic deficits. Moving all the extremities. PSYCHIATRIC: Mood and affect normal. LABORATORY DATA: Potassium 4.2, BUN 31, creatinine 1.8. ASSESSMENT AND PLAN: 1. Acute kidney injury, creatinine is much better. 2. Anemia. 3. Cardiorenal syndrome 4. Hypertension - stable. 5. Edema - stable. IV fluids stopped and we will monitor renal function. Avoid nephrotoxins. Adjust blood pressure medicines. Will follow. MTDD
--- NOTE | 2017-11-19 11:49 | EKG ---
Test Reason : Blood Pressure : / mmHG Vent. Rate : 076 BPM Atrial Rate : 076 BPM P-R Int : 180 ms QRS Dur : 088 ms QT Int : 410 ms P-R-T Axes : 043 -16 040 degrees QTc Int : 461 ms Normal sinus rhythm Inferior infarct , age undetermined Abnormal ECG Confirmed by MATTEHW GONZALEZ DO ([id number]), editorial manager HELENA SANCHEZ ([id number]) on 11/19/2017 11:49:09 AM Referred By: Confirmed By:MATTHEW GONZALEZ DO
== END 2017-11-18 15:43 ==
LOC: ERS 14:21 → 2SW 18:17
PROVIDERS: ADMIT Internal Medicine; ATTEND Internal Medicine
DX: R07.9 Chest pain, unspecified (principal); N17.9 Acute kidney failure, unspecified; I25.10 Atherosclerotic heart disease of native coronary artery without angina pectoris; D50.9 Iron deficiency anemia, unspecified; I12.9 Hypertensive chronic kidney disease with stage 1 through stage 4 chronic kidney disease, or unspecified chronic kidney disease; N18.9 Chronic kidney disease, unspecified; E87.2 Acidosis; J44.1 Chronic obstructive pulmonary disease with (acute) exacerbation; Z88.8 Allergy status to other drugs, medicaments and biological substances; Z79.82 Long term (current) use of aspirin; Z79.899 Other long term (current) drug therapy; Z79.02 Long term (current) use of antithrombotics/antiplatelets
CPT/HCPCS: 80048 ×2; 80061; 84484; 85025 ×2; 93005; 94640 ×2; 94760 ×3; 96360; 96361; 96372 ×2; 99285; G0378; 36415; A4216; J1650; J7506; J7620

== ENCOUNTER 2019-06-22 12:24 | Inpatient (IN) | payer MEDICARE, MEDICAID ==
[2019-06-22] MEDS ORDERED: Morphine 4 MG/ML VIAL ONE (13:54)
[2019-06-22] MEDS ORDERED: Fentanyl 100 MCG/2 ML VIAL ONE ×3 (14:29→17:06)
[2019-06-22 14:34] LABS: #Eosinphils 0.2 thou/uL (0.0-0.7); #Lymphocytes 2.3 thou/uL (1.20-3.40); #Monocytes 0.8 thou/uL (0.11-0.59); #Neutrophils 4.8 thou/uL (1.40-6.50); %Basophils 0.5 % (0.0-1.0); %Eosinophils 2.6 % (0.0-10.0); %Lymphocytes 28.5 % (21.0-51.0); %Monocytes 9.6 % (0.0-10.0); %Neutrophils 58.7 % (42.0-75.0); Hemoglobin 8.5 g/dL (12.0-16.0); Mean Corpuscular HGB CONC 32.8 g/dL (32.0-36.0); Mean Corpuscular Hemoglobin 22.5 pg (27.0-31.0); Mean Corpuscular Volume 68.5 fL (78.0-98.0); Mean Platelet Volume 9.8 fL (7.4-10.4); Platelet Count 231 thou/uL (130-400); RBC Distribution Width 16.4 % (11.5-14.5); Red Blood Cell (RBC) Count 3.78 mill/uL (4.20-5.40); White Blood Cell (WBC) Count 8.2 thou/uL (4.8-10.8)
[2019-06-22 14:39] LABS: PTT 29.3 SEC (22.9-36.1); Prothrombin Time 13.3 SEC (12.0-14.7)
--- NOTE | 2019-06-22 14:39 | ULT ---
RIGHT LOWER EXTREMITY ARTERIAL DOPPLER STUDY: 06/22/19 Arteries of the right lower extremity evaluated with ultrasound and Doppler. Color Doppler, spectral analysis and velocity recordings obtained. INDICATION: Right lower extremity pain. FINDINGS: The right common femoral artery shows a normal triphasic waveform. Velocities are reduced at 67 cm/s. Waveforms are abnormal below the right common femoral. The right profunda, superficial femoral artery , popliteal, anterior tibial artery, and dorsal pedis artery are imaged but show an abnormal monophas ic waveform. No flow is seen in the posterior tibial artery. There are reduced velocities throughout the visualize d arteries of the right lower extremity. IMPRESSION: Evidence of significant disease below the groin in the right lower extremity. Recommend correlation w ith catheter angiogram or CTA of lower extremities for characterization. POS: BENNY
[2019-06-22 14:52] LABS: Anisocytosis SLIGHT = 6-15 cells (100X) (0-5/hpf); Elliptocytes SLIGHT = 2-5 cells (100X) (0-1/hpf); MDiff Complete? YES; Microcytosis MODERATE=15-30 cells (100X) (0-5/hpf); Ovalocytes SLIGHT = 2-5 cells (100X) (0-1/hpf); Platelet Morphology Comment Appears Adequate; Polychromasia MODERATE = 3-4 cells (100X) (0-2/hpf); Target Cells SLIGHT = 2-5 cells (100X) (0-1/hpf); Tear Drops MODERATE= 6-15 cells (100X) (0-1/hpf)
[2019-06-22 14:58] LABS: ALT (SGPT) 8 U/L (8-55); AST (SGOT) 12 U/L (5-34); Albumin 4.3 g/dL (3.4-4.8); Alkaline Phosphatase 142 U/L (40-110); Anion Gap 18 mmol/L (10-20); BUN (Urea Nitrogen) 33 mg/dL (9.8-20.1); Bilirubin, Total 0.5 mg/dL (0.2-1.2); Calc. Creatinine Clearance 0 mL/min (70-130); Calcium 10.9 mg/dL (7.8-10.44); Carbon Dioxide 26 mmol/L (23-31); Chloride 95 mmol/L (98-107); Estimated GFR-MDRD 9; Globulin 2.7 g/dL (2.4-3.5); Glucose 85 mg/dL (83-110); Potassium 3.8 mmol/L (3.5-5.1); Sodium 135 mmol/L (136-145)
[2019-06-22] MEDS ORDERED: Sodium Chloride 0.9% 100 ML ONE (15:25)
[2019-06-22] MEDS ORDERED: Cefepime 2 GM VIAL ONE (15:25)
[2019-06-22] MEDS ORDERED: Acetaminophen 500 MG TAB ONE (15:32)
[2019-06-22] MEDS ORDERED: HYDROcodone/Acetaminophen 10/325 mg Tablet ONE (17:30)
[2019-06-22 19:09] VITALS: BMI 29.9
[2019-06-22] MEDS ORDERED: Ondansetron PF 4 MG/2 ML Vial IVP PRN (19:56)
[2019-06-22] MEDS ORDERED: HYDROcodone/Acetaminophen 5/325 mg Tablet PO PRN ×2 (19:56)
[2019-06-22] MEDS ORDERED: Acetaminophen 325 MG TAB PO PRN (19:56)
[2019-06-22] MEDS ORDERED: Ondansetron ODT 4 MG TAB SL PRN (19:56)
[2019-06-22] MEDS: HYDROcodone/Acetaminophen 7.5/325 mg Tablet PO PRN (20:15)
[2019-06-22] MEDS: Heparin 5,000 UNITS/ML VIAL SC SCH (20:35)
[2019-06-22] MEDS ORDERED: clonazePAM 0.5 MG TABLET PO PRN (22:16)
[2019-06-22] MEDS ORDERED: Pregabalin 75 MG CAP PO PRN (22:17)
[2019-06-22] MEDS ORDERED: tiZANidine HCl 4 MG TAB PO PRN (22:18)
--- NOTE | 2019-06-22 22:31 | HP ---
CHIEF COMPLAINT: Right leg pain and redness. HISTORY OF PRESENT ILLNESS: Ms. Barron is a 73-year-old female with past medical history of end-stage renal disease, on hemodialysis, GERD, hypertension, hyperlipidemia, insomnia, among others, presents to the emergency room with worsening right leg pain and swelling that started around a week ago. As per patient, she received one dose of IV vancomycin post dialysis. She missed her hemodialysis today. In the emergency room, workup including consultation with a surgeon and vascular surgeon, surgical issue was ruled out as per surgeons and they would like to admit the patient for medical workup and treatment for ?cellulitis. In the emergency room, the patient was given one dose of cefepime and one dose of vancomycin. The patient is being admitted to the hospital for further management. No fever. No chills. No abdominal pain. PAST MEDICAL HISTORY: As mentioned above in the history of present illness. PAST SURGICAL HISTORY: 1. Cardiac stents. 2. Mediport, right subclavian. 3. Dialysis shunt. SOCIAL HISTORY: Former smoker. Quit alcohol drinking 3 years ago. FAMILY HISTORY: Reviewed and noncontributory. HOME MEDICATIONS: Please see home medication reconciliation form for updated medications. ALLERGIES: ALLERGIC TO LISINOPRIL. REVIEW OF SYSTEMS: Review of 14 systems negative except what is mentioned in the history of present illness. PHYSICAL EXAMINATION: GENERAL: The patient is awake, alert, in moderate distress secondary to pain. VITAL SIGNS: Blood pressure 148/53, pulse is 72, respiratory rate is 14, temperature 98.2. HEAD: Normocephalic, atraumatic. NECK: Supple. No JVD. CHEST: Fair bilateral air entry. HEART: S1, S2. Regular. ABDOMEN: Soft, nontender. Bowel sounds present. NEUROLOGIC: Awake, alert, oriented x3 PSYCHIATRIC: Normal mood. EXTREMITIES: Right leg swollen, tender and warm. IMAGING STUDIES: Lower extremity ultrasound, there is evidence of significant disease below the groin and right lower extremity. LABORATORY DATA: WBC count is 8.2, hemoglobin 8.5, platelets 231. Sodium 135, potassium 3.8, BUN is 33, creatinine 4.6. ASSESSMENT: 1. Cellulitis of right lower extremity??? 2. Peripheral vascular disease. Vascular Surgery saw the patient in the emergency room, ruled out acute surgical/vascular pathology. Also, the surgeon saw the patient in the emergency room and cleared the patient surgically. 3. End-stage renal disease, on hemodialysis. The patient missed her hemodialysis today. 4. Coronary artery disease. PLAN: 1. Admit. 2. The patient was given one dose of IV antibiotics in the emergency room, reassess in a.m. May need to consult Infectious Disease in a.m. for evaluation and further recommendations. 3. Consult patient's range feeder. The patient missed her hemodialysis today, to arrange for hemodialysis. 4. Pain management. 5. Reconcile home medications. 6. DVT prophylaxis as appropriate. 7. The patient is DNR. 8. Expected length of stay, 2 midnights or more. Job ID: [id number]
--- NOTE | 2019-06-22 23:28 | CON ---
DATE OF CONSULTATION: 06/22/2019 HISTORY OF PRESENT ILLNESS: I was asked to see Ms. Barron in the emergency department for bilateral lower extremity pain. She says she has been having pain for a long time, but it is worsened over the last week. She was instructed to go the ER by Dr. Martinez, her director of rooms to manage her dialysis. She has been on dialysis for about two years. Her creatinine is in the 4s right now. She has had an ultrasound performed of the right lower extremity. The ultrasound shows that there are triphasic waveforms in the femoral artery with reduced waveforms distal to this. She has no history of peripheral vascular disease. She has never had any peripheral vascular evaluation performed. PAST MEDICAL HISTORY: 1. End-stage renal disease on hemodialysis. 2. Hypertension. 3. Coronary artery disease. PAST SURGICAL HISTORY: None. CURRENT MEDICATIONS: Noted. ALLERGIES: LISINOPRIL. PHYSICAL EXAMINATION: GENERAL: This is a pleasant woman, who is in pain in the emergency department. VITAL SIGNS: Heart rate is in the 80s, blood pressure is 160/72. LUNGS: Clear bilaterally. She has no carotid bruits. HEART: Rhythm is regular. ABDOMEN: Soft and nontender. EXTREMITIES: She has venous stasis changes below the knees bilaterally. She has palpable femoral pulses bilaterally. On the left, her dorsalis pedis and posterior tibial pulses are palpable. On the right, the dorsalis pedis pulse is palpable. Doppler examination shows biphasic Doppler signals in dorsalis pedis and posterior tibial arteries bilaterally. Feet are warm with good capillary refill. There are no ulcerations. ASSESSMENT AND PLAN: Bilateral lower extremity nonvascular leg pain. Job ID: [id number]
[2019-06-23] MEDS: HYDROcodone/Acetaminophen 7.5/325 mg Tablet PO PRN ×5 (01:53→20:23)
[2019-06-23] MEDS ORDERED: Cefepime 2 GM in Sodium Chloride 0.9% 100 ML IVPB SCH (04:00)
[2019-06-23 06:19] LABS: ALT (SGPT) 7 U/L (8-55); AST (SGOT) 17 U/L (5-34); Albumin 3.8 g/dL (3.4-4.8); Alkaline Phosphatase 121 U/L (40-110); Anion Gap 17 mmol/L (10-20); BUN (Urea Nitrogen) 41 mg/dL (9.8-20.1); Bilirubin, Total 0.4 mg/dL (0.2-1.2); Calc. Creatinine Clearance 13 mL/min (70-130); Carbon Dioxide 26 mmol/L (23-31); Chloride 98 mmol/L (98-107); Estimated GFR-MDRD 8; Globulin 2.5 g/dL (2.4-3.5); Glucose 89 mg/dL (83-110); Potassium 3.9 mmol/L (3.5-5.1); Protein, Total 6.3 g/dL (6.0-8.3); Sodium 137 mmol/L (136-145)
[2019-06-23 07:00] LABS: Band 2 % (5-11); Eosinophils 4 % (0-10); Hemoglobin 7.5 g/dL (12.0-16.0); Lymphocytes 30 % (21-51); MDiff Complete? YES; Mean Corpuscular HGB CONC 32.2 g/dL (32.0-36.0); Mean Corpuscular Hemoglobin 22.2 pg (27.0-31.0); Mean Corpuscular Volume 69.1 fL (78.0-98.0); Mean Platelet Volume 10.1 fL (7.4-10.4); Monocytes 5 % (0-10); Neutrophil 59 % (42-75); Platelet Count 203 thou/uL (130-400); RBC Distribution Width 16.3 % (11.5-14.5); Red Blood Cell (RBC) Count 3.36 mill/uL (4.20-5.40); White Blood Cell (WBC) Count 6.2 thou/uL (4.8-10.8)
[2019-06-23] MEDS: NIFEdipine XL 60 MG TAB PO SCH ×2 (08:16→21:38)
[2019-06-23] MEDS: Gabapentin 300 MG CAP PO SCH ×3 (08:16→21:39)
[2019-06-23] MEDS: Carvedilol 6.25 MG TAB PO SCH ×2 (08:16→21:41)
[2019-06-23] MEDS: Heparin 5,000 UNITS/ML VIAL SC SCH ×2 (08:17→21:38)
[2019-06-23 10:40] LABS: HBSAg Index 0.23 S/CO (0-0.99); Hep B Surf Ag Non-Reactive S/CO (NonReactive)
[2019-06-23] MEDS ORDERED: Sterile Water 10 ML VIAL IVP SCH (15:15)
--- NOTE | 2019-06-23 17:07 | CON ---
DATE OF CONSULTATION: REASON FOR CONSULTATION: Stage 6 chronic kidney disease on maintenance hemodialysis. HISTORY OF PRESENT ILLNESS: This is a very pleasant 73-year-old female, who presented to the hospital yesterday night for right leg pain and redness for rule out DVT. The patient missed dialysis yesterday. The patient denies no headache, numbness, tingling, or weakness. Denies any nausea, vomiting, or chest pain. The patient is being treated for cellulitis. PAST MEDICAL HISTORY: Significant for hypertension, end-stage kidney disease, GERD, anemia, history of tunneled dialysis catheter, and history of AV fistula. MEDICATIONS: Home medications list, reviewed. Hospital medications list, reviewed. SOCIOECONOMIC HISTORY: No alcohol or drug abuse. ALLERGIES: REVIEWED. REVIEW OF SYSTEMS: A 15-point review of system was performed negative except for positives noted above. HEENT: Eyes intact, no diplopia. Ears: No hearing loss or earache. Nose: No discharge or bleeding. Chest: No cough or phlegm. Abdomen: No nausea or vomiting. Genitourinary: No hematuria. No Tomlinson catheter. Musculoskeletal: No low back pain. No joint swelling or pain. Neurological: No syncope. No seizures. Skin: No complaints of rash or itching. Psychiatric: No depression. Constitutional: No weight loss or loss of appetite. PHYSICAL EXAMINATION: General: The patient is awake and alert. Vital Signs: Afebrile, pulse 60, breathing at 16, blood pressure 151/70. HEENT: Head normocephalic and atraumatic. Eyes intact, no ulcers. Nose intact, no ulcers. Ears intact, no ulcers. Neck: Supple. No JVD. Chest: Symmetrical and clear. Cardiovascular: Shows S1 and S2, no rub, no murmur. Gastrointestinal: Abdomen is soft, bowel sounds positive. Extremities: Show no edema or ulcers. Skin: Shows no rash or petechiae. Musculoskeletal: Shows no joint swelling or stiffness. Genitourinary: Shows no Tomlinson or CVA tenderness. Neurologic: Motor intact. Cranial nerves intact. LABORATORY DATA: Labs reviewed. ASSESSMENT AND PLAN: Stage 6 chronic kidney disease, plan dialysis per schedule. Hypertension, stable. Anemia, stable medication based on GFR appropriate. Job ID: [id number]
[2019-06-23] MEDS ORDERED: Activase 2 MG VIAL CATH SCH (17:15)
[2019-06-23] MEDS: Activase 2 MG VIAL CATH SCH ×2 (17:18→17:19)
--- NOTE | 2019-06-23 18:16 | PDOC.HOSPP ---
- Subjective Encounter Date: 06/23/19 Encounter Time: 18:15 Subjective: f/u for RLE cellulitis on Cefepime/Vanc given in ED. - Objective Vital Signs & Weight: Vital Signs (12 hours) Temp Pulse Resp BP BP Pulse Ox 06/23/19 08:16 63 115/70 06/23/19 08:00 98 06/23/19 07:28 97.8 F 63 20 115/70 98 Weight Weight 188 lb I&O: 06/22/19 06/23/19 06/24/19 06:59 06:59 06:59 Intake Total 470 350 Balance 470 350 Result Diagrams: 06/23/19 05:41 06/23/19 05:41 Additional Labs: Microbiology 06/22/19 14:39 Venous blood - Right Arm Blood Culture - Preliminary Specimen has been received and culture in progress. No Growth to date. 06/22/19 14:13 Venous blood - Right Arm Blood Culture - Preliminary Specimen has been received and culture in progress. No Growth to date. Laboratory Tests 06/22/19 06/22/19 06/23/19 14:13 14:13 09:38 WBC 8.2 Hgb 8.5 L BUN 33 H Creatinine 4.61 H Hep Bs Antigen Non-Reactive Hospitalist ROS - Medication Medications: Active Medications Generic Name Dose Route Start Last Admin Trade Name Freq PRN Reason Stop Dose Admin Hydrocodone Bitart/Acetaminophen 2 tab 06/22/19 19:47 06/23/19 15:28 [place] 7.5/325 PO 2 tab Q4H PRN Administration Moderate Pain (4-6) Carvedilol 6.25 mg 06/23/19 09:00 06/23/19 08:16 Coreg PO 6.25 mg BID LIVIER Administration Clonazepam 0.5 mg 06/22/19 22:16 06/22/19 22:47 Clonazepam PO 0.5 mg Q12HR PRN Administration Anxiety Gabapentin 300 mg 06/23/19 09:00 06/23/19 15:28 Neurontin PO 300 mg TID LIVIER Administration Heparin Sodium (Porcine) 5,000 units 06/22/19 21:00 06/23/19 08:17 Heparin SC Not Given BID [facility]IER Nifedipine 60 mg 06/23/19 09:00 06/23/19 08:16 Procardia Xl PO 60 mg BID [facility]IER Administration Pregabalin 75 mg 06/22/19 22:17 06/22/19 22:47 Lyrica PO 75 mg DAILY PRN Administration NERVE PAIN Tizanidine HCl 4 mg 06/22/19 22:18 06/22/19 22:48 Zanaflex PO 4 mg HS PRN Administration MUSCLE SPASMS - Exam General Appearance: NAD, awake alert Eye: PERRL, anicteric sclera ENT: normocephalic atraumatic, no oropharyngeal lesions Neck: supple, symmetric, no JVD, no thyromegaly Heart: RRR, no gallops, no rubs, diminshed peripheral pulses Respiratory: CTAB, no wheezes, no rales, no ronchi, normal chest expansion Gastrointestinal: soft, non-tender, non-distended, normal bowel sounds, no palpable masses Extremities: no cyanosis, no edema Extremities - other findings: RLE with light erythema [place] Skin: normal turgor Skin - other findings: RLE with edema/edema Neurological: cranial nerve grossly intact, no new deficit Musculoskeletal: normal tone, normal strength Psychiatric: normal affect, A&O x 3 Hosp A/P (1) Cellulitis of right lower extremity Code(s): L03.115 - CELLULITIS OF RIGHT LOWER LIMB Status: Acute Plan: Continue Cefepime 1gm IV BID, Vancomycin with HD sessions, serial monitoring (2) Peripheral vascular disease Code(s): I73.9 - PERIPHERAL VASCULAR DISEASE, UNSPECIFIED Status: Chronic Plan: Continue ASA/Plavix/Lipitor (3) ESRD (end stage renal disease) on dialysis Code(s): N18.6 - END STAGE RENAL DISEASE; Z99.2 - DEPENDENCE ON RENAL DIALYSIS Status: Chronic Plan: HD per Renal service (4) Anemia in CKD (chronic kidney disease) Code(s): N18.9 - CHRONIC KIDNEY DISEASE, UNSPECIFIED; D63.1 - ANEMIA IN CHRONIC KIDNEY DISEASE Status: Chronic Plan: s/p 1u PRBC's with HD today, Continue serial monitoring with repeat H/H - Plan continue antibiotics, social media executive, out of bed/ambulate Stable currently Continue Cefepime/Vancomycin HD per Renal service Consult Gen surgery regarding dysfunctional hemosplit OOB with PT AM lab: BMP, CBC
[2019-06-23] MEDS ORDERED: Docusate 100 MG CAP PO PRN (18:22)
[2019-06-23] MEDS ORDERED: Pregabalin 75 MG CAP PO PRN (18:22)
[2019-06-23] MEDS ORDERED: clonazePAM 0.5 MG TABLET PO PRN (18:22)
[2019-06-23] MEDS ORDERED: ALPRAZolam 1 MG TAB PO PRN (18:22)
[2019-06-23] MEDS ORDERED: Simvastatin 40 MG TAB PO SCH (21:00)
[2019-06-23] MEDS ORDERED: traZODone HCl 50 MG TAB PO SCH (21:00)
[2019-06-23] MEDS: Cefepime 1 GM in Sodium Chloride 0.9% 100 ML IVPB SCH (21:36)
[2019-06-23] MEDS: Calcium Carbonate 500 MG ChewTAB PO SCH (21:37)
[2019-06-23] MEDS: Atorvastatin Calcium 40 MG TAB PO SCH (21:44)
[2019-06-23] MEDS: traZODone HCl 50 MG TAB PO SCH (21:44)
[2019-06-23] MEDS: hydrALAZINE 25 MG TAB PO SCH (21:45)
[2019-06-24] MEDS: traMADol HCl 50 MG TAB PO SCH ×4 (00:16→20:19)
[2019-06-24] MEDS: HYDROcodone/Acetaminophen 7.5/325 mg Tablet PO PRN ×3 (06:10→20:35)
[2019-06-24 07:27] LABS: Band 3 % (5-11); Eosinophils 2 % (0-10); Hemoglobin 9.5 g/dL (12.0-16.0); Lymphocytes 28 % (21-51); MDiff Complete? YES; Mean Corpuscular HGB CONC 35.9 g/dL (32.0-36.0); Mean Corpuscular Hemoglobin 26.2 pg (27.0-31.0); Mean Corpuscular Volume 72.8 fL (78.0-98.0); Mean Platelet Volume 10.6 fL (7.4-10.4); Monocytes 3 % (0-10); Neutrophil 64 % (42-75); Platelet Count 175 thou/uL (130-400); RBC Distribution Width 19.3 % (11.5-14.5); Red Blood Cell (RBC) Count 3.63 mill/uL (4.20-5.40); White Blood Cell (WBC) Count 8.1 thou/uL (4.8-10.8)
[2019-06-24] MEDS: Calcium Carbonate 500 MG ChewTAB PO SCH ×2 (08:43→20:40)
[2019-06-24] MEDS: Clopidogrel Bisulfate 75 MG TAB PO SCH (08:43)
[2019-06-24] MEDS: Gabapentin 300 MG CAP PO SCH ×3 (08:45→20:41)
[2019-06-24] MEDS: Sevelamer Carbonate 800 MG TAB PO SCH (08:45)
[2019-06-24] MEDS: Aspirin 81 mg Enteric Coated Tablet PO SCH (08:45)
[2019-06-24] MEDS: Heparin 5,000 UNITS/ML VIAL SC SCH ×2 (08:46→20:45)
[2019-06-24] MEDS: Cefepime 1 GM in Sodium Chloride 0.9% 100 ML IVPB SCH ×2 (08:47→20:39)
[2019-06-24 08:54] LABS: Anion Gap 19 mmol/L (10-20); BUN (Urea Nitrogen) 26 mg/dL (9.8-20.1); Calc. Creatinine Clearance 18 mL/min (70-130); Calcium 10.5 mg/dL (7.8-10.44); Carbon Dioxide 22 mmol/L (23-31); Chloride 100 mmol/L (98-107); Estimated GFR-MDRD 12; Glucose 116 mg/dL (83-110); Potassium 4.9 mmol/L (3.5-5.1); Sodium 136 mmol/L (136-145)
[2019-06-24] MEDS: NIFEdipine XL 60 MG TAB PO SCH ×2 (09:00→20:42)
[2019-06-24] MEDS ORDERED: Vancomycin HCl 1 GM in Premix Bag 1 BAG IVPB SCH (09:00)
[2019-06-24] MEDS: hydrALAZINE 25 MG TAB PO SCH ×3 (09:00→20:43)
--- NOTE | 2019-06-24 10:33 | PRG ---
DATE OF SERVICE: 06/24/2019 SUBJECTIVE: This is a 73-year-old female, being seen for end-stage kidney disease. The patient denied nausea, vomiting, or chest pain. PHYSICAL EXAMINATION: GENERAL: The patient is awake and alert. VITAL SIGNS: Afebrile, pulse 74, breathing 16, blood pressure 118/74. HEENT: Head normocephalic and atraumatic. Eyes intact, no ulcers. Nose intact, no ulcers. Ears intact, no ulcers. NECK: Supple. No JVD. CHEST: Symmetrical and clear. CARDIOVASCULAR: Shows S1 and S2, no rub, no murmur. GASTROINTESTINAL: Abdomen is soft, bowel sounds positive. EXTREMITIES: Show no edema or ulcers. SKIN: Shows no rash or petechiae. MUSCULOSKELETAL: Shows no joint swelling or stiffness. GENITOURINARY: Shows no [place] or CVA tenderness. NEUROLOGIC: Motor intact. Cranial nerves intact. LABORATORY DATA: Reviewed. ASSESSMENT AND PLAN: 1. Stage 6 chronic kidney disease, stable. 2. Hypertension, stable. 3. Anemia, stable. 4. Medication based on GFR appropriate. Job ID: [id number]
[2019-06-24] MEDS: Carvedilol 6.25 MG TAB PO SCH ×2 (11:10→20:39)
--- NOTE | 2019-06-24 11:12 | PDOC.HOSPP ---
- Subjective Encounter Date: 06/24/19 Encounter Time: 11:10 Subjective: f/u for RLE cellulitis on Cefepime/Vancomycin. s/p 1u PRBC's with HD yesterday. Feels ok overall. No new complaints. - Objective Vital Signs & Weight: Vital Signs (12 hours) Temp Pulse Resp BP Pulse Ox 06/24/19 08:00 94 L 06/24/19 07:36 98.7 F 67 20 103/66 94 L Weight Weight 188 lb I&O: 06/23/19 06/24/19 06/25/19 06:59 06:59 06:59 Intake Total 470 350 Balance 470 350 Result Diagrams: 06/24/19 06:55 06/24/19 08:18 Additional Labs: Microbiology 06/22/19 14:39 Venous blood - Right Arm Blood Culture - Preliminary Specimen has been received and culture in progress. No Growth to date. 06/22/19 14:13 Venous blood - Right Arm Blood Culture - Preliminary Specimen has been received and culture in progress. No Growth to date. Laboratory Tests 06/22/19 06/22/19 06/23/19 14:13 14:13 09:38 WBC 8.2 Hgb 8.5 L BUN 33 H Creatinine 4.61 H Hep Bs Antigen Non-Reactive Hospitalist ROS - Medication Medications: Active Medications Generic Name Dose Route Start Last Admin Trade Name Freq PRN Reason Stop Dose Admin Hydrocodone Bitart/Acetaminophen 2 tab 06/22/19 19:47 06/24/19 06:10 [place] 7.5/325 PO 2 tab Q4H PRN Administration Moderate Pain (4-6) Aspirin 81 mg 06/24/19 09:00 06/24/19 08:45 Ecotrin PO 81 mg DAILY [facility] Administration Atorvastatin Calcium 40 mg 06/23/19 21:00 06/23/19 21:44 Lipitor PO Not Given HS LIVIER Calcium Carbonate 750 mg 06/23/19 21:00 06/24/19 08:43 Tums PO 750 mg BID [facility] Administration Carvedilol 6.25 mg 06/23/19 09:00 06/23/19 21:41 Coreg PO 6.25 mg BID [facility] Administration Clonazepam 0.5 mg 06/23/19 18:22 06/23/19 20:23 Clonazepam PO 0.5 mg Q12H PRN Administration Anxiety Clopidogrel Bisulfate 75 mg 06/24/19 09:00 06/24/19 08:43 Plavix PO 75 mg DAILY [facility] Administration Gabapentin 300 mg 06/23/19 21:00 06/24/19 08:45 Neurontin PO 300 mg TID L[facility] Administration Heparin Sodium (Porcine) 5,000 units 06/22/19 21:00 06/24/19 08:46 Heparin SC 5,000 units BID [facility] Administration Hydralazine HCl 100 mg 06/23/19 21:00 06/23/19 21:45 Apresoline PO Not Given TID [facility]IER Cefepime HCl 1 gm/ Sodium 100 mls @ 200 mls/hr 06/23/19 21:00 06/24/19 08:47 Chloride IVPB 100 mls Q12HR [facility] Administration Nifedipine 60 mg 06/23/19 09:00 06/23/19 21:38 Procardia Xl PO 60 mg BID [facility] Administration Pregabalin 75 mg 06/23/19 18:22 06/23/19 20:45 Lyrica PO 75 mg DAILY PRN Administration Pain Sevelamer Carbonate 1,600 mg 06/24/19 09:00 06/24/19 08:45 Renvela PO 1,600 mg DAILY L[facility]IER Administration Simvastatin 40 mg 06/23/19 21:00 06/23/19 21:40 Zocor PO 40 mg HS LIVIER Administration Sodium Chloride 10 ml 06/23/19 15:07 06/23/19 21:37 Flush - Normal Saline IVF 10 ml PRN PRN Administration Saline Flush Tizanidine HCl 4 mg 06/22/19 22:18 06/22/19 22:48 Zanaflex PO 4 mg HS PRN Administration MUSCLE SPASMS Tramadol HCl 50 mg 06/23/19 23:59 06/24/19 06:13 Ultram PO Not Given Q6HR [facility] Trazodone HCl 75 mg 06/23/19 21:00 06/23/19 21:44 Desyrel PO 75 mg HS LIVIER Administration - Exam General Appearance: NAD, awake alert Eye: PERRL, anicteric sclera ENT: normocephalic atraumatic, no oropharyngeal lesions Neck: supple, symmetric, no JVD, no thyromegaly, no lymphadenopathy Heart: RRR, no murmur, no gallops, no rubs, normal peripheral pulses Respiratory: CTAB, no wheezes, no rales, no ronchi, normal chest expansion Respiratory - other findings: R chest with tunneled HD catheter in place Gastrointestinal: soft, non-tender, non-distended, normal bowel sounds, no palpable masses Extremities: no cyanosis Extremities - other findings: RLE with ecchymotic and chronic changes, mild erythema Skin: normal turgor Neurological: cranial nerve grossly intact, no new deficit Musculoskeletal: normal tone, normal strength Psychiatric: normal affect, A&O x 3 Hosp A/P (1) Cellulitis of right lower extremity Code(s): L03.115 - CELLULITIS OF RIGHT LOWER LIMB Status: Acute Plan: Continue Cefepime/Vancomycin (2) Peripheral vascular disease Code(s): I73.9 - PERIPHERAL VASCULAR DISEASE, UNSPECIFIED Status: Chronic Plan: Continue ASA/Plavix/Lipitor (3) ESRD (end stage renal disease) on dialysis Code(s): N18.6 - END STAGE RENAL DISEASE; Z99.2 - DEPENDENCE ON RENAL DIALYSIS Status: Chronic Plan: HD per Renal service (4) Anemia in CKD (chronic kidney disease) Code(s): N18.9 - CHRONIC KIDNEY DISEASE, UNSPECIFIED; D63.1 - ANEMIA IN CHRONIC KIDNEY DISEASE Status: Chronic Plan: s/p 1u PRBC's 06/23/19, serial H/H monitoring - Plan continue antibiotics, PT/OT, manager social work, out of bed/ambulate Stable currently Continue Cefepime/Vancomycin HD per Renal service Consult Gen surgery regarding dysfunctional hemosplit OOB with PT AM lab: BMP, CBC
[2019-06-24] MEDS: traZODone HCl 50 MG TAB PO SCH (20:41)
[2019-06-24] MEDS: Atorvastatin Calcium 40 MG TAB PO SCH (20:45)
[2019-06-25] MEDS: traMADol HCl 50 MG TAB PO SCH ×4 (00:22→18:18)
[2019-06-25] MEDS: HYDROcodone/Acetaminophen 7.5/325 mg Tablet PO PRN ×2 (05:54→09:47)
--- NOTE | 2019-06-25 09:32 | ULT ---
BILATERAL UPPER EXTREMITY VENOUS DOPPLER ULTRASOUND FOR VEIN MAPPING: Date: 06/25/2019 HISTORY: End-stage renal disease. FINDINGS: RIGHT UPPER EXTREMITY: The right cephalic vein measures 0.8 mm in the proximal arm, 0.9 mm in the mid arm, 1.3 mm in the dis karie arm, 2.2 mm in the antecubital fossa, 0.8 mm in the proximal forearm, 0.6 mm in the mid forearm, and 0.7 mm in the distal forearm. The right basilic vein measures 2.5 mm in the proximal arm, 2.4 mm in the mid arm, 2.5 mm in the dist al arm, 1.7 mm in the antecubital fossa, 1.7 mm in the proximal forearm, 0.8 mm in the mid forearm, a nd 0.7 mm in the distal forearm. The right brachial artery measures 4.1 mm, radial artery measures 1.3 mm, and ulnar artery measures 1 .2 mm. LEFT UPPER EXTREMITY: The left cephalic vein measures 0.8 mm in the proximal arm, 1.1 mm in the mid arm, 1.5 mm in the dist al arm, 1.2 mm in the antecubital fossa, 0.9 mm in the proximal forearm, 1.1 mm in the mid forearm, a nd 1.1 mm in the distal forearm. The left basilic vein measures 1.8 mm in the proximal arm, 1.9 mm in the mid arm, 2.0 mm in the dista l arm, 2.3 mm in the antecubital fossa, 0.5 mm in the proximal forearm. The left basilic vein is not satisfactorily evaluated due to small size in the mid and distal forearm. The left brachial artery measures 3.2 mm, radial artery measures 1.6 mm, and ulnar artery measures 0. 9 mm. POS: OFF
[2019-06-25] MEDS: Cefepime 1 GM in Sodium Chloride 0.9% 100 ML IVPB SCH ×2 (09:46→20:31)
[2019-06-25] MEDS: Sevelamer Carbonate 800 MG TAB PO SCH (09:49)
[2019-06-25] MEDS: NIFEdipine XL 60 MG TAB PO SCH ×2 (09:49→20:33)
[2019-06-25] MEDS: hydrALAZINE 25 MG TAB PO SCH ×3 (09:50→20:33)
[2019-06-25] MEDS: Gabapentin 300 MG CAP PO SCH ×3 (09:50→20:32)
[2019-06-25] MEDS: Calcium Carbonate 500 MG ChewTAB PO SCH ×2 (09:51→20:31)
[2019-06-25] MEDS: Aspirin 81 mg Enteric Coated Tablet PO SCH (09:52)
[2019-06-25] MEDS: Carvedilol 6.25 MG TAB PO SCH ×2 (09:52→20:32)
[2019-06-25] MEDS: Clopidogrel Bisulfate 75 MG TAB PO SCH (09:53)
[2019-06-25] MEDS: Heparin 5,000 UNITS/ML VIAL SC SCH ×2 (09:55→20:33)
[2019-06-25] MEDS ORDERED: Epoetin (ESRD) 20,000 UNITS/ML IVP SCH (10:15)
--- NOTE | 2019-06-25 11:02 | PRG ---
DATE OF SERVICE: 06/25/2019 SUBJECTIVE: Patient was seen and examined at bedside and overnight events noted. Patient denies any shortness of breath or chest pain or palpitation. No history of nausea or vomiting or diarrhea or fever or chills or cramps. OBJECTIVE: GENERAL: This is a well-built female, in no apparent distress. VITAL SIGNS: Temperature 97.8. Heart rate 71. Respiratory rate 16. Blood pressure 119/75. HEENT: Atraumatic, normocephalic. Oral mucosa is moist NECK: Supple. CARDIOVASCULAR: S1, S2 heard. Rate and rhythm regular. RESPIRATORY: Clear to auscultation. GASTROINTESTINAL: Abdomen is soft. MUSCULOSKELETAL: No tenderness. No edema. DERMATOLOGIC: No skin rash. NEUROLOGIC: Alert and awake and oriented X3. No focal neurologic deficits. Moving all the extremities. PSYCHIATRIC: Mood and affect normal. LABORATORY DATA: Potassium 4.9, BUN is 26, creatinine is 3.8. ASSESSMENT AND PLAN: 1. End-stage renal disease, continue hemodialysis on Tuesday, Tuesday, and Tuesday. 2. Hypertension. 3. Anemia. We will add Epogen. 4. Edema. Remove fluid. 5. Peripheral vascular disease per primary team and Surgery. 6. We will continue dialysis as tolerated on Tuesday, Tuesday, Tuesday. We will add Epogen. Job ID: [id number]
[2019-06-25] MEDS ORDERED: Heparin 10,000 UNITS/ 10 ML VIAL ONE (11:56)
[2019-06-25] MEDS: EPOETIN ALFA-EPBX (ESRD) 2,000 UNIT/ML VIAL SC SCH (14:51)
[2019-06-25] MEDS: EPOETIN ALFA-EPBX (ESRD) 3,000 UNIT/ML VIAL SC SCH (14:52)
[2019-06-25 15:36] LABS: Hemoglobin 9.2 g/dL (12.0-16.0); Platelet Count 168 thou/uL (130-400)
--- NOTE | 2019-06-25 16:59 | PDOC.HOSPP ---
- Subjective Encounter Date: 06/25/19 Encounter Time: 17:00 Subjective: f/u for RLE cellulitis on Cefepime, ESRD on HD. - Objective Vital Signs & Weight: Vital Signs (12 hours) Temp Pulse Resp BP BP Pulse Ox 06/25/19 16:49 119/75 06/25/19 09:52 119/75 06/25/19 09:50 71 119/75 06/25/19 09:49 71 119/75 06/25/19 08:00 96 06/25/19 07:40 97.8 F 71 16 119/75 96 06/25/19 05:00 97.9 F 59 L 18 115/72 95 Weight Weight 188 lb I&O: 06/24/19 06/25/19 06/26/19 06:59 06:59 06:59 Intake Total 350 425 Balance 350 425 Result Diagrams: 06/25/19 14:35 06/24/19 08:18 Additional Labs: Microbiology 06/22/19 14:39 Venous blood - Right Arm Blood Culture - Preliminary Specimen has been received and culture in progress. No Growth to date. 06/22/19 14:13 Venous blood - Right Arm Blood Culture - Preliminary Specimen has been received and culture in progress. No Growth to date. Laboratory Tests 06/22/19 06/22/19 06/23/19 14:13 14:13 09:38 WBC 8.2 Hgb 8.5 L BUN 33 H Creatinine 4.61 H Hep Bs Antigen Non-Reactive Hospitalist ROS - Medication Medications: Active Medications Generic Name Dose Route Start Last Admin Trade Name Freq PRN Reason Stop Dose Admin Hydrocodone Bitart/Acetaminophen 2 tab 06/22/19 19:47 06/25/19 09:47 [place] 7.5/325 PO 2 tab Q4H PRN Administration Moderate Pain (4-6) Aspirin 81 mg 06/24/19 09:00 06/25/19 09:52 Ecotrin PO 81 mg DAILY LIVIER Administration Atorvastatin Calcium 40 mg 06/23/19 21:00 06/24/19 20:45 Lipitor PO 40 mg HS LIVIER Administration Calcium Carbonate 750 mg 06/23/19 21:00 06/25/19 09:51 Tums PO 750 mg BID LIVIER Administration Carvedilol 6.25 mg 06/23/19 09:00 06/25/19 09:52 Coreg PO 6.25 mg BID LIVIER Administration Clonazepam 0.5 mg 06/23/19 18:22 06/23/19 20:23 Clonazepam PO 0.5 mg Q12H PRN Administration Anxiety Clopidogrel Bisulfate 75 mg 06/24/19 09:00 06/25/19 09:53 Plavix PO 75 mg DAILY LIVIER Administration Epoetin Leopoldo-epbx 2,000 unit 06/25/19 11:00 06/25/19 14:51 Retacrit SC 2,000 unit MoWeFr LIVIER Administration Epoetin Leopoldo-epbx 3,000 unit 06/25/19 11:00 06/25/19 14:52 Retacrit SC 3,000 unit MoWeFr LIVIER Administration Gabapentin 300 mg 06/23/19 21:00 06/25/19 16:49 Neurontin PO Not Given TID [facility] Heparin Sodium (Porcine) 5,000 units 06/22/19 21:00 06/25/19 09:55 Heparin SC Not Given BID [facility] Hydralazine HCl 100 mg 06/23/19 21:00 06/25/19 16:49 Apresoline PO Not Given TID [facility] Cefepime HCl 1 gm/ Sodium 100 mls @ 200 mls/hr 06/23/19 21:00 06/25/19 09:46 Chloride IVPB 100 mls Q12HR [facility] Administration Nifedipine 60 mg 06/23/19 09:00 06/25/19 09:49 Procardia Xl PO 60 mg BID [facility] Administration Pregabalin 75 mg 06/23/19 18:22 06/23/19 20:45 Lyrica PO 75 mg DAILY PRN Administration Pain Sevelamer Carbonate 1,600 mg 06/24/19 09:00 06/25/19 09:49 Renvela PO 1,600 mg DAILY [facility] Administration Sodium Chloride 10 ml 06/23/19 15:07 06/23/19 21:37 Flush - Normal Saline IVF 10 ml PRN PRN Administration Saline Flush Tizanidine HCl 4 mg 06/22/19 22:18 06/22/19 22:48 Zanaflex PO 4 mg HS PRN Administration MUSCLE SPASMS Tramadol HCl 50 mg 06/23/19 23:59 06/25/19 13:34 Ultram PO Not Given Q6HR [facility] Trazodone HCl 75 mg 06/23/19 21:00 06/24/19 20:41 Desyrel PO 75 mg HS LIVIER Administration - Exam General Appearance: NAD, awake alert Eye: PERRL, anicteric sclera ENT: normocephalic atraumatic, no oropharyngeal lesions Neck: supple, symmetric, no JVD, no thyromegaly Heart: RRR, no murmur, no gallops, no rubs, normal peripheral pulses Respiratory: CTAB, no wheezes, no rales, no ronchi, normal chest expansion Gastrointestinal: soft, non-tender, non-distended, normal bowel sounds Extremities: no cyanosis, no clubbing, no edema Skin: normal turgor Skin - other findings: RLE with chronic changes, light erythema of [place] Neurological: cranial nerve grossly intact, no new deficit Musculoskeletal: normal tone, normal strength Psychiatric: normal affect, A&O x 3 Hosp A/P (1) Cellulitis of right lower extremity Code(s): L03.115 - CELLULITIS OF RIGHT LOWER LIMB Status: Acute Plan: Continue Cefepime, serial monitoring, transition to po option in 24-48h (2) Peripheral vascular disease Code(s): I73.9 - PERIPHERAL VASCULAR DISEASE, UNSPECIFIED Status: Chronic (3) ESRD (end stage renal disease) on dialysis Code(s): N18.6 - END STAGE RENAL DISEASE; Z99.2 - DEPENDENCE ON RENAL DIALYSIS Status: Chronic Plan: HD per Renal service, permanent access planned (4) Anemia in CKD (chronic kidney disease) Code(s): N18.9 - CHRONIC KIDNEY DISEASE, UNSPECIFIED; D63.1 - ANEMIA IN CHRONIC KIDNEY DISEASE Status: Chronic Plan: s/p 1u PRBC's, serial H/H monitoring - Plan continue antibiotics, high school social science teacher, out of bed/ambulate Stable currently Continue Cefepime HD per Renal service Consult Gen surgery regarding dysfunctional hemosplit OOB with PT AM lab: H/H
--- NOTE | 2019-06-25 20:27 | CON ---
DATE OF CONSULTATION: HISTORY OF PRESENT ILLNESS: Jessi Barron is a 73-year-old female admitted to this facility with a right IJ cuffed tunneled dialysis catheter placed a year and a half ago. She cannot remember where it was placed. There was an operative note that was noted in 2017, Dr. Starr saw her and did electrocardioversion. I have been asked to see regarding dysfunctional dialysis catheter definitive dialysis access. The patient has had ultrasound vein mapping that I have ordered. Results reveal she has poor veins. She has dysfunctional right IJ dialysis catheter. Plan tomorrow is to remove her old dialysis catheter and place a new one and place a left arm fistula or graft. The veins are poor by vein mapping . ALLERGIES: LISINOPRIL. SOCIAL HISTORY: Tobacco, none. Alcohol, none. Echocardiogram on 04/15/2017, 55% to 60% EF. No significant valvular disease. Dr. Kev Hall has seen her this hospitalization because of leg pain. The patient has no history of PAD and it was felt her pain was nonvascular as she has good pulses in extremities. The patient is followed by Dr. Martinez and Dr. Pierson. PAST SURGICAL HISTORY: She has had cardiac stents. She has had a MediPort placed. She has a hemodialysis catheter placed. PAST MEDICAL HISTORY: End-stage renal disease, on maintenance dialysis; GERD; hypertension; hyperlipidemia; coronary artery disease, stable. PHYSICAL EXAMINATION: VITAL SIGNS: Height 5 feet 6 inches, 29 BMI, temperature 97.8, heart rate 71, blood pressure 119/75. HEAD, EARS, EYES, NOSE, AND THROAT: Unremarkable. LUNGS: Clear to auscultation. CARDIAC: Regular rhythm without murmur or gallop. ABDOMEN: Soft, obese, . ASSESSMENT: End-stage renal disease. PLAN: Removal of old hemodialysis dysfunctional catheter and placement of new hemodialysis catheter and placement of left arm dialysis fistula graft. Risks and benefits explained. She consents. Job ID: [id number]
[2019-06-25] MEDS: Atorvastatin Calcium 40 MG TAB PO SCH (20:32)
[2019-06-25] MEDS: traZODone HCl 50 MG TAB PO SCH (20:32)
[2019-06-26] MEDS: traMADol HCl 50 MG TAB PO SCH ×4 (00:08→20:02)
[2019-06-26] MEDS: Carvedilol 6.25 MG TAB PO SCH ×2 (05:40→20:07)
[2019-06-26 06:03] LABS: Hemoglobin 10.3 g/dL (12.0-16.0); Platelet Count 177 thou/uL (130-400)
[2019-06-26] MEDS: Aspirin 81 mg Enteric Coated Tablet PO SCH (08:02)
[2019-06-26] MEDS: Calcium Carbonate 500 MG ChewTAB PO SCH ×2 (08:03→20:07)
[2019-06-26] MEDS: Clopidogrel Bisulfate 75 MG TAB PO SCH (08:05)
[2019-06-26] MEDS: Gabapentin 300 MG CAP PO SCH ×3 (08:05→20:08)
[2019-06-26] MEDS: Heparin 5,000 UNITS/ML VIAL SC SCH ×2 (08:05→20:09)
[2019-06-26] MEDS: hydrALAZINE 25 MG TAB PO SCH ×3 (08:06→20:09)
[2019-06-26] MEDS: Sevelamer Carbonate 800 MG TAB PO SCH (08:09)
[2019-06-26] MEDS: NIFEdipine XL 60 MG TAB PO SCH ×2 (08:09→20:09)
[2019-06-26] MEDS: Cefepime 1 GM in Sodium Chloride 0.9% 100 ML IVPB SCH ×3 (08:12→20:08)
[2019-06-26] MEDS: HYDROcodone/Acetaminophen 7.5/325 mg Tablet PO PRN ×3 (08:14→23:59)
[2019-06-26] MEDS ORDERED: Bupivacaine HCl 0.5%/Epinephrine 1:200,000/PF 30 ml Vial ONE (10:15)
[2019-06-26] MEDS ORDERED: PHENYLEPHRINE-NS 100 MCG/ML 10 ML SYRINGE ONE (10:15)
[2019-06-26] MEDS ORDERED: EPHEDRINE 25 MG/5 ML SYRINGE ONE (10:15)
--- NOTE | 2019-06-26 15:33 | PRG ---
DATE OF SERVICE: 06/26/2019 SUBJECTIVE: Patient was seen and examined at bedside and overnight events noted. Patient denies any shortness of breath or chest pain or palpitation. No history of nausea or vomiting or diarrhea or fever or chills or cramps. OBJECTIVE: GENERAL: This is a well built female, in no apparent distress. VITAL SIGNS: Temperature 98.8. Heart rate 83. Respiratory rate 16. Blood pressure 129/59. HEENT: Atraumatic, normocephalic. Oral mucosa is moist NECK: Supple. CARDIOVASCULAR: S1, S2 heard. Rate and rhythm regular. RESPIRATORY: Clear to auscultation. GASTROINTESTINAL: Abdomen is soft. MUSCULOSKELETAL: No tenderness. No edema. DERMATOLOGIC: No skin rash. NEUROLOGIC: Alert and awake and oriented X3. No focal neurologic deficits. Moving all the extremities. PSYCHIATRIC: Mood and affect normal. LABORATORY DATA: No labs done today. ASSESSMENT AND PLAN: 1. End-stage renal disease. Continue hemodialysis as tolerated on Tuesday, Tuesday, and Tuesday. 2. Hypertension, stable. 3. Anemia, chronic. 4. Edema. 5. Peripheral vascular disease. Plan to repeat labs tomorrow. Continue dialysis on Tuesday, Tuesday, and Tuesday. Job ID: [id number]
[2019-06-26] MEDS ORDERED: Propofol 1,000 MG/100 ML VIAL IV ONE (15:44)
[2019-06-26] MEDS ORDERED: Midazolam HCl 2 mg/2 ml Vial ONE (15:44)
[2019-06-26] MEDS ORDERED: Lidocaine 2% PF 5 ML VIAL ONE (15:48)
[2019-06-26] MEDS ORDERED: Heparin 10,000 UNITS/1 ML VIAL ONE (15:48)
[2019-06-26] MEDS ORDERED: Bupivacaine PF 0.5% 30 ML VIAL ONE (15:48)
[2019-06-26] MEDS ORDERED: Sodium Chloride 0.9% 30 ML ONE (15:48)
[2019-06-26] MEDS ORDERED: Heparin 5,000 UNITS/ML VIAL ONE (15:48)
[2019-06-26] MEDS ORDERED: Protamine Sulfate 50 MG/5 ML VIAL ONE (15:48)
--- NOTE | 2019-06-26 16:01 | PDOC.HOSPP ---
- Subjective Encounter Date: 06/26/19 Encounter Time: 16:00 Subjective: f/u for RLE cellulitis, ESRD on HD on current Cefepime. Plan for AV fistula and new tunneled HD catheter placement. - Objective Vital Signs & Weight: Vital Signs (12 hours) Temp Pulse Resp BP BP Pulse Ox 06/26/19 15:19 83 06/26/19 14:49 98.8 F 83 16 129/59 L 95 06/26/19 08:09 78 139/67 06/26/19 08:06 78 139/67 06/26/19 08:00 99 06/26/19 07:52 98.1 F 78 16 139/67 78 L 06/26/19 07:17 98.4 F 68 12 127/62 99 06/26/19 05:40 143/68 H 06/26/19 05:37 87 18 143/68 H 97 Weight Weight 188 lb I&O: 06/25/19 06/26/19 06/27/19 06:59 06:59 06:59 Intake Total 425 Balance 425 Result Diagrams: 06/26/19 05:37 06/24/19 08:18 Additional Labs: Microbiology 06/22/19 14:39 Venous blood - Right Arm Blood Culture - Preliminary Specimen has been received and culture in progress. No Growth to date. 06/22/19 14:13 Venous blood - Right Arm Blood Culture - Preliminary Specimen has been received and culture in progress. No Growth to date. Laboratory Tests 06/22/19 06/22/19 06/23/19 14:13 14:13 09:38 WBC 8.2 Hgb 8.5 L BUN 33 H Creatinine 4.61 H Hep Bs Antigen Non-Reactive Hospitalist ROS - Medication Medications: Active Medications Generic Name Dose Route Start Last Admin Trade Name Freq PRN Reason Stop Dose Admin Hydrocodone Bitart/Acetaminophen 2 tab 06/22/19 19:47 06/26/19 08:14 [place] 7.5/325 PO 2 tab Q4H PRN Administration Moderate Pain (4-6) Aspirin 81 mg 06/24/19 09:00 06/26/19 08:02 Ecotrin PO Not Given DAILY [facility] Atorvastatin Calcium 40 mg 06/23/19 21:00 06/25/19 20:32 Lipitor PO 40 mg HS [facility]IER Administration Calcium Carbonate 750 mg 06/23/19 21:00 06/26/19 08:03 Tums PO 750 mg BID [facility] Administration Carvedilol 6.25 mg 06/23/19 09:00 06/26/19 05:40 Coreg PO 6.25 mg BID [facility] Administration Clonazepam 0.5 mg 06/23/19 18:22 06/23/19 20:23 Clonazepam PO 0.5 mg Q12H PRN Administration Anxiety Clopidogrel Bisulfate 75 mg 06/24/19 09:00 06/26/19 08:05 Plavix PO Not Given DAILY [facility] Epoetin Leopoldo-epbx 2,000 unit 06/25/19 11:00 06/25/19 14:51 Retacrit SC 2,000 unit MoWeFr LIVIER Administration Epoetin Leopoldo-epbx 3,000 unit 06/25/19 11:00 06/25/19 14:52 Retacrit SC 3,000 unit MoWeFr LIVIER Administration Gabapentin 300 mg 06/23/19 21:00 06/26/19 15:19 Neurontin PO Not Given TID [facility] Heparin Sodium (Porcine) 5,000 units 06/22/19 21:00 06/26/19 08:05 Heparin SC Not Given BID [facility] Hydralazine HCl 100 mg 06/23/19 21:00 06/26/19 15:19 Apresoline PO Not Given TID [facility] Cefepime HCl 1 gm/ Sodium 100 mls @ 200 mls/hr 06/23/19 21:00 06/26/19 14:38 Chloride IVPB Not Given Q12HR [facility] Nifedipine 60 mg 06/23/19 09:00 06/26/19 08:09 Procardia Xl PO 60 mg BID [facility] Administration Pregabalin 75 mg 06/23/19 18:22 06/23/19 20:45 Lyrica PO 75 mg DAILY PRN Administration Pain Sevelamer Carbonate 1,600 mg 06/24/19 09:00 06/26/19 08:09 Renvela PO 1,600 mg DAILY [facility] Administration Sodium Chloride 10 ml 06/23/19 15:07 06/23/19 21:37 Flush - Normal Saline IVF 10 ml PRN PRN Administration Saline Flush Tizanidine HCl 4 mg 06/22/19 22:18 06/22/19 22:48 Zanaflex PO 4 mg HS PRN Administration MUSCLE SPASMS Tramadol HCl 50 mg 06/23/19 23:59 06/26/19 14:39 Ultram PO Not Given Q6HR [facility] Trazodone HCl 75 mg 06/23/19 21:00 06/25/19 20:32 Desyrel PO 75 mg HS [facility]IVIER Administration - Exam General Appearance: NAD, awake alert Eye: PERRL, anicteric sclera ENT: normocephalic atraumatic, no oropharyngeal lesions Neck: supple, symmetric, no JVD, no thyromegaly, no lymphadenopathy Heart: RRR, no murmur, no gallops, no rubs, diminshed peripheral pulses Respiratory: CTAB, no wheezes, no rales, no ronchi, normal chest expansion Gastrointestinal: soft, non-tender, non-distended, normal bowel sounds, no palpable masses Skin: normal turgor Neurological: cranial nerve grossly intact, no new deficit Musculoskeletal: normal tone, generalized weakness Psychiatric: oriented to place, oriented to time Hosp A/P (1) Cellulitis of right lower extremity Code(s): L03.115 - CELLULITIS OF RIGHT LOWER LIMB Status: Acute Plan: Continue Cefepime another 24h then convert to po option (2) ESRD (end stage renal disease) on dialysis Code(s): N18.6 - END STAGE RENAL DISEASE; Z99.2 - DEPENDENCE ON RENAL DIALYSIS Status: Chronic Plan: Plan for new tunneled HD catheter and AV fistula placement, HD per Renal service (3) Peripheral vascular disease Code(s): I73.9 - PERIPHERAL VASCULAR DISEASE, UNSPECIFIED Status: Chronic Plan: Continue ASA/Plavix/Lipitor (4) Anemia in CKD (chronic kidney disease) Code(s): N18.9 - CHRONIC KIDNEY DISEASE, UNSPECIFIED; D63.1 - ANEMIA IN CHRONIC KIDNEY DISEASE Status: Chronic Plan: s/p 1u PRBC's, stable H/H currently - Plan continue antibiotics, PT/OT, social worker masters, DVT proph w/SCDs Stable currently Continue Cefepime another 24h then convert to po option HD per Renal service Consult Gen surgery regarding dysfunctional hemosplit, placement today OOB with PT AM lab: H/H Likely d/c in 48h
[2019-06-26] MEDS ORDERED: Propofol 500 MG/50 ML VIAL ONE (16:04)
[2019-06-26] MEDS ORDERED: Fentanyl 100 MCG/2 ML VIAL ONE (16:37)
[2019-06-26] MEDS ORDERED: Acetaminophen 500 MG TAB PO PRN (16:46)
[2019-06-26] MEDS ORDERED: traMADol HCl 50 MG TAB PO PRN (16:46)
--- NOTE | 2019-06-26 18:49 | RAD ---
EXAM: ONE VIEW CHEST: 06/26/19 HISTORY: ESRD, follow-up Port-A-Cath placement. FINDINGS: Right dural lumen venous access catheter. Left jugular catheter in place. No pneumothorax or pleural effusion. IMPRESSION: Jugular venous and access catheters in place. No pneumothorax or other acute process. POS: RRE
[2019-06-26] MEDS: traZODone HCl 50 MG TAB PO SCH (20:07)
[2019-06-26] MEDS: Atorvastatin Calcium 40 MG TAB PO SCH (20:07)
[2019-06-27] MEDS: traMADol HCl 50 MG TAB PO SCH ×5 (00:02→23:10)
[2019-06-27] MEDS: Calcium Carbonate 500 MG ChewTAB PO SCH (07:51)
[2019-06-27] MEDS: Aspirin 81 mg Enteric Coated Tablet PO SCH (07:51)
[2019-06-27] MEDS: Sevelamer Carbonate 800 MG TAB PO SCH (07:53)
[2019-06-27] MEDS: NIFEdipine XL 60 MG TAB PO SCH ×2 (07:53→20:21)
[2019-06-27] MEDS: Carvedilol 6.25 MG TAB PO SCH ×2 (07:54→20:19)
[2019-06-27] MEDS: Clopidogrel Bisulfate 75 MG TAB PO SCH (07:54)
[2019-06-27] MEDS: Gabapentin 300 MG CAP PO SCH ×3 (07:55→20:20)
[2019-06-27] MEDS: Cefepime 1 GM in Sodium Chloride 0.9% 100 ML IVPB SCH ×2 (07:57→20:20)
[2019-06-27] MEDS: Heparin 5,000 UNITS/ML VIAL SC SCH ×2 (07:58→20:21)
--- NOTE | 2019-06-27 08:25 | OP ---
DATE OF PROCEDURE: 06/26/2019 PREOPERATIVE DIAGNOSES: On hemodialysis for a year and a half utilizing right internal jugular hemodialysis catheter, now not functioning well; morbid obesity; poor veins by ultrasound suggesting possible left arm vein. POSTOPERATIVE DIAGNOSES: On hemodialysis for a year and a half utilizing right internal jugular hemodialysis catheter, now not functioning well; morbid obesity; poor veins by ultrasound suggesting possible left arm vein; poor intravenous access. PROCEDURES PERFORMED: Removal of old right internal jugular cuffed tunneled hemodialysis catheter, placement of new right internal jugular cuffed tunneled hemodialysis catheter, left internal jugular central line, ultrasound and fluoroscopy used. Left arm primary fistula, inflow ulnar artery, outflow cephalic vein only, no communication with basilic vein, calibrated to a 3.5 coronary dilators, no retrograde, antecubital vein was non-existent, and could not visualize the basilic vein at all. ANESTHESIA: General, local of 0.5% Marcaine 30 mL mixed with 1% Xylocaine with epinephrine 20 mL. DESCRIPTION OF PROCEDURE: The patient was taken to the operating room, where under intravenous sedation and regional anesthesia, left upper extremity was prepared with ChloraPrep and draped in routine fashion. Incision was made in the proximal volar forearm just below the antecubital fossa, carried down longitudinally through the skin and subcutaneous tissue, and antecubital vein was identified. The cephalic vein in forearm directly from the perforating branch and forearm antecubital vein was not present. Basilic vein was not visualized. This patient was given 6000 units of heparin intravenously, and after adequate circulation time, the branches were dissected free down to the proximal radial artery, brachial artery, ulnar artery. Branches were divided between 4-0 silk ties and clips and were spatulated over branch point and interrogated with coronary dilators passing coronary dilators from a 2 mm to a 3.5 mm coronary dilator without obstruction. It was then flushed with heparinized saline solution. An atraumatic bulldog clamp was applied. The patient's anatomy made it such that the ulnar artery was more suited for the inflow. Radial, brachial, and ulnar arteries were dissected free, clamped, and a longitudinal arteriotomy was made for 2 cm anastomosis in the ulnar artery. Continuous suture of 6-0 Prolene was used to create the anastomosis after the perforating branch was spatulated over branch point. After completing the anastomosis, smaller other branches were ligated with 4-0 silk ties, and then vascular inflow was released. There was a good Doppler signal through the cephalic vein outflow. She is morbidly obese. She may need a transposition fistula in the future. Good hemostasis was noted. The patient was given 25 mg of protamine intravenously by Anesthesia. Subcutaneous tissue was approximated with 3-0 Monocryl, skin with subdermal 4-0 Monocryl, and [place] glue was applied. Attention was then turned to the neck and chest, which were prepared with ChloraPrep and draped in routine fashion. Local anesthetic was infiltrated in the skin and subcutaneous tissue about the OpSite. Using ultrasound guidance, the left internal jugular vein was cannulated. J-wire was threaded. Trocar and catheter were removed. Skin site was enlarged sharply. Dilator was placed and removed, and using Seldinger technique, a triple-lumen catheter was placed, and J-wire was removed. Catheter was secured with 2 interrupted sutures of 3-0 nylon. Dermabond and sterile dressings were applied. Each port aspirated blood and flushed with saline solution. An incision was made over the neck near the hemodialysis catheter, which was dissected free up into the field, clamped, divided, and a stab incision was made over the right chest after removing the old dialysis catheter and prepping with ChloraPrep. A stab incision was made. Using a tunneling device, pre-curved AngioDynamics cuffed-tunneled hemodialysis catheter was tunneled between the 2 incisions, placed the fabric cuff beneath the skin exit site, and catheter was secured with 2 interrupted sutures of 3-0 nylon. Sterile dressing was applied. J-wire had been placed through the old catheter stump, and old catheter was removed, and dilator and Peel-Away sheath were placed over the J-wire into superior vena cava, and dilator and J-wire were removed. Catheter was placed over the Peel-Away sheath. The Peel-Away sheath was removed. Platysma was approximated with 4-0 Monocryl, skin with subdermal 4-0 Monocryl, and [place] glue was applied. Fluoroscopic images revealed good line placement. Each port of the hemodialysis catheter aspirated blood and flushed with saline solution and heparinized saline solution, 1000 units of heparin per mL indicating volume of the port. The patient tolerated the procedure well. Job ID: [id number]
[2019-06-27 09:17] LABS: Hemoglobin 9.1 g/dL (12.0-16.0); Platelet Count 143 thou/uL (130-400)
[2019-06-27 09:33] LABS: Anion Gap 18 mmol/L (10-20); BUN (Urea Nitrogen) 36 mg/dL (9.8-20.1); Calc. Creatinine Clearance 16 mL/min (70-130); Calcium 10.7 mg/dL (7.8-10.44); Carbon Dioxide 23 mmol/L (23-31); Chloride 102 mmol/L (98-107); Estimated GFR-MDRD 10; Glucose 159 mg/dL (83-110); Potassium 3.7 mmol/L (3.5-5.1); Sodium 139 mmol/L (136-145)
--- NOTE | 2019-06-27 10:34 | OP ---
DATE OF PROCEDURE: 06/26/2019 PREOPERATIVE DIAGNOSES: 1. End-stage renal disease. 2. Dysfunctional right internal jugular cuffed tunneled hemodialysis catheter, present for more than a year and a half, without definitive dialysis access. 3. Poor IV access. 4. Equivocal veins on vein mapping, left arm best. POSTOPERATIVE DIAGNOSES: 1. End-stage renal disease. 2. Dysfunctional right internal jugular cuffed tunneled hemodialysis catheter, present for more than a year and a half, without definitive dialysis access. 3. Poor IV access. 4. Equivocal veins on vein mapping, left arm best. PROCEDURES PERFORMED: 1. Right internal jugular cuffed tunneled hemodialysis catheter removal. 2. Placement of new right internal jugular cuffed tunneled hemodialysis catheter, AngioDynamics pre-curved. 3. Left internal jugular central line. 4. Left arm primary fistula, inflow ulnar artery and outflow cephalic vein only, calibrated to a 3.5 mm coronary dilator. No communication in the basilic vein. Abnormal anatomy revealed absence of retrograde antecubital vein forearm and no visualization of the basilic vein. ANESTHESIA: Regional, TIVA, local with 0.5% Marcaine with epinephrine 30 mL, mixed with 1% Xylocaine with epinephrine 20 mL. DESCRIPTION OF PROCEDURE: The patient was taken to the operating room where under regional anesthesia and intravenous sedation, the left upper extremity was prepared with ChloraPrep and draped in routine fashion. An incision was made in the proximal volar forearm, carried down to skin and subcutaneous tissue below the antecubital fossa longitudinally, identifying the cephalic vein which was of good, but not excellent quality. Basilic vein was not visualized. The antecubital vein forearm not seen. Perforating branch was the inflow to the cephalic vein. It was dissected free and the patient given 6000 units of heparin intravenously. After adequate circulation time, the perforating branch dissected free and divided between clips and 4-0 silk ties, spatulated over branch point, interrogated with coronary dilators, passing coronary dilators from 2 mm to 3.5 mm coronary dilator, out the cephalic vein outflow without obstruction. It was flushed with heparinized saline solution. The brachial, radial, and ulnar artery dissected free and controlled with vascular clamps and a longitudinal arteriotomy was made in the ulnar artery, which was of severe quality and longitudinal arteriotomy was made sharply, elongated with Ward scissors, and perforating branch cephalic vein likewise spatulated and anastomosis was created with 6-0 Prolene, completing anastomosis and releasing clamps, noting good Doppler signal in the cephalic vein outflow upper arm. The patient is morbidly obese, probably most likely will need a transposition fistula. Good hemostasis noted. The patient was given 25 mg of protamine intravenously by Anesthesia. Subcutaneous tissue was approximated with 3-0 Monocryl, skin with subdermal 4-0 Monocryl, and [place] glue applied. Neck and chest were prepared with ChloraPrep and draped in routine fashion. Using Seldinger technique and ultrasound guidance, the left IJ triple lumen catheter was placed. J-wire removed. Catheter secured with 3-0 nylon suture. Sterile dressings applied. Each port aspirated blood, flushed with saline solution. Attention was then turned to the old right dysfunctional hemodialysis catheter that had been present for a year and a half, that had inadequate flow. An incision was made over the neck over the catheter, which was dissected free deep to the platysma, brought into the wound. The cuff and catheter had been freed previously prior to prepping the patient. Catheter controlled with hemostats, transected, and the old catheter removed in the area of the chest prepared with ChloraPrep. A new stab incision was made in a new exit site and tunneling device was used to tunnel a new hemodialysis catheter, placed the fabric cuff beneath the skin exit site, securing the catheter with 3-0 nylon suture and sterile dressing applied. The old catheter removed over the J-wire, and dilator and Peel-Away sheath placed over the J-wire in the superior vena cava. Dilator and J-wire were removed. Catheter placed through the Peel-Away sheath. Peel-Away sheath removed. Platysma was approximated with 4-0 Monocryl, skin with subdermal 4-0 Monocryl, and [place] glue applied. Each port aspirated blood, flushed with saline solution and heparinized saline solution, 1000 units of heparin per mL, indicating volume of the port. Fluoroscopic images revealed good line placement. Job ID: [id number]
[2019-06-27] MEDS: hydrALAZINE 25 MG TAB PO SCH ×3 (10:46→20:21)
--- NOTE | 2019-06-27 11:07 | PRG ---
DATE OF SERVICE: 06/27/2019 SUBJECTIVE: Patient was seen and examined at bedside and overnight events noted. Patient denies any shortness of breath or chest pain or palpitation. No history of nausea or vomiting or diarrhea or fever or chills or cramps. OBJECTIVE: General: This is well-built female, in no apparent distress. Vital Signs: Temperature 98.4. Heart Rate 90. Respiratory rate 20. Blood pressure 114/64. HEENT: Atraumatic, normocephalic. Oral mucosa is moist. Neck: Supple. Cardiovascular: S1, S2 heard. Rate and rhythm regular. Respiratory: Clear to auscultation. Gastrointestinal: Abdomen is soft. Musculoskeletal: No tenderness. No edema. Dermatologic: No skin rash. Neurologic: Alert and awake and oriented x3. No focal neurologic deficits. Moving all the extremities. Psychiatric: Mood and affect normal. LABORATORY DATA: Potassium 3.7, BUN is 36, creatinine is 4.2, calcium is 10.7. ASSESSMENT: 1. End-stage renal disease. We will continue on hemodialysis as tolerated Tuesday, Tuesday, Tuesday. 2. 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 We will consider sodium thiosulfate. Advised to have regular dialysis and also limit phosphorus. We will check phosphorus and PTH level. 3. Hypercalcemia. I will stop calcium supplements. Consider switching Lipitor also. 4. Edema, controlled. 5. Peripheral vascular disease. 6. Anemia of chronic disease. PLAN: To continue on dialysis as tolerated. Job ID: [id number]
[2019-06-27] MEDS ORDERED: Ondansetron ODT 4 MG TAB PO PRN (13:21)
--- NOTE | 2019-06-27 14:24 | PDOC.HOSPP ---
- Subjective Encounter Date: 06/27/19 Encounter Time: 14:20 Subjective: f/u for dysfunctional tunneled R HD catheter s/p removal and replacement with LUE primary AV fistula placement. c/o pain in LUE but manageable. - Objective Vital Signs & Weight: Vital Signs (12 hours) Temp Pulse Resp BP BP Pulse Ox 06/27/19 11:30 98.0 F 77 16 113/65 97 06/27/19 10:46 90 110/54 L 06/27/19 07:54 114/64 06/27/19 07:53 90 114/64 06/27/19 07:46 100 06/27/19 07:44 98.4 F 90 20 114/64 100 06/27/19 04:02 98.3 F 77 20 96/50 L 96 Weight Weight 188 lb I&O: 06/26/19 06/27/19 06/28/19 06:59 06:59 06:59 Intake Total 300 Balance 300 Result Diagrams: 06/27/19 09:05 06/27/19 09:05 Additional Labs: Microbiology 06/22/19 14:39 Venous blood - Right Arm Blood Culture - Preliminary Specimen has been received and culture in progress. No Growth to date. 06/22/19 14:13 Venous blood - Right Arm Blood Culture - Preliminary Specimen has been received and culture in progress. No Growth to date. Laboratory Tests 06/22/19 06/22/19 06/23/19 14:13 14:13 09:38 WBC 8.2 Hgb 8.5 L BUN 33 H Creatinine 4.61 H Hep Bs Antigen Non-Reactive Hospitalist ROS - Medication Medications: Active Medications Generic Name Dose Route Start Last Admin Trade Name Freq PRN Reason Stop Dose Admin Hydrocodone Bitart/Acetaminophen 1 tab 06/22/19 19:47 06/26/19 20:05 [place] 7.5/325 PO 1 tab Q4H PRN Administration Mild Pain (1-3) Hydrocodone Bitart/Acetaminophen 2 tab 06/22/19 19:47 06/26/19 23:59 [place] 7.5/325 PO 2 tab Q4H PRN Administration Moderate Pain (4-6) Aspirin 81 mg 06/24/19 09:00 06/27/19 07:51 Ecotrin PO 81 mg DAILY [facility]IER Administration Carvedilol 6.25 mg 06/23/19 09:00 06/27/19 07:54 Coreg PO 6.25 mg BID LIVIER Administration Clonazepam 0.5 mg 06/23/19 18:22 06/23/19 20:23 Clonazepam PO 0.5 mg Q12H PRN Administration Anxiety Clopidogrel Bisulfate 75 mg 06/24/19 09:00 06/27/19 07:54 Plavix PO 75 mg DAILY [facility] Administration Epoetin Leopoldo-epbx 2,000 unit 06/25/19 11:00 06/25/19 14:51 Retacrit SC 2,000 unit MoWeFr LIVIER Administration Epoetin Leopoldo-epbx 3,000 unit 06/25/19 11:00 06/25/19 14:52 Retacrit SC 3,000 unit MoWeFr LIVIER Administration Gabapentin 300 mg 06/23/19 21:00 06/27/19 07:55 Neurontin PO 300 mg TID L[facility]IER Administration Heparin Sodium (Porcine) 5,000 units 06/22/19 21:00 06/27/19 07:58 Heparin SC Not Given BID [facility] Hydralazine HCl 100 mg 06/23/19 21:00 06/27/19 10:46 Apresoline PO 100 mg TID LIVIER Administration Cefepime HCl 1 gm/ Sodium 100 mls @ 200 mls/hr 06/23/19 21:00 06/27/19 07:57 Chloride IVPB 100 mls Q12HR [facility] Administration Nifedipine 60 mg 06/23/19 09:00 06/27/19 07:53 Procardia Xl PO 60 mg BID LIVIER Administration Ondansetron HCl 4 mg 06/27/19 13:21 06/27/19 13:48 Zofran Odt PO 4 mg Q6H PRN Administration Nausea/Vomiting Pregabalin 75 mg 06/23/19 18:22 06/23/19 20:45 Lyrica PO 75 mg DAILY PRN Administration Pain Sevelamer Carbonate 1,600 mg 06/24/19 09:00 06/27/19 07:53 Renvela PO 1,600 mg DAILY [facility] Administration Sodium Chloride 10 ml 06/23/19 15:07 06/23/19 21:37 Flush - Normal Saline IVF 10 ml PRN PRN Administration Saline Flush Tizanidine HCl 4 mg 06/22/19 22:18 06/22/19 22:48 Zanaflex PO 4 mg HS PRN Administration MUSCLE SPASMS Tramadol HCl 50 mg 06/23/19 23:59 06/27/19 11:51 Ultram PO 50 mg Q6HR LIVIER Administration Trazodone HCl 75 mg 06/23/19 21:00 06/26/19 20:07 Desyrel PO 75 mg HS LIVIER Administration - Exam General Appearance: NAD, awake alert Eye: PERRL, anicteric sclera ENT: normocephalic atraumatic, no oropharyngeal lesions Neck: supple, symmetric, no thyromegaly Neck - other findings: Tunneled R IJ HD catheter in place Heart: RRR, no murmur, no gallops, no rubs, diminshed peripheral pulses Respiratory: CTAB, no wheezes, no rales, no ronchi, normal chest expansion Gastrointestinal: soft, non-tender, non-distended, normal bowel sounds, no palpable masses Extremities - other findings: LUE surgical changes noted, AV fistula in place Neurological: cranial nerve grossly intact, no new deficit Musculoskeletal: normal tone, generalized weakness Psychiatric: oriented to person, oriented to place Hosp A/P (1) Cellulitis of right lower extremity Code(s): L03.115 - CELLULITIS OF RIGHT LOWER LIMB Status: Acute Plan: Continue Cefepime IV another 24h, convert to po option (2) ESRD (end stage renal disease) on dialysis Code(s): N18.6 - END STAGE RENAL DISEASE; Z99.2 - DEPENDENCE ON RENAL DIALYSIS Status: Chronic Plan: HD per Renal service, s/p replacement of R IJ tunneled HD catheter, s/p LUE AV fistual placement (3) Peripheral vascular disease Code(s): I73.9 - PERIPHERAL VASCULAR DISEASE, UNSPECIFIED Status: Chronic (4) Anemia in CKD (chronic kidney disease) Code(s): N18.9 - CHRONIC KIDNEY DISEASE, UNSPECIFIED; D63.1 - ANEMIA IN CHRONIC KIDNEY DISEASE Status: Chronic - Plan continue antibiotics, PT/OT, social service assistant, out of bed/ambulate Stable currently Continue Cefepime another 24h then convert to po option HD per Renal service Appreciate Gen Surgery assistance OOB with PT AM lab: H/H Likely d/c in 48h
--- NOTE | 2019-06-27 15:09 | PRG ---
DATE OF SERVICE: 06/27/2019 Ms. Barron is doing well today. She has a good thrill and bruit, left arm fistula. Her hand works well. The patient is doing well. At this point, I would recommend she follow up with me in 3 to 4 weeks as an outpatient. I will see her as needed this hospitalization. Please call if necessary. Central line can be removed prior to discharge. She is ready from a surgical standpoint to be discharged anytime. Job ID: [id number]
[2019-06-27] MEDS: HYDROcodone/Acetaminophen 7.5/325 mg Tablet PO PRN (16:16)
[2019-06-27] MEDS: EPOETIN ALFA-EPBX (ESRD) 2,000 UNIT/ML VIAL SC SCH (16:20)
[2019-06-27] MEDS: EPOETIN ALFA-EPBX (ESRD) 3,000 UNIT/ML VIAL SC SCH (16:22)
[2019-06-27] MEDS: traZODone HCl 50 MG TAB PO SCH (20:21)
[2019-06-27] MEDS ORDERED: Rosuvastatin 20 MG TAB PO SCH (21:00)
[2019-06-28] MEDS: traMADol HCl 50 MG TAB PO SCH ×2 (05:40→11:37)
[2019-06-28 06:21] LABS: Phosphorus 4.1 mg/dL (2.3-4.7)
[2019-06-28] MEDS: HYDROcodone/Acetaminophen 7.5/325 mg Tablet PO PRN (07:49)
[2019-06-28] MEDS: Sevelamer Carbonate 800 MG TAB PO SCH (07:49)
[2019-06-28] MEDS: Aspirin 81 mg Enteric Coated Tablet PO SCH (07:51)
[2019-06-28] MEDS: NIFEdipine XL 60 MG TAB PO SCH (07:51)
[2019-06-28] MEDS: Clopidogrel Bisulfate 75 MG TAB PO SCH (07:51)
[2019-06-28] MEDS: hydrALAZINE 25 MG TAB PO SCH (07:51)
[2019-06-28] MEDS: Gabapentin 300 MG CAP PO SCH (07:52)
[2019-06-28] MEDS: Cefepime 1 GM in Sodium Chloride 0.9% 100 ML IVPB SCH (07:52)
[2019-06-28] MEDS: Carvedilol 6.25 MG TAB PO SCH (07:53)
[2019-06-28] MEDS: Heparin 5,000 UNITS/ML VIAL SC SCH (07:53)
--- NOTE | 2019-06-28 08:26 | EKG ---
Test Reason : PREOP Blood Pressure : / mmHG Vent. Rate : 080 BPM Atrial Rate : 080 BPM P-R Int : 192 ms QRS Dur : 082 ms QT Int : 380 ms P-R-T Axes : 074 -08 022 degrees QTc Int : 438 ms Normal sinus rhythm Possible Inferior infarct (cited on or before 16-NOV-2017) Abnormal ECG When compared with ECG of 16-NOV-2017 14:35, QRS voltage has decreased Confirmed by DR. Tina ABEBE ([id number]) on 06/28/2019 8:26:11 AM Referred By: KLEVER Confirmed By:DR. Tina ABEBE
[2019-06-28 14:17] VITALS: BP 121/63; TEMP 97.2
--- NOTE | 2019-06-28 15:50 | DIS ---
DATE OF ADMISSION: 06/22/2019 DATE OF DISCHARGE: 06/28/2019 DISCHARGE DIAGNOSES: 1. Cellulitis of the right lower extremity, improved. 2. End-stage renal disease with hemodialysis. 3. Anemia in chronic kidney disease. 4. Peripheral vascular disease. 5. Dysfunctional hemodialysis catheter, status post exchange. 6. Status post left upper extremity arteriovenous fistula placement. CONSULTATIONS: 1. Dr. Jones with General Surgery Service. 2. Dr. Martinez with Nephrology Service. 3. Dr. Kev Hall with Vascular Surgery Service. PERTINENT LABORATORY AND X-RAY FINDINGS: Creatinine ranged between 3.69 to 5.12, estimated GFR ranged between 9 to 12, calcium level ranged between 10.0 to 10.9. CBC showed hemoglobin ranging between 7.5 to 9.5. Blood cultures x2 dated 06/22/2019, showed no growth at 5 days. Right lower extremity arterial Doppler study dated 06/22/2019, showed significant disease below the groin in the right lower extremity. Please see dictated report for full details. Portable chest x-ray dated 06/26/2019, showed no pneumothorax or acute process. Catheters in appropriate positioning. HOSPITAL COURSE: The patient was initially admitted to the medical floor after presenting with increasing right leg pain and erythema consistent with cellulitis and concern for ischemic etiology. The patient was initially placed on IV vancomycin, status post hemodialysis and evaluated for worsening cellulitis. The patient continued on IV antibiotic therapy and was evaluated by the Vascular Surgery Service for potential ischemic insult. Evaluation did not reveal evidence of arterial occlusion and recommendations were for symptomatic and supportive management without surgical intervention. The patient did receive IV cefepime throughout the hospital course with overall improvement in right lower extremity erythema. The patient continued maintenance hemodialysis throughout the hospital stay, however, was noted with dysfunctional tunneled hemodialysis catheter. General Surgery consultation was obtained, at which point, the hemodialysis catheter was exchanged for a new catheter and a left upper extremity AV fistula was placed. The patient tolerated the procedure postoperatively and continued maintenance hemodialysis without further complication. Overall, the patient did remain clinically stable during the hospital course, tolerating regular oral intake with stable vital signs. I have examined the patient at the time of discharge and discussed followup instructions. The patient verbalizes understanding and in agreement and ready for discharge on 06/28/2019. DISCHARGE MEDICATIONS: 1. Keflex 500 mg p.o. b.i.d. x7 days. 2. Xanax 1 mg p.o. b.i.d. p.r.n. 3. Enteric-coated aspirin 81 mg p.o. daily. 4. Coreg 6.25 mg p.o. b.i.d. 5. Calcium carbonate 750 mg p.o. b.i.d. 6. Vitamin D3 of 2000 units p.o. daily. 7. Clonazepam 0.5 mg p.o. b.i.d. 8. Plavix 75 mg p.o. daily. 9. [place]-3 fatty acids one capsule p.o. daily. 10. Gabapentin 300 mg p.o. t.i.d. 11. Multivitamin one tablet p.o. daily. 12. Omeprazole 20 mg p.o. daily. 13. Renvela 1600 mg p.o. daily. 14. Lyrica 75 mg p.o. daily. 15. Zocor 40 mg p.o. at bedtime. 16. Zanaflex 4 mg p.o. at bedtime p.r.n. 17. Tramadol 50 mg p.o. q.6 hours p.r.n. 18. Trazodone 50 mg 1-1/2 tablets p.o. at bedtime. 19. Amiodarone 200 mg p.o. daily. 20. Procardia XL 60 mg p.o. b.i.d. FOLLOWUP: The patient may follow up with Dr. Chucky Jones within 2 weeks of discharge. The patient will follow up with Dr. Martinez with Nephrology Service. CONDITION ON DISCHARGE: Fair. ACTIVITY: Ad-karel. DIET: Renal. CODE STATUS: Do not attempt resuscitation. DISPOSITION: Discharged home on 06/28/2019. TIME SPENT: Total time preparing and coordinating discharge, 35 minutes. Job ID: [id number]
--- NOTE | 2019-06-29 08:37 | PRG ---
DATE OF SERVICE: 06/28/2019 SUBJECTIVE: Patient was seen and examined at bedside and overnight events noted. Patient denies any shortness of breath or chest pain or palpitation. No history of nausea or vomiting or diarrhea or fever or chills or cramps. OBJECTIVE: General: This is a well-built female, in no apparent distress. Vital Signs: Temperature 98. Heart Rate 74. Respiratory rate . Blood pressure 121/63. HEENT: Atraumatic, normocephalic. Oral mucosa is moist. Neck: Supple. Cardiovascular: S1, S2 heard. Rate and rhythm regular. Respiratory: Clear to auscultation. Gastrointestinal: Abdomen is soft. Musculoskeletal: No tenderness. No edema. Dermatologic: No skin rash. Neurologic: Alert and awake and oriented x3. No focal neurologic deficits. Moving all the extremities. Psychiatric: Mood and affect normal. LABORATORY DATA: Potassium is 3.7, BUN is 36, and creatinine 4.2. ASSESSMENT AND PLAN: 1. End-stage renal disease, currently on hemodialysis Tuesday, Tuesday, and Tuesday. 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 Plan is to start on sodium thiosulfate as outpatient. Continue wound care. Avoid calcium products and also the patient was advised to have regular dialysis. The patient is highly noncompliant. We will continue PTH also with dialysis. 3. Hypercalcemia. Recommend to stop calcium and vitamin D for now. 4. Edema, controlled. 5. Peripheral vascular disease. 6. Anemia of chronic disease. Continue dialysis Tuesday, Tuesday, and Tuesday. We will consider sodium thiosulfate with dialysis for at least three months. Continue wound care. Job ID: [id number]
== END 2019-06-28 14:19 | disposition home health service (06) | DRG 579 ==
LOC: ERS 12:24 → T4-A 18:50
PROVIDERS: ADMIT Internal Medicine; ATTEND Family Medicine
PROC: 30233N1 Transfusion of Nonautologous Red Blood Cells into Peripheral Vein, Percutaneous Approach (ICD-10-PCS; 2019-06-22)
PROC: 0JH63XZ Insertion of Tunneled Vascular Access Device into Chest Subcutaneous Tissue and Fascia, Percutaneous Approach (ICD-10-PCS; principal; 2019-06-26)
PROC: 031A0ZF Bypass Left Ulnar Artery to Lower Arm Vein, Open Approach (ICD-10-PCS; 2019-06-26)
PROC: 02HV33Z Insertion of Infusion Device into Superior Vena Cava, Percutaneous Approach (ICD-10-PCS; 2019-06-26)
PROC: 02HV33Z Insertion of Infusion Device into Superior Vena Cava, Percutaneous Approach (ICD-10-PCS; 2019-06-26)
PROC: B5181ZA Fluoroscopy of Superior Vena Cava using Low Osmolar Contrast, Guidance (ICD-10-PCS; 2019-06-26)
PROC: B548ZZA Ultrasonography of Superior Vena Cava, Guidance (ICD-10-PCS; 2019-06-26)
PROC: 02PY33Z Removal of Infusion Device from Great Vessel, Percutaneous Approach (ICD-10-PCS; 2019-06-26)
PROC: 5A1D70Z Performance of Urinary Filtration, Intermittent, Less than 6 Hours Per Day (ICD-10-PCS; 2019-06-27)
DX: L03.115 Cellulitis of right lower limb (principal); N18.6 End stage renal disease; I12.0 Hypertensive chronic kidney disease with stage 5 chronic kidney disease or end stage renal disease; T82.49XA Other complication of vascular dialysis catheter, initial encounter; Z66 Do not resuscitate; D63.1 Anemia in chronic kidney disease; I25.10 Atherosclerotic heart disease of native coronary artery without angina pectoris; K21.9 Gastro-esophageal reflux disease without esophagitis; E78.5 Hyperlipidemia, unspecified; G47.00 Insomnia, unspecified; E83.52 Hypercalcemia; E83.59 Other disorders of calcium metabolism; Y84.8 Other medical procedures as the cause of abnormal reaction of the patient, or of later complication, without mention of misadventure at the time of the procedure; Z88.8 Allergy status to other drugs, medicaments and biological substances; Z95.5 Presence of coronary angioplasty implant and graft; Z87.891 Personal history of nicotine dependence
CPT/HCPCS: 36415; 36430; 71045; 80048; 80053; 83605; 83970; 84100; 85007; 85014; 85018; 85025; 85027; 85049; 85610; 85730; 86850; 86900; 86901; 87040; 87340; 90935; 93005; 93010; 93923; 93970; 94760; 96365; 96366; 96367; 96375; 96376; C1752; C1769; G0257; G0365; J0670; J0692; J1644; J2001; J2250; J2270; J2704; J2720; J2997; J3010; J3370; J3490; J7050; P9016; Q0162; Q5105; S0020

== ENCOUNTER 2019-07-04 23:21 | Emergency (ER) | payer MEDICARE, OTHER ==
[2019-07-05 00:19] LABS: Anion Gap 19 mmol/L (10-20); BUN (Urea Nitrogen) 12 mg/dL (9.8-20.1); Calc. Creatinine Clearance 0 mL/min (70-130); Calcium 10.6 mg/dL (7.8-10.44); Carbon Dioxide 28 mmol/L (23-31); Chloride 95 mmol/L (98-107); Estimated GFR-MDRD 20; Glucose 88 mg/dL (83-110); Sodium 139 mmol/L (136-145)
[2019-07-05] MEDS ORDERED: Acetaminophen 500 MG TAB ONE (02:34)
--- NOTE | 2019-07-05 07:52 | ULT ---
PRELIMINARY REPORT/[facility]/EMERGENCY AFTER HOURS PROCEDURE: Receipt of this report by the clinical staff was confirmed with JERRI MARCIAL MD by Almas Sanchez on Jul 05, 2019 01:33:00 CDT. Addendum electronically signed by Lorrie Sanchez on July 05, 2019 1:33:21 AM CDT EXAM: US Duplex right Lower Extremity Veins. CLINICAL HISTORY: RLE pain/edema, redness in rt calf TECHNIQUE: Real-time ultrasound scan of the veins of the right lower extremity with color Doppler nik w, spectral waveform analysis and compression. COMPARISON: None provided. FINDINGS: DEEP VEINS: The common femoral,, proximal and mid femoral, and popliteal veins are echolucent and com pressible. These vessels demonstrate respiratory variation and augmentation. There is normal color Doppler flow in these regions. Partially occlusive thrombus is noted in the distal femoral vein. Th e patient refused imaging of the infrapopliteal region. SUPERFICIAL VEINS: The visualized greater saphenous vein is patent. SOFT TISSUES: No popliteal fossa cyst or other abnormalities. IMPRESSION: Partially occlusive thrombus in the distal femoral vein ELECTRONICALLY SIGNED BY: Anastacio Valdivia MD Jul 05, 2019 1:28:35 AM CDT FINAL REPORT EMERGENCY AFTER HOURS STUDY ULTRASOUND DOPPLER DUPLEX VENOUS RIGHT LOWER EXTREMITY: DATE: 07/05/2019. HISTORY: Right lower extremity pain and edema in 73-year-old female. TECHNIQUE: Grayscale, color-flow, and spectral analysis, of the right common femoral, profunda femoral, greater saphenous, femoral, popliteal, and posterior tibial, veins. FINDINGS: Agreement with preliminary report by [facility]. IMPRESSION: Positive for nonocclusive, partial thrombus in distal right femoral vein. Transcribed Date/Time: 07/05/2019 8:18 AM
== END 2019-07-05 02:32 ==
LOC: ERS 23:21
DX: I82.411 Acute embolism and thrombosis of right femoral vein (principal); M79.605 Pain in left leg; I12.9 Hypertensive chronic kidney disease with stage 1 through stage 4 chronic kidney disease, or unspecified chronic kidney disease; N18.9 Chronic kidney disease, unspecified; G47.00 Insomnia, unspecified; I25.10 Atherosclerotic heart disease of native coronary artery without angina pectoris; I25.2 Old myocardial infarction; K21.9 Gastro-esophageal reflux disease without esophagitis; E78.5 Hyperlipidemia, unspecified; Z99.2 Dependence on renal dialysis; Z87.891 Personal history of nicotine dependence; Z79.82 Long term (current) use of aspirin; Z79.899 Other long term (current) drug therapy
CPT/HCPCS: 36415; 80048

== ENCOUNTER 2019-08-04 11:20 | Observation (INO) | payer MEDICARE, OTHER ==
[2019-08-04] MEDS ORDERED: Morphine 4 MG/ML VIAL ONE (12:16)
[2019-08-04] MEDS ORDERED: Ondansetron PF 4 MG/2 ML Vial ONE (12:16)
[2019-08-04 12:17] LABS: Hemoglobin 10.5 g/dL (12.0-16.0); Mean Corpuscular HGB CONC 32.1 g/dL (32.0-36.0); Mean Corpuscular Hemoglobin 22.8 pg (27.0-31.0); Mean Corpuscular Volume 71.1 fL (78.0-98.0); Mean Platelet Volume 10.7 fL (7.4-10.4); Platelet Count 236 thou/uL (130-400); RBC Distribution Width 17.2 % (11.5-14.5); White Blood Cell (WBC) Count 8.6 thou/uL (4.8-10.8)
[2019-08-04 12:35] LABS: #Eosinphils 0.1 thou/uL (0.0-0.7); #Lymphocytes 2.9 thou/uL (1.20-3.40); #Monocytes 0.8 thou/uL (0.11-0.59); #Neutrophils 4.7 thou/uL (1.40-6.50); %Basophils 0.3 % (0.0-1.0); %Lymphocytes 34.3 % (21.0-51.0); %Monocytes 9.4 % (0.0-10.0); Band 7 % (5-11); Lymphocytes 35 % (21-51); MDiff Complete? YES; Metamyelocyte 1 % (0-0); Monocytes 4 % (0-10); Neutrophil 48 % (42-75); Nucleated RBC 2 % (0); Reactive Lymphocytes 5 % (0-10)
[2019-08-04 12:39] LABS: ALT (SGPT) Less than 7 U/L (8-55); AST (SGOT) 12 U/L (5-34); Albumin 4.5 g/dL (3.4-4.8); Alkaline Phosphatase 199 U/L (40-110); Anion Gap 15 mmol/L (10-20); BUN (Urea Nitrogen) 12 mg/dL (9.8-20.1); Bilirubin, Total 0.4 mg/dL (0.2-1.2); Calc. Creatinine Clearance 0 mL/min (70-130); Calcium 10.1 mg/dL (7.8-10.44); Carbon Dioxide 34 mmol/L (23-31); Chloride 96 mmol/L (98-107); Estimated GFR-MDRD 14; Globulin 2.7 g/dL (2.4-3.5); Glucose 75 mg/dL (83-110); Potassium 3.2 mmol/L (3.5-5.1); Protein, Total 7.2 g/dL (6.0-8.3); Sodium 142 mmol/L (136-145)
--- NOTE | 2019-08-04 12:46 | ULT ---
RIGHT LOWER EXTREMITY VENOUS DOPPLER ULTRASOUND: 08/04/2019 HISTORY: Positive DVT examination in the past. Pain. COMPARISON: 07/05/19 TECHNIQUE: Multiplanar richard-scale sonographic imaging of the venous structures of the right lower extremity were obtained with color-flow and spectral analysis. FINDINGS: The common femoral vein and profunda femoral vein appear patent. The proximal and mid femoral vein ap pear patent. The distal femoral vein and the popliteal vein are only partially compressible, consiste nt with nonocclusive DVT. The right greater saphenous vein and the profunda femoral vein appear paten t. The right posterior tibial vein could not be visualized. The popliteal DVT appears new when blayne red to the prior study. IMPRESSION: Nonocclusive deep venous thrombosis involving the distal right femoral vein and popliteal vein. POS: [facility]
[2019-08-04] MEDS ORDERED: Enoxaparin Sodium 80 MG/0.8 ML SYRINGE ONE (15:00)
--- NOTE | 2019-08-04 16:22 | CON ---
DATE OF CONSULTATION: 08/04/2019 REASON FOR CONSULTATION: End-stage renal disease for maintenance hemodialysis. HISTORY OF PRESENT ILLNESS: This is a 73-year-old female, who does dialysis presented to the hospital with a possible DVT. I am seeing her for end-stage renal disease management. The patient denies any nausea, vomiting, or chest pain. PAST MEDICAL HISTORY: Significant for; 1. Hypertension. 2. End-stage renal disease. 3. . 4. Coronary artery disease. 5. KS. 6. Hyperlipidemia. 7. GERD. 8. Stents. 9. Angioplasty. 10. Graft. 11. AV fistula. 12. Tunneled dialysis catheter. SOCIAL HISTORY: No alcohol or drug use. FAMILY HISTORY: Negative for ESRD. ALLERGIES: REVIEWED. MEDICATIONS: Home medications list reviewed. Hospital medications list reviewed. REVIEW OF SYSTEMS: Fifteen-point review of system was performed and negative except for positives noted above. HEENT: Eyes intact, no diplopia. Ears: No hearing loss or earache. Nose: No discharge or bleeding. CHEST: No cough or phlegm. ABDOMEN: No nausea or vomiting. GENITOURINARY: No hematuria. No Tomlinson catheter. MUSCULOSKELETAL: No low back pain. No joint swelling or pain. NEUROLOGICAL: No syncope. No seizures. SKIN: No complaints of rash or itching. PSYCHIATRIC: No depression. CONSTITUTIONAL: No weight loss or loss of appetite. PHYSICAL EXAMINATION: GENERAL: The patient is awake and alert. VITAL SIGNS: Afebrile. Pulse 73, breathing 16, blood pressure 154/74. HEENT: Head normocephalic and atraumatic. Eyes intact, no ulcers. Nose intact, no ulcers. Ears intact, no ulcers. NECK: Supple. No JVD. CHEST: Symmetrical and clear. CARDIOVASCULAR: Shows S1 and S2, no rub, no murmur. GASTROINTESTINAL: Abdomen is soft, bowel sounds positive. EXTREMITIES: Show no edema or ulcers. SKIN: Shows no rash or petechiae. MUSCULOSKELETAL: Shows no joint swelling or stiffness. GENITOURINARY: Shows no Tomlinson or CVA tenderness. NEUROLOGIC: Motor intact. Cranial nerves intact. LABORATORY DATA: Reviewed. ASSESSMENT AND PLAN: 1. Stage 6 chronic kidney disease. Plan dialysis per schedule. 2. Hypertension, stable. 3. Anemia, stable. 4. Medication based on GFR appropriate. Job ID: [id number]
[2019-08-04] MEDS ORDERED: Ondansetron ODT 4 MG TAB SL PRN (17:02)
[2019-08-04] MEDS ORDERED: HYDROcodone/Acetaminophen 5/325 mg Tablet PO PRN (17:02)
[2019-08-04] MEDS ORDERED: Acetaminophen 325 MG TAB PO PRN (17:02)
[2019-08-04] MEDS ORDERED: Ondansetron PF 4 MG/2 ML Vial IVP PRN ×2 (17:02→18:42)
[2019-08-04] MEDS ORDERED: Morphine 4 MG/ML VIAL SLOW IVP PRN (17:03)
[2019-08-04 17:12] VITALS: BMI 27.7
[2019-08-04] MEDS: HYDROcodone/Acetaminophen 5/325 mg Tablet PO PRN (18:30)
[2019-08-04] MEDS ORDERED: hydrALAZINE 20 MG/ML VIAL SLOW IVP PRN (18:42)
[2019-08-04] MEDS ORDERED: Acetaminophen 500 MG TAB PO PRN (18:42)
[2019-08-04] MEDS ORDERED: Ondansetron ODT 4 MG TAB PO PRN (18:42)
--- NOTE | 2019-08-04 20:10 | HP ---
PRIMARY CARE PROVIDER: Dr. Cohen. PRIMARY ENVELOPE FOLDING MACHINE OPERATOR: Dr. Martinez. CHIEF COMPLAINT: Right lower extremity pain. HISTORY OF PRESENT ILLNESS: This is a 73-year-old female, who presents to [facility] Emergency Department complaining of approximately 24-hour history of increased right lower extremity pain, paresthesias, and difficulty ambulating. The patient states most of the pain is in the calf region and states she was recently admitted in late May or early June 2019 for right lower extremity cellulitis. The patient was placed on antibiotics and states the skin infection seemed to have cleared. The patient noted increased pain in her right lower extremity over the last 24 to 48 hours, but denied direct trauma, injury, shortness of breath, fever, chills, or travel history. The patient states she was diagnosed with partial occlusive distal right femoral vein thrombosis on 07/04/2019; however, was not started on any specific anticoagulation. The patient denied any other change to her chronic medication regimen, exposure history, or family members with similar symptoms. The patient states she resides at [facility] and denied any recent fever, chills, travel history, or COVID exposure. In the emergency room, the patient underwent general evaluation including vascular exam of the right lower extremity showing a partially occlusive distal right femoral vein and popliteal vein thrombosis. The patient received Lovenox 78 mg subcutaneously x1 in addition to morphine sulfate and Zofran. PAST MEDICAL HISTORY: 1. Status post cellulitis of the right lower extremity on 06/28/2019. 2. Right lower extremity partially occlusive DVT diagnosed on 07/04/2019 without treatment. 3. Anemia and chronic kidney and kidney disease. 4. Peripheral vascular disease. 5. End-stage renal disease with hemodialysis. 6. Dysfunctional hemodialysis catheter, status post exchange. 7. Hypertension. PAST SURGICAL HISTORY: 1. Status post cardiac stent placement. 2. Status post MediPort in the right subclavian. 3. Status post hemodialysis catheter exchange. 4. Status post AV fistula placement. CURRENT MEDICATIONS: Based on recent discharge summary on 06/28/2019: 1. Xanax 1 mg p.o. b.i.d. p.r.n. 2. Enteric-coated aspirin 81 mg p.o. daily. 3. Coreg 6.25 mg p.o. b.i.d. 4. Calcium carbonate 750 mg p.o. b.i.d. 5. Vitamin D3 2000 units p.o. daily. 6. Clonazepam 0.5 mg p.o. b.i.d. 7. Plavix 75 mg p.o. daily. 8. [place]-3 fatty acids 1 capsule p.o. daily. 9. Gabapentin 300 mg p.o. t.i.d. 10. Multivitamin 1 tablet p.o. daily. 11. Omeprazole 20 mg p.o. daily. 12. Renvela 1600 mg p.o. daily. 13. Lyrica 75 mg p.o. daily. 14. Zocor 40 mg p.o. at bedtime. 15. Zanaflex 4 mg p.o. at bedtime p.r.n. 16. Trazodone 50 mg one and half tablets p.o. at bedtime. 17. Amiodarone 200 mg p.o. daily. 18. Procardia XL 60 mg p.o. b.i.d. ALLERGIES: LISINOPRIL. FAMILY HISTORY: Positive for hypertension. SOCIAL HISTORY: Remote tobacco use, none currently. No alcohol intake since 2017. No illicit drug use. Ambulates with a rolling walker. Resides at [facility]. REVIEW OF SYSTEMS: CONSTITUTIONAL: Negative for weight loss or gain, ability to conduct usual activities. SKIN: Negative for rash, itching. EYES: Negative for double vision, pain. ENT/MOUTH: Negative for nose bleeding, neck stiffness, pain, tenderness. CARDIOVASCULAR: Negative for palpitations, dyspnea on exertion, orthopnea. RESPIRATORY: Negative for shortness of breath, wheezing, cough, hemoptysis, fever or night sweats. GASTROINTESTINAL: Negative for poor appetite, abdominal pain, heartburn, nausea, vomiting, constipation, or diarrhea. GENITOURINARY: Negative for urgency, frequency, dysuria, nocturia. MUSCULOSKELETAL: Negative for pain, swelling. NEUROLOGIC/PSYCHIATRIC: Negative for anxiety, depression. ALLERGY/IMMUNOLOGIC: Negative for skin rash, bleeding tendency. Otherwise, negative except as stated per HPI. PHYSICAL EXAMINATION: VITAL SIGNS: On admission, blood pressure 160/80, pulse 69, respiratory rate 18, temperature 98 degrees Fahrenheit, O2 saturation 96% on room air. GENERAL APPEARANCE: This is a 73-year-old female, alert and oriented x3, pleasant, responsive, in no acute distress. HEENT: Pupils are equal, round, reactive to light and accommodation. Extraocular muscles are intact. No scleral icterus. No conjunctival injection. Nares patent. OP is clear. Teeth in good repair. NECK: Supple. No cervical adenopathy. No thyromegaly. No carotid bruits. No JVD appreciated. Cervical spine with full active and passive range of motion. No meningeal signs noted. CHEST: Lungs are clear to auscultation bilaterally. CARDIOVASCULAR: S1 and S2 without noted murmur, rub, or gallop. ABDOMEN: Rounded, soft, nontender, and nondistended. Bowel sounds are positive in all 4 quadrants. There is no hepatosplenomegaly. No abdominal bruits. No rebound or guarding appreciated. EXTREMITIES: Warm and dry with fair turgor. Mild edema to bilateral lower extremities. Tenderness to palpation diffusely of the right lower extremity, mainly in the knee and calf region. Dry flaking skin noted of the medial calf. No profound erythema or drainage. Pulses are diminished bilaterally at the dorsalis pedis and posterior tibial arteries. NEUROLOGIC: Cranial nerves 2 through 12 are grossly intact. No focal or lateralizing signs appreciated. PERTINENT LABS AND X-RAY FINDINGS: Sodium 142, potassium 3.2, chloride 96, CO2 of 34, BUN 12, creatinine 3.15, estimated GFR 14, glucose 75, lactic acid level 2.0, calcium 10.1, and alkaline phosphatase 199. CBC showed a white blood cell count 8.6, hemoglobin 10.5, hematocrit 33, and platelet count 236 with normal differential. Right lower extremity venous Doppler study dated 08/04/2019 showed nonocclusive DVT of the distal right femoral and popliteal vein. ASSESSMENT AND PLAN: 1. Right lower extremity subacute deep venous thrombosis of distal right femoral and popliteal vein. The patient will be observed on the medical floor. We will initiate Eliquis 2.5 mg p.o. b.i.d. Lovenox 78 mg x1 dose given in the emergency room. Given the patient's end-stage renal disease, we will proceed with Eliquis therapy. Pain control as clinically indicated. 2. End-stage renal disease with hemodialysis. We will consult Nephrology Service for ongoing hemodialysis during the hospital course. No current evidence to suggest acute volume overload. 3. Peripheral vascular disease. Continue medical management. May need a dose adjustment to anti-platelet therapy given the initiation of Eliquis. 4. Hypertension. Resume home blood pressure regimen and monitor clinical response. P.r.n. hydralazine. 5. Hypokalemia. We will continue potassium monitoring. Hold potassium supplementation given end-stage renal disease. 6. Anemia of chronic kidney disease. Stable currently. Continue serial H and H monitoring. No current evidence to suggest active blood loss. 7. Prophylaxis. Hold SCDs while in bed due to right lower extremity deep venous thrombosis. Pepcid 20 mg p.o. b.i.d. 8. Code status is full. Surrogate medical decision maker is the patient's son. Job ID: [id number]
[2019-08-04] MEDS: Famotidine 20 MG TAB PO SCH (20:23)
[2019-08-04] MEDS: Carvedilol 6.25 MG TAB PO SCH (20:54)
[2019-08-04] MEDS: clonazePAM 0.5 MG TAB PO SCH (20:54)
[2019-08-04] MEDS: Gabapentin 300 MG CAP PO SCH (20:54)
[2019-08-04] MEDS: Calcium Carbonate 500 MG ChewTAB PO SCH (20:54)
[2019-08-04] MEDS: Simvastatin 40 MG TAB PO SCH (20:55)
[2019-08-04] MEDS: traZODone HCl 50 MG TAB PO SCH (20:55)
[2019-08-04] MEDS: hydrALAZINE 25 MG TAB PO SCH (21:01)
[2019-08-04] MEDS: NIFEdipine XL 60 MG TAB PO SCH (21:02)
[2019-08-05] MEDS: HYDROcodone/Acetaminophen 5/325 mg Tablet PO PRN ×3 (00:02→18:23)
[2019-08-05] MEDS: ALPRAZolam 1 MG TAB PO PRN (02:16)
[2019-08-05 06:20] LABS: Band 3 % (5-11); Hemoglobin 9.4 g/dL (12.0-16.0); Lymphocytes 52 % (21-51); MDiff Complete? YES; Mean Corpuscular HGB CONC 31.7 g/dL (32.0-36.0); Mean Corpuscular Hemoglobin 22.9 pg (27.0-31.0); Mean Corpuscular Volume 72.2 fL (78.0-98.0); Mean Platelet Volume 10.9 fL (7.4-10.4); Monocytes 4 % (0-10); Neutrophil 41 % (42-75); Nucleated RBC 1 % (0); Platelet Count 199 thou/uL (130-400); White Blood Cell (WBC) Count 7.1 thou/uL (4.8-10.8)
[2019-08-05 06:25] LABS: Anion Gap 17 mmol/L (10-20); BUN (Urea Nitrogen) 15 mg/dL (9.8-20.1); Calc. Creatinine Clearance 18 mL/min (70-130); Calcium 9.4 mg/dL (7.8-10.44); Carbon Dioxide 26 mmol/L (23-31); Chloride 97 mmol/L (98-107); Estimated GFR-MDRD 13; Glucose 77 mg/dL (83-110); Potassium 3.4 mmol/L (3.5-5.1); Sodium 137 mmol/L (136-145)
[2019-08-05] MEDS ORDERED: HYDROcodone/Acetaminophen 5/325 mg Tablet PO PRN (06:32)
[2019-08-05] MEDS ORDERED: Morphine 2 MG/ML SYRINGE SLOW IVP SCH (06:45)
[2019-08-05] MEDS ORDERED: Apixaban 2.5 MG TAB PO SCH (07:00)
[2019-08-05] MEDS: Gabapentin 300 MG CAP PO SCH ×2 (08:39→21:06)
[2019-08-05] MEDS: hydrALAZINE 25 MG TAB PO SCH ×3 (08:40→21:06)
[2019-08-05] MEDS: NIFEdipine XL 60 MG TAB PO SCH ×2 (08:41→21:07)
[2019-08-05] MEDS: Calcium Carbonate 500 MG ChewTAB PO SCH ×2 (08:42→21:05)
[2019-08-05] MEDS: Carvedilol 6.25 MG TAB PO SCH ×2 (08:42→21:06)
--- NOTE | 2019-08-05 12:17 | PDOC.HOSPP ---
- Subjective Encounter Date: 08/05/19 Encounter Time: 12:15 Subjective: f/u for subacute RLE DVT on current Eliquis. Feels much better overall. Less pain in RLE. No SOB. - Objective Vital Signs & Weight: Vital Signs (12 hours) Temp Pulse Resp BP BP Pulse Ox 08/05/19 10:56 98.3 F 71 18 121/74 93 L 08/05/19 08:42 155/76 H 08/05/19 08:41 67 155/76 H 08/05/19 08:40 65 155/76 H 08/05/19 08:00 98.0 F 65 18 148/78 H 96 08/05/19 07:05 98.0 F 65 18 148/78 H 96 08/05/19 04:48 97.7 F 63 18 128/78 99 Weight Weight 172 lb Result Diagrams: 08/05/19 05:23 08/05/19 05:23 Additional Labs: Microbiology 08/04/19 12:53 Venous blood - Right Hand Blood Culture - Preliminary Specimen has been received and culture in progress. No Growth to date. 08/04/19 11:46 Venous blood - Right Hand Blood Culture - Preliminary Specimen has been received and culture in progress. No Growth to date. 08/04/19 08:15 Venous blood - Left Arm Blood Culture - Preliminary Specimen has been received and culture in progress. No Growth to date. 06/22/19 14:39 Venous blood - Right Arm Blood Culture - Preliminary Specimen has been received and culture in progress. No Growth to date. 06/22/19 14:13 Venous blood - Right Arm Blood Culture - Preliminary Specimen has been received and culture in progress. No Growth to date. Laboratory Tests 06/22/19 06/22/19 06/23/19 14:13 14:13 09:38 WBC 8.2 Hgb 8.5 L Potassium Carbon Dioxide BUN 33 H Creatinine 4.61 H Hep Bs Antigen Non-Reactive 08/04/19 08/04/19 11:46 11:46 WBC Hgb 10.5 L Potassium 3.2 L Carbon Dioxide 34 H BUN Creatinine 3.15 H Hep Bs Antigen Hospitalist ROS - Medication Medications: Active Medications Generic Name Dose Route Start Last Admin Trade Name Freq PRN Reason Stop Dose Admin Hydrocodone Bitart/Acetaminophen 2 tab 08/05/19 06:32 08/05/19 08:51 [place] 5/325 PO 2 tab Q6H PRN Administration Moderate to Severe Pain (6-10) Alprazolam 1 mg 08/04/19 20:28 08/05/19 02:16 Xanax PO 1 mg BIDPRN PRN Administration Anxiety Calcium Carbonate 750 mg 08/04/19 21:00 08/05/19 08:42 Tums PO 750 mg BID LIVIER Administration Carvedilol 6.25 mg 08/04/19 21:00 08/05/19 08:42 Coreg PO 6.25 mg BID LIVIER Administration Clonazepam 0.5 mg 08/04/19 21:00 08/04/19 20:54 Clonazepam PO 0.5 mg HS LIVIER Administration Famotidine 20 mg 08/04/19 21:00 08/04/19 20:23 Pepcid PO 20 mg 2100 LIVIER Administration Gabapentin 300 mg 08/04/19 21:00 08/05/19 08:39 Neurontin PO 300 mg BID LIVIER Administration Hydralazine HCl 100 mg 08/04/19 21:00 08/05/19 08:40 Apresoline PO 100 mg TID LIVIER Administration Nifedipine 60 mg 08/04/19 21:00 08/05/19 08:41 Procardia Xl PO 60 mg BID LIVIER Administration Simvastatin 40 mg 08/04/19 21:00 08/04/19 20:55 Zocor PO 40 mg HS LIVIER Administration Trazodone HCl 25 mg 08/04/19 21:00 08/04/19 20:55 Desyrel PO 25 mg HS LIVIER Administration - Exam General Appearance: NAD, awake alert Eye: PERRL, anicteric sclera ENT: normocephalic atraumatic, no oropharyngeal lesions Neck: supple, symmetric, no JVD, no thyromegaly, no lymphadenopathy Heart: RRR, no murmur, no gallops, no rubs, normal peripheral pulses Heart - other findings: S1, S2 Respiratory: CTAB, no wheezes, no rales, no ronchi, normal chest expansion Gastrointestinal: soft, non-tender, non-distended, normal bowel sounds, no palpable masses Extremities: no cyanosis, 1+ LE edema Extremities - other findings: mild TTP in R calf/popliteal region Skin: normal turgor Neurological: cranial nerve grossly intact, no new deficit Musculoskeletal: normal tone, generalized weakness Psychiatric: normal affect, A&O x 3 Hosp A/P (1) Deep vein thrombosis (DVT) of right lower extremity Code(s): I82.401 - ACUTE EMBOLISM AND THOMBOS UNSP DEEP VEINS OF R LOW EXTREM Status: Acute Qualifiers: Affected thrombotic vein of extremity: popliteal Plan: Continue Eliquis 2.5mg BID, Elevate RLE for comfort (2) ESRD (end stage renal disease) on dialysis Code(s): N18.6 - END STAGE RENAL DISEASE; Z99.2 - DEPENDENCE ON RENAL DIALYSIS Status: Chronic Plan: HD per Renal service (3) Peripheral vascular disease Code(s): I73.9 - PERIPHERAL VASCULAR DISEASE, UNSPECIFIED Status: Chronic (4) HTN (hypertension) Code(s): I10 - ESSENTIAL (PRIMARY) HYPERTENSION Status: Acute (5) Hypokalemia Code(s): E87.6 - HYPOKALEMIA Status: Acute Plan: mild, continue serial monitoring, hold replacement due to ESRD (6) Anemia in CKD (chronic kidney disease) Code(s): N18.9 - CHRONIC KIDNEY DISEASE, UNSPECIFIED; D63.1 - ANEMIA IN CHRONIC KIDNEY DISEASE Status: Chronic Plan: serial H/H monitoring - Plan social sciences research scientist, out of bed/ambulate Stable currently Continue Eliquis 2.5mg BID Elevate RLE/K-pad PRN HD per Renal service AM lab: BMP, CBC Likely home in am
[2019-08-05] MEDS ORDERED: tiZANidine HCl 4 MG TAB PO PRN (12:21)
[2019-08-05] MEDS ORDERED: cloNIDine 0.1 MG TAB PO PRN (12:21)
[2019-08-05] MEDS ORDERED: Docusate 100 MG CAP PO PRN (12:21)
--- NOTE | 2019-08-05 16:19 | PRG ---
DATE OF SERVICE: SUBJECTIVE: A 73-year-old female being seen for end-stage renal disease. The patient denied nausea, vomiting, or chest pain. PHYSICAL EXAMINATION: GENERAL: The patient is awake and alert. VITAL SIGNS: Afebrile, pulse 81, breathing at 16, blood pressure . HEENT: Head normocephalic and atraumatic. Eyes intact, no ulcers. Nose intact, no ulcers. Ears intact, no ulcers. NECK: Supple. No JVD. CHEST: Symmetrical and clear. CARDIOVASCULAR: Shows S1 and S2, no rub, no murmur. GASTROINTESTINAL: Abdomen is soft, bowel sounds positive. EXTREMITIES: Show no edema or ulcers. SKIN: Shows no rash or petechiae. MUSCULOSKELETAL: Shows no joint swelling or stiffness. GENITOURINARY: Shows no Tomlinson or CVA tenderness. NEUROLOGIC: Motor intact. Cranial nerves intact. LABORATORY DATA: Reviewed. ASSESSMENT AND PLAN: 1. Stage 6 chronic kidney disease. Continue hemodialysis as per schedule. 2. Hypertension, stable. 3. Anemia, stable. 4. Medication based on GFR appropriate. Job ID: [id number]
[2019-08-05] MEDS ORDERED: traMADol HCl 50 MG TAB PO SCH (21:00)
[2019-08-05] MEDS: Apixaban 2.5 MG TAB PO SCH (21:05)
[2019-08-05] MEDS: clonazePAM 0.5 MG TAB PO SCH (21:06)
[2019-08-05] MEDS: Famotidine 20 MG TAB PO SCH (21:06)
[2019-08-05] MEDS: Simvastatin 40 MG TAB PO SCH (21:07)
[2019-08-05] MEDS: traZODone HCl 50 MG TAB PO SCH (21:09)
[2019-08-06] MEDS: HYDROcodone/Acetaminophen 5/325 mg Tablet PO PRN (04:45)
[2019-08-06 05:51] LABS: Anion Gap 20 mmol/L (10-20); BUN (Urea Nitrogen) 27 mg/dL (9.8-20.1); Calc. Creatinine Clearance 14 mL/min (70-130); Calcium 10.2 mg/dL (7.8-10.44); Carbon Dioxide 23 mmol/L (23-31); Chloride 96 mmol/L (98-107); Estimated GFR-MDRD 10; Glucose 116 mg/dL (83-110); Potassium 3.6 mmol/L (3.5-5.1); Sodium 135 mmol/L (136-145)
[2019-08-06 07:30] VITALS: TEMP 98.2
[2019-08-06] MEDS: ALPRAZolam 1 MG TAB PO PRN (08:48)
[2019-08-06] MEDS ORDERED: Multivitamin W/ Minerals 1 TAB PO SCH (09:00)
[2019-08-06] MEDS ORDERED: Fish Oil 1,000 MG CAP PO SCH (09:00)
[2019-08-06] MEDS ORDERED: Amiodarone 200 MG TAB PO SCH (09:00)
[2019-08-06] MEDS ORDERED: Aspirin 81 mg Enteric Coated Tablet PO SCH (09:00)
[2019-08-06] MEDS ORDERED: Sevelamer Carbonate 800 MG TAB PO SCH (09:00)
[2019-08-06] MEDS: Calcium Carbonate 500 MG ChewTAB PO SCH (09:01)
[2019-08-06] MEDS: hydrALAZINE 25 MG TAB PO SCH ×2 (09:02→15:14)
[2019-08-06] MEDS: Gabapentin 300 MG CAP PO SCH (09:02)
--- NOTE | 2019-08-06 10:46 | DIS ---
DATE OF ADMISSION: 08/04/2019 DATE OF DISCHARGE: 08/06/2019 DISCHARGE DIAGNOSES: 1. Right lower extremity deep venous thrombosis of the distal right femoral and popliteal vein. 2. End-stage renal disease with hemodialysis. 3. Peripheral vascular disease. 4. Hypertension, stable. 5. Hypokalemia, resolved. 6. Anemia and chronic kidney disease, stable. CONSULTATIONS: Dr. Pierson with Nephrology Service. PERTINENT LABORATORY AND X-RAY FINDINGS: Potassium ranging between 3.2 to 3.6. Creatinine ranging between 3.15 to 4.46. Lactic acid level 2.0. CBC showed a hemoglobin ranging between 9.4 to 10.5. Blood cultures x3 dated 08/04/2019 negative. Right lower extremity venous Doppler study dated 08/04/2019, showed nonocclusive deep venous thrombosis of the distal right femoral and popliteal vein. HOSPITAL COURSE: The patient was observed on the medical floor after presenting with increasing right lower extremity pain. The patient underwent evaluation in early June 2019 showing a distal right femoral vein thrombosis on 07/04/2019. The patient was not initiated on any anticoagulation at that time and presented to [facility] for evaluation. The patient was noted with a nonocclusive DVT and initiated on Eliquis 2.5 mg b.i.d. Recommendations are to continue this therapy for approximately 4-6 months with serial evaluation of the right lower extremity for resolution. The patient continued to receive her maintenance hemodialysis during the hospital course without complication. Overall, the patient did remain clinically stable during the hospital course and tolerated regular oral intake with stable vital signs. I have examined the patient at the time of discharge and discussed followup instructions. The patient verbalized understanding and in agreement, ready for discharge on 08/06/2019. DISCHARGE MEDICATIONS: 1. Xanax 1 mg p.o. b.i.d. p.r.n. 2. Enteric-coated aspirin 81 mg p.o. daily. 3. Coreg 6.25 mg p.o. b.i.d. 4. Calcium carbonate 750 mg p.o. b.i.d. 5. Vitamin D3 2000 units p.o. daily. 6. Clonazepam 0.5 mg p.o. b.i.d. 7. [place]-3 fatty acids 1 capsule p.o. daily. 8. Gabapentin 300 mg p.o. t.i.d. 9. Multivitamin 1 tablet p.o. daily. 10. Omeprazole 20 mg p.o. daily. 11. Renvela 1600 mg p.o. daily. 12. Lyrica 75 mg p.o. daily. 13. Zocor 40 mg p.o. at bedtime. 14. Zanaflex 4 mg p.o. at bedtime p.r.n.. 15. Trazodone 50 mg one and half tablets p.o. at bedtime. 16. Amiodarone 200 mg p.o. daily. 17. Procardia XL 60 mg p.o. b.i.d. 18. Eliquis 2.5 mg p.o. b.i.d. FOLLOWUP: The patient may follow up with her primary care provider, Dr. Cohen after discharge. The patient will follow up with Dr. Martinez for maintenance hemodialysis 3 times per week. CONDITION ON DISCHARGE: Stable. ACTIVITY: Ad-karel. DIET: Heart healthy and renal. CODE STATUS: Do not attempt resuscitation. DISPOSITION: Discharged to [facility] on 08/06/2019. Job ID: [id number]
[2019-08-06] MEDS ORDERED: Albumin 25% 25 GM/100 ML BOT IVPB SCH (11:30)
[2019-08-06] MEDS ORDERED: Heparin 10,000 UNITS/ 10 ML VIAL ONE (11:35)
--- NOTE | 2019-08-06 12:51 | PRG ---
DATE OF SERVICE: 08/06/2019 SUBJECTIVE: Patient was seen and examined at bedside and overnight events noted. Patient denies any shortness of breath or chest pain or palpitation. No history of nausea or vomiting or diarrhea or fever or chills or cramps. OBJECTIVE: GENERAL: This is a well-built female, in no apparent distress. VITAL SIGNS: Temperature 98.5, pulse 70, respiratory rate 18, blood pressure 99/59. HEENT: Atraumatic, normocephalic. Oral mucosa is moist. Neck: Supple. Cardiovascular: S1, S2 heard. Rate and rhythm regular. Respiratory: Clear to auscultation. Gastrointestinal: Abdomen is soft. Musculoskeletal: No tenderness. No edema. Dermatologic: No skin rash. Neurologic: Alert and awake and oriented x3. No focal neurologic deficits. Moving all the extremities. Psychiatric: Mood and affect normal. LABORATORY DATA: Potassium 3.0, BUN is 27, and creatinine is 4.1. ASSESSMENT AND PLAN: 1. End-stage renal disease. Continue on dialysis. 2. Edema. 3. Hypertension. 4. Anemia. 5. Continue dialysis as tolerated. The patient is hypotensive. We will use albumin as tolerated and we will adjust dialysis dose if needed. We will follow. Job ID: [id number]
[2019-08-06] MEDS: NIFEdipine XL 60 MG TAB PO SCH (14:31)
[2019-08-06] MEDS: Carvedilol 6.25 MG TAB PO SCH (14:32)
[2019-08-06] MEDS: Apixaban 2.5 MG TAB PO SCH (15:14)
[2019-08-06 16:04] VITALS: BP 111/59
== END 2019-08-06 18:03 ==
LOC: ERS 11:20 → T4-B 14:47
PROVIDERS: ADMIT Family Medicine; ATTEND Family Medicine
DX: I82.411 Acute embolism and thrombosis of right femoral vein (principal); I82.431 Acute embolism and thrombosis of right popliteal vein; I12.0 Hypertensive chronic kidney disease with stage 5 chronic kidney disease or end stage renal disease; N18.6 End stage renal disease; D63.1 Anemia in chronic kidney disease; I73.9 Peripheral vascular disease, unspecified; E87.6 Hypokalemia; I25.10 Atherosclerotic heart disease of native coronary artery without angina pectoris; I25.2 Old myocardial infarction; E78.5 Hyperlipidemia, unspecified; K21.9 Gastro-esophageal reflux disease without esophagitis; I95.9 Hypotension, unspecified; Z87.891 Personal history of nicotine dependence; Z79.02 Long term (current) use of antithrombotics/antiplatelets; Z79.82 Long term (current) use of aspirin; Z79.899 Other long term (current) drug therapy; Z88.8 Allergy status to other drugs, medicaments and biological substances; Z95.5 Presence of coronary angioplasty implant and graft; Z99.2 Dependence on renal dialysis
CPT/HCPCS: 80048 ×2; 80053; 83605; 85007; 85025; 85027; 87040 ×2; 93971; 96372; 96374; 96375; 96376; 99285; G0378 ×4; J1644; J1650; J2270 ×2; J2405; 36415; 90935; G0257

== ENCOUNTER 2019-09-04 11:02 | Emergency (ER) | payer MEDICARE, OTHER ==
[2019-09-04] MEDS ORDERED: Morphine 4 MG/ML VIAL ONE ×2 (11:45→13:45)
[2019-09-04] MEDS ORDERED: Ondansetron PF 4 MG/2 ML Vial ONE (11:45)
[2019-09-04] MEDS ORDERED: Cefepime 2 GM VIAL ONE (13:46)
[2019-09-04 14:23] LABS: #Basophils 0.1 thou/uL (0.0-0.2); #Eosinphils 0.1 thou/uL (0.0-0.7); #Lymphocytes 2.5 thou/uL (1.20-3.40); #Monocytes 0.6 thou/uL (0.11-0.59); #Neutrophils 3.1 thou/uL (1.40-6.50); %Basophils 1.5 % (0.0-1.0); %Eosinophils 1.9 % (0.0-10.0); %Lymphocytes 39.4 % (21.0-51.0); %Monocytes 8.8 % (0.0-10.0); %Neutrophils 48.3 % (42.0-75.0); Hemoglobin 10.2 g/dL (12.0-16.0); Mean Corpuscular HGB CONC 30.6 g/dL (32.0-36.0); Mean Corpuscular Hemoglobin 21.8 pg (27.0-31.0); Mean Corpuscular Volume 71.2 fL (78.0-98.0); Mean Platelet Volume 10.5 fL (7.4-10.4); Platelet Count 193 thou/uL (130-400); RBC Distribution Width 16.5 % (11.5-14.5); Red Blood Cell (RBC) Count 4.67 mill/uL (4.20-5.40); White Blood Cell (WBC) Count 6.3 thou/uL (4.8-10.8)
[2019-09-04 14:42] LABS: Anisocytosis SLIGHT = 6-15 cells (100X) (0-5/hpf); Basophilic Stippling SLIGHT = 1-2 cells (100X) (None Seen); Hypochromia SLIGHT = 6-15 cells (100X) (0-5/hpf); Large Platelets SLIGHT; MDiff Complete? YES; Microcytosis SLIGHT = 6-15 cells (100X) (0-5/hpf); Ovalocytes SLIGHT = 2-5 cells (100X) (0-1/hpf); Platelet Morphology Comment Appears Adequate; Polychromasia MODERATE = 3-4 cells (100X) (0-2/hpf); Schistocytes SLIGHT = 2-5 cells (100X) (0-1/hpf); Target Cells SLIGHT = 2-5 cells (100X) (0-1/hpf); Tear Drops SLIGHT = 2-5 cells (100X) (0-1/hpf)
[2019-09-04 14:44] LABS: ALT (SGPT) Less than 7 U/L (8-55); AST (SGOT) 10 U/L (5-34); Albumin 4.2 g/dL (3.4-4.8); Alkaline Phosphatase 246 U/L (40-110); Anion Gap 15 mmol/L (10-20); BUN (Urea Nitrogen) 12 mg/dL (9.8-20.1); Bilirubin, Total 0.6 mg/dL (0.2-1.2); Calc. Creatinine Clearance 0 mL/min (70-130); Calcium 9.8 mg/dL (7.8-10.44); Carbon Dioxide 33 mmol/L (23-31); Chloride 98 mmol/L (98-107); Estimated GFR-MDRD 16; Globulin 2.4 g/dL (2.4-3.5); Glucose 81 mg/dL (83-110); Potassium 3.9 mmol/L (3.5-5.1); Protein, Total 6.6 g/dL (6.0-8.3); Sodium 142 mmol/L (136-145)
--- NOTE | 2019-09-04 14:57 | ULT ---
VENOUS DOPPLER ULTRASOUND OF THE RIGHT LOWER EXTREMITY: HISTORY: Right leg pain and redness and edema in the right calf. TECHNIQUE: Johnston scale, color flow, and spectral Doppler imaging of the deep venous system of the right lower ext remity was performed. FINDINGS: There is good flow, compression, and augmentation noted in the right common femoral, femoral, deep fe moral, popliteal, posterior tibial, and greater saphenous veins. IMPRESSION: No evidence of deep vein thrombosis in the right lower extremity. POS: JONATANA
== END 2019-09-04 16:40 ==
LOC: ERS 11:02
DX: L03.115 Cellulitis of right lower limb (principal); I25.10 Atherosclerotic heart disease of native coronary artery without angina pectoris; I25.2 Old myocardial infarction; E78.5 Hyperlipidemia, unspecified; K21.9 Gastro-esophageal reflux disease without esophagitis; I13.2 Hypertensive heart and chronic kidney disease with heart failure and with stage 5 chronic kidney disease, or end stage renal disease; I50.9 Heart failure, unspecified; N18.6 End stage renal disease; I73.9 Peripheral vascular disease, unspecified; G47.00 Insomnia, unspecified; Z87.891 Personal history of nicotine dependence; Z79.899 Other long term (current) drug therapy; Z79.82 Long term (current) use of aspirin; Z79.891 Long term (current) use of opiate analgesic
CPT/HCPCS: 36415; 80053; 83605; 85025; 87040; 96374; 96375; 96376; J0692; J2270; J2405

== ENCOUNTER 2019-09-17 07:46 | Observation (INO) | payer MEDICARE, OTHER ==
[2019-09-17] MEDS ORDERED: Nitroglycerin 2% Ointment 1 INCH/1 GM Packet ONE (08:06)
[2019-09-17] MEDS ORDERED: hydrALAZINE 20 MG/ML VIAL ONE (08:06)
[2019-09-17] MEDS ORDERED: Aspirin Chewable 81 MG TAB ONE (08:06)
[2019-09-17 08:49] LABS: #Eosinphils 0.2 thou/uL (0.0-0.7); #Lymphocytes 1.7 thou/uL (1.20-3.40); #Monocytes 0.6 thou/uL (0.11-0.59); #Neutrophils 8.4 thou/uL (1.40-6.50); %Basophils 0.2 % (0.0-1.0); %Eosinophils 1.4 % (0.0-10.0); %Lymphocytes 15.2 % (21.0-51.0); %Monocytes 5.1 % (0.0-10.0); Hemoglobin 10.7 g/dL (12.0-16.0); Mean Corpuscular HGB CONC 30.5 g/dL (32.0-36.0); Mean Corpuscular Hemoglobin 21.5 pg (27.0-31.0); Mean Corpuscular Volume 70.5 fL (78.0-98.0); Mean Platelet Volume 10.8 fL (7.4-10.4); Platelet Count 179 thou/uL (130-400); RBC Distribution Width 16.3 % (11.5-14.5); Red Blood Cell (RBC) Count 4.98 mill/uL (4.20-5.40); White Blood Cell (WBC) Count 10.8 thou/uL (4.8-10.8)
[2019-09-17 09:11] LABS: ALT (SGPT) Less than 7 U/L (8-55); AST (SGOT) 11 U/L (5-34); Albumin 4.2 g/dL (3.4-4.8); Alkaline Phosphatase 253 U/L (40-110); Anion Gap 19 mmol/L (10-20); BUN (Urea Nitrogen) 26 mg/dL (9.8-20.1); Bilirubin, Total 0.5 mg/dL (0.2-1.2); CK (CPK) 15 U/L (29-168); Calc. Creatinine Clearance 0 mL/min (70-130); Calcium 9.9 mg/dL (7.8-10.44); Carbon Dioxide 23 mmol/L (23-31); Chloride 105 mmol/L (98-107); Estimated GFR-MDRD 16; Globulin 2.7 g/dL (2.4-3.5); Glucose 80 mg/dL (83-110); Lipase 48 U/L (8-78); Potassium 3.8 mmol/L (3.5-5.1); Protein, Total 6.9 g/dL (6.0-8.3); Sodium 143 mmol/L (136-145)
--- NOTE | 2019-09-17 09:19 | RAD ---
CHEST 1 VIEW: HISTORY: Chest pain and pressure. COMPARISON: 06/26/2019. FINDINGS: Minimal cardiomegaly. Right venous access catheter. Increased linear and interstitial markings note d bilaterally with small pleural effusions, evidence for some vascular congestion and minimal interst itial edema developing since the prior study. IMPRESSION: Minimal developing interstitial edema and small pleural effusions since the prior study. Persistent cardiomegaly. No confluent pneumonia. POS: SJDI
[2019-09-17] MEDS ORDERED: Heparin 10,000 UNITS/ 10 ML VIAL ONE (10:50)
[2019-09-17] MEDS ORDERED: hydrALAZINE 20 MG/ML VIAL SLOW IVP PRN ×2 (12:14→16:02)
[2019-09-17] MEDS ORDERED: Ondansetron ODT 4 MG TAB PO PRN (12:15)
[2019-09-17] MEDS ORDERED: Ondansetron PF 4 MG/2 ML Vial IVP PRN (12:15)
[2019-09-17 12:40] VITALS: BMI 27.8
[2019-09-17 12:50] LABS: Troponin I 0.057 ng/mL (< 0.028)
[2019-09-17] MEDS ORDERED: Labetalol HCl 100 MG/20 ML VIAL SLOW IVP PRN (13:28)
[2019-09-17] MEDS ORDERED: Morphine 4 MG/ML VIAL SLOW IVP SCH (13:30)
[2019-09-17] MEDS ORDERED: hydrALAZINE 20 MG/ML VIAL SLOW IVP SCH (13:45)
[2019-09-17] MEDS ORDERED: Fentanyl 100 MCG/2 ML VIAL SLOW IVP SCH (14:15)
[2019-09-17 15:02] LABS: Troponin I 0.026 ng/mL (< 0.028)
[2019-09-17 15:32] LABS: HBSAg Index 0.17 S/CO (0-0.99); Hep B Surf Ag Non-Reactive S/CO (NonReactive)
[2019-09-17] MEDS ORDERED: clonazePAM 0.5 MG TAB PO PRN (16:50)
[2019-09-17] MEDS ORDERED: traMADol HCl 50 MG TAB PO PRN (16:50)
[2019-09-17] MEDS ORDERED: Acetaminophen 325 MG TAB PO PRN (16:51)
[2019-09-17] MEDS ORDERED: Bisacodyl 5 MG TAB PO PRN (16:51)
--- NOTE | 2019-09-17 18:22 | HP ---
PRIMARY CARE PROVIDER: Dr. Geronimo Cohen. CHIEF COMPLAINT: Shortness of breath. HISTORY OF PRESENT ILLNESS: Ms. Barron is a pleasant 73-year-old lady, who was seen at [facility] on September 17, 2019. She has end-stage renal disease and has hemodialysis. She is scheduled to have dialysis today. She reports that today morning, she developed shortness of breath. She also reports epigastric discomfort. She reports discomfort over her jaw and arms. She denies any pain in the chest per se. She denies any fevers or chills. Shortness of breath is worse with lying down. She endorses some orthopnea at baseline, but reports that this is worse than usual. She denies any cough. She denies any nausea, vomiting, or diarrhea. She was found to be in hypertensive urgency, with a systolic blood pressure of 220 when EMS saw her. By the time I saw her, epigastric discomfort had improved significantly, but jaw discomfort was ongoing. She is unable to describe the epigastric pain further. REVIEW OF SYSTEMS: All systems were reviewed and found to be negative. PAST MEDICAL HISTORY: Right lower extremity cellulitis, right lower extremity partially occlusive DVT diagnosed in June 2019, anemia of chronic kidney disease, peripheral vascular disease, end-stage renal disease with hemodialysis, hypertension. PAST SURGICAL HISTORY: Status post PCI with coronary stent, MediPort placement in the right subclavian, hemodialysis catheter exchange, AV fistula placement. SOCIAL HISTORY: The patient denies tobacco use, alcohol use, or recreational drug use. FAMILY HISTORY: Significant for hypertension. CODE STATUS: I discussed her code status. She is DNAR. ALLERGIES: LISINOPRIL. HOME MEDICATIONS: These need to be clarified, but appeared to include, 1. Isosorbide mononitrate 120 mg daily. 2. Coreg 6.25 mg two times a day. 3. Simvastatin 40 mg at bedtime. 4. Trazodone 25 mg at bedtime. 5. Clonazepam 0.5 mg at bedtime. 6. Plavix 75 mg daily. 7. Clonidine p.r.n. 8. Tramadol 50 mg in the evening. 9. Omeprazole 20 mg daily. 10. Aspirin 81 mg daily. 11. Gabapentin 300 mg two times a day. 12. Epogen, dose unknown. 13. Furosemide 80 mg daily. 14. Eliquis 2.5 mg two times a day. 15. Sevelamer 1600 mg daily. 16. Tylenol p.r.n. 17. Zofran p.r.n. 18. Clindamycin 150 mg every 6 hours. PHYSICAL EXAMINATION: GENERAL: On examination, Ms. Barron is awake and alert, in mild distress. VITAL SIGNS: Blood pressure is 217/107, pulse 99, respiratory rate 18, and oxygen saturations 95% on room air. She is afebrile. EYES: No scleral icterus, no conjunctival pallor. ENT: Moist mucosal membranes. No oropharyngeal erythema or exudates. NECK: Supple, nontender, trachea is midline. RESPIRATORY: Accessory muscles of breathing are not active. Chest wall movements are symmetric bilaterally. Auscultation reveals bilateral crackles. CARDIOVASCULAR: S1 and S2 are heard, regular. Peripheral pulses palpable. ABDOMEN: Soft, nontender, bowel sounds are heard. NEUROLOGIC: Cranial nerves 2 through 12 are intact. MUSCULOSKELETAL: Power is 5/5 in all 4 extremities. SKIN: No subcutaneous nodules. LYMPHATIC: No cervical lymphadenopathy. PSYCHIATRIC: The patient appears anxious, oriented to person, place, and time. LABORATORY DATA: Ms. Barron's labs and investigations were reviewed. I reviewed her electrocardiogram, which shows normal sinus rhythm, no ST changes to suggest an acute coronary syndrome. I also reviewed her chest x-ray, which shows interstitial edema. She has normal white count, microcytic anemia with hemoglobin 10.7, normal platelet count, D-dimer mildly elevated at 0.86, normal electrolytes, elevated blood urea nitrogen of 26, elevated creatinine of 2.93, elevated alkaline phosphatase of 253, otherwise unremarkable LFTs, normal lipase, elevated BNP of 862.1 and normal troponin-I of 0.016, which increased to 0.057 before decreasing to 0.026. ASSESSMENT AND PLAN: Ms. Barron is a pleasant 73-year-old lady, who was seen at [facility] on September 17, 2019. Her problem list includes: 1. Hypertensive urgency: Ms. Barron is presenting with hypertensive urgency. She will receive p.r.n. hydralazine as well as p.r.n. IV labetalol. Some of the hypertensive urgency could be secondary to volume overload. 2. End-stage renal disease on hemodialysis: Arrangements are being made for urgent hemodialysis. Nephrology Service has been consulted. 3. Volume overload: The patient to have dialysis on an urgent basis. 4. History of deep venous thrombosis: Continue the patient on Eliquis. 5. Epigastric discomfort: The patient is being monitored on telemetry. If she has persistent discomfort after dialysis, we will likely benefit from stress test. Many thanks for allowing me to participate in your patient's care. Please feel free to contact me with any questions or concerns. LEVEL OF RISK: High. LEVEL OF COMPLEXITY: High. Job ID: [id number]
[2019-09-17] MEDS: Carvedilol 6.25 MG TAB PO SCH (19:48)
[2019-09-17] MEDS: Apixaban 2.5 MG TAB PO SCH (19:49)
[2019-09-17] MEDS: Atorvastatin Calcium 20 MG TAB PO SCH (19:49)
[2019-09-17] MEDS: Sevelamer Carbonate 800 MG TAB PO SCH (19:49)
[2019-09-17] MEDS: traZODone HCl 50 MG TAB PO SCH (19:49)
--- NOTE | 2019-09-17 20:07 | CON ---
DATE OF CONSULTATION: 09/17/2019 CONSULTING PHYSICIAN: Dr. Monaco. REASON FOR CONSULTATION: End-stage renal disease evaluation. REASON FOR ADMISSION: Chest pain. HISTORY OF PRESENT ILLNESS: This is a 73-year-old female with history of end-stage renal disease, hypertension, and chronic pain, came to the hospital with chest pain is being evaluated to rule out any cardiac etiology. Nephrology consulted for maintenance hemodialysis. The patient gets dialysis on Tuesday, Tuesday, and Tuesday at [facility] in [place]. No fever or chills. No nausea or vomiting. The patient is still having chest pain when I saw her. PAST MEDICAL HISTORY: Positive for end-stage renal disease on hemodialysis, peripheral vascular disease, hypertension, and coronary artery disease. PAST SURGICAL HISTORY: Cardiac stent placement, MediPort, hemodialysis catheter, AV fistula placement. HOME MEDICATIONS: Reviewed. ALLERGIES: LISINOPRIL. SOCIAL HISTORY: Remote history of smoking. No alcohol or illicit drug abuse. FAMILY HISTORY: Positive for hypertension. REVIEW OF SYSTEMS: CONSTITUTIONAL: Negative for weight loss or gain, ability to conduct usual activities. SKIN: Negative for rash, itching. EYES: Negative for double vision, pain. ENT/MOUTH: Negative for nose bleeding, neck stiffness, pain, tenderness. CARDIOVASCULAR: Negative for palpitations, dyspnea on exertion, orthopnea. RESPIRATORY: Negative for shortness of breath, wheezing, cough, hemoptysis, fever or night sweats. GASTROINTESTINAL: Negative for poor appetite, abdominal pain, heartburn, nausea, vomiting, constipation, or diarrhea. GENITOURINARY: Negative for urgency, frequency, dysuria, nocturia. MUSCULOSKELETAL: Negative for pain, swelling. NEUROLOGIC/PSYCHIATRIC: Negative for anxiety, depression. ALLERGY/IMMUNOLOGIC: Negative for skin rash, bleeding tendency. PHYSICAL EXAMINATION: GENERAL: This is a well-built female, in no apparent distress. VITAL SIGNS: Temperature 96.7, pulse 99, respiratory rate 18, and blood pressure 217/107. HEENT: Atraumatic and normocephalic. Oral mucosa moist. NECK: Supple. CV: S1 and S2. Rate and rhythm normal. RESPIRATORY: Clear. GI: Abdomen is soft. MUSCULOSKELETAL: 1+ edema. DERMATOLOGIC: No skin rash. NEUROLOGIC: Alert and awake. PSYCHIATRIC: Mood and affect normal. LABORATORY DATA: Potassium 3.8, BUN is 26, and creatinine is 2.9. ASSESSMENT AND PLAN: 1. End-stage renal disease. Continue on hemodialysis as tolerated. 2. Edema. 3. Hypertension. 4. Chronic anemia. 5. Chest pain, rule out cardiac etiology. Continue dialysis as tolerated. Job ID: [id number]
[2019-09-18 04:44] LABS: #Eosinphils 0.2 thou/uL (0.0-0.7); #Lymphocytes 2.2 thou/uL (1.20-3.40); #Monocytes 0.6 thou/uL (0.11-0.59); #Neutrophils 3.4 thou/uL (1.40-6.50); %Basophils 0.6 % (0.0-1.0); %Eosinophils 2.4 % (0.0-10.0); %Lymphocytes 34.7 % (21.0-51.0); %Neutrophils 53.2 % (42.0-75.0); Hemoglobin 9.8 g/dL (12.0-16.0); Mean Corpuscular HGB CONC 30.9 g/dL (32.0-36.0); Mean Corpuscular Hemoglobin 21.7 pg (27.0-31.0); Mean Corpuscular Volume 70.2 fL (78.0-98.0); Mean Platelet Volume 11.5 fL (7.4-10.4); Platelet Count 187 thou/uL (130-400); RBC Distribution Width 15.8 % (11.5-14.5); Red Blood Cell (RBC) Count 4.51 mill/uL (4.20-5.40); White Blood Cell (WBC) Count 6.5 thou/uL (4.8-10.8)
[2019-09-18 05:06] LABS: Anion Gap 14 mmol/L (10-20); BUN (Urea Nitrogen) 16 mg/dL (9.8-20.1); Calc. Creatinine Clearance 31 mL/min (70-130); Calcium 9.7 mg/dL (7.8-10.44); Carbon Dioxide 28 mmol/L (23-31); Chloride 102 mmol/L (98-107); Estimated GFR-MDRD 24; Glucose 84 mg/dL (83-110); Potassium 3.9 mmol/L (3.5-5.1); Sodium 140 mmol/L (136-145)
[2019-09-18] MEDS: Aspirin 81 mg Enteric Coated Tablet PO SCH (08:35)
[2019-09-18] MEDS: Gabapentin 300 MG CAP PO SCH (08:35)
[2019-09-18] MEDS: cloNIDine 0.1 MG TAB PO SCH (08:35)
[2019-09-18] MEDS: Furosemide 80 MG TAB PO SCH (08:35)
[2019-09-18] MEDS ORDERED: NIFEdipine XL 30 MG TAB PO SCH ×2 (10:00→10:15)
[2019-09-18] MEDS: Sevelamer Carbonate 800 MG TAB PO SCH ×3 (10:11→20:00)
[2019-09-18] MEDS: Carvedilol 6.25 MG TAB PO SCH ×2 (10:12→20:00)
[2019-09-18] MEDS: Apixaban 2.5 MG TAB PO SCH (10:16)
--- NOTE | 2019-09-18 12:34 | PRG ---
DATE OF SERVICE: 09/18/2019 SUBJECTIVE: Patient was seen and examined at bedside and overnight events noted. Patient denies any shortness of breath or chest pain or palpitation. No history of nausea or vomiting or diarrhea or fever or chills or cramps. OBJECTIVE: GENERAL: This is a well-built female, in no apparent distress. VITAL SIGNS: Temperature . Heart rate . Respiratory rate 20. Blood pressure 102/51. HEENT: Atraumatic, normocephalic. Oral mucosa is moist NECK: Supple. CARDIOVASCULAR: S1, S2 heard. Rate and rhythm regular. RESPIRATORY: Clear to auscultation. GASTROINTESTINAL: Abdomen is soft. MUSCULOSKELETAL: No tenderness. No edema. DERMATOLOGIC: No skin rash. NEUROLOGIC: Alert and awake and oriented X3. No focal neurologic deficits. Moving all the extremities. PSYCHIATRIC: Mood and affect normal. LABORATORY DATA: Potassium 3.9, BUN is 16, and creatinine is 2.03. ASSESSMENT AND PLAN: 1. End-stage renal disease. Continue on dialysis as tolerated. 2. Edema. 3. Hypertension. 4. Chronic anemia. Continue on dialysis as tolerated. Job ID: [id number]
--- NOTE | 2019-09-18 15:40 | CON ---
DATE OF CONSULTATION: 09/18/2019 PRIMARY NURSERY SUPERVISOR: Dr. Meir Starr. REASON FOR CONSULTATION: Chest pain and hypertension in a patient with end-stage renal disease. HISTORY OF PRESENT ILLNESS: Ms. Barron is a very pleasant patient, who came to the hospital yesterday complaining of chest pain and right jaw pain. Her blood pressure was extremely high. The patient was brought in for observation and admission for further therapy. She has a history of coronary artery disease. The patient had a previous stent implanted as will be outlined below. The patient also had some shortness of breath when trying to lie flat. It was noted that her blood pressure was 220 systolic yesterday, but even this morning it was over 200 systolic. REVIEW OF SYSTEMS: CONSTITUTIONAL: No significant weight gain or loss. VISION: No changes. HEARING: No changes. PULMONARY: No cough or wheezing. GASTROINTESTINAL: No nausea, vomiting, or diarrhea. PREVIOUS HISTORY: The patient was seen by Dr. Starr in 2017, and medical therapy was recommended at that time. She has a history of paroxysmal atrial fibrillation. She has a history of previous stent implantation. MEDICATIONS: Prior to admission, the patient was taking; 1. Aspirin. 2. Carvedilol 6.25 mg twice a day. 3. Apixaban 2.5 mg twice a day. 4. Furosemide 80 mg a day. 5. Vitamin D3. 6. At some point in the past, she was on amiodarone, but that is not listed on her medicines now. 7. At some point in the past, she was on Procardia XL, but that is not on her medicines. SOCIAL HISTORY: She quit smoking in 2017. OTHER PAST HISTORY: She is on dialysis for a couple of years. She is still being dialyzed through a subclavian line. She has had an access placed in the left arm, but it is not mature yet she said. PHYSICAL EXAMINATION: GENERAL: This is a pleasant elderly woman. VITAL SIGNS: Her blood pressure even this morning was over 200 systolic, pulse 70. NECK: Veins are normal. Carotid, normal upstrokes. LUNGS: Clear. CARDIAC: Normal S1, normal S2. ABDOMEN: Soft and nontender. EXTREMITIES: No clubbing or cyanosis. There is no edema. SKIN: Warm and dry. The pedal pulses are diminished, but barely palpable in the dorsalis pedis. LABORATORY DATA: Peak troponin 0.057. Creatinine went from 2.93 to 2.03. ASSESSMENT: 1. Hypertension with hypertensive urgency. 2. Underlying coronary artery disease. 3. Paroxysmal atrial fibrillation. 4. End-stage renal disease, on dialysis. PLAN: 1. Procardia XL, try to control blood pressure better. 2. Proceed with stress testing tomorrow morning. We would like to have blood pressure better controlled first. Even this morning after the clonidine, her blood pressure is 180 systolic. Job ID: [id number]
--- NOTE | 2019-09-18 18:35 | PDOC.HOSPP ---
- Subjective Encounter Date: 09/18/19 Encounter Time: 08:20 Subjective: Pt seen for followup re: hypertensive urgency. Feels better today. - Objective Vital Signs & Weight: Vital Signs (12 hours) Temp Pulse Resp BP BP Pulse Ox 09/18/19 15:35 98.4 F 75 16 110/56 L 96 09/18/19 11:06 97.5 F L 79 20 102/51 L 96 09/18/19 10:45 98 09/18/19 10:12 69 143/70 H 09/18/19 09:20 177/71 H 09/18/19 08:35 98 F 75 18 184/81 H 184/81 H 98 Weight Admit Weight 175 lb 9 oz Weight 175 lb 9 oz I&O: 09/17/19 09/18/19 09/19/19 06:59 06:59 06:59 Intake Total 480 960 Output Total 400 625 Balance 80 335 Result Diagrams: 09/18/19 04:20 09/18/19 04:20 Additional Labs: Labs and MARs reviewed by me EKG Reviewed by me: Yes (Tele: NSR) Hospitalist ROS - Review of Systems Cardiovascular: denies: chest pain, palpitations, orthopnea, paroxysmal noc. dyspnea, edema, light headedness Gastrointestinal: reports: other (epigastric pain). denies: nausea, vomiting, abdominal pain, diarrhea, constipation, melena, hematochezia - Medication Medications: Active Medications Generic Name Dose Route Start Last Admin Trade Name Freq PRN Reason Stop Dose Admin Acetaminophen 650 mg 09/17/19 16:51 09/17/19 19:48 Tylenol PO 650 mg Q4H PRN Administration Headache/Fever/Mild Pain (1-3) Aspirin 81 mg 09/18/19 09:00 09/18/19 08:35 Ecotrin PO 81 mg DAILY LIVIER Administration Atorvastatin Calcium 20 mg 09/17/19 21:00 09/17/19 19:49 Lipitor PO 20 mg HS LIVIER Administration Carvedilol 6.25 mg 09/17/19 21:00 09/18/19 10:12 Coreg PO 6.25 mg BID LIVIER Administration Cholecalciferol 5,000 units 09/18/19 09:00 09/18/19 08:35 Vitamin D3 PO 5,000 units DAILY LIVIER Administration Clonazepam 0.5 mg 09/17/19 16:50 09/18/19 07:54 Klonopin PO 0.5 mg Q12H PRN Administration Anxiety Clonidine 0.1 mg 09/18/19 09:00 09/18/19 08:35 Catapres PO 0.1 mg DAILY LIVIER Administration Furosemide 80 mg 09/18/19 09:00 09/18/19 08:35 Lasix PO 80 mg DAILY LIVIER Administration Gabapentin 300 mg 09/18/19 09:00 09/18/19 08:35 Neurontin PO 300 mg DAILY LIVIER Administration Isosorbide Mononitrate 120 mg 09/18/19 09:00 09/18/19 10:12 Imdur PO 120 mg DAILY LIVIER Administration Pantoprazole Sodium 40 mg 09/18/19 09:00 09/18/19 08:37 Protonix PO 40 mg DAILY LIVIER Administration Sevelamer Carbonate 1,600 mg 09/17/19 21:00 09/18/19 15:36 Renvela PO 1,600 mg TID LIVIER Administration Sodium Chloride 10 ml 09/17/19 21:00 09/18/19 08:37 Flush - Normal Saline IVF 10 ml Q12HR LIVIER Administration Tramadol HCl 100 mg 09/17/19 16:50 09/18/19 07:54 Ultram PO 100 mg Q6H PRN Administration Moderate Pain (4-6) Trazodone HCl 75 mg 09/17/19 21:00 09/17/19 19:49 Desyrel PO 75 mg HS LIVIER Administration - Exam General Appearance: awake alert Eye: anicteric sclera ENT: moist mucosa Neck: supple Heart: RRR Respiratory: CTAB Gastrointestinal: soft, non-tender Skin: no rashes Musculoskeletal: no muscle wasting Psychiatric: normal affect, normal behavior Hosp A/P (1) Hypertensive urgency Code(s): I16.0 - HYPERTENSIVE URGENCY Status: Acute (2) Epigastric pain Code(s): R10.13 - EPIGASTRIC PAIN Status: Acute (3) ESRD (end stage renal disease) on dialysis Code(s): N18.6 - END STAGE RENAL DISEASE; Z99.2 - DEPENDENCE ON RENAL DIALYSIS Status: Chronic (4) Peripheral vascular disease Code(s): I73.9 - PERIPHERAL VASCULAR DISEASE, UNSPECIFIED Status: Chronic - Plan out of bed/ambulate Pt to have stress test tomorrow. Started on Procardia. Dialysis per nephrology service.
[2019-09-18] MEDS: traZODone HCl 50 MG TAB PO SCH (20:00)
[2019-09-18] MEDS: Atorvastatin Calcium 20 MG TAB PO SCH (20:00)
[2019-09-19 04:50] LABS: #Eosinphils 0.2 thou/uL (0.0-0.7); #Lymphocytes 1.8 thou/uL (1.20-3.40); #Monocytes 0.5 thou/uL (0.11-0.59); #Neutrophils 3.1 thou/uL (1.40-6.50); %Basophils 0.3 % (0.0-1.0); %Eosinophils 2.8 % (0.0-10.0); %Lymphocytes 32.5 % (21.0-51.0); %Monocytes 9.7 % (0.0-10.0); %Neutrophils 54.7 % (42.0-75.0); Hemoglobin 9.7 g/dL (12.0-16.0); Mean Corpuscular HGB CONC 30.9 g/dL (32.0-36.0); Mean Corpuscular Hemoglobin 21.9 pg (27.0-31.0); Mean Corpuscular Volume 70.8 fL (78.0-98.0); Mean Platelet Volume 11.4 fL (7.4-10.4); Platelet Count 170 thou/uL (130-400); RBC Distribution Width 15.8 % (11.5-14.5); Red Blood Cell (RBC) Count 4.45 mill/uL (4.20-5.40); White Blood Cell (WBC) Count 5.6 thou/uL (4.8-10.8)
[2019-09-19 05:12] LABS: Anion Gap 14 mmol/L (10-20); BUN (Urea Nitrogen) 30 mg/dL (9.8-20.1); Calc. Creatinine Clearance 20 mL/min (70-130); Calcium 9.6 mg/dL (7.8-10.44); Carbon Dioxide 26 mmol/L (23-31); Chloride 102 mmol/L (98-107); Estimated GFR-MDRD 14; Glucose 104 mg/dL (83-110); Potassium 3.9 mmol/L (3.5-5.1); Sodium 138 mmol/L (136-145)
[2019-09-19] MEDS ORDERED: NIFEdipine XL 30 MG TAB PO SCH (09:00)
[2019-09-19] MEDS ORDERED: ADENOSINE 60 MG/20 ML VIAL ONE (09:41)
--- NOTE | 2019-09-19 10:58 | NM ---
Radionucleotide stress and rest myocardial perfusion scan with CT attenuation correction and SPECT im aging Left ventricular wall motion evaluation and ejection fraction HISTORY: Chest pain. FINDINGS: Adenosine protocol. There is homogeneous uptake of radiotracer throughout the left ventricu lar myocardium. No focal perfusion defect or reversibility. QGS analysis of gated SPECT images shows no focal wall motion abnormalities. Ejection fraction calcul ated at 78%. IMPRESSION : No evidence of ischemia. Normal LVEF
[2019-09-19] MEDS: Sevelamer Carbonate 800 MG TAB PO SCH ×2 (12:35→17:20)
[2019-09-19] MEDS: Carvedilol 6.25 MG TAB PO SCH (12:35)
--- NOTE | 2019-09-19 13:03 | PRG ---
DATE OF SERVICE: 09/19/2019 SUBJECTIVE: The patient was seen and examined at bedside and overnight events noted. The patient denies any shortness of breath or chest pain or palpitation. No history of nausea or vomiting or diarrhea or fever or chills or cramps. OBJECTIVE: GENERAL: This is a well-built female, in no apparent distress. VITAL SIGNS: Temperature 97.6. Heart rate 89. Respiratory rate 20. Blood pressure 115/67. HEENT: Atraumatic, normocephalic. Oral mucosa is moist. Neck: Supple. CARDIOVASCULAR: S1, S2 heard. Rate and rhythm regular. RESPIRATORY: Clear to auscultation. GASTROINTESTINAL: Abdomen is soft. MUSCULOSKELETAL: No tenderness. No edema. DERMATOLOGIC: No skin rash. NEUROLOGIC: Alert and awake and oriented x3. No focal neurologic deficits. Moving all the extremities. PSYCHIATRIC: Mood and affect normal. LABORATORY DATA: Potassium 3.9, BUN is 30, creatinine is 3.1. ASSESSMENT AND PLAN: 1. End-stage renal disease. Continue on dialysis. 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 3. History of hypertension. 4. Edema. 5. Anemia. Continue dialysis as tolerated. Job ID: [id number]
[2019-09-19] MEDS ORDERED: ADMIXTURE FEE IVPB SCH (14:00)
[2019-09-19] MEDS ORDERED: SODIUM THIOSULFATE IVPB SCH (14:00)
[2019-09-19] MEDS ORDERED: SODIUM CHLORIDE IVPB SCH (14:00)
[2019-09-19] MEDS: cloNIDine 0.1 MG TAB PO SCH (17:20)
[2019-09-19] MEDS: Aspirin 81 mg Enteric Coated Tablet PO SCH (17:20)
[2019-09-19] MEDS: Furosemide 80 MG TAB PO SCH (17:20)
[2019-09-19] MEDS: Gabapentin 300 MG CAP PO SCH (17:22)
[2019-09-19 17:23] VITALS: BP 155/79
[2019-09-19 17:38] VITALS: TEMP 97.9
--- NOTE | 2019-09-20 01:06 | DIS ---
DATE OF ADMISSION: 09/17/2019 DATE OF DISCHARGE: 09/19/2019 PRIMARY CARE PROVIDER: Geronimo Cohen MD DISCHARGE DIAGNOSES: 1. Chest pain. 2. Chest pain most likely secondary to musculoskeletal etiology. 3. Hypertensive urgency. CONDITION OF PATIENT ON THE DAY OF DISCHARGE: Stable. I assessed Ms. Barron on the day of discharge. She denies any chest pain or shortness of breath. Vital signs are stable. S1 and S2 are heard, regular. Lungs are clear to auscultation bilaterally. DISCHARGE MEDICATIONS: She has been started on Procardia XL 30 mg daily. Otherwise, no change was made to her pre-admission home medications. CONSULTATIONS DURING THIS HOSPITALIZATION: 1. Cardiology, Dr. Martinez. 2. Nephrology, Dr. Martinez. HOSPITAL COURSE: Ms. Barron is a pleasant 73-year-old lady, who was admitted to [facility] on September 17, 2019 for epigastric and jaw discomfort. She was also found to be in volume overload. She was seen by Nephrology Service and underwent hemodialysis. She was also seen by Cardiology Service, because of ongoing jaw discomfort and epigastric discomfort. She underwent nuclear stress test on September 19, 2019, which did not show any evidence of ischemia. Left ventricular ejection fraction was calculated at 78%. She is undergoing maintenance dialysis prior to discharge on September 19, 2019. Many thanks for allowing me to participate in your patient's care. Please feel free to contact me with any questions or concerns. DISCHARGE DESTINATION: Home, which is a residential facility. ACTIVITY: As tolerated. DIET: Heart healthy, low-sodium, renal. Job ID: [id number]
--- NOTE | 2019-09-26 11:43 | STRESS ---
Acquisition Time: 2019-09-19 09:42:24 Total Exercise Time: 00:04:00 Test Indications: CHEST PAIN Medications: Protocol: ADENOSINE Max HR: 096 BPM 65% of Pred: 146 BPM Max BP: 136/070 mmHG Max Work Load: 1.0 METS THE PATIENT WAS INJECTED WITH ADENOSINE. SHE DID DEVELOP CHEST PAIN. THERE WAS NO SIGNIFICANT ST DEPRESSION. AWAIT NUCLEAR IMAGES FOR DEFINITIVE DIAGNOSIS. Confirmed by GIFTY WEISS ([id number]), publications editor MARICHUY PARIS ([id number]) on 09/26/2019 11:43:14 AM Referred By: MD Ailyn MOJICA Confirmed By:GIFTY WEISS
== END 2019-09-19 18:04 | disposition home or self-care (01) ==
LOC: ERS 07:46 → 2NO 09:38
PROVIDERS: ADMIT Internal Medicine; ATTEND Internal Medicine
DX: I16.0 Hypertensive urgency (principal); I13.2 Hypertensive heart and chronic kidney disease with heart failure and with stage 5 chronic kidney disease, or end stage renal disease; N18.6 End stage renal disease; I50.9 Heart failure, unspecified; D63.1 Anemia in chronic kidney disease; R07.9 Chest pain, unspecified; Z66 Do not resuscitate; E87.70 Fluid overload, unspecified; I25.10 Atherosclerotic heart disease of native coronary artery without angina pectoris; I25.2 Old myocardial infarction; K21.9 Gastro-esophageal reflux disease without esophagitis; G89.29 Other chronic pain; I48.0 Paroxysmal atrial fibrillation; I73.9 Peripheral vascular disease, unspecified; E83.59 Other disorders of calcium metabolism; Z86.718 Personal history of other venous thrombosis and embolism; Z87.891 Personal history of nicotine dependence; Z79.01 Long term (current) use of anticoagulants; Z79.02 Long term (current) use of antithrombotics/antiplatelets; Z79.82 Long term (current) use of aspirin; Z79.899 Other long term (current) drug therapy; Z88.8 Allergy status to other drugs, medicaments and biological substances; Z95.5 Presence of coronary angioplasty implant and graft; Z99.2 Dependence on renal dialysis
CPT/HCPCS: 71045; 78452; 80048 ×2; 80053; 82550; 83690; 83880; 84484 ×2; 85025 ×3; 85379; 87340; 93005; 93017; 93306; 96374; 96375; 96376 ×2; 97139; 99285; A9500; G0378 ×4; 36415; 90935; G0257; J0153; J0360; J1644; J2270; J3010; J3490

== ENCOUNTER 2019-11-01 06:55 | Day surgery (SDC) | payer MEDICARE, MEDICAID ==
[2019-10-31 12:33] VITALS: BMI 30.8
[~2019-11-01 06:55] MED LIST: Prevnar 13-Val Conj/PF 0.5 ML SYRINGE IM ONE
[2019-11-01 08:42] VITALS: BP 157/99; TEMP 98
--- NOTE | 2019-11-01 08:59 | SPC ---
Left upper extremity dialysis fistulogram Sonographic guided vascular access HISTORY: Renal failure. Evaluate for maturation of newly placed left upper arm dialysis fistula. FINDINGS: After explaining the procedure and answering all questions, the left upper extremity was pr epped and draped in usual sterile fashion. Sterile technique, buffered local anesthesia, sonographic guidance, and a 22-gauge needle were used t o carefully access the cephalic vein fistula at the level of the antecubital fossa, immediately central to the arterial anastomosis. A 4 [place] sheath was placed for serial imaging. The cephalic vein along the left upper arm is widely patent with arterial flow. Multiple venous branches are present, with the largest branch projecting superiorly from the cephalic vein at the level of the humeral metadiaphysis, and then pass ing inferiorly to connect with the brachial vein. Additional smaller venous branches involve the distal half of the left upper arm cephalic vein. Arterial anastomosis was refluxed and is widely fonseca nt. Cephalic venous outflow to the superior vena cava is widely patent. Fluoroscopy time 1 minute. Sheath was removed and hemostasis obtained using direct pressure. Patient tolerated the procedure wel l and was dismissed in good condition. IMPRESSION : Left upper arm cephalic dialysis fistula is widely patent with good arterial inflow and venous outflo w. Several venous branches arise from the cephalic fistula just above the level of antecubital fossa. Should the cephalic vein fistula not much are appropriately, ligation of the largest branches may be helpful.
== END 2019-11-01 08:25 | disposition home or self-care (01) ==
LOC: SPEC 06:55
PROVIDERS: ATTEND Specialist
PROC: B51W1ZZ Fluoroscopy of Dialysis Shunt/Fistula using Low Osmolar Contrast (ICD-10-PCS; principal; 2019-11-01)
DX: I13.2 Hypertensive heart and chronic kidney disease with heart failure and with stage 5 chronic kidney disease, or end stage renal disease (principal); N18.6 End stage renal disease; I50.9 Heart failure, unspecified; D63.1 Anemia in chronic kidney disease; I25.10 Atherosclerotic heart disease of native coronary artery without angina pectoris; F41.9 Anxiety disorder, unspecified; E78.5 Hyperlipidemia, unspecified; K21.9 Gastro-esophageal reflux disease without esophagitis; G47.33 Obstructive sleep apnea (adult) (pediatric); Z79.01 Long term (current) use of anticoagulants; Z79.82 Long term (current) use of aspirin; Z79.899 Other long term (current) drug therapy; Z88.8 Allergy status to other drugs, medicaments and biological substances
CPT/HCPCS: 36901; 76937

== ENCOUNTER 2020-08-04 06:59 | Day surgery (SDC) | payer MEDICARE, OTHER ==
[2020-08-01 10:59] VITALS: BMI 29.7
[2020-08-04 10:05] VITALS: BP 178/82; TEMP 98
[2020-08-04] MEDS ORDERED: Iopamidol 300 61% 100 ML VIAL FS ONE (15:03)
[2020-08-04] MEDS ORDERED: Heparin 1,000 UNITS/ML VIAL ONE (15:31)
== END 2020-08-04 09:05 | disposition home or self-care (01) ==
LOC: SPEC 06:59
PROVIDERS: ATTEND Specialist
PROC: B51W1ZZ Fluoroscopy of Dialysis Shunt/Fistula using Low Osmolar Contrast (ICD-10-PCS; principal; 2020-08-04)
DX: I13.2 Hypertensive heart and chronic kidney disease with heart failure and with stage 5 chronic kidney disease, or end stage renal disease (principal); N18.6 End stage renal disease; I50.9 Heart failure, unspecified; J44.9 Chronic obstructive pulmonary disease, unspecified; G47.33 Obstructive sleep apnea (adult) (pediatric); I25.10 Atherosclerotic heart disease of native coronary artery without angina pectoris; K21.9 Gastro-esophageal reflux disease without esophagitis; Z87.891 Personal history of nicotine dependence; Z79.899 Other long term (current) drug therapy; Z88.8 Allergy status to other drugs, medicaments and biological substances; Z95.5 Presence of coronary angioplasty implant and graft
CPT/HCPCS: 36901; 76937; J1644; Q9967

== ENCOUNTER 2020-09-03 10:48 | Emergency (ER) | payer MEDICARE, OTHER ==
[2020-09-03 12:24] LABS: #Eosinphils 0.2 thou/uL (0.0-0.7); #Lymphocytes 1.8 thou/uL (1.20-3.40); #Monocytes 0.9 thou/uL (0.11-0.59); #Neutrophils 8.2 thou/uL (1.40-6.50); %Basophils 0.4 % (0.0-1.0); %Eosinophils 2.1 % (0.0-10.0); %Lymphocytes 16.2 % (21.0-51.0); %Monocytes 7.7 % (0.0-10.0); %Neutrophils 73.6 % (42.0-75.0); Hemoglobin 8.1 g/dL (12.0-16.0); Mean Corpuscular HGB CONC 30.5 g/dL (32.0-36.0); Mean Corpuscular Hemoglobin 21.1 pg (27.0-31.0); Mean Corpuscular Volume 69.1 fL (78.0-98.0); Mean Platelet Volume 10.1 fL (7.4-10.4); Platelet Count 216 thou/uL (130-400); RBC Distribution Width 17.7 % (11.5-14.5); Red Blood Cell (RBC) Count 3.86 mill/uL (4.20-5.40); White Blood Cell (WBC) Count 11.2 thou/uL (4.8-10.8)
[2020-09-03 12:42] LABS: Anisocytosis SLIGHT = 6-15 cells (100X) (0-5/hpf); Hypochromia SLIGHT = 6-15 cells (100X) (0-5/hpf); MDiff Complete? YES; Microcytosis SLIGHT = 6-15 cells (100X) (0-5/hpf); Ovalocytes SLIGHT = 2-5 cells (100X) (0-1/hpf); Platelet Morphology Comment Appears Adequate; Polychromasia MODERATE = 3-4 cells (100X) (0-2/hpf); Tear Drops SLIGHT = 2-5 cells (100X) (0-1/hpf)
[2020-09-03 12:43] LABS: ALT (SGPT) 9 U/L (8-55); AST (SGOT) 12 U/L (5-34); Albumin 4.4 g/dL (3.4-4.8); Alkaline Phosphatase 99 U/L (40-110); Anion Gap 17 mmol/L (10-20); BUN (Urea Nitrogen) 39 mg/dL (9.8-20.1); Bilirubin, Total 0.6 mg/dL (0.2-1.2); Calc. Creatinine Clearance 0 mL/min (70-130); Calcium 10.1 mg/dL (7.8-10.44); Carbon Dioxide 24 mmol/L (23-31); Chloride 102 mmol/L (98-107); Globulin 2.6 g/dL (2.4-3.5); Glucose 118 mg/dL (83-110); Potassium 4.7 mmol/L (3.5-5.1); Sodium 138 mmol/L (136-145)
== END 2020-09-03 15:18 ==
LOC: ERS 10:48
DX: I13.2 Hypertensive heart and chronic kidney disease with heart failure and with stage 5 chronic kidney disease, or end stage renal disease (principal); I50.9 Heart failure, unspecified; N18.6 End stage renal disease; R06.02 Shortness of breath; I25.10 Atherosclerotic heart disease of native coronary artery without angina pectoris; K21.9 Gastro-esophageal reflux disease without esophagitis; I73.9 Peripheral vascular disease, unspecified; E78.5 Hyperlipidemia, unspecified; G47.00 Insomnia, unspecified; D56.9 Thalassemia, unspecified; Z87.891 Personal history of nicotine dependence; Z99.2 Dependence on renal dialysis; Z79.899 Other long term (current) drug therapy; Z79.891 Long term (current) use of opiate analgesic
CPT/HCPCS: 36415; 71045; 80053; 84484; 85025; 93005

== ENCOUNTER 2021-11-05 07:58 | Inpatient (IN) | payer OTHER ==
[2021-11-05 12:29] VITALS: BMI 27.1
[2021-11-05 12:57] LABS: Magnesium 1.7 mg/dL (1.6-2.6)
[2021-11-05 16:24] LABS: Hemoglobin 8.5 g/dL (12.0-16.0)
[2021-11-05] MEDS: hydrALAZINE 25 MG TAB PO SCH ×2 (17:12→23:40)
[2021-11-05] MEDS: Gabapentin 300 MG CAP PO SCH (20:15)
[2021-11-05] MEDS: Carvedilol 6.25 MG TAB PO SCH (20:16)
[2021-11-05] MEDS: Heparin 5,000 UNITS/ML VIAL SC SCH (20:17)
[2021-11-05] MEDS: Losartan 25 MG TAB PO SCH (20:17)
[2021-11-05] MEDS: Acetaminophen ER (8hr) 650 MG TAB PO PRN (21:08)
[2021-11-06] MEDS: Acetaminophen ER (8hr) 650 MG TAB PO PRN (03:31)
[2021-11-06 04:32] LABS: Anion Gap 19 mmol/L (10-20); BUN (Urea Nitrogen) 37 mg/dL (9.8-20.1); Calc. Creatinine Clearance 16 mL/min (70-130); Calcium 10.3 mg/dL (7.8-10.44); Carbon Dioxide 19 mmol/L (23-31); Chloride 106 mmol/L (98-107); Estimated GFR 14; Glucose 115 mg/dL (83-110); Potassium 4.4 mmol/L (3.5-5.1); Sodium 140 mmol/L (136-145)
[2021-11-06 05:00] LABS: Hemoglobin 9.4 g/dL (12.0-16.0); Hypochromia SLIGHT = 6-15 cells (100X) (0-5/hpf); Lymphocytes 23 % (21-51); MDiff Complete? YES; Mean Corpuscular HGB CONC 31.8 g/dL (32.0-36.0); Mean Corpuscular Hemoglobin 22.6 pg (27.0-31.0); Mean Corpuscular Volume 71.1 fL (78.0-98.0); Mean Platelet Volume 8.3 fL (7.4-10.4); Microcytosis SLIGHT = 6-15 cells (100X) (0-5/hpf); Monocytes 5 % (0-10); Neutrophil 69 % (42-75); Platelet Count 193 thou/uL (130-400); Platelet Morphology Comment Appears Adequate; RBC Distribution Width 17.1 % (11.5-14.5); Reactive Lymphocytes 3 % (0-10); Red Blood Cell (RBC) Count 4.14 mill/uL (4.20-5.40); White Blood Cell (WBC) Count 13.1 thou/uL (4.8-10.8)
[2021-11-06] MEDS: Carvedilol 6.25 MG TAB PO SCH (08:57)
[2021-11-06] MEDS: Losartan 25 MG TAB PO SCH (08:58)
[2021-11-06] MEDS: Gabapentin 300 MG CAP PO SCH (08:59)
[2021-11-06] MEDS ORDERED: Clopidogrel Bisulfate 75 MG TAB PO SCH (09:00)
[2021-11-06] MEDS ORDERED: Aspirin Chewable 81 MG TAB PO SCH (09:00)
[2021-11-06] MEDS ORDERED: Atorvastatin Calcium 20 MG TAB PO SCH (09:00)
[2021-11-06] MEDS ORDERED: Metoprolol Tartrate 25 MG TAB PO SCH (09:00)
[2021-11-06] MEDS ORDERED: Fish Oil 1,000 MG CAP PO SCH (09:00)
[2021-11-06] MEDS ORDERED: Amlodipine 5 MG TAB PO SCH (09:00)
[2021-11-06] MEDS: Heparin 5,000 UNITS/ML VIAL SC SCH (09:02)
[2021-11-06] MEDS: hydrALAZINE 25 MG TAB PO SCH (10:10)
[2021-11-06 12:05] VITALS: BP 133/62; TEMP 99.2
== END 2021-11-06 15:00 | disposition home or self-care (01) | DRG 291 ==
LOC: 2NO 07:58
PROVIDERS: ADMIT Internal Medicine; ATTEND Hospitalist
DX: I13.2 Hypertensive heart and chronic kidney disease with heart failure and with stage 5 chronic kidney disease, or end stage renal disease (principal); I50.33 Acute on chronic diastolic (congestive) heart failure; N18.6 End stage renal disease; I25.10 Atherosclerotic heart disease of native coronary artery without angina pectoris; I48.0 Paroxysmal atrial fibrillation; E78.5 Hyperlipidemia, unspecified; J44.9 Chronic obstructive pulmonary disease, unspecified; D63.1 Anemia in chronic kidney disease; K21.9 Gastro-esophageal reflux disease without esophagitis; F41.9 Anxiety disorder, unspecified; D56.9 Thalassemia, unspecified; F17.210 Nicotine dependence, cigarettes, uncomplicated; R91.8 Other nonspecific abnormal finding of lung field; Z53.29 Procedure and treatment not carried out because of patient's decision for other reasons; Z99.2 Dependence on renal dialysis; Z95.5 Presence of coronary angioplasty implant and graft; Z86.718 Personal history of other venous thrombosis and embolism; Z88.8 Allergy status to other drugs, medicaments and biological substances; Z90.49 Acquired absence of other specified parts of digestive tract; Z71.6 Tobacco abuse counseling
CPT/HCPCS: 36415; 71045; 80048; 83690; 83735; 83880; 84443; 84484; 85025; 93005; 93010; 93306; 97139; J1644

== ENCOUNTER 2021-11-06 22:27 | Emergency (ER) | payer OTHER ==
[2021-11-06 23:53] LABS: #Eosinphils 0.2 thou/uL (0.0-0.7); #Lymphocytes 1.4 thou/uL (1.20-3.40); #Monocytes 0.9 thou/uL (0.11-0.59); #Neutrophils 8.8 thou/uL (1.40-6.50); %Basophils 0.2 % (0.0-1.0); %Eosinophils 1.4 % (0.0-10.0); %Lymphocytes 12.2 % (21.0-51.0); %Monocytes 7.7 % (0.0-10.0); %Neutrophils 78.5 % (42.0-75.0); Hemoglobin 8.4 g/dL (12.0-16.0); Mean Corpuscular HGB CONC 31.2 g/dL (32.0-36.0); Mean Corpuscular Hemoglobin 22.2 pg (27.0-31.0); Mean Corpuscular Volume 71.2 fL (78.0-98.0); Mean Platelet Volume 7.3 fL (7.4-10.4); Platelet Count 162 thou/uL (130-400); RBC Distribution Width 17.1 % (11.5-14.5); Red Blood Cell (RBC) Count 3.78 mill/uL (4.20-5.40); White Blood Cell (WBC) Count 11.1 thou/uL (4.8-10.8)
[2021-11-06 23:58] LABS: ALT (SGPT) 13 U/L (8-55); AST (SGOT) 15 U/L (5-34); Albumin 3.6 g/dL (3.4-4.8); Alkaline Phosphatase 90 U/L (40-110); Anion Gap 20 mmol/L (10-20); BUN (Urea Nitrogen) 43 mg/dL (9.8-20.1); Bilirubin, Total 0.5 mg/dL (0.2-1.2); Calc. Creatinine Clearance 0 mL/min (70-130); Calcium 9.8 mg/dL (7.8-10.44); Carbon Dioxide 17 mmol/L (23-31); Chloride 107 mmol/L (98-107); Estimated GFR 13; Globulin 2.3 g/dL (2.4-3.5); Glucose 87 mg/dL (83-110); Lipase 43 U/L (8-78); Potassium 4.5 mmol/L (3.5-5.1); Protein, Total 5.9 g/dL (5.8-8.1); Sodium 139 mmol/L (136-145)
== END 2021-11-07 00:52 | disposition home or self-care (01) ==
LOC: ERS 22:27
DX: R07.9 Chest pain, unspecified (principal); I13.2 Hypertensive heart and chronic kidney disease with heart failure and with stage 5 chronic kidney disease, or end stage renal disease; N18.6 End stage renal disease; I50.9 Heart failure, unspecified; I25.10 Atherosclerotic heart disease of native coronary artery without angina pectoris; I25.2 Old myocardial infarction; K21.9 Gastro-esophageal reflux disease without esophagitis; I73.9 Peripheral vascular disease, unspecified; E78.5 Hyperlipidemia, unspecified; G47.00 Insomnia, unspecified; Z87.891 Personal history of nicotine dependence; Z99.2 Dependence on renal dialysis; Z95.5 Presence of coronary angioplasty implant and graft; Z79.899 Other long term (current) drug therapy
CPT/HCPCS: 36415; 71045; 83690; 83880; 84484; 93005

== ENCOUNTER 2021-11-21 17:00 | Inpatient (IN) | payer OTHER ==
[2021-11-21 18:32] VITALS: BMI 26.9
[2021-11-21] MEDS ORDERED: Polyethylene Glycol 3350 17 GM Packet PO PRN (21:03)
[2021-11-21] MEDS ORDERED: Albuterol 200 PUFF (6.7GM INHALER) INH PRN (21:03)
[2021-11-21] MEDS ORDERED: guaiFENesin ER 600 MG TAB PO PRN (21:03)
[2021-11-21] MEDS ORDERED: Bisacodyl 5 MG TAB PO PRN (21:03)
[2021-11-21] MEDS ORDERED: Nitroglycerin 0.4 MG TAB (25 Tab Bottle) SL SCH (21:15)
[2021-11-21] MEDS ORDERED: traZODone HCl 50 MG TAB PO SCH (21:30)
[2021-11-21] MEDS: Carvedilol 6.25 MG TAB PO SCH (21:36)
[2021-11-21] MEDS: Haloperidol 1 MG TAB PO SCH (21:36)
[2021-11-21] MEDS: Lorazepam 0.5 MG TAB PO SCH (21:37)
[2021-11-21] MEDS: Gabapentin 300 MG CAP PO SCH (21:37)
[2021-11-21] MEDS: traZODone HCl 50 MG TAB PO SCH (21:43)
[2021-11-21 22:27] LABS: Troponin I 0.025 ng/mL (< 0.028)
[2021-11-21] MEDS: Sevelamer Carbonate 800 MG TAB PO SCH (23:53)
[2021-11-22 01:19] LABS: Troponin I 0.025 ng/mL (< 0.028)
[2021-11-22 05:32] LABS: ALT (SGPT) 22 U/L (8-55); AST (SGOT) 20 U/L (5-34); Albumin 3.5 g/dL (3.4-4.8); Alkaline Phosphatase 71 U/L (40-110); Anion Gap 16 mmol/L (10-20); BUN (Urea Nitrogen) 51 mg/dL (9.8-20.1); Bilirubin, Total 0.4 mg/dL (0.2-1.2); Calc. Creatinine Clearance 17 mL/min (70-130); Calcium 8.7 mg/dL (7.8-10.44); Carbon Dioxide 19 mmol/L (23-31); Chloride 112 mmol/L (98-107); Estimated GFR 13; Globulin 2.1 g/dL (2.4-3.5); Glucose 89 mg/dL (83-110); Potassium 5.2 mmol/L (3.5-5.1); Protein, Total 5.6 g/dL (5.8-8.1); Sodium 142 mmol/L (136-145)
[2021-11-22 05:59] LABS: Band 4 % (5-11); Eosinophils 2 % (0-10); Hemoglobin 7.8 g/dL (12.0-16.0); Lymphocytes 28 % (21-51); MDiff Complete? YES; Mean Corpuscular HGB CONC 31.6 g/dL (32.0-36.0); Mean Corpuscular Hemoglobin 23.2 pg (27.0-31.0); Mean Corpuscular Volume 73.3 fL (78.0-98.0); Mean Platelet Volume 11.5 fL (7.4-10.4); Monocytes 1 % (0-10); Neutrophil 65 % (42-75); Platelet Count 167 thou/uL (130-400); RBC Distribution Width 17.5 % (11.5-14.5); Red Blood Cell (RBC) Count 3.37 mill/uL (4.20-5.40)
[2021-11-22] MEDS: Carvedilol 6.25 MG TAB PO SCH ×2 (08:25→20:39)
[2021-11-22] MEDS: Sevelamer Carbonate 800 MG TAB PO SCH ×5 (08:25→21:46)
[2021-11-22] MEDS: Atorvastatin Calcium 40 MG TAB PO SCH (08:25)
[2021-11-22] MEDS: Furosemide 80 MG TAB PO SCH (08:26)
[2021-11-22] MEDS: Fish Oil 1,000 MG CAP PO SCH (08:26)
[2021-11-22] MEDS: Clopidogrel Bisulfate 75 MG TAB PO SCH (08:26)
[2021-11-22] MEDS: Gabapentin 300 MG CAP PO SCH ×3 (08:27→20:40)
[2021-11-22] MEDS: Haloperidol 1 MG TAB PO SCH ×2 (08:27→20:39)
[2021-11-22] MEDS: Heparin 5,000 UNITS/ML VIAL SC SCH ×2 (08:28→20:39)
[2021-11-22] MEDS: Icosapent Ethyl 1 GM CAPSULE PO SCH ×2 (08:28→21:46)
[2021-11-22] MEDS: NIFEdipine XL 30 MG TAB PO SCH (08:29)
[2021-11-22] MEDS ORDERED: Metolazone 2.5 MG TAB PO SCH (11:15)
[2021-11-22 11:19] LABS: Troponin I 0.026 ng/mL (< 0.028)
[2021-11-22] MEDS ORDERED: hydrALAZINE 20 MG/ML VIAL SLOW IVP PRN (11:53)
[2021-11-22 13:44] LABS: Anion Gap 15 mmol/L (10-20); BUN (Urea Nitrogen) 55 mg/dL (9.8-20.1); Calc. Creatinine Clearance 17 mL/min (70-130); Calcium 8.9 mg/dL (7.8-10.44); Carbon Dioxide 20 mmol/L (23-31); Chloride 111 mmol/L (98-107); Estimated GFR 13; Glucose 132 mg/dL (83-110); Potassium 5.1 mmol/L (3.5-5.1); Sodium 141 mmol/L (136-145)
[2021-11-22 15:04] LABS: HBSAg Index 0.25 S/CO (0-0.99); Hep B Surf Ag Non-Reactive S/CO (NonReactive)
[2021-11-22] MEDS: Melatonin 3 MG TAB PO SCH (20:39)
[2021-11-22] MEDS: Lorazepam 0.5 MG TAB PO SCH (20:39)
[2021-11-22] MEDS: traZODone HCl 50 MG TAB PO SCH (21:46)
[2021-11-23] MEDS: hydrALAZINE 20 MG/ML VIAL SLOW IVP PRN ×2 (05:52→21:49)
[2021-11-23] MEDS: Sevelamer Carbonate 800 MG TAB PO SCH ×5 (09:00→20:03)
[2021-11-23] MEDS: Icosapent Ethyl 1 GM CAPSULE PO SCH ×2 (09:00→20:49)
[2021-11-23] MEDS: Gabapentin 300 MG CAP PO SCH ×3 (09:01→20:02)
[2021-11-23] MEDS: NIFEdipine XL 30 MG TAB PO SCH (09:01)
[2021-11-23] MEDS: Fish Oil 1,000 MG CAP PO SCH (09:01)
[2021-11-23] MEDS: Furosemide 80 MG TAB PO SCH (09:02)
[2021-11-23] MEDS: Carvedilol 6.25 MG TAB PO SCH ×2 (09:02→20:03)
[2021-11-23] MEDS: Haloperidol 1 MG TAB PO SCH ×2 (09:03→20:49)
[2021-11-23] MEDS: Clopidogrel Bisulfate 75 MG TAB PO SCH (09:04)
[2021-11-23] MEDS: Heparin 5,000 UNITS/ML VIAL SC SCH ×2 (09:04→20:02)
[2021-11-23] MEDS: Atorvastatin Calcium 40 MG TAB PO SCH (09:04)
[2021-11-23] MEDS: Lorazepam 0.5 MG TAB PO SCH (20:03)
[2021-11-23] MEDS: traZODone HCl 50 MG TAB PO SCH (20:49)
[2021-11-23] MEDS: Melatonin 3 MG TAB PO SCH (20:49)
[2021-11-24] MEDS: hydrALAZINE 20 MG/ML VIAL SLOW IVP PRN (03:26)
[2021-11-24] MEDS ORDERED: Acetaminophen 325 MG TAB PO PRN (05:08)
[2021-11-24] MEDS: Sevelamer Carbonate 800 MG TAB PO SCH ×3 (07:52→17:17)
[2021-11-24] MEDS: Atorvastatin Calcium 40 MG TAB PO SCH (07:53)
[2021-11-24] MEDS: Carvedilol 6.25 MG TAB PO SCH (07:53)
[2021-11-24] MEDS: Furosemide 80 MG TAB PO SCH (07:54)
[2021-11-24] MEDS: Fish Oil 1,000 MG CAP PO SCH (07:54)
[2021-11-24] MEDS: Clopidogrel Bisulfate 75 MG TAB PO SCH (07:54)
[2021-11-24] MEDS: Haloperidol 1 MG TAB PO SCH (07:55)
[2021-11-24] MEDS: Gabapentin 300 MG CAP PO SCH ×2 (07:55→17:17)
[2021-11-24] MEDS: Heparin 5,000 UNITS/ML VIAL SC SCH (07:56)
[2021-11-24] MEDS: NIFEdipine XL 30 MG TAB PO SCH (07:57)
[2021-11-24] MEDS: Icosapent Ethyl 1 GM CAPSULE PO SCH (08:34)
[2021-11-24 09:57] LABS: #Eosinphils 0.2 thou/uL (0.0-0.7); #Monocytes 0.4 thou/uL (0.11-0.59); #Neutrophils 6.4 thou/uL (1.40-6.50); %Basophils 0.2 % (0.0-1.0); %Eosinophils 2.1 % (0.0-10.0); %Lymphocytes 12.7 % (21.0-51.0); Hemoglobin 7.2 g/dL (12.0-16.0); Mean Corpuscular HGB CONC 30.1 g/dL (32.0-36.0); Mean Corpuscular Hemoglobin 21.7 pg (27.0-31.0); Mean Corpuscular Volume 72.2 fL (78.0-98.0); Mean Platelet Volume 11.7 fL (7.4-10.4); Platelet Count 134 thou/uL (130-400); Red Blood Cell (RBC) Count 3.29 mill/uL (4.20-5.40)
[2021-11-24 10:18] LABS: Anion Gap 12 mmol/L (10-20); BUN (Urea Nitrogen) 26 mg/dL (9.8-20.1); Calc. Creatinine Clearance 30 mL/min (70-130); Calcium 8.9 mg/dL (7.8-10.44); Carbon Dioxide 29 mmol/L (23-31); Chloride 102 mmol/L (98-107); Estimated GFR 27; Glucose 129 mg/dL (83-110); Potassium 3.6 mmol/L (3.5-5.1); Sodium 139 mmol/L (136-145)
[2021-11-24 15:52] VITALS: BP 138/64; TEMP 98.2
== END 2021-11-24 17:14 | DRG 291 ==
LOC: 2SW 17:00 → OBSVTOIN 11-22 11:58
PROVIDERS: ADMIT Hospitalist; ATTEND Hospitalist
PROC: 5A1D70Z Performance of Urinary Filtration, Intermittent, Less than 6 Hours Per Day (ICD-10-PCS; principal; 2021-11-22)
DX: I13.2 Hypertensive heart and chronic kidney disease with heart failure and with stage 5 chronic kidney disease, or end stage renal disease (principal); N18.6 End stage renal disease; J96.21 Acute and chronic respiratory failure with hypoxia; I50.33 Acute on chronic diastolic (congestive) heart failure; I16.1 Hypertensive emergency; J44.1 Chronic obstructive pulmonary disease with (acute) exacerbation; E87.2 Acidosis; D63.1 Anemia in chronic kidney disease; K21.9 Gastro-esophageal reflux disease without esophagitis; E78.5 Hyperlipidemia, unspecified; I25.10 Atherosclerotic heart disease of native coronary artery without angina pectoris; D56.9 Thalassemia, unspecified; F32.A Depression, unspecified; F41.9 Anxiety disorder, unspecified; F17.210 Nicotine dependence, cigarettes, uncomplicated; I73.9 Peripheral vascular disease, unspecified; E11.22 Type 2 diabetes mellitus with diabetic chronic kidney disease; E87.5 Hyperkalemia; Z99.2 Dependence on renal dialysis; Z88.8 Allergy status to other drugs, medicaments and biological substances; Z79.899 Other long term (current) drug therapy; Z79.02 Long term (current) use of antithrombotics/antiplatelets; I25.2 Old myocardial infarction; Z95.5 Presence of coronary angioplasty implant and graft
CPT/HCPCS: 36415; 71045; 80048; 80053; 84484; 85025; 87340; 90935; 94640; 96372; G0257; G0378; J0360; J1644; J7620; U0003; U0005

== ENCOUNTER 2022-01-08 13:08 | Inpatient (IN) | payer OTHER ==
[2022-01-08 14:21] VITALS: BMI 27.5
[2022-01-08] MEDS ORDERED: Acetaminophen 325 MG TAB PO PRN (15:06)
[2022-01-08] MEDS ORDERED: Senokot S 8.6-50 MG TAB PO PRN (15:06)
[2022-01-08] MEDS ORDERED: Ondansetron PF 4 MG/2 ML Vial IVP PRN (15:06)
[2022-01-08] MEDS ORDERED: Pantoprazole 40 MG VIAL IVP SCH (15:15)
[2022-01-08] MEDS ORDERED: traMADol HCl 50 MG TAB PO PRN (15:38)
[2022-01-08 15:39] LABS: Hemoglobin 7.4 g/dL (12.0-16.0)
[2022-01-08] MEDS ORDERED: Sevelamer Carbonate 800 MG TAB PO SCH (18:00)
[2022-01-08] MEDS: Icosapent Ethyl 1 GM CAPSULE PO SCH (20:12)
[2022-01-08] MEDS: Pantoprazole 40 MG VIAL IVP SCH (20:12)
[2022-01-08] MEDS: Atorvastatin Calcium 40 MG TAB PO SCH (20:13)
[2022-01-08] MEDS: Sevelamer Carbonate 800 MG TAB PO SCH (20:13)
[2022-01-08] MEDS: traZODone HCl 50 MG TAB PO SCH (20:13)
[2022-01-09] MEDS: hydrALAZINE 20 MG/ML VIAL SLOW IVP PRN (04:43)
[2022-01-09] MEDS ORDERED: Carvedilol 6.25 MG TAB PO SCH (09:00)
[2022-01-09] MEDS ORDERED: Epoetin (ESRD) 10,000 UNITS/ML VIAL IVP SCH (09:00)
[2022-01-09] MEDS: Sevelamer Carbonate 800 MG TAB PO SCH ×5 (09:46→20:23)
[2022-01-09] MEDS: Gabapentin 300 MG CAP PO SCH (09:46)
[2022-01-09] MEDS: Pantoprazole 40 MG VIAL IVP SCH ×2 (09:47→20:22)
[2022-01-09 11:09] LABS: #Eosinphils 0.1 thou/uL (0.0-0.7); #Lymphocytes 1.1 thou/uL (1.20-3.40); #Monocytes 0.4 thou/uL (0.11-0.59); #Neutrophils 4.5 thou/uL (1.40-6.50); %Basophils 0.5 % (0.0-1.0); %Eosinophils 2.3 % (0.0-10.0); %Lymphocytes 17.8 % (21.0-51.0); %Monocytes 6.9 % (0.0-10.0); %Neutrophils 72.6 % (42.0-75.0); Hemoglobin 7.2 g/dL (12.0-16.0); Mean Corpuscular HGB CONC 32.7 g/dL (32.0-36.0); Mean Corpuscular Hemoglobin 23.8 pg (27.0-31.0); Mean Corpuscular Volume 72.8 fL (78.0-98.0); Mean Platelet Volume 11.2 fL (7.4-10.4); Platelet Count 161 thou/uL (130-400); RBC Distribution Width 18.5 % (11.5-14.5); Red Blood Cell (RBC) Count 3.03 mill/uL (4.20-5.40); White Blood Cell (WBC) Count 6.1 thou/uL (4.8-10.8)
[2022-01-09] MEDS: Icosapent Ethyl 1 GM CAPSULE PO SCH ×2 (11:33→20:22)
[2022-01-09 12:38] LABS: ALT (SGPT) 12 U/L (8-55); AST (SGOT) 15 U/L (5-34); Albumin 3.7 g/dL (3.4-4.8); Alkaline Phosphatase 93 U/L (40-110); Anion Gap 14 mmol/L (10-20); BUN (Urea Nitrogen) 28 mg/dL (9.8-20.1); Bilirubin, Total 0.5 mg/dL (0.2-1.2); Calc. Creatinine Clearance 19 mL/min (70-130); Calcium 9.1 mg/dL (7.8-10.44); Carbon Dioxide 26 mmol/L (23-31); Chloride 101 mmol/L (98-107); Estimated GFR 16; Globulin 2.4 g/dL (2.4-3.5); Glucose 94 mg/dL (83-110); Potassium 3.6 mmol/L (3.5-5.1); Protein, Total 6.1 g/dL (5.8-8.1); Sodium 137 mmol/L (136-145)
[2022-01-09] MEDS ORDERED: Carvedilol 25 MG TAB PO SCH (15:15)
[2022-01-09] MEDS: traZODone HCl 50 MG TAB PO SCH (20:23)
[2022-01-09] MEDS: Atorvastatin Calcium 40 MG TAB PO SCH (20:23)
[2022-01-09] MEDS: Carvedilol 25 MG TAB PO SCH (20:23)
[2022-01-09 22:19] LABS: Iron Binding Capacity, Total 245 mcg/dL (265-497)
[2022-01-09 22:20] LABS: Iron 27 ug/dL (50-170)
[2022-01-10] MEDS: hydrALAZINE 20 MG/ML VIAL SLOW IVP PRN (03:58)
[2022-01-10] MEDS: Sevelamer Carbonate 800 MG TAB PO SCH ×4 (08:30→18:23)
[2022-01-10] MEDS: Carvedilol 25 MG TAB PO SCH (08:31)
[2022-01-10] MEDS: Gabapentin 300 MG CAP PO SCH (08:31)
[2022-01-10] MEDS: Icosapent Ethyl 1 GM CAPSULE PO SCH (08:32)
[2022-01-10] MEDS: Pantoprazole 40 MG VIAL IVP SCH (08:33)
[2022-01-10 09:07] LABS: #Eosinphils 0.1 thou/uL (0.0-0.7); #Monocytes 0.5 thou/uL (0.11-0.59); #Neutrophils 5.5 thou/uL (1.40-6.50); %Basophils 0.5 % (0.0-1.0); %Eosinophils 1.4 % (0.0-10.0); %Lymphocytes 13.5 % (21.0-51.0); %Monocytes 6.8 % (0.0-10.0); %Neutrophils 77.9 % (42.0-75.0); Hemoglobin 9.5 g/dL (12.0-16.0); Mean Corpuscular HGB CONC 32.1 g/dL (32.0-36.0); Mean Corpuscular Hemoglobin 24.4 pg (27.0-31.0); Mean Corpuscular Volume 75.9 fL (78.0-98.0); Mean Platelet Volume 11.2 fL (7.4-10.4); Platelet Count 168 thou/uL (130-400); RBC Distribution Width 19.4 % (11.5-14.5)
[2022-01-10 09:11] LABS: Anion Gap 17 mmol/L (10-20); BUN (Urea Nitrogen) 25 mg/dL (9.8-20.1); Calc. Creatinine Clearance 19 mL/min (70-130); Calcium 9.7 mg/dL (7.8-10.44); Carbon Dioxide 26 mmol/L (23-31); Chloride 101 mmol/L (98-107); Estimated GFR 17; Glucose 110 mg/dL (83-110); Magnesium 1.9 mg/dL (1.6-2.6); Potassium 3.9 mmol/L (3.5-5.1); Sodium 140 mmol/L (136-145)
[2022-01-10 16:44] VITALS: BP 156/70; TEMP 98.3
== END 2022-01-10 17:45 | disposition home or self-care (01) | DRG 393 ==
LOC: 2SW 14:14 → OBSVTOIN 15:06
PROVIDERS: ADMIT Internal Medicine; ATTEND Internal Medicine
PROC: 30233N1 Transfusion of Nonautologous Red Blood Cells into Peripheral Vein, Percutaneous Approach (ICD-10-PCS; principal; 2022-01-08)
DX: K64.9 Unspecified hemorrhoids (principal); N18.6 End stage renal disease; I12.0 Hypertensive chronic kidney disease with stage 5 chronic kidney disease or end stage renal disease; D50.9 Iron deficiency anemia, unspecified; Z20.822 Contact with and (suspected) exposure to COVID-19; Z66 Do not resuscitate; J44.9 Chronic obstructive pulmonary disease, unspecified; E78.5 Hyperlipidemia, unspecified; D63.1 Anemia in chronic kidney disease; I25.10 Atherosclerotic heart disease of native coronary artery without angina pectoris; Z95.5 Presence of coronary angioplasty implant and graft; Z99.2 Dependence on renal dialysis; Z88.8 Allergy status to other drugs, medicaments and biological substances; Z79.899 Other long term (current) drug therapy; Z79.51 Long term (current) use of inhaled steroids
CPT/HCPCS: 36415; 36430; 80048; 80053; 82728; 83021; 83540; 83550; 83735; 85025; 86850; 86900; 86901; 94640; C9113; J0360; J7620; P9016; Q4081; U0003; U0005

== ENCOUNTER 2022-03-29 12:47 | Emergency (ER) | payer OTHER ==
[2022-03-29 14:29] LABS: ALT (SGPT) 14 U/L (8-55); AST (SGOT) 27 U/L (5-34); Albumin 3.5 g/dL (3.4-4.8); Alkaline Phosphatase 91 U/L (40-110); Anion Gap 25 mmol/L (10-20); BUN (Urea Nitrogen) 115 mg/dL (9.8-20.1); Bilirubin, Total 0.4 mg/dL (0.2-1.2); Calc. Creatinine Clearance 0 mL/min (70-130); Calcium 10.1 mg/dL (7.8-10.44); Carbon Dioxide 10 mmol/L (23-31); Chloride 107 mmol/L (98-107); Estimated GFR 3; Globulin 2.8 g/dL (2.4-3.5); Glucose 85 mg/dL (83-110); Potassium 5.1 mmol/L (3.5-5.1); Protein, Total 6.3 g/dL (5.8-8.1); Sodium 137 mmol/L (136-145)
[2022-03-29 14:34] LABS: #Eosinphils 0.1 thou/uL (0.0-0.7); #Lymphocytes 0.8 thou/uL (1.20-3.40); #Monocytes 0.8 thou/uL (0.11-0.59); #Neutrophils 5.6 thou/uL (1.40-6.50); %Eosinophils 0.7 % (0.0-10.0); %Lymphocytes 10.4 % (21.0-51.0); %Monocytes 11.3 % (0.0-10.0); %Neutrophils 77.6 % (42.0-75.0); Hemoglobin 9.1 g/dL (12.0-16.0); Mean Corpuscular HGB CONC 31.4 g/dL (32.0-36.0); Mean Corpuscular Hemoglobin 21.6 pg (27.0-31.0); Mean Corpuscular Volume 68.5 fl (78.0-98.0); Mean Platelet Volume 8.6 fL (7.4-10.4); Platelet Count 137 10x3/uL (130-400); RBC Distribution Width 18.6 % (11.5-14.5); Red Blood Cell (RBC) Count 4.24 mill/uL (4.20-5.40); White Blood Cell (WBC) Count 7.3 10x3/uL (4.8-10.8)
[2022-03-29 14:56] LABS: Anisocytosis SLIGHT = 6-15 cells (100X) (0-5/hpf); Burr Cells SLIGHT = 2-5 cells (100X) (0-1/hpf); Hypochromia SLIGHT = 6-15 cells (100X) (0-5/hpf); MDiff Complete? YES; Microcytosis SLIGHT = 6-15 cells (100X) (0-5/hpf); Ovalocytes SLIGHT = 2-5 cells (100X) (0-1/hpf); Platelet Morphology Comment Appears Adequate; Polychromasia SLIGHT = 2-3 cells (100X) (0-2/hpf); Target Cells SLIGHT = 2-5 cells (100X) (0-1/hpf)
== END 2022-03-29 19:30 | disposition home or self-care (01) ==
LOC: ERS 12:47
DX: U07.1 COVID-19 (principal); I13.2 Hypertensive heart and chronic kidney disease with heart failure and with stage 5 chronic kidney disease, or end stage renal disease; I50.9 Heart failure, unspecified; N18.6 End stage renal disease; K21.9 Gastro-esophageal reflux disease without esophagitis; E78.5 Hyperlipidemia, unspecified; Z99.2 Dependence on renal dialysis
CPT/HCPCS: 36415; 71045; 80053; 83880; 85025; 93005

== ENCOUNTER 2022-08-20 11:50 | Inpatient (IN) | payer OTHER ==
[~2022-08-20 11:50] MED LIST changes: +Heparin 10,000 UNITS/ 10 ML VIAL ONE; -Prevnar 13-Val Conj/PF 0.5 ML SYRINGE IM ONE
[2022-08-20 12:58] LABS: Actual Bicarbonate (HCO3v) 17.8 mEq/L (22-28); Analyzer IN Cardio ER; Base Excess -7.9 mEq/L (-2.0 to +3.0); Calcium, Ionized (venous) 1.31 mmol/L (1.16-1.32); Chloride (VBG) 100 mmol/L (98-106); Hematocrit-VBG 29 % (36.0-47.0); Hemoglobin (Hb) 9.9 g/dL (11.7-16.1); Potassium (VBG) 5.26 mmol/L (3.70-5.30); Sodium 128.2 mmol/L (133-146); pH (venous) 7.299 (7.32-7.43)
[2022-08-20] MEDS ORDERED: Calcium Gluc 4.6 MEQ/10 ML (100 MG/ML) ONE (13:10)
[2022-08-20 13:11] LABS: #Basophils 0.1 thou/uL (0.0-0.2); #Eosinphils 0.4 thou/uL (0.0-0.7); #Lymphocytes 1.5 thou/uL (1.20-3.40); #Monocytes 0.9 thou/uL (0.11-0.59); #Neutrophils 11.1 thou/uL (1.40-6.50); %Basophils 0.5 % (0.0-1.0); %Eosinophils 2.7 % (0.0-10.0); %Lymphocytes 10.9 % (21.0-51.0); %Monocytes 6.5 % (0.0-10.0); %Neutrophils 79.4 % (42.0-75.0); Hemoglobin 9.1 g/dL (12.0-16.0); Mean Corpuscular HGB CONC 30.1 g/dL (32.0-36.0); Mean Corpuscular Hemoglobin 20.8 pg (27.0-31.0); Mean Corpuscular Volume 69.3 fl (78.0-98.0); Mean Platelet Volume 11.3 fL (7.4-10.4); Platelet Count 251 10x3/uL (130-400); RBC Distribution Width 15.7 % (11.5-14.5); Red Blood Cell (RBC) Count 4.37 mill/uL (4.20-5.40); White Blood Cell (WBC) Count 13.9 10x3/uL (4.8-10.8)
[2022-08-20 13:28] LABS: Anisocytosis SLIGHT = 6-15 cells (100X) (0-5/hpf); Hypochromia SLIGHT = 6-15 cells (100X) (0-5/hpf); MDiff Complete? YES; Microcytosis SLIGHT = 6-15 cells (100X) (0-5/hpf); Ovalocytes SLIGHT = 2-5 cells (100X) (0-1/hpf); Platelet Morphology Comment Appears Adequate; Polychromasia SLIGHT = 2-3 cells (100X) (0-2/hpf); Spherocytes SLIGHT = 1-5 cells (100X) (None Seen); Target Cells SLIGHT = 2-5 cells (100X) (0-1/hpf)
[2022-08-20] MEDS ORDERED: Calcium Gluconate 13.8 MEQ, Admixture Fee 1 EACH in Sodium Chloride 0.9% 100 ML IVPB SCH (13:30)
[2022-08-20 13:34] LABS: ALT (SGPT) 37 U/L (8-55); AST (SGOT) 36 U/L (5-34); Albumin 2.9 g/dL (3.4-4.8); Alkaline Phosphatase 283 U/L (40-110); Anion Gap 20 mmol/L (10-20); BUN (Urea Nitrogen) 109 mg/dL (9.8-20.1); Bilirubin, Total 0.4 mg/dL (0.2-1.2); Calc. Creatinine Clearance 0 mL/min (70-130); Calcium 11.5 mg/dL (7.8-10.44); Carbon Dioxide 15 mmol/L (23-31); Chloride 102 mmol/L (98-107); Estimated GFR 7; Globulin 3.6 g/dL (2.4-3.5); Glucose 102 mg/dL (83-110); Magnesium 2.5 mg/dL (1.6-2.6); Protein, Total 6.5 g/dL (5.8-8.1); Sodium 132 mmol/L (136-145)
[2022-08-20 14:05] LABS: Clarity Extra Turbid (Clear)
[2022-08-20 14:06] LABS: Bilirubin Unable to Interpret (Negative); Blood, Urine Unable to Interpret (Negative); Glucose, Urine (Dipstick) Unable to Interpret mg/dL (Negative); Ketone, Urine Unable to Interpret mg/dL (Negative); Leukocyte Unable to Interpret (Negative); Nitrite Unable to Interpret (Negative); Protein, Urine (Dipstick) Unable to Interpret mg/dL (Neg-Trace); Specific Gravity, Urine 1.012 (1.002-1.036); Urobilinogen UNABLE TO INTERPRET mg/dL (Less than 2); pH, Urine 5.7 (5.0-9.0)
[2022-08-20 14:07] LABS: Bacteria/HPF 4+ HPF (None Seen); RBC/HPF 0-3 HPF (0-3); WBC/HPF Greater than 50 HPF (0-3)
[2022-08-20] MEDS ORDERED: Polyethylene Glycol 3350 17 GM Packet PO PRN (14:28)
[2022-08-20] MEDS ORDERED: Nitroglycerin 0.4 MG TAB (25 Tab Bottle) SL PRN (14:30)
[2022-08-20] MEDS ORDERED: Acetaminophen 325 MG TAB PO PRN (14:31)
[2022-08-20] MEDS ORDERED: Ondansetron PF 4 MG/2 ML Vial IVP PRN (14:31)
[2022-08-20] MEDS ORDERED: Heparin 5,000 UNITS/ML VIAL SC SCH (15:00)
[2022-08-20 15:09] LABS: Acetaminophen Less than 10.0 mcg/mL (10.0-30.0); Alcohol Less than 10 mg/dL (Less than 10); Salicylate Less than 8.0 mg/dL (15.0-30.0)
[2022-08-20] MEDS ORDERED: Albuterol HFA (OR) 200 PUFF INH INH PRN (15:10)
[2022-08-20 15:24] LABS: HBSAg Index 0.21 S/CO (0-0.99); Hep B Core Total Ab Non-Reactive (NonReactive); Hep B Core Total Index 0.08 S/CO (0-0.79); Hep B Surf Ag Non-Reactive S/CO (NonReactive); Hep C IgG Ab Non-Reactive S/CO (NonReactive); Hep C Index 0.03 S/CO (0-0.79)
[2022-08-20 15:40] LABS: HBSAB Concentration 32.23 mIU/mL; Hep B Surf AB Reactive (NonReactive)
[2022-08-20] MEDS ORDERED: Sevelamer Carbonate 800 MG TAB PO SCH (16:00)
[2022-08-20 16:35] LABS: Amphetamine Not Detected (NotDetected); Barbiturates Screen Not Detected (NotDetected); Benzodiazepine Screen Not Detected (NotDetected); Cocaine Metabolite Screen Not Detected (NotDetected); Methadone Not Detected (NotDetected); Methamphetamine Not Detected (NotDetected); Opiate Screen Not Detected (NotDetected); Oxycodone Screen Not Detected (NotDetected); Phencyclidine (PCP) Not Detected (NotDetected); THC/Cannabinoid Screen Not Detected (NotDetected); Tricyclic Screen Not Detected (NotDetected)
[2022-08-20 17:56] VITALS: BP 108/80; TEMP 97.2
[2022-08-20] MEDS ORDERED: Icosapent Ethyl 1 GM CAPSULE PO SCH (21:00)
[2022-08-20] MEDS ORDERED: Carvedilol 6.25 MG TAB PO SCH (21:00)
[2022-08-20] MEDS ORDERED: traZODone HCl 50 MG TAB PO SCH (21:00)
[2022-08-21] MEDS ORDERED: Atorvastatin Calcium 40 MG TAB PO SCH (09:00)
[2022-08-21] MEDS ORDERED: Furosemide 80 MG TAB PO SCH (09:00)
[2022-08-21] MEDS ORDERED: NIFEdipine XL 30 MG TAB PO SCH (09:00)
[2022-08-21] MEDS ORDERED: Sertraline 100 MG TAB PO SCH (09:00)
== END 2022-08-21 00:35 | disposition expired | DRG 682 ==
LOC: ERS 11:50 → 2NO 16:39
PROVIDERS: ADMIT Family Medicine; ATTEND Internal Medicine
PROC: 5A1D70Z Performance of Urinary Filtration, Intermittent, Less than 6 Hours Per Day (ICD-10-PCS; principal; 2022-08-20)
DX: I12.0 Hypertensive chronic kidney disease with stage 5 chronic kidney disease or end stage renal disease (principal); Z66 Do not resuscitate; G93.41 Metabolic encephalopathy; N18.6 End stage renal disease; I21.4 Non-ST elevation (NSTEMI) myocardial infarction; E87.20 Acidosis, unspecified; E87.1 Hypo-osmolality and hyponatremia; I46.9 Cardiac arrest, cause unspecified; E78.5 Hyperlipidemia, unspecified; I48.91 Unspecified atrial fibrillation; J44.9 Chronic obstructive pulmonary disease, unspecified; D63.1 Anemia in chronic kidney disease; D72.829 Elevated white blood cell count, unspecified; F41.9 Anxiety disorder, unspecified; F32.9 Major depressive disorder, single episode, unspecified; K21.9 Gastro-esophageal reflux disease without esophagitis; E88.09 Other disorders of plasma-protein metabolism, not elsewhere classified; Z99.2 Dependence on renal dialysis; Z88.8 Allergy status to other drugs, medicaments and biological substances; Z79.899 Other long term (current) drug therapy; Z95.5 Presence of coronary angioplasty implant and graft; Z82.49 Family history of ischemic heart disease and other diseases of the circulatory system
CPT/HCPCS: 36415; 36416; 51701; 70450; 71045; 80053; 80306; 80307; 81003; 81015; 82553; 82805; 83605; 83735; 84484; 85025; 86704; 87040; 87077; 87086; 87186; 93005; 94760; J0612; J1644; J3490